=== PATIENT | female | born 1970 | race Caucasian/White ===

== ENCOUNTER 2023-12-03 14:00 | Emergency (ER) | payer OTHER, SELFPAY ==
[2023-12-03 14:08] VITALS: BP 112/75; PULSE 62; RESP 18; TEMP 36.7; O2SAT 96; BMI 22.1
--- NOTE | 2023-12-03 14:20 | ED.GENADUL1 ---
Documented by User: Hermelinda Herber 12/03/23 14:37 HPI - General Adult General Chief complaint: Headache Stated complaint: HEAD PAIN Time Seen by Provider: 12/03/23 14:08 Source: patient Mode of arrival: walk-in Limitations: no limitations History of Present Illness HPI narrative: 53 year old Female presents with a 2-day history of right-sided head pain. patient denies worse headache of her life, sudden onset or thunderclap sensation. She described as a sharp pain to the right side of her head That waxes and wanes for the past two days. She has had an upper respiratory infection as well.patient's vital signs are stable, she's currently afebrile, nontoxic appearing.patient denies history of migraine headaches. Patient has no pain to palpation at this time. Related Data Home Medications Medication Instructions Recorded Confirmed aripiprazole 5 mg tablet 5 mg PO DAILY 12/03/23 12/03/23 bupropion HCl 150 mg 24 hr tablet, 150 mg PO QAM 12/03/23 12/03/23 extended release bupropion HCl 300 mg 24 hr tablet, 300 mg PO DAILY 12/03/23 12/03/23 extended release venlafaxine 150 mg 150 mg PO DAILY 12/03/23 12/03/23 capsule,extended release 24 hr Allergies Allergy/AdvReac Type Severity Reaction Status Date / Time No Known Drug Allergies Allergy Verified 12/03/23 14:14 Review of Systems ROS Narrative Systems are negative except as noted/marked.All systems reviewed and otherwise negative PFSH PFSH Social History Smoking status: Current every day smoker Exam Narrative Exam Narrative: Nurses note and vital signs reviewed and patient is not hypoxic. General: The patient appears well and in no apparent distress. Patient is resting comfortably on cart. Skin: Warm, dry, no pallor noted. There is no rash noted. Head: Normocephalic, atraumatic Eye: Normal conjunctiva, no drainage, EOMI. PERRL Ears, Nose, Mouth, and Throat: oral mucosa is moist. Nares patent. Mouth without vesicles. Ear canals patent. Tm's without Erythema Cardiovascular: Regular Rate and Rhythm Respiratory: Patient is in no distress, no accessory muscle use, lungs are clear to auscultation, no wheezing, rales or rhonchi Musculoskeletal: The patient has no evidence of calf tenderness, no pitting edema, symmetrical pulses noted bilaterally Neurological: A&O x4, normal speech Psychiatric: Cooperative Constitutional Vital Signs, click to edit/add: Last Vital Signs Temp 98.0 F 12/03/23 14:08 Pulse 62 12/03/23 14:08 Resp 18 12/03/23 14:08 BP 112/75 12/03/23 14:08 Pulse Ox 96 12/03/23 14:08 O2 Del Method Room Air 12/03/23 14:08 Course Vital Signs Vital signs: Vital Signs Temperature 98.0 F 12/03/23 14:08 Pulse Rate 62 12/03/23 14:08 Respiratory Rate 18 12/03/23 14:08 Blood Pressure 112/75 12/03/23 14:08 Pulse Oximetry 96 12/03/23 14:08 Oxygen Delivery Method Room Air 12/03/23 14:08 Temperature 98.0 F 12/03/23 14:08 Pulse Rate 62 12/03/23 14:08 Respiratory Rate 18 12/03/23 14:08 Blood Pressure 112/75 12/03/23 14:08 Pulse Oximetry 96 12/03/23 14:08 Oxygen Delivery Method Room Air 12/03/23 14:08 Medical Decision Making MDM Narrative Medical decision making narrative: Healthy 53-year-old female presents with chief complaint of right-sided head pain. She states she's had a headache for the past two days that comes and goes wax and wanes. Vital signs are stable. She denies worse headache of her life sudden onset or thunderclap sensation. Patient states that last weekend she developed upper respiratory infection with cough congestion. She still has some congestion today. She denies the need or want for a Covid or flu swab. Patient's treated here for her Headache with Toradol, Zofran and Decadron. Patient discharged home and follow-up with her primary care physician. Patient has no focal neurological deficits. Differential Diagnosis Differential Diagnosis: headache, sinusitis, migraine Medical Records Medical records reviewed: Yes I reviewed the patient's medical records Discharge Plan Discharge Chief Complaint: Headache Clinical Impression: Headache Patient Disposition: Home, Self-Care Time of Disposition Decision: 14:34 Condition: Good Mode of Transportation: Private Vehicle Prescriptions / Home Meds: No Action venlafaxine 150 mg capsule,extended release 24hr 150 mg PO DAILY bupropion HCl 300 mg tablet extended release 24 hr 300 mg PO DAILY aripiprazole 5 mg tablet 5 mg PO DAILY bupropion HCl 150 mg tablet extended release 24 hr 150 mg PO QAM Instructions: General Headache (ED) Stand Alone Forms: Portal Instructions Referrals: Physician,Non-Staff, [Primary Care Provider] - 1 week Discharge Date/Time: 12/03/23 14:47 Documented by User: Seth Peace MD 12/03/23 18:40 HPI - General Adult General Chief complaint: Headache Stated complaint: HEAD PAIN Time Seen by Provider: 12/03/23 14:08 Related Data Home Medications Medication Instructions Recorded Confirmed aripiprazole 5 mg tablet 5 mg PO DAILY 12/03/23 12/03/23 bupropion HCl 150 mg 24 hr tablet, 150 mg PO QAM 12/03/23 12/03/23 extended release bupropion HCl 300 mg 24 hr tablet, 300 mg PO DAILY 12/03/23 12/03/23 extended release venlafaxine 150 mg 150 mg PO DAILY 12/03/23 12/03/23 capsule,extended release 24 hr Allergies Allergy/AdvReac Type Severity Reaction Status Date / Time No Known Drug Allergies Allergy Verified 12/03/23 14:14 PFSH PFS Social History Smoking status: Current every day smoker Exam Constitutional Vital Signs, click to edit/add: Last Vital Signs Temp 98.0 F 12/03/23 14:08 Pulse 62 12/03/23 14:08 Resp 18 12/03/23 14:08 BP 112/75 12/03/23 14:08 Pulse Ox 96 12/03/23 14:08 O2 Del Method Room Air 12/03/23 14:08 Course Vital Signs Vital signs: Vital Signs Temperature 98.0 F 12/03/23 14:08 Pulse Rate 62 12/03/23 14:08 Respiratory Rate 18 12/03/23 14:08 Blood Pressure 112/75 12/03/23 14:08 Pulse Oximetry 96 12/03/23 14:08 Oxygen Delivery Method Room Air 12/03/23 14:08 Temperature 98.0 F 12/03/23 14:08 Pulse Rate 62 12/03/23 14:08 Respiratory Rate 18 12/03/23 14:08 Blood Pressure 112/75 12/03/23 14:08 Pulse Oximetry 96 12/03/23 14:08 Oxygen Delivery Method Room Air 12/03/23 14:08 Medical Decision Making MDM Narrative Medical decision making narrative: Healthy 53-year-old female presents with chief complaint of right-sided head pain. She states she's had a headache for the past two days that comes and goes wax and wanes. Vital signs are stable. She denies worse headache of her life sudden onset or thunderclap sensation. Patient states that last weekend she developed upper respiratory infection with cough congestion. She still has some congestion today. She denies the need or want for a Covid or flu swab. Patient's treated here for her Headache with Toradol, Zofran and Decadron. Patient discharged home and follow-up with her primary care physician. Patient has no focal neurological deficits. I, Dr Peace, have reviewed the above progress note and course of action in the ER; agree with the above. I have gone over history and physical, and discussed disposition and treatment plan with the patient. Discharge Plan Discharge Chief Complaint: Headache Clinical Impression: Headache Patient Disposition: Home, Self-Care Time of Disposition Decision: 14:34 Condition: Good Mode of Transportation: Private Vehicle Prescriptions / Home Meds: No Action venlafaxine 150 mg capsule,extended release 24hr 150 mg PO DAILY bupropion HCl 300 mg tablet extended release 24 hr 300 mg PO DAILY aripiprazole 5 mg tablet 5 mg PO DAILY bupropion HCl 150 mg tablet extended release 24 hr 150 mg PO QAM Instructions: General Headache (ED) Stand Alone Forms: Portal Instructions Referrals: Physician,Non-Staff, MD [Primary Care Provider] - 1 week Discharge Date/Time: 12/03/23 14:47
[2023-12-03] MEDS: KETOROLAC TROMETHAMINE 60 MG/2 ML VIAL IM (14:25)
[2023-12-03] MEDS: ONDANSETRON 4 MG RAPDIS TABLET SL (14:25)
[2023-12-03] MEDS: DEXAMETHASONE SOD PHOS 10 MG/ML VIAL PO (14:25)
== END 2023-12-03 14:47 | disposition home or self-care (01) ==
PROVIDERS: Emergency Provider Emergency Medicine
DX: R51.9 Headache, unspecified (principal); Z79.899 Other long term (current) drug therapy; F17.210 Nicotine dependence, cigarettes, uncomplicated
CPT/HCPCS: 96372; 99284; J1100; J1885; Q0162

== ENCOUNTER 2024-01-04 16:40 | Inpatient (IN) | payer SELFPAY ==
[2024-01-04 16:45] VITALS: BP 113/80; PULSE 94; RESP 18; TEMP 36.6; O2SAT 99; BMI 22.0
--- NOTE | 2024-01-04 17:14 | US_ITS ---
The [address] [address] Patient Name: GEMA MORA MRN: [id number] date: 1970 Sex: F Assigned Patient Location: ER Current Patient Location: ER Accession/Order Number: [id number] Exam Date: 01/04/2024 17:20 Report Date: 01/04/2024 18:22 At the request of: FER MAJANO Procedure: US right upper quadrant EXAM: US right upper quadrant EXAM DATE: 01/04/2024 3:20 PM MST COMPARISON: CT urogram 06/28/2023. INDICATION: abdominal pain TECHNIQUE: Limited ultrasound of the right upper quadrant of abdomen was performed. Images were reviewed on a separate workstation. FINDINGS: Hepatic parenchyma is relatively isoechoic to adjacent renal cortex (normal). No focal intraparenchymal abnormality detected. Gallbladder is normally distended. No intraluminal echogenic abnormality seen. No gallbladder wall thickening or pericholecystic fluid noted. Gallbladder wall measures 1.5 mm. Sonographic Medley's sign is absent. No intrahepatic or extrahepatic biliary ductal dilatation noted. CBD measures 2.1 mm. Portal vein is patent with hepatopetal flow. Pancreas is partially obscured by bowel gas. Visualized pancreatic parenchyma is homogeneous. Right kidney measures 11.7 x 5.5 x 6.5 cm. Moderate hydronephrosis and proximal right hydroureter. The mid/distal ureter is obscured by bowel gas. Debris is noted in an inferior dilated renal calyx (for example, image [id number]). No free fluid noted in the right upper abdomen. US/US right upper quadrant IMPRESSION: 1. Moderate right hydroureteronephrosis. An obstructive etiology is not identified on this limited exam. Recommend further evaluation with CT to evaluate for an an obstructive etiology. 2. Debris within a dilated right inferior pole renal calyx raises suspicion for possible superimposed infection. 3. No gallstones or bile duct dilation. Sonographic Medley's sign is absent. 4. Subvisualized pancreas. Electronically authenticated by: RIMA BURKS Date: 01/04/2024 18:22
--- NOTE | 2024-01-04 17:15 | ED.ABDPAIN1 ---
HPI - Abdominal Pain General Chief Complaint: Abdominal Pain Stated Complaint: Abdominal Pain Time Seen by Provider: 01/04/24 17:07 Source: patient Mode of arrival: walk-in Limitations: no limitations History of Present Illness HPI narrative: Patient is a 53-year-old female who presents to the emergency department for 5-day history of pain in the right upper quadrant. She denies any back or flank pain. She has had a previous endometrial ablation but denies any other abdominal surgeries. She has had no fevers, chills, cough, congestion. She states she had COVID 1 month ago, no issues since. She is not concerned for . She has had nausea and she had 1 episode of vomiting 5 days ago but has had no persistent vomiting and has not had any episodes of diarrhea. She states her urine was dark today but she has not had any dysuria or urinary frequency. Related Data Home Medications Medication Instructions Recorded Confirmed aripiprazole 5 mg tablet 5 mg PO DAILY 12/03/23 12/03/23 bupropion HCl 150 mg 24 hr tablet, 150 mg PO QAM 12/03/23 12/03/23 extended release bupropion HCl 300 mg 24 hr tablet, 300 mg PO DAILY 12/03/23 12/03/23 extended release venlafaxine 150 mg 150 mg PO DAILY 12/03/23 12/03/23 capsule,extended release 24 hr Allergies Allergy/AdvReac Type Severity Reaction Status Date / Time No Known Drug Allergies Allergy Verified 12/03/23 14:14 Review of Systems ROS Constitutional Denies: fever or chills Ears, nose, mouth, and throat Denies: throat pain or nasal congestion Cardiovascular Denies: chest pain Respiratory Denies: shortness of breath Gastrointestinal Reports: abdominal pain and nausea; Denies: diarrhea Genitourinary Denies: painful urination Musculoskeletal Denies: back pain or neck pain Integumentary/Breast Denies: rash Neurological Denies: headache PFSH PFSH Social History Smoking status: Current every day smoker Exam Narrative Exam Narrative: Gen.: Awake, alert, in no distress Head: Normocephalic, atraumatic ENT: Moist mucous membranes Respiratory: No respiratory distress, lungs clear bilaterally Cardio: Regular rate and rhythm Gastrointestinal: Abdomen is soft, nondistended and Tender to palpation in the right upper quadrant with no guarding or rebound. Minimal tenderness in the right lower quadrant, no McBurney's point tenderness. No flank tenderness Extremities: Moves extremities equally Psych: Normal mood and affect Neuro: No focal neuro deficit Skin: Warm, dry, intact Constitutional Vital Signs, click to edit/add: Last Vital Signs Temp 97.9 F 01/04/24 16:45 Pulse 94 H 01/04/24 16:45 Resp 18 01/04/24 16:45 BP 113/80 01/04/24 16:45 Pulse Ox 99 01/04/24 16:45 O2 Del Method Room Air 01/04/24 16:45 Course Vital Signs Vital signs: Vital Signs Temperature 97.9 F 01/04/24 16:45 Pulse Rate 94 H 01/04/24 16:45 Respiratory Rate 18 01/04/24 16:45 Blood Pressure 113/80 01/04/24 16:45 Pulse Oximetry 99 01/04/24 16:45 Oxygen Delivery Method Room Air 01/04/24 16:45 Temperature 97.9 F 01/04/24 16:45 Pulse Rate 94 H 01/04/24 16:45 Respiratory Rate 18 01/04/24 16:45 Blood Pressure 113/80 01/04/24 16:45 Pulse Oximetry 99 01/04/24 16:45 Oxygen Delivery Method Room Air 01/04/24 16:45 MDM - Abdominal Pain MDM Narrative Medical decision making narrative: Initially I treated the patient with IV fluids, Toradol, Levsin, Protonix, Zofran. She is resting comfortably on reevaluation with these medications. Lab studies show white count 11.2, creatinine 1.07, lactic acid is normal. Patient noted to have a UTI. She was given IV Rocephin for this. Right upper quadrant ultrasound shows no evidence of gallbladder abnormality but the patient does have hydronephrosis noted on the ultrasound, it was recommended that she be sent for CT. CT shows stranding of the right kidney associated with an 8 x 6 x 8 mm stone in the right mid ureter. There is severe obstructive uropathy associated. I discussed the case with Dr. Rey for urology who recommended the patient be admitted, n.p.o. after midnight, he will see her tomorrow for stent. Patient is agreeable to this and very grateful for care as she does not have a local urologist, she does not have insurance. She verbalized understanding of n.p.o. after midnight and she was also instructed to strain her urine every time she goes to the bathroom. Medical Records Attestation: I reviewed the patient's medical records. Lab Data Attestation: I reviewed the patient's lab results. Labs: Lab Results 01/04/24 01/04/24 Range/Units 17:00 17:24 WBC 11.2 H (4.0-11.0) 10^3/uL RBC 3.91 L (4.20-5.40) 10^6/uL Hgb 11.8 L (12.0-16.0) g/dL Hct 35.8 L (36.0-48.0) % MCV 91.6 (81.0-99.0) fL MCH 30.2 (26.7-34.0) pg MCHC 33.0 (29.9-35.2) g/dL RDW 12.1 (11.0-15.0) % Plt Count 343 (150-450) 10^3/uL MPV 9.5 (9.5-13.5) fL Neut % (Auto) 78.2 H (43.0-75.0) % Lymph % (Auto) 11.5 L (20.5-60.0) % Pitkin % (Auto) 7.9 (1.7-12.0) % Eos % (Auto) 1.2 (0.9-7.0) % Baso % (Auto) 0.6 (0.2-2.0) % Neut # (Auto) 8.8 H (1.4-6.5) 10^3/uL Lymph # (Auto) 1.3 (1.2-3.8) 10^3/uL Pitkin # (Auto) 0.9 H (0.3-0.8) 10^3/uL Eos # (Auto) 0.1 (0.0-0.7) 10^3/uL Baso # (Auto) 0.1 (0.0-0.1) 10^3/uL Abs Immat Gran (auto) 0.07 H (0.00-0.03) 10^3/uL Imm/Tot Granulo (auto) 0.6 H (0.0-0.5) % Sodium 140 (136-145) mmol/L Potassium 3.3 L (3.5-5.1) mmol/L Chloride 101 (98-107) mmol/L Carbon Dioxide 27.3 (21.0-32.0) mmol/L Anion Gap 15.0 BUN 17.0 (7.0-18.0) mg/dL Creatinine 1.02 (0.55-1.02) mg/dL Est GFR ( Amer) >60 (>=60) Est GFR (Non-Af Amer) 57 L (>=60) BUN/Creatinine Ratio 16.7 Glucose 129 H (74-106) mg/dL Lactate 1.1 (0.4-2.0) mmol/L Calcium 10.3 H (8.5-10.1) mg/dL Total Bilirubin 0.5 (0.2-1.0) mg/dL AST 12 L (15-37) U/L ALT 15 (14-59) U/L Alkaline Phosphatase 123 H (46-116) U/L Total Protein 8.1 (6.4-8.2) g/dL Albumin 2.8 L (3.4-5.0) g/dL Globulin 5.3 g/dL Albumin/Globulin Ratio 0.5 Lipase 24.0 (16.0-77.0) U/L Urine Color Brown A (YELLOW) Urine Clarity Sl cloudy (CLEAR) Urine pH 6.0 (5.0-9.0) Ur Specific [place] 1.025 (1.005-1.025) Urine Protein 30 A (NEG/TRACE) mg/dL Urine Glucose (UA) Negative (NEGATIVE) mg/dL Urine Ketones Trace A (NEGATIVE) mg/dL Urine Occult Blood Large A (NEGATIVE) Urine Nitrite Positive A (NEGATIVE) Urine Bilirubin Negative (NEGATIVE) Urine Urobilinogen 1.0 (0.2-1.0) EU/dL Ur Leukocyte Esterase Large A (NEGATIVE) Urine RBC 20-50 A (0-2) #/HPF Urine WBC >100 A (NONE SEEN) #/HPF Ur Squamous Epith Cells None seen (NONE/RARE) #/LPF Urine Crystals None seen (None Seen) #/HPF Urine Bacteria Large A (NONE SEEN) #/HPF Urine Casts None seen (NONE SEEN) #/LPF Urine Mucus None seen (NONE SEEN) Ur Culture Indicated? Yes Urine HCG, Qual Negative (NEGATIVE) Imaging Data CT scan - abdomen: Attestation: I have reviewed the pertinent imaging results. Radiologist's impression: ITS Impressions Upper Quadrant Ultrasound 01/04/24 17:14 IMPRESSION: 1. Moderate right hydroureteronephrosis. An obstructive etiology is not identified on this limited exam. Recommend further evaluation with CT to evaluate for an an obstructive etiology. 2. Debris within a dilated right inferior pole renal calyx raises suspicion for possible superimposed infection. 3. No gallstones or bile duct dilation. Sonographic Medley's sign is absent. 4. Subvisualized pancreas. Electronically authenticated by: RIMA BURKS Date: 01/04/2024 18:22 US - abdomen: Radiologist's impression: ITS Impressions Upper Quadrant Ultrasound 01/04/24 17:14 IMPRESSION: 1. Moderate right hydroureteronephrosis. An obstructive etiology is not identified on this limited exam. Recommend further evaluation with CT to evaluate for an an obstructive etiology. 2. Debris within a dilated right inferior pole renal calyx raises suspicion for possible superimposed infection. 3. No gallstones or bile duct dilation. Sonographic Medley's sign is absent. 4. Subvisualized pancreas. Electronically authenticated by: RIMA BURKS Date: 01/04/2024 18:22 Abdomen/Pelvis CT 01/04/24 18:38 IMPRESSION: 1. Obstructing 8 x 6 x 8 mm stone in the mid right ureter resulting in severe right-sided hydronephrosis and hydroureter. 2. There are 4 additional nonobstructing stones in the right kidney and at least 6 nonobstructing stones in the left kidney with the stones measuring up to 6 mm in size. 3. New mild upper abdominal retroperitoneal adenopathy. Differential includes infectious/inflammatory process versus neoplasm. Recommend correlation with patient history to determine need for further imaging. Electronically authenticated by: MIGUEL MARIA Date: 01/04/2024 19:16 Discharge Plan Discharge Chief Complaint: Abdominal Pain Patient Disposition: Admitted as Observation Time of Disposition Decision: 19:37 Prescriptions / Home Meds: No Action venlafaxine 150 mg capsule,extended release 24hr 150 mg PO DAILY bupropion HCl 300 mg tablet extended release 24 hr 300 mg PO DAILY aripiprazole 5 mg tablet 5 mg PO DAILY bupropion HCl 150 mg tablet extended release 24 hr 150 mg PO QAM Stand Alone Forms: Portal Instructions Referrals: Physician,Non-Staff, MD [Primary Care Provider] - 1 week
[2024-01-04 17:41] LABS: Basophils Absolute Auto 0.1 10^3/uL (0.0-0.1); Basophils Percent Auto 0.6 % (0.2-2.0); Eosinophils Absolute Auto 0.1 10^3/uL (0.0-0.7); Eosinophils Percent Auto 1.2 % (0.9-7.0); Hematocrit 35.8 % (36.0-48.0); Hemoglobin 11.8 g/dL (12.0-16.0); Immature Granulocytes Abs Auto 0.07 10^3/uL (0.00-0.03); Immature Granulocytes Pct Auto 0.6 % (0.0-0.5); Lymphocytes Absolute Auto 1.3 10^3/uL (1.2-3.8); Lymphocytes Percent Auto 11.5 % (20.5-60.0); Mean Corpuscular Hemoglobin 30.2 pg (26.7-34.0); Mean Corpuscular Volume 91.6 fL (81.0-99.0); Mean Platelet Volume 9.5 fL (9.5-13.5); Monocytes Absolute Auto 0.9 10^3/uL (0.3-0.8); Monocytes Percent Auto 7.9 % (1.7-12.0); Neutrophils Absolute Auto 8.8 10^3/uL (1.4-6.5); Neutrophils Percent Auto 78.2 % (43.0-75.0); Platelet Count 343 10^3/uL (150-450); Red Blood Count 3.91 10^6/uL (4.20-5.40); Red Cell Distribution Width 12.1 % (11.0-15.0); White Blood Count 11.2 10^3/uL (4.0-11.0)
[2024-01-04 17:42] LABS: Bilirubin Urine NEGATIVE (NEGATIVE); Blood Urine LARGE (NEGATIVE); Clarity Urine SL CLOUDY (CLEAR); Color Urine BROWN (YELLOW); Glucose Urine UA NEGATIVE (NEGATIVE); Ketones Urine TRACE mg/dL (NEGATIVE); Leukocyte Esterase Urine LARGE (NEGATIVE); Nitrite Urine POSITIVE (NEGATIVE); Protein Urine 30 mg/dL (NEG/TRACE); Specific Gravity Urine 1.025 (1.005-1.025)
[2024-01-04 17:44] LABS: HCG Qualitative Urine* NEGATIVE (NEGATIVE); Urine Microscopic Indicated YES
[2024-01-04 17:49] LABS: Bacteria Urine LARGE #/HPF (NONE SEEN); Cast Seen? NONE SEEN #/LPF (NONE SEEN); Crystals Seen? None Seen #/HPF (None Seen); Mucus Urine NONE SEEN (NONE SEEN); RBC Urine 20-50 #/HPF (0-2); Squamous Epithelial Cell Urine NONE SEEN #/LPF (NONE/RARE); WBC Urine >100 #/HPF (NONE SEEN)
[2024-01-04 17:50] LABS: Urine Culture Indicated YES
[2024-01-04 17:57] LABS: Alanine Aminotransferase 15 U/L (14-59); Albumin Globulin Ratio 0.5; Albumin Level 2.8 g/dL (3.4-5.0); Alkaline Phosphatase 123 U/L (46-116); Aspartate Amino Transferase 12 U/L (15-37); BUN Creatinine Ratio 16.7; Bilirubin Total 0.5 mg/dL (0.2-1.0); Calcium 10.3 mg/dL (8.5-10.1); Carbon Dioxide 27.3 mmol/L (21.0-32.0); Chloride 101 mmol/L (98-107); Estimated GFR (African America >60 (>=60); Estimated GFR (Non-African Ame 57 (>=60); Globulin 5.3 g/dL; Glucose 129 mg/dL (74-106); Potassium 3.3 mmol/L (3.5-5.1); Sodium 140 mmol/L (136-145); Total Protein 8.1 g/dL (6.4-8.2)
[2024-01-04 18:00] LABS: Lactate/Lactic Acid 1.1 mmol/L (0.4-2.0)
[2024-01-04] MEDS: 0.9 % SODIUM CHLORIDE 1,000 ML 1000 ML IV (18:07)
[2024-01-04] MEDS: HYOSCYAMINE SULFATE 0.125 MG TAB.SUBL SL (18:08)
[2024-01-04] MEDS: PANTOPRAZOLE SODIUM 40 MG VIAL IV (18:08)
[2024-01-04] MEDS: ONDANSETRON PF 4 MG/2 ML VIAL IV (18:08)
[2024-01-04] MEDS: KETOROLAC TROMETHAMINE 30 MG/ML VIAL 15 MG IVP (18:08)
[2024-01-04] MEDS: CEFTRIAXONE 1,000 MG in 0.9 % SODIUM CHLORIDE 50 ML 100 MG IV (18:18)
--- NOTE | 2024-01-04 18:38 | CT_ITS ---
[address] [address] Patient Name: GEMA MORA MRN: [id number] date: 1970 Sex: F Assigned Patient Location: ER Current Patient Location: .[facility] Accession/Order Number: [id number] Exam Date: 01/04/2024 18:33 Report Date: 01/04/2024 19:16 At the request of: FER MAJANO Procedure: CT abdomen pelvis wo con EXAM: CT abdomen pelvis wo con; [id number] REASON FOR EXAM: Right sided abd pain TECHNIQUE: Helical CT images of the abdomen and pelvis were obtained without IV contrast. Multiplanar reformats were generated at the scanner. Dose reduction technique used: Automated exposure control and/or adjustment of the mA and/or kV according to patient size and/or use of iterative reconstruction technique. COMPARISON: CT urogram 06/28/2023. FINDINGS: Note: Compared with a contrast-enhanced CT exam, noncontrast images are relatively insensitive for detection of solid organ and vascular abnormalities. Visualized Chest: No pleural effusion or any significant pulmonary findings. Abdomen: Liver: Within normal limits. Gallbladder: No calcified gallstones. No acute inflammatory changes. Bile Ducts: No significant biliary ductal dilatation. Pancreas: No ductal dilatation or inflammatory changes. Spleen: No splenomegaly. Adrenals: No nodules. Kidneys: -Obstructing stone in the right mid ureter measuring 8 x 6 x 8 mm resulting in severe right-sided hydronephrosis and hydroureter. There is obstructive right perinephric fat stranding. -There are 4 additional nonobstructing stones in the right kidney with the largest measuring up to 6 mm. -There are at least 6 nonobstructing stones in the left kidney with the largest measuring up to 6 mm. Vascular: No aortic aneurysm. Lymph Nodes: -Mild upper abdominal retroperitoneal adenopathy which is mildly worse compared with 06/28/2023. For example lymph node near the right renal hilum measuring 13 x 11 mm (series 3 image 32), previously 6 x 6 mm. Abdominal Wall: Trace fat-containing umbilical hernia. Pelvis: No mass or adenopathy. Bowel/Peritoneal Cavity/Mesentery: -No bowel obstruction or significant ileus. -No acute inflammatory changes. -No free air or free fluid. Musculoskeletal: No acute fracture or suspicious osseous lesion. CT/CT abdomen pelvis wo con IMPRESSION: 1. Obstructing 8 x 6 x 8 mm stone in the mid right ureter resulting in severe right-sided hydronephrosis and hydroureter. 2. There are 4 additional nonobstructing stones in the right kidney and at least 6 nonobstructing stones in the left kidney with the stones measuring up to 6 mm in size. 3. New mild upper abdominal retroperitoneal adenopathy. Differential includes infectious/inflammatory process versus neoplasm. Recommend correlation with patient history to determine need for further imaging. Electronically authenticated by: MIGUEL MARIA Date: 01/04/2024 19:16
[2024-01-04 19:59] VITALS: BP 101/67; PULSE 61; RESP 18; TEMP 36.4; O2SAT 96
--- OUTSIDE RECORDS SUMMARY | 2024-01-04 20:41 | XMS_ITS | CCD ---
Author Name Unknown Address [id number] [place] [address] Organization [facility] Care Team Providers Care Environmental Science Professor Name Role Phone BRANDEN TREVINO Unavailable Unavailable BRANDEN TREVINO Unavailable Unavailable DANA ISBELL Unavailable Unavailable Regan Mendez Primary Care Provider [phone] MightRegan Primary Care Provider [phone] MightRegan Primary Care Provider [phone] Might SONAR SUBSYSTEM EQUIPMENT OPERATOR - JOB PRESS FEEDERRegan Primary Care Provider Might SONAR SUBSYSTEM EQUIPMENT OPERATOR - JOB PRESS FEEDERRegan Primary Care Provider Might SONAR SUBSYSTEM EQUIPMENT OPERATOR - JOB PRESS FEEDER, Regan Johnson Primary Care Provider Might SONAR SUBSYSTEM EQUIPMENT OPERATOR - JOB PRESS FEEDERRegan Primary Care Provider Might SONAR SUBSYSTEM EQUIPMENT OPERATOR - JOB PRESS FEEDERRegan Primary Care Provider MIGHT, REGAN Johnson Primary Care Unavailable BRITTNY ENRIQUEZ Referring Unavailable MIGHT, REGAN Johnson Primary Care Unavailable BRITTNY ENRIQUEZ Referring Unavailable ALECIA MORALES Attending Unavailable MIGHT, REGAN Johnson Primary Care Unavailable MICAH NARAYANAN Referring Unavailable MIGHT, REGAN Johnson Primary Care Unavailable Might SONAR SUBSYSTEM EQUIPMENT OPERATOR - JOB PRESS FEEDERRegan Primary Care Provider ZHAO GARCIA Referring Unavailable MIGHT, REGAN Johnson Primary Care Unavailable Ray Carlos Attending Unavailab Ray [place] Admitting Unavailab le NON STAFF Primary Care Unavailable Medications Current Medications Medication Drug Class(es) Dates Sig (Normalized) Sig (Original) 24 hr buPROPion hydrochloride 300 mg extended release oral tablet (20 sources) Aminoketone Start: 07-28-2022 take 1 tablet by mouth once daily in the morning buPROPion (WELLBUTRIN XL) 300 MG extended release tablet Indications: Dysthymia TAKE 1 TABLET BY MOUTH ONCE DAILY IN THE MORNING 90 tablet 3 07/28/2022 Active Start: 07-31-2021 take 1 tablet by clau th once daily in the morning buPROPion (WELLBUTRIN XL) 150 MG extended release tablet Indications: Dysthymia TAKE 1 TABLET BY MOUTH ONCE DAILY IN THE MORNING 90 tablet 3 07/31/2021 Active Start: 07-30-2020 take 1 tablet by clau th once daily in the morning buPROPion (WELLBUTRIN XL) 150 MG extended release tablet Indications: Dysthymia Take 1 tablet by mouth every morning 90 tablet 3 07/30/2020 Active Start: 01-22-2020 take 1 tablet by clau th once daily in the morning buPROPion (WELLBUTRIN XL) 150 MG extended release tablet Indications: Dysthymia Take 1 tablet by mouth every morning 90 tablet 3 01/22/2020 Active Start: 10-16-2019 take 1 tablet by clau th once daily in the morning buPROPion (WELLBUTRIN XL) 150 MG extended release tablet Indications: Dysthymia Take 1 tablet by mouth every morning 90 tablet 0 10/16/2019 Active Start: 07-11-2019 take 1 tablet by clau th once daily in the morning buPROPion (WELLBUTRIN XL) 150 MG extended release tablet Indications: Dysthymia Take 1 tablet by mouth every morning 90 tablet 0 07/11/2019 Suspended calcium chloride 0.0014 meq/ ml / potassium chloride 0.004 meq/ml / sodium chloride 0.103 meq/ml / sodium lactate 0.028 meq/ml injectable solution (7 sources) Start: 04-27-2022 lactated ringe rs infusion Start: 04-14-2022 lactated ringe rs infusion Start: 03-20-2021 lactated ringe rs infusion Start: 01-01-2021 lactated ringe rs infusion Start: 07-25-2019 lactated ringe rs infusion cetirizine hydrochloride 10 mg oral tablet (3 sources) Histamine-1 Receptor Antagonist Start: 02-28-2021 End: 03-30-2021 take 1 tablet by mouth once daily cetirizine (ZYRTEC) 10 MG tablet Take 1 tablet by mouth daily 30 tablet 0 02/28/2021 03/30/2021 Active dicyclomine hydrochloride 10 mg oral capsule (5 sources) Anticholinergic Start: 03-18-2021 take 1 capsule by mouth three times daily as needed for pain dicyclomine (BENTYL) 10 MG capsule Take 1 capsule by mouth 3 times daily as needed (abd pain - pelvic pain) 120 capsule 3 03/18/2021 Active 2 ml fentaNYL 0.05 mg/ml injection (4 sources) Opioid Agonist Start: 04-14-2022 fentaNYL (SUBLIMAZE) injection 50 mcg Start: 04-14-2022 fentaNYL (SUBL IMAZE) injection 25 mcg Start: 03-20-2021 fentaNYL (SUBL IMAZE) injection 50 mcg Start: 01-01-2021 fentaNYL (SUBL IMAZE) injection 50 mcg 24 hr fexofenadine hydrochloride 180 mg / pseudoephedrine hydrochloride 240 mg extended release oral tablet (1 source) alpha-Adrenergic Agonist, Histamine-1 Receptor Antagonist Start: 06-24-2020 take 180-240 mg by mouth once fexofenadine-pseudoephedrine (NENA-D 24HR) 180-240 MG per extended release tablet Take 1 tablet by mouth daily 14 tablet 0 06/24/2020 Active ibuprofen 600 mg oral tablet (20 sources) Nonsteroidal Anti-inflammatory Drug Start: 08-07-2020 take 1 tablet by mouth four times daily as needed for pain ibuprofen (ADVIL;MOTRIN) 600 MG tablet Take 1 tablet by mouth 4 times daily as needed for Pain 40 tablet 0 08/07/2020 Active take 2 tablets by mo ut every six hours ibuprofen (ADVIL;MOTRIN) 200 MG tablet T [place] 200 mg by mouth every 6 hours as needed for Pain Takes 6 in the morning. Mid morning takes 2. Lunch takes 2. And occ takes 2 before bed. 0 Active 24 hr loratadine 10 mg / pseudoephedrine sulfate 240 mg extended release oral tablet (1 source) alpha-Adrenergic Agonist Start: 08-30-2020 take 10-240 mg by mouth once loratadine-pseudoephedrine (CLARITIN-D 24 HOUR) 10-240 MG per extended release tablet Indications: Acute rhinitis Take 1 tablet by mouth daily 14 tablet 0 08/30/2020 Active meloxicam 15 mg oral tablet (11 sources) Nonsteroidal Anti-inflammatory Drug Start: 01-14-2022 take 1 tablet by mouth once daily as needed for pain meloxicam (MOBIC) 15 MG tablet Indications: Chronic midline low back pain without sciatica Take 1 tablet by mouth daily as needed for Pain 90 tablet 1 01/14/2022 Active Start: 10-31-2020 take 1 tablet by clau th once daily meloxicam (MOBIC) 15 MG tablet Take 1 tablet by mouth daily 90 tablet 0 10/31/2020 Active 2 ml metoclopramide 5 mg/ml prefilled syringe (3 sources) Dopamine-2 Receptor Antagonist Start: 04-27-2022 End: 04-27-2022 10 mg, IntraVENous, ONCE PRN, 1 dose, Starting on Wed04/27/22 at 0906, Until Wed04/27/22 at 2359, Nausea Secondary antiemetic therapy. PACU only Start: 04-14-2022 End: 04-14-2022 metoclopramide (REGLAN) inje ction 10 mg Start: 01-01-2021 End: 01-01-2021 metoclopramide (REGLAN) inje ction 10 mg montelukast 10 mg oral tablet (10 sources) Leukotriene Receptor Antagonist Start: 07-28-2022 take 1 tablet by mouth once daily montelukast (SINGULAIR) 10 MG tablet Indications: Seasonal allergies Take 1 tablet by mouth daily 90 tablet 3 07/28/2022 Active Start: 05-01-2021 take 1 tablet by clau th once daily montelukast (SINGULAIR) 10 MG tablet Indications: Seasonal allergies Take 1 tablet by mouth daily 90 tablet 1 05/01/2021 Active nitrofurantoin, macrocrystals 25 mg / nitrofurantoin, monohydrate 75 mg oral capsule (3 sources) Nitrofuran Antibacterial Start: 03-17-2021 End: 03-27-2021 take 1 capsule by mouth twice daily nitrofurantoin, macrocrystal-monohydrate, (MACROBID) 100 MG capsule Indications: Acute pyelonephritis Take 1 capsule by mouth 2 times daily for 10 days 20 capsule 0 03/17/2021 03/27/2021 Active ondansetron 4 mg disintegrating oral tablet (15 sources) Serotonin-3 Receptor Antagonist Start: 01-25-2023 take 1 tablet by mouth three times daily as needed for nausea ondansetron (ZOFRAN-ODT) 4 MG disintegrating tablet Indications: AGE (acute gastroenteritis) Take 1 tablet by mouth 3 times daily as needed for Nausea or Vomiting 21 tablet 0 01/25/2023 Active Start: 04-27-2022 End: 04-27-2022 4 mg, IntraVENous, ONCE PRN, 1 dose, Starting on Wed04/27/22 at 0906, Until Wed04/27/22 at 2359, Nausea Initial antiemetic therapy. PACU only Start: 04-14-2022 End: 04-14-2022 ondansetron (ZOFRAN) injecti on 4 mg Start: 04-06-2022 take 1 tablet by clau th every eight hours as needed for nausea ondansetron (ZOFRAN ODT) 4 MG disintegrating tablet Take 1 tablet by mouth every 8 hours as needed for Nausea or Vomiting 15 tablet 0 04/06/2022 Active Start: 03-22-2021 take 1 tablet by clau th every eight hours as needed for nausea ondansetron (ZOFRAN ODT) 4 MG disintegrating tablet Take 1 tablet by mouth every 8 hours as needed for Nausea or Vomiting 20 tablet 0 03/22/2021 Active Start: 03-22-2021 End: 03-22-2021 ondansetron (ZOFRAN) injecti on 4 mg Start: 03-20-2021 End: 03-20-2021 ondansetron (ZOFRAN) injecti on 4 mg Start: 03-19-2021 take 1 tablet by clau th every eight hours as needed for nausea ondansetron (ZOFRAN ODT) 4 MG disintegrating tablet Take 1 tablet by mouth every 8 hours as needed for Nausea or Vomiting 15 tablet 0 03/19/2021 Active oxybutynin chloride 5 mg oral tablet (3 sources) Cholinergic Muscarinic Antagonist Start: 03-21-2021 take 1 tablet by mouth three times daily as needed for muscle spasms oxybutynin (DITROPAN) 5 MG tablet Take 1 tablet by mouth 3 times daily PRN for bladder spasms 30 tablet 0 03/21/2021 Active oxyCODONE hydrochloride 5 mg oral tablet (1 source) Opioid Agonist Start: 04-27-2022 End: 04-27-2022 take 1 dose by mouth once 5 mg, Oral, ONCE PRN, 1 dose, Starting on Wed04/27/22 at 0906, Until Wed04/27/22 at 2359, Pain Moderate (4-6) PHASE II PACU only phenazopyridine hydrochloride 200 mg delayed release oral tablet (3 sources) Start: 04-21-2022 take 1 tablet by mouth three times daily as needed for pain phenazopyridine (PYRIDIUM) 200 MG tablet Take 1 tablet by mouth 3 times daily as needed for Pain 30 tablet 0 04/21/2022 Active 1 ml promethazine hydrochloride 25 mg/ml injection (2 sources) Phenothiazine Start: 01-01-2021 End: 01-01-2021 promethazine (PHENERGAN) injection 6.25 mg Start: 09-11-2020 End: 09-18-2020 take 1 tablet by mouth three times daily as needed for nausea promethazine (PHENERGAN) 25 MG tablet Take 1 tablet by mouth 3 times daily as needed for Nausea 12 tablet 0 09/11/2020 09/18/2020 Active 1000 ml sodium chloride 9 mg/ml injection (13 sources) Start: 04-27-2022 IntraVENous, a t 5-250 mL/hr, PRN, if patient receiving piggyback infusions and maintenance fluids are not ordered OR KVO fluids to protect IV site / prevent frequent line interruptions/ long duration, Starting on Wed04/27/22 at 0906 For piggyback infusion, administer at same rate as piggyback for a total of 25 mL. Enter 25 mL into dose field and piggyback rate into rate field of order. If piggyback is infusing at a rate less than 100 mL/hr, enter 25 mL into dose field and 100 mL/hr into rate field of order. For KVO fluids, enter rate of 20 mL/hr or less into rate field of order. PACU only Start: 04-27-2022 take 1 dose intraven ously twice daily 5-40 mL, IntraVENous, EVERY 12 HOURS SCHEDULED (2 times per day), First dose on Wed04/27/22 at 0930, Until Discontinued For Line Patency: Peripheral IV = 5 mL; Midline or Central Line = 10 mL/lumen. If following IV push medication, administer flush at same rate as the IV push. Flush volume is determined by type of infusion therapy being given. For non-viscous solutions use: Peripheral IV = 5 mL Midline or Central Line = 10 mL/lumen For viscous solutions (i.e. blood components, parenteral nutrition, contrast media, or after obtaining blood sample) use: Peripheral IV = 10 mL Midline or Central Line = 20 mL/lumen PACU only Start: 04-27-2022 take 5-40 mL intrave nously once as needed 5-40 mL, IntraVENous, PRN, Starting on Wed04/27/22 at 0906, Until Discontinued, Line Care, After every IV line use For Line Patency: Peripheral IV = 5 mL; Midline or Central Line = 10 mL/lumen. If following IV push medication, administer flush at same rate as the IV push. Flush volume is determined by type of infusion therapy being given. For non-viscous solutions use: Peripheral IV = 5 mL Midline or Central Line = 10 mL/lumen For viscous solutions (i.e. blood components, parenteral nutrition, contrast media, or after obtaining blood sample) use: Peripheral IV = 10 mL Midline or Central Line = 20 mL/lumen PACU only Start: 04-14-2022 sodium chlorid e flush 0.9 % injection 5-40 mL Start: 04-14-2022 0.9 % sodium c hloride infusion Start: 04-14-2022 sodium chlorid e flush 0.9 % injection 5-40 mL Start: 04-06-2022 0.9 % sodium c hloride infusion Start: 03-22-2021 End: 03-22-2021 0.9 % sodium chloride bolus Start: 03-20-2021 0.9 % sodium c hloride infusion Start: 03-20-2021 sodium chlorid e flush 0.9 % injection 5-40 mL Start: 07-25-2019 sodium chlorid e flush 0.9 % injection 10 mL tamsulosin hydrochloride 0.4 mg oral capsule (18 sources) alpha-Adrenergic Hugo Start: 04-21-2022 take 1 capsule by mouth once daily tamsulosin (FLOMAX) 0.4 mg capsule Take 1 capsule by mouth daily 30 capsule 0 04/21/2022 Active Start: 04-06-2022 take 1 capsule by mo uth once daily tamsulosin (FLOMAX) 0.4 MG capsule Take 1 capsule by mouth daily 15 capsule 0 04/06/2022 Suspended Start: 10-04-2020 take 1 capsule by mo uth once daily tamsulosin (FLOMAX) 0.4 MG capsule Take 1 capsule by mouth daily Take to facilitate stone passage 30 capsule 0 03/19/2021 Active Start: 08-07-2020 take 1 capsule by mo uth once daily in the evening tamsulosin (FLOMAX) 0.4 MG capsule Take 1 capsule by mouth every evening 30 capsule 11 08/07/2020 Active 24 hr venlafaxine 150 mg extended release oral capsule (20 sources) Serotonin and Norepinephrine Reuptake Inhibitor Start: 01-25-2023 take 1 capsule by mouth once daily venlafaxine (EFFEXOR XR) 150 MG extended release capsule Indications: Dysthymia Take 1 capsule by mouth daily 90 capsule 3 01/25/2023 Active Start: 07-22-2022 take 1 capsule by mo uth once daily venlafaxine (EFFEXOR XR) 75 MG extended release capsule Indications: Dysthymia Take 1 capsule by mouth daily 90 capsule 3 07/22/2022 Active Start: 07-15-2021 take 1 capsule by mo uth once daily venlafaxine (EFFEXOR XR) 75 MG extended release capsule Indications: Dysthymia Take 1 capsule by mouth daily 90 capsule 3 07/15/2021 Active Start: 04-30-2020 take 1 capsule by mo uth once daily venlafaxine (EFFEXOR XR) 37.5 MG extended release capsule Indications: Dysthymia Take 1 capsule by mouth daily 90 capsule 3 04/30/2020 Active Start: 07-05-2019 take 1 capsule by mo uth once daily venlafaxine (EFFEXOR XR) 37.5 MG extended release capsule Indications: Dysthymia Take 1 capsule by mouth daily 90 capsule 1 07/05/2019 Active Start: 06-05-2019 take 1 capsule by mo uth once daily venlafaxine (EFFEXOR XR) 37.5 MG extended release capsule Indications: Dysthymia Take 1 capsule by mouth daily 30 capsule 0 06/05/2019 Active Completed/Discontinued Medications Medication Drug Class(es) Dates Sig (Normalized) Sig (Original) acetaminophen 325 mg oral tablet (5 sources) Start: 05-05-2023 End: 05-05-2023 acetaminophen (TYLENOL) tablet 650 mg Start: 04-27-2022 End: 04-27-2022 acetaminophen (TYLENOL) tabl et 650 mg Start: 04-14-2022 End: 04-14-2022 acetaminophen (TYLENOL) tabl et 650 mg Start: 01-01-2021 End: 01-01-2021 acetaminophen (TYLENOL) tabl et 650 mg Start: 07-25-2019 End: 07-25-2019 acetaminophen (TYLENOL) tabl et 650 mg acetaminophen 325 mg / HYDROcodone bitartrate 5 mg oral tablet (5 sources) Opioid Agonist Start: 03-22-2021 End: 03-22-2021 HYDROcodone-acetaminophen (NORCO) 5-325 MG per tablet 1 tablet Start: 03-19-2021 End: 03-22-2021 HYDROcodone-acetaminophen (N ORCO) 5-325 MG per tablet Indications: Ureteral stone Take 1 tablet by mouth every 6 hours as needed for Pain for up to 3 days. Intended supply: 3 days. Take lowest dose possible to manage pain 10 tablet 0 03/19/2021 03/22/2021 Active Start: 01-01-2021 End: 01-04-2021 take 1 tablet by mouth every six hours as needed for pain, then take 1 tablet by mouth as needed for pain HYDROcodone-acetaminophen (NORCO) 5-325 MG per tablet Indications: DUB (dysfunctional uterine bleeding) Take 1 tablet by mouth every 6 hours as needed for Pain for up to 3 days. Intended supply: 3 days. Take lowest dose possible to manage pain 10 tablet 0 01/01/2021 01/04/2021 Active Start: 01-01-2021 End: 01-01-2021 HYDROcodone-acetaminophen (N ORCO) 5-325 MG per tablet 1 tablet acetaminophen 325 mg / oxyCODONE hydrochloride 5 mg oral tablet (3 sources) Opioid Agonist Start: 04-14-2022 End: 04-14-2022 oxyCODONE-acetaminophen (PERCOCET) 5-325 MG per tablet 1 tablet Start: 04-06-2022 End: 04-09-2022 oxyCODONE-acetaminophen (PER COCET) 5-325 MG per tablet Indications: Kidney stone Take 1 tablet by mouth every 6 hours as needed for Pain for up to 3 days. Intended supply: 3 days. Take lowest dose possible to manage pain 15 tablet 0 04/06/2022 04/09/2022 ceFAZolin 2000 mg injection (1 source) Cephalosporin Antibacterial Start: 01-01-2021 End: 01-01-2021 ceFAZolin (ANCEF) 2000 mg in dextrose 3 % 50 mL IVPB (duplex) 200 ml ciprofloxacin 2 mg/ml injection (9 sources) Quinolone Antimicrobial Start: 04-27-2022 End: 04-27-2022 ciprofloxacin (CIPRO) IVPB 400 mg Start: 04-21-2022 End: 05-01-2022 take 1 tablet by mouth twice daily ciprofloxacin (CIPRO) 500 mg tablet Take 1 tablet by mouth 2 times daily for 10 days 20 tablet 0 04/21/2022 05/01/2022 Active Start: 04-14-2022 End: 04-14-2022 ciprofloxacin (CIPRO) IVPB 4 00 mg Start: 03-20-2021 End: 03-20-2021 ciprofloxacin (CIPRO) IVPB 4 00 mg Start: 08-07-2020 End: 08-14-2020 take 1 tablet by mouth twice daily ciprofloxacin (CIPRO) 500 MG tablet Take 1 tablet by mouth 2 times daily for 7 days 14 tablet 0 08/07/2020 08/14/2020 Active Start: 07-25-2019 End: 07-25-2019 ciprofloxacin (CIPRO) IVPB 4 00 mg dimenhyDRINATE 50 mg oral ta blet (4 sources) Start: 04-27-2022 End: 04-27-2022 dimenhyDRINATE (DRAMAMINE) tablet 50 mg Start: 04-14-2022 End: 04-14-2022 dimenhyDRINATE (DRAMAMINE) t ablet 50 mg Start: 01-01-2021 End: 01-01-2021 dimenhyDRINATE (DRAMAMINE) t ablet 50 mg Start: 07-25-2019 End: 07-25-2019 dimenhyDRINATE (DRAMAMINE) t ablet 50 mg Iohexol (1 source) Radiographic Contrast Agent Start: 06-28-2023 End: 06-28-2023 iohexol (OMNIPAQUE 350) solution 120 mL iopamidol (ISOVUE-370) 76 % injection 75 mL (2 sources) Start: 05-05-2023 End: 05-05-2023 iopamidol (ISOVUE-370) 76 % injection 75 mL Start: 03-18-2021 End: 03-18-2021 iopamidol (ISOVUE-370) 76 % injection 75 mL 1 ml ketorolac tromethamine 30 mg/ml cartridge (8 sources) Nonsteroidal Anti-inflammatory Drug, Cyclooxygenase Inhibitor Start: 05-05-2023 End: 05-05-2023 ketorolac (TORADOL) injection 30 mg Start: 04-06-2022 End: 04-27-2023 take 1 tablet by mouth every six hours as needed for pain ketorolac (TORADOL) 10 MG tablet Take 1 tablet by mouth every 6 hours as needed for Pain 20 tablet 0 04/27/2022 04/27/2023 Active Start: 03-22-2021 End: 03-22-2021 ketorolac (TORADOL) injectio n 30 mg Start: 03-18-2021 End: 03-18-2021 ketorolac (TORADOL) injectio n 30 mg metroNIDAZOLE 500 mg oral tablet (1 source) Nitroimidazole Antimicrobial Start: 06-22-2023 End: 06-29-2023 take 1 tablet by mouth twice daily metroNIDAZOLE (FLAGYL) 500 MG tablet Take 1 tablet by mouth 2 times daily for 7 days 14 tablet 0 06/22/2023 06/29/2023 sulfamethoxazole 800 mg / trimethoprim 160 mg oral tablet (2 sources) Dihydrofolate Reductase Inhibitor Antibacterial, Sulfonamide Antimicrobial Start: 06-21-2023 End: 06-28-2023 take 1 tablet by mouth twice daily sulfamethoxazole-t rimethoprim (BACTRIM DS;SEPTRA DS) 800-160 MG per tablet Indications: Urethral cyst Take 1 tablet by mouth 2 times daily for 7 days 14 tablet 0 06/21/2023 06/28/2023 Problems Active Problems Problem Classification Problem Date Documented Da te Episodic/Chronic Abdominal pain (2 sources) Pain in pelvis; Translations: [Pelvic and perineal pain] Episodic Genitourinary symptoms and ill-defined conditions (6 sources) Dysuria; Translations: [Dysuria] Onset: 02-28-2023 Episodic Headache; including migraine (2 sources) Episodic cluster headache; Translations: [Episodic cluster headache, not intractable] Onset: 05-05-2023 Chronic Intestinal infection (1 source) Viral gastroenteritis; Translations: [Viral gastroenteritis] Episodic Mood disorders (20 sources) Recurrent major depressive episodes; Translations: [Major depressive disorder, recurrent, unspecified] Onset: 12-06-2017 Resolved: 04-30-2020 12-06-2017 Chronic Other connective tissue disease (2 sources) Pain of left calf; Translations: [Pain of left calf] Other diseases of bladder and urethra (1 source) Urethral cyst; Translations: [Other specified disorders of urethra] Episodic Other diseases of bladder and urethra (1 source) Other specified disorders of urethra; Translations: [Other specified disorders of urethra] Onset: 06-21-2023 Episodic Other female genital disorders (17 sources) Abnormal uterine bleeding; Translations: [Other specified abnormal uterine and vaginal bleeding] 01-01-2021 Chronic Other gastrointestinal disorders (1 source) Constipation; Translations: [Constipation, unspecified constipation type] Episodic Other injuries and conditions due to external causes (1 source) Repetitive strain injury; Translations: [Repetitive stress injury] Episodic Other upper respiratory disease (4 sources) Seasonal allergy; Translations: [Other seasonal allergic rhinitis] Onset: 07-28-2022 07-28-2022 Chronic Other upper respiratory infections (1 source) Acute upper respiratory infection; Translations: [Acute URI] Episodic Residual codes; unclassified (17 sources) Tobacco user; Translations: [Tobacco abuse] Onset: 06-30-2017 06-30-2017 Chronic Unclassified (1 source) Right Ureteral Calculus / Right Ureteral Calculus() Onset: 02-03-2018 Unclassified (4 sources) Patient encounter status; Translations: [Preop testing] Past or Other Problems Problem Classification Problem Date Documented Date Episodic/Chronic Calculus of urinary tract (20 sources) Ureteric stone; Translations: [Kidney stone] Onset: 02-02-2018 02-02-2018 Episodic Other female genital disorders (1 source) Other specified noninflammatory disorders of vagina; Translations: [Other specified noninflammatory disorders of vagina] Onset: 02-23-2023 Episodic Residual codes; unclassified (16 sources) Tobacco user; Translations: [Tobacco use] Onset: 06-30-2017 06-30-2017 Episodic Spondylosis; intervertebral disc disorders; other back problems (20 sources) Chronic low back pain; Translations: [Acute low back pain] Onset: 06-30-2017 06-30-2017 Episodic Unclassified (1 source) Right Ureteral Calculus; Translations: [Right Ureteral Calculus] Onset: 02-03-2018 Urinary tract infections (20 sources) Recurrent urinary tract infection; Translations: [Urinary tract infection, site not specified] Onset: 10-04-2014 10-04-2014 Episodic Results Test Name Value Interpretation Reference Range Facility CT UROGRAMon 06-29-2023 1. There are multiple small bilateral nonobstructing intrarenal calculi. 2. There is a 3 mm calcification anterior to the left psoas muscle at the level of the superior endplate of L4 which either represents a nonobstructing midureteral calculus or a phlebolith immediately adjacent to the ureter and difficult to separate from the ureter on imaging. Correlate for left flank pain. There is slightly prominent caliber of both intrarenal collecting systems but without obvious hydronephrosis. 3. There is no urothelial lesion or solid renal mass lesion. [facility] RIS CONSOLIDATED EXAM: CT UROGRAM TECHNIQUE: Axial CT images were obtained of the abdomen and pelvis with and without intravenous contrast. Sagittal and coronal reformatted images were also obtained. Dose reduction techniques were achieved by using automated exposure control and/or adjustment of mA and/or kV according to patient size and/or use of iterative reconstruction technique. HISTORY: TECH NOTES: Significant microscopic hematuria, recently had bump near urethra that spontaneously drained. Prior tubal ligation, multiple ureteral stents [id number] 120mL (75mL + 45mL) injected into 20g IV in RAC Microscopic hematuria COMPARISON: None. __ FINDINGS: Lower chest: There is minor dependent atelectasis. The lung bases otherwise are clear. Liver: The liver is homogeneous with normal contours and normal size. There is mild fatty infiltration. Gallbladder: The gallbladder is unremarkable. There is no intra or extrahepatic biliary dilatation. Pancreas: The pancreas is homogeneous without evidence for mass lesion or inflammation. Spleen: The spleen is unremarkable without evidence for mass lesion. Adrenal glands: The adrenal glands are unremarkable Kidneys and bladder: There are multiple calcifications in the mid and upper pole collecting system of the right kidney measuring between 2 and 6 mm. There are a few mid and lower pole left intrarenal calculi measuring between 1 and 5 mm. There is a 3 mm calcification anterior to the left psoas muscle at the level of the superior endplate of L4 located along the course of the left ureter. On delayed excretory phase images this calcification cannot be definitely from the ureter and a ureteral calculus is questioned. There is an 11 mm cyst in the posterior cortex of the midpole of the right kidney. There is focal cortical scarring of the upper pole of the right kidney. There is no solid renal mass bilaterally. There is a 13 mm cortical cyst in the upper pole of the left kidney anteriorly. There is slight prominence of caliber of both intrarenal collecting systems. The ureters demonstrate normal caliber. The urinary bladder is unremarkable. GI Tract: Stomach is unremarkable. Visualized small bowel is unremarkable without evidence for obstruction or active inflammation. The appendix is unremarkable.There is a moderate to large amount stool seen throughout the colon. There is no evidence for colitis or diverticulitis. Reproductive: Unremarkable Lymph nodes: No retroperitoneal or abdominal lymphadenopathy. Vascular: The aorta is not dilated. The mesenteric vasculature is widely patent. Peritoneum: No free intraperitoneal air or fluid. No acute inflammation. Abdominal wall: Unremarkable without acute abnormality. Musculoskeletal: There is no focal bony lesion or other acute osseous abnormality. Report electronically signed by: Dr. Naveen Hanley [facility] Naveen Hanley MD - 06/29/2023 EXAM: CT UROGRAM TECHNIQUE: Axial CT images were obtained of the abdomen and pelvis with and without intravenous contrast. Sagittal and coronal reformatted images were also obtained. Dose reduction techniques were achieved by using automated exposure control and/or adjustment of mA and/or kV according to patient size and/or use of iterative reconstruction technique. HISTORY: TECH NOTES: Significant microscopic hematuria, recently had bump near urethra that spontaneously drained. Prior tubal ligation, multiple ureteral stents [id number] 120mL (75mL + 45mL) injected into 20g IV in RAC Microscopic hematuria COMPARISON: None. __ FINDINGS: Lower chest: There is minor dependent atelectasis. The lung bases otherwise are clear. Liver: The liver is homogeneous with normal contours and normal size. There is mild fatty infiltration. Gallbladder: The gallbladder is unremarkable. There is no intra or extrahepatic biliary dilatation. Pancreas: The pancreas is homogeneous without evidence for mass lesion or inflammation. Spleen: The spleen is unremarkable without evidence for mass lesion. Adrenal glands: The adrenal glands are unremarkable Kidneys and bladder: There are multiple calcifications in the mid and upper pole collecting system of the right kidney measuring between 2 and 6 mm. There are a few mid and lower pole left intrarenal calculi measuring between 1 and 5 mm. There is a 3 mm calcification anterior to the left psoas muscle at the level of the superior endplate of L4 located along the course of the left ureter. On delayed excretory phase images this calcification cannot be definitely from the ureter and a ureteral calculus is questioned. There is an 11 mm cyst in the posterior cortex of the midpole of the right kidney. There is focal cortical scarring of the upper pole of the right kidney. There is no solid renal mass bilaterally. There is a 13 mm cortical cyst in the upper pole of the left kidney anteriorly. There is slight prominence of caliber of both intrarenal collecting systems. The ureters demonstrate normal caliber. The urinary bladder is unremarkable. GI Tract: Stomach is unremarkable. Visualized small bowel is unremarkable without evidence for obstruction or active inflammation. The appendix is unremarkable.There is a moderate to large amount stool seen throughout the colon. There is no evidence for colitis or diverticulitis. Reproductive: Unremarkable Lymph nodes: No retroperitoneal or abdominal lymphadenopathy. Vascular: The aorta is not dilated. The mesenteric vasculature is widely patent. Peritoneum: No free intraperitoneal air or fluid. No acute inflammation. Abdominal wall: Unremarkable without acute abnormality. Musculoskeletal: There is no focal bony lesion or other acute osseous abnormality. Report electronically signed by: Dr. Naveen Hanley IMPRESSION: 1. There are multiple small bilateral nonobstructing intrarenal calculi. 2. There is a 3 mm calcification anterior to the left psoas muscle at the level of the superior endplate of L4 which either represents a nonobstructing midureteral calculus or a phlebolith immediately adjacent to the ureter and difficult to separate from the ureter on imaging. Correlate for left flank pain. There is slightly prominent caliber of both intrarenal collecting systems but without obvious hydronephrosis. 3. There is no urothelial lesion or solid renal mass lesion. [employer] Work Phone: CT UROGRAMOrdered By: Naveen Hanley on 06-29-2023 [employer] Work Phone: CT UROGRAMon 06-28-2023 CT UROGRAM RADRPT Begin Addendum #1 Clinical content is unchanged. 3-D images were rendered on a separate workstation. Report electronically signed by: Dr. Naveen Hanley EXAM: CT UROGRAM TECHNIQUE: Axial CT images were obtained of the abdomen and pelvis with and without intravenous contrast. Sagittal and coronal reformatted images were also obtained. Dose reduction techniques were achieved by using automated exposure control and/or adjustment of mA and/or kV according to patient size and/or use of iterative reconstruction technique. HISTORY: TECH NOTES: Significant microscopic hematuria, recently had bump near urethra that spontaneously drained. Prior tubal ligation, multiple ureteral stents [id number] 120mL (75mL + 45mL) injected into 20g IV in RAC Microscopic hematuria COMPARISON: None. __ FINDINGS: Lower chest: There is minor dependent atelectasis. The lung bases otherwise are clear. Liver: The liver is homogeneous with normal contours and normal size. There is mild fatty infiltration. Gallbladder: The gallbladder is unremarkable. There is no intra or extrahepatic biliary dilatation. Pancreas: The pancreas is homogeneous without evidence for mass lesion or inflammation. Spleen: The spleen is unremarkable without evidence for mass lesion. Adrenal glands: The adrenal glands are unremarkable Kidneys and bladder: There are multiple calcifications in the mid and upper pole collecting system of the right kidney measuring between 2 and 6 mm. There are a few mid and lower pole left intrarenal calculi measuring between 1 and 5 mm. There is a 3 mm calcification anterior to the left psoas muscle at the level of the superior endplate of L4 located along the course of the left ureter. On delayed excretory phase images this calcification cannot be definitely from the ureter and a ureteral calculus is questioned. There is an 11 mm cyst in the posterior cortex of the midpole of the right kidney. There is focal cortical scarring of the upper pole of the right kidney. There is no solid renal mass bilaterally. There is a 13 mm cortical cyst in the upper pole of the left kidney anteriorly. There is slight prominence of caliber of both intrarenal collecting systems. The ureters demonstrate normal caliber. The urinary bladder is unremarkable. GI Tract: Stomach is unremarkable. Visualized small bowel is unremarkable without evidence for obstruction or active inflammation. The appendix is unremarkable.There is a moderate to large amount stool seen throughout the colon. There is no evidence for colitis or diverticulitis. Reproductive: Unremarkable Lymph nodes: No retroperitoneal or abdominal lymphadenopathy. Vascular: The aorta is not dilated. The mesenteric vasculature is widely patent. Peritoneum: No free intraperitoneal air or fluid. No acute inflammation. Abdominal wall: Unremarkable without acute abnormality. Musculoskeletal: There is no focal bony lesion or other acute osseous abnormality. Report electronically signed by: Dr. Naveen Hanley IMPRESSION: 1. There are multiple small bilateral nonobstructing intrarenal calculi. 2. There is a 3 mm calcification anterior to the left psoas muscle at the level of the superior endplate of L4 which either represents a nonobstructing midureteral calculus or a phlebolith immediately adjacent to the ureter and difficult to separate from the ureter on imaging. Correlate for left flank pain. There is slightly prominent caliber of both intrarenal collecting systems but without obvious hydronephrosis. 3. There is no urothelial lesion or solid renal mass lesion. Significant microscopic hematuria, recently had bump near urethra that spontaneously drained. Prior tubal ligation, multiple ureteral stents [id number] 120mL (75mL + 45mL) injected into 20g IV in RAC Interpreted by: Naveen Hanley MD Signed by: Naveen Hanley MD 08/05/23 Edited Normal [facility] Radiology Study observation (narrative) [facility] Work Phone: Chlamydia/GC,DNA Ampon 06-22 Chlamydia Probe Negative Normal NEG [facility] Comment on above: Result Comment: CHLA MYDIA TRACHOMATIS DNA not detected by nucleic acid amplification. This test is intended for medical purposes only and is not valid for the evaluation of suspected sexual abuse or for other forensic purposes. In certain contexts, culture may be required to meet applicable laws and regulations for diagnosis of C. trachomatis and N. gonorrhoeae infections. Per 2014 CDC recommendations, this test does not include confirmation of positive results by an alternative nucleic acid target. Performed By: #### S WCGP #### [address] [place] [address] Overlay Plastician: Maximilian Montano MD Gonorrhea Probe Negative Normal [facility] Comment on above: Result Comment: NEIS SERIA GONORRHOEAE DNA not detected by nucleic acid amplification. This test is intended for medical purposes only and is not valid for the evaluation of suspected sexual abuse or for other forensic purposes. In certain contexts, culture may be required to meet applicable laws and regulations for diagnosis of C. trachomatis and N. gonorrhoeae infections. Per 2014 CDC recommendations, this test does not include confirmation of positive results by an alternative nucleic acid target. Performed By: #### S WCGP #### [address] [address] Overlay Plastician: Maximilian Montano MD Vaginitis DNA Probeon 2022 Baron Negative [facility] Comment on above: Result Comment: for Baron sp. Method of testing is a DNA probe intended for detection and identification of Baron species, Gardnerella vaginalis, and Trichomonas vaginalis nucleic acid in vaginal fluid specimens from patients with symptoms of vaginitis/vaginosis. Performed By: #### V AGP #### [address] [address] Overlay Plastician: Maximilian Montano MD [facility] [address] [place] [address] Overlay Plastician: Jarvis Angel MD Gardnerella Positive Abnormal [facility] Comment on above: Result Comment: for Gardnerella vaginalis Performed By: #### V AGP #### [address] [address] Overlay Plastician: Maximilian Montano MD [facility] [address] [place] [address] [place] [address] Overlay Plastician: Jarvis Angel MD Trichomonas Negative Normal NEG [facility] Comment on above: Result Comment: for Trichomonas Vaginalis Performed By: #### V AGP #### [address] [place] [address] Overlay Plastician: Maximilian Montano MD [address] [place], [place] [id number] Overlay Plastician: Jarvis Angel MD Baron species Negative NEGATIVE [facility] Comment on above: for Baron sp. Method of testing is a DNA probe intended for detection and identification of Baron species, Gardnerella vaginalis, and Trichomonas vaginalis nucleic acid in vaginal fluid specimens from patients with symptoms of vaginitis/vaginosis. GARDNERELLA VAGINALIS Positive Abnormal NEGATIVE [facility] Comment on above: for Gardnerella vagi nalis Interpretation and review of laboratory results Abnormal [facility] Source .VAGINAL SWAB [facility] Trichomonas Negative NEGATIVE [facility] Comment on above: for Trichomonas Vagi nalis [facility] Vaginitis DNA Probeon 2022 Source .VAGINAL SWAB Normal [facility] Comment on above: Performed By: #### V AGP #### [address] [id number] Overlay Plastician: Maximilian Montano MD [facility] [address] [place] [address] [place] [address] Overlay Plastician: Jarvis Angel MD C-Reactive Proteinon 023 CRP [Mass/Vol] mg/L Normal 0.0-5.0 [facility] Comment on above: Performed By: #### C RP, SED #### [address] [place] [address] Overlay Plastician: Jarvis Angel MD CRP High sensitivity method [Mass/Vol] mg/L 0.0 - 5.0 mg/L [facility] CBC with Auto Differentialon 05-05-2023 Basophils (Bld) [#/Vol] 0.04 10*3/uL [facility] Basophils/100 WBC (Bld) 1 % 0 - 2 % B ON [facility] Eosinophils (Bld) [#/Vol] 0.18 10*3/uL [facility] Eosinophils/100 WBC (Bld) 2 % 1 - 4 % [facility] Erythrocyte distribution width (RBC) [Ratio] 12.8 % 11.8 - 14.4 % [facility] Hematocrit (Bld) [Volume fraction] 40.6 % 36.3 - 47.1 % [facility] Hemoglobin (Bld) [Mass/Vol] 13.7 g/dL 11.9 - 15.1 g/dL [facility] Immature granulocytes (Bld) [#/Vol] 0.03 10*3/uL [facility] Immature granulocytes/100 WBC (Bld) 0 % 0 [facility] Interpretation and review of laboratory results Abnormal [facility] Lymphocytes/100 WBC (Bld) 13 % Low 24 - 43 % [facility] Lymphocytes/100 WBC (Bld) 1.10 % [facility] MCH (RBC) [Entitic mass] 32.2 pg 25.2 - 33.5 pg [facility] MCHC (RBC) [Mass/Vol] 33.7 g/dL 28.4 - 34.8 g/dL [facility] MCV (RBC) [Entitic vol] 95.5 fL 82.6 - 102.9 fL [facility] Monocytes/100 WBC (Bld) 9 % 3 - 12 % B ON [facility] Monocytes/100 WBC (Bld) 0.73 % B ON [facility] Neutrophils/100 WBC (Bld) 75 % High 36 - 65 % [facility] NRBC Automated 0.0 0.0 per 100 WBC [facility] Platelet mean volume (Bld) [Entitic vol] 9.7 fL 8.1 - 13.5 fL [facility] Platelets (Bld) [#/Vol] 321 10*3/uL [facility] RBC (Bld) [#/Vol] 4.25 10*6/uL 3.95 - 5.1 1 m/uL [facility] Segmented neutrophils/100 WBC (Bld) 6.32 % [facility] WBC other (Bld) [#/Vol] 8.4 B ON [facility] CBC with Diffon 05-05-2023 Abs. Basophil 0.04 k/uL Normal 0.00-0.20 [facility] Comment on above: Performed By: #### C P, PT, CDP #### [facility] [address] [place], [place] [id number] Overlay Plastician: Jarvis Angel MD Abs.Imm.Granulocyte 0.03 k/uL Normal 0.00-0.30 [facility] Comment on above: Performed By: #### C P, PT, CDP #### [address] [place], [facility] Overlay Plastician: Jarvis Angel MD Abs.Neutrophil (Seg) 6.32 k/uL Normal 1.50-8.10 [facility] Comment on above: Performed By: #### C P, PT, CDP #### [address] [place], [place] [id number] Overlay Plastician: Jarvis Angel MD Basophils/100 WBC (Bld) 1 % Normal 0-2 [facility] Comment on above: Performed By: #### C P, PT, CDP #### [facility] [address] [place], [place] [id number] Overlay Plastician: Jarvis Angel MD Eosinophils (Bld) [#/Vol] 0.18 10*3/uL Normal 0.00-0.44 [facility] Comment on above: Performed By: #### C P, PT, CDP #### [facility] [address] [place] [address] Overlay Plastician: Jarvis Angel MD Eosinophils/100 WBC (Bld) 2 % Normal 1-4 [facility] Comment on above: Performed By: #### C P, PT, CDP #### [address] [place], [place] [id number] Overlay Plastician: Jarvis Angel MD Erythrocyte distribution width (RBC) [Ratio] 12.8 % Normal 11.8-14.4 [facility] Comment on above: Performed By: #### C P, PT, CDP #### [address] [place], [place] [id number] Overlay Plastician: Jarvis Angel MD Hematocrit (Bld) [Volume fraction] 40.6 % Normal 36.3-47.1 [facility] Comment on above: Performed By: #### C P, PT, CDP #### [address] [place], [facility] Overlay Plastician: Jarvis Angel MD Hemoglobin (Bld) [Mass/Vol] 13.7 g/dL Normal 11.9-15.1 [facility] Comment on above: Performed By: #### C P, PT, CDP #### [address] [place], [facility] Overlay Plastician: Jarvis Angel MD Immature granulocytes/100 WBC (Bld) 0 % Normal 0 [facility] Comment on above: Performed By: #### C P, PT, CDP #### [address] [place], [facility] Overlay Plastician: Jarvis Angel MD Lymphocytes (Bld) [#/Vol] 1.10 10*3/uL Normal 1.10-3.70 [facility] Comment on above: Performed By: #### C P, PT, CDP #### [address] [place], [place] [id number] Overlay Plastician: Jarvis Angel MD Lymphocytes/100 WBC (Bld) 13 % Low 24-43 [facility] Comment on above: Performed By: #### C P, PT, CDP #### [facility] [address] [place], [place] [address] Overlay Plastician: Jarvis Angel MD MCH (RBC) [Entitic mass] 32.2 pg Normal 25.2-33.5 [facility] Comment on above: Performed By: #### C P, PT, CDP #### [address] [place], [place] [address] Overlay Plastician: Jarvis Angel MD MCHC (RBC) [Mass/Vol] 33.7 g/dL Normal 28.4-34.8 [facility] Comment on above: Performed By: #### C P, PT, CDP #### [address] [place] [address] Overlay Plastician: Jarvis Angel MD MCV (RBC) [Entitic vol] 95.5 fL Normal 82.6-102.9 [facility] Comment on above: Performed By: #### C P, PT, CDP #### [address] [place], [place] [address] Overlay Plastician: Jarvis Angel MD Monocytes (Bld) [#/Vol] 0.73 10*3/uL Normal 0.10-1.20 [facility] Comment on above: Performed By: #### C P, PT, CDP #### [address] [place], [place] [address] Overlay Plastician: Jarvis Angel MD Monocytes/100 WBC (Bld) 9 % Normal 3-12 [facility] Comment on above: Performed By: #### C P, PT, CDP #### [address] [place], [facility] Overlay Plastician: Jarvis Angel MD Neutrophil (Seg) 75 % High 36-65 [facility] Comment on above: Performed By: #### C P, PT, CDP #### [facility] [address] [place] [address] Overlay Plastician: Jarvis Angel MD NRBC Automated 0.0 per 100 WBC Normal 0.0 [facility] Comment on above: Performed By: #### C P, PT, CDP #### [facility] [address] [place], [facility] Overlay Plastician: Jarvis Angel MD Platelet mean volume (Bld) [Entitic vol] 9.7 fL Normal 8.1-13.5 [facility] Comment on above: Performed By: #### C P, PT, CDP #### [address] [place], [facility] Overlay Plastician: Jarvis Angel MD Platelets (Bld) [#/Vol] 321 10*3/uL Normal 138-453 [facility] Comment on above: Performed By: #### C P, PT, CDP #### [address] [place], [facility] Overlay Plastician: Jarvis Angel MD RBC (Bld) [#/Vol] 4.25 10*6/uL Normal 3.95-5.11 [facility] Comment on above: Performed By: #### C P, PT, CDP #### [address] [place], [place] [address] Overlay Plastician: Jarvis Angel MD WBC (Bld) [#/Vol] 8.4 10*3/uL Normal 3.5-11.3 [facility] Comment on above: Performed By: #### C P, PT, CDP #### [address] [place] [address] Overlay Plastician: Jarvis Angel MD [facility] Albumin [Mass/Vol] 4.3 g/dL 3.5 - 5.2 g/dL [facility] Albumin/Globulin [Mass ratio] 1.6 {ratio} 1.0 - 2.5 [facility] ALP [Catalytic activity/Vol] 96 U/L 35 - 104 U/L [facility] ALT [Catalytic activity/Vol] 17 U/L 5 - 33 U/L [facility] Anion gap [Moles/Vol] 7 mmol/L Low 9 - 17 mmol/L [facility] AST [Catalytic activity/Vol] 23 U/L NINF - 32 U/L [facility] Bilirubin [Mass/Vol] 0.2 mg/dL Low 0.3 - 1 .2 mg/dL [facility] Calcium [Mass/Vol] 9.5 mg/dL 8.6 - 10. 4 mg/dL [facility] Chloride [Moles/Vol] 104 mmol/L 98 - 10 7 mmol/L [facility] CO2 [Moles/Vol] 27 mmol/L 20 - 31 mmol/L [facility] Creatinine [Mass/Vol] 0.44 mg/dL Low 0.50 - 0.90 mg/dL [facility] GFR/1.73 sq M.predicted MDRD (S/P/Bld) [Vol rate/Area] - PINF [facility] Comment on above: These results are not intended for use in patients <18 years of age. eGFR results are calculated without a race factor using the 2020 CKD-EPI equation. Careful clinical correlation is recommended, particularly when comparing to results calculated using previous equations. The CKD-EPI equation is less accurate in patients with extremes of muscle mass, extra-renal metabolism of creatine, excessive creatine ingestion, or following therapy that affects renal tubular secretion. Glucose [Mass/Vol] 86 mg/dL 70 - 99 mg/dL [facility] Interpretation and review of laboratory results Abnormal [facility] Potassium [Moles/Vol] 4.0 mmol/L 3.7 - 5.3 mmol/L [facility] Protein [Mass/Vol] 7.0 g/dL 6.4 - 8.3 g/dL [facility] Sodium [Moles/Vol] 138 mmol/L 135 - 144 mmol/L [facility] Urea nitrogen [Mass/Vol] 16 mg/dL 6 - 20 mg/dL [facility] Urea nitrogen/Creatinine [Mass ratio] 36 mg/mg High 9 - 20 [facility] CTA HEAD NECK W CONTRASTon 0 05-05-2023 CTA HEAD NECK W CONTRAST EXAMINATION: CTA OF THE HEAD AND NECK WITH CONTRAST, 05/05/2023 7:30 am TECHNIQUE: CTA of the head and neck was performed with the administration of intravenous contrast. Multiplanar reformatted images are provided for review. MIP images are provided for review. Stenosis of the internal carotid arteries measured using NASCET criteria. Automated exposure control, iterative reconstruction, and/or weight based adjustment of the mA/kV was utilized to reduce the radiation dose to as low as reasonably achievable. Noncontrast CT of the head with reconstructed 2-D images are also provided for review. COMPARISON: None HISTORY: ORDERING SYSTEM PROVIDED HISTORY: Sudden onset right-sided headache around 5:30 PM yesterday. TECHNOLOGIST PROVIDED HISTORY: Sudden onset right-sided headache around 5:30 PM yesterday. Decision Support Exception - unselect if not a suspected or confirmed emergency medical condition->Emergency Medical Condition (MA) FINDINGS: CT HEAD: BRAIN/VENTRICLES: There is no acute infarct or acute intracranial hemorrhage present. There is no mass effect or midline shift present. There is no ventriculomegaly or abnormal extra-axial fluid collection present. ORBITS: Limited evaluation of the orbits is unremarkable. SINUSES: The paranasal sinuses and mastoid air cells are clear. SOFT TISSUES/SKULL: No lytic or blastic osseous lesions are identified. CTA NECK: AORTIC ARCH/ARCH VESSELS: No dissection or arterial injury. No significant stenosis of the brachiocephalic or subclavian arteries. CAROTID ARTERIES: No dissection, arterial injury, or hemodynamically significant stenosis by NASCET criteria. VERTEBRAL ARTERIES: No dissection, arterial injury, or significant stenosis. SOFT TISSUES: The lung apices are clear. There is no pathologically enlarged lymphadenopathy or soft tissue mass identified within the neck. BONES: No lytic or blastic osseous lesions are identified. 3D surface reformations were performed and concur with the above findings. CTA HEAD: ANTERIOR CIRCULATION: The intracranial segments of the internal carotid arteries are normal. There is no significant stenosis or aneurysm identified. The anterior and middle cerebral arteries are normal in appearance. No significant stenosis or aneurysm is identified. POSTERIOR CIRCULATION: The distal vertebral arteries are normal in appearance. The basilar artery is normal. No significant stenosis or aneurysm is identified. The posterior cerebral arteries are normal in appearance. OTHER: No dural venous sinus thrombosis on this non-dedicated study. 3D surface reformations were performed and concur with the above findings. IMPRESSION: 1. No acute intracranial abnormality. 2. Unremarkable CTA of the head and neck. Interpreted by: Amol Patel MD Signed by: Amol Patel MD 05/05/23 Final result Normal [facility] 1. No acute intracranial abnormality. 2. Unremarkable CTA of the head and neck. [facility] RIS CONSOLIDATED EXAMINATION: CTA OF THE HEAD AND NECK WITH CONTRAST, 05/05/2023 7:30 am TECHNIQUE: CTA of the head and neck was performed with the administration of intravenous contrast. Multiplanar reformatted images are provided for review. MIP images are provided for review. Stenosis of the internal carotid arteries measured using NASCET criteria. Automated exposure control, iterative reconstruction, and/or weight based adjustment of the mA/kV was utilized to reduce the radiation dose to as low as reasonably achievable. Noncontrast CT of the head with reconstructed 2-D images are also provided for review. COMPARISON: None HISTORY: ORDERING SYSTEM PROVIDED HISTORY: Sudden onset right-sided headache around 5:30 PM yesterday. TECHNOLOGIST PROVIDED HISTORY: Sudden onset right-sided headache around 5:30 PM yesterday. Decision Support Exception - unselect if not a suspected or confirmed emergency medical condition->Emergency Medical Condition (MA) FINDINGS: CT HEAD: BRAIN/VENTRICLES: There is no acute infarct or acute intracranial hemorrhage present. There is no mass effect or midline shift present. There is no ventriculomegaly or abnormal extra-axial fluid collection present. ORBITS: Limited evaluation of the orbits is unremarkable. SINUSES: The paranasal sinuses and mastoid air cells are clear. SOFT TISSUES/SKULL: No lytic or blastic osseous lesions are identified. CTA NECK: AORTIC ARCH/ARCH VESSELS: No dissection or arterial injury. No significant stenosis of the brachiocephalic or subclavian arteries. CAROTID ARTERIES: No dissection, arterial injury, or hemodynamically significant stenosis by NASCET criteria. VERTEBRAL ARTERIES: No dissection, arterial injury, or significant stenosis. SOFT TISSUES: The lung apices are clear. There is no pathologically enlarged lymphadenopathy or soft tissue mass identified within the neck. BONES: No lytic or blastic osseous lesions are identified. 3D surface reformations were performed and concur with the above findings. CTA HEAD: ANTERIOR CIRCULATION: The intracranial segments of the internal carotid arteries are normal. There is no significant stenosis or aneurysm identified. The anterior and middle cerebral arteries are normal in appearance. No significant stenosis or aneurysm is identified. POSTERIOR CIRCULATION: The distal vertebral arteries are normal in appearance. The basilar artery is normal. No significant stenosis or aneurysm is identified. The posterior cerebral arteries are normal in appearance. OTHER: No dural venous sinus thrombosis on this non-dedicated study. 3D surface reformations were performed and concur with the above findings. [facility] Amol Cho MD - 05/05/2023 EXAMINATION: CTA OF THE HEAD AND NECK WITH CONTRAST, 05/05/2023 7:30 am TECHNIQUE: CTA of the head and neck was performed with the administration of intravenous contrast. Multiplanar reformatted images are provided for review. MIP images are provided for review. Stenosis of the internal carotid arteries measured using NASCET criteria. Automated exposure control, iterative reconstruction, and/or weight based adjustment of the mA/kV was utilized to reduce the radiation dose to as low as reasonably achievable. Noncontrast CT of the head with reconstructed 2-D images are also provided for review. COMPARISON: None HISTORY: ORDERING SYSTEM PROVIDED HISTORY: Sudden onset right-sided headache around 5:30 PM yesterday. TECHNOLOGIST PROVIDED HISTORY: Sudden onset right-sided headache around 5:30 PM yesterday. Decision Support Exception - unselect if not a suspected or confirmed emergency medical condition->Emergency Medical Condition (MA) FINDINGS: CT HEAD: BRAIN/VENTRICLES: There is no acute infarct or acute intracranial hemorrhage present. There is no mass effect or midline shift present. There is no ventriculomegaly or abnormal extra-axial fluid collection present. ORBITS: Limited evaluation of the orbits is unremarkable. SINUSES: The paranasal sinuses and mastoid air cells are clear. SOFT TISSUES/SKULL: No lytic or blastic osseous lesions are identified. CTA NECK: AORTIC ARCH/ARCH VESSELS: No dissection or arterial injury. No significant stenosis of the brachiocephalic or subclavian arteries. CAROTID ARTERIES: No dissection, arterial injury, or hemodynamically significant stenosis by NASCET criteria. VERTEBRAL ARTERIES: No dissection, arterial injury, or significant stenosis. SOFT TISSUES: The lung apices are clear. There is no pathologically enlarged lymphadenopathy or soft tissue mass identified within the neck. BONES: No lytic or blastic osseous lesions are identified. 3D surface reformations were performed and concur with the above findings. CTA HEAD: ANTERIOR CIRCULATION: The intracranial segments of the internal carotid arteries are normal. There is no significant stenosis or aneurysm identified. The anterior and middle cerebral arteries are normal in appearance. No significant stenosis or aneurysm is identified. POSTERIOR CIRCULATION: The distal vertebral arteries are normal in appearance. The basilar artery is normal. No significant stenosis or aneurysm is identified. The posterior cerebral arteries are normal in appearance. OTHER: No dural venous sinus thrombosis on this non-dedicated study. 3D surface reformations were performed and concur with the above findings. IMPRESSION: 1. No acute intracranial abnormality. 2. Unremarkable CTA of the head and neck. [facility] Radiology Study observation (narrative) [facility] CTA HEAD NECK W CONTRASTOrde red By: Amol Patel on 05-05-2023 [facility] Work Phone: Comp Metabolic Profon 2022 Albumin [Mass/Vol] 4.3 g/dL Normal 3.5-5.2 [facility] Comment on above: Performed By: #### C P, PT, CDP #### [facility] [address] [place] [address] [place] [address] Overlay Plastician: Jarvis Angel MD Albumin/Glob Ratio 1.6 Normal 1.0-2.5 [facility] Comment on above: Performed By: #### C P, PT, CDP #### [facility] [address] [place] [address] Overlay Plastician: Jarvis Angel MD Alkaline Phos 96 U/L Normal 35-104 [facility] Comment on above: Performed By: #### C P, PT, CDP #### [facility] [address] [place] [address] Overlay Plastician: Jarvis Angel MD ALT [Catalytic activity/Vol] 17 U/L Normal 5-33 [facility] Comment on above: Performed By: #### C P, PT, CDP #### [facility] [address] [place], [place] [id number] Overlay Plastician: Jarvis Angel MD Anion gap [Moles/Vol] 7 mmol/L Low 9-17 [facility] Comment on above: Performed By: #### C P, PT, CDP #### [facility] [address] [place], [place] [id number] Overlay Plastician: Jarvis Angel MD AST [Catalytic activity/Vol] 23 U/L Normal <32 [facility] Comment on above: Performed By: #### C P, PT, CDP #### [facility] [address] [place], [place] [id number] Overlay Plastician: Jarvis Angel MD Bilirubin [Mass/Vol] 0.2 mg/dL Low 0.3-1.2 [facility] Comment on above: Performed By: #### C P, PT, CDP #### [facility] [address] [place], [place] [id number] Overlay Plastician: Jarvis Angel MD BUN/CRE Ratio 36 High 9-20 [facility] Comment on above: Performed By: #### C P, PT, CDP #### [facility] [address] [place], [place] [id number] Overlay Plastician: Jarvis Angel MD Calcium [Mass/Vol] 9.5 mg/dL Normal 8.6-10.4 [facility] Comment on above: Performed By: #### C P, PT, CDP #### [facility] [address] [place], [place] [id number] Overlay Plastician: Jarvis Angel MD Chloride [Moles/Vol] 104 mmol/L Normal 98-107 [facility] Comment on above: Performed By: #### C P, PT, CDP #### [facility] [address] [place], [place] [id number] Overlay Plastician: Jarvis Angel MD CO2 [Moles/Vol] 27 mmol/L Normal 20-31 [facility] Comment on above: Performed By: #### C P, PT, CDP #### [facility] [address] [place] [address] Overlay Plastician: Jarvis Angel MD Creatinine [Mass/Vol] 0.44 mg/dL Low 0.50-0.90 [facility] Comment on above: Performed By: #### C P, PT, CDP #### [facility] [address] [place] [address] Overlay Plastician: Jarvis Angel MD GFR/1.73 sq M.predicted among non-blacks MDRD (S/P/Bld) [Vol rate/Area] mL/min/{1.73_m2} Normal >60 [facility] Comment on above: Result Comment: These results are not intended for use in patients <18 years of age. eGFR results are calculated without a race factor using the 2020 CKD-EPI equation. Careful clinical correlation is recommended, particularly when comparing to results calculated using previous equations. The CKD-EPI equation is less accurate in patients with extremes of muscle mass, extra-renal metabolism of creatine, excessive creatine ingestion, or following therapy that affects renal tubular secretion. Performed By: #### C P, PT, CDP #### [address] [place] [address] Overlay Plastician: Jarvis Angel MD Glucose [Mass/Vol] 86 mg/dL Normal 70-99 [facility] Comment on above: Performed By: #### C P, PT, CDP #### [facility] [address] [place] [address] Overlay Plastician: Jarvis Angel MD Potassium [Moles/Vol] 4.0 mmol/L Normal 3.7-5.3 [facility] Comment on above: Performed By: #### C P, PT, CDP #### [facility] [address] [place] [address] Overlay Plastician: Jarvis Angel MD Protein [Mass/Vol] 7.0 g/dL Normal 6.4-8.3 [facility] Comment on above: Performed By: #### C P, PT, CDP #### [facility] [address] [place] [address] Overlay Plastician: Jarvis Angel MD Sodium [Moles/Vol] 138 mmol/L Normal 135-144 [facility] Comment on above: Performed By: #### C P, PT, CDP #### [facility] [address] [place] [address] Overlay Plastician: Jarvis Angel MD Urea nitrogen [Mass/Vol] 16 mg/dL Normal 6-20 [facility] Comment on above: Performed By: #### C P, PT, CDP #### [facility] [address] [place] [address] Overlay Plastician: Jarvis Angel MD EKG 12 LeadOrdered By: Bee reeves on 05-05-2023 Atrial Rate 77 BPM [employer] Phone: P Blairs 72 degrees [employer] Phone: P-R Interval 144 ms [employer] Phone: Q-T Interval 360 ms [facility] [employer] Phone: QRS Duration 78 ms [employer] Phone: QTc Calculation (Bazett) 407 ms [employer] Phone: R Blairs 88 degrees [employer] Phone: T Blairs 74 degrees [employer] Phone: Ventricular Rate 77 BPM [facility] [employer] Phone: [employer] Phone: EKG 12 Leadon 05-05-2023 Poor data quality, interpretation may be adversely affected Normal sinus rhythm Septal infarct , age undetermined Abnormal ECG No previous ECGs available Confirmed by Bee Olivera MD ([id number]) on 05/05/2023 9:25:25 AM [facility] RADI[facility] Bee Olivera MD - 05/05/2023 Poor data quality, interpretation may be adversely affected Normal sinus rhythm Septal infarct , age undetermined Abnormal ECG No previous ECGs available Confirmed by Bee Olivera MD ([id number]) on 05/05/2023 9:25:25 AM [facility] PTon 05-05-2023 INR Coag (PPP) [Relative time] 0.9 {INR} Normal [facility] Comment on above: Result Comment: Therapeutic Range: Moderate Anticoagulant Intensity: INR = 2.0-3.0 High Anticoagulant Intensity: INR = 2.5-3.5 Performed By: #### C P, PT, CDP #### [facility] [address] [place] [id number] Overlay Plastician: Jarvis Angel MD PT Coag (PPP) [Time] 12.0 s Normal 11.9-14.8 [facility] Comment on above: Performed By: #### C P, PT, CDP #### [facility] [address] [place] [address] [place] [phone] Overlay Plastician: Jarvis Angel MD Protime-INRon 05-05-2023 INR Coag (PPP) [Relative time] 0.9 {INR} [facility] Comment on above: Therapeutic Range: Moderate Anticoagulant Intensity: INR = 2.0-3.0 High Anticoagulant Intensity: INR = 2.5-3.5 PT Coag (PPP) [Time] 12.0 s [facility] Sedimentation Rateon 023 Sedimentation Rate 11 mm/Hr Normal 0-30 [facility] Comment on above: Performed By: #### C RP, SED #### [facility] [address] [place] [address] Overlay Plastician: Jarvis Angel MD ESR (Bld) [Velocity] 11 mm/h [facility] Vaginitis DNA Probeon 2022 Baron Negative Normal [facility] Comment on above: Result Comment: for Baron sp. Method of testing is a DNA probe intended for detection and identification of Baron species, Gardnerella vaginalis, and Trichomonas vaginalis nucleic acid in vaginal fluid specimens from patients with symptoms of vaginitis/vaginosis. Performed By: #### V AGP #### [place] [address] [place] [address] Overlay Plastician: Maximilian Montano MD [facility] [address] [place] [address] [place] [address] Overlay Plastician: Jarvis Angel MD Gardnerella Positive Abnormal [facility] Comment on above: Result Comment: for Gardnerella vaginalis Performed By: #### V AGP #### [address] [address] Overlay Plastician: Maximilian Montano MD [facility] [address] [place] [address] [place] [address] Overlay Plastician: Jarvis Angel MD Trichomonas Negative Normal [facility] Comment on above: Result Comment: for Trichomonas Vaginalis Performed By: #### V AGP #### [address] [address] Overlay Plastician: Maximilian Montano MD [facility] [address] [place] [address] [place] [address] Overlay Plastician: Jarvis Angel MD Vaginitis DNA Probeon 2022 Source .VAGINAL SWAB Normal [facility] Comment on above: Performed By: #### V AGP #### [address] [address] Overlay Plastician: Maximilian Montano MD [facility] [address] [place] [address] [place] [place], [place] [phone] Overlay Plastician: Jarvis Angel MD Cult,Urineon 01-14-2023 Cult,Urine Specimen Description .CLEAN CATCH URINE Culture NO SIGNIFICANT GROWTH Report Status FINAL 01/14/2023 Normal [facility] Comment on above: Performed By: #### U #### [facility] [employer] [address] [place], [place] [id number] Overlay Plastician: Maximilian Montano MD [facility] [address] [place] [address] Overlay Plastician: Jarvis Angel MD Microscopic Urinalysison Bacteria, UA 1+ Abnormal None [facility] Crystals, UA CALCIUM OXALATE Abnormal None /HPF [facility] Crystals, UA 10 TO 20 Abnormal None /HPF [facility] Epithelial Cells UA 5 TO 10 [facility] Interpretation and review of laboratory results Abnormal [facility] Mucus, UA 2+ Abnormal None [facility] RBC clumps Auto (Urine sed) [#/Area] 2 TO 5 [facility] WBC, UA 2 TO 5 [facility] Urinalysison 01-12-2023 Bilirubin Urine SMALL Abnormal NEGATIVE [facility] Color, UA Yellow Yellow [facility] Glucose Auto test strip (U) [Mass/Vol] Negative NEGATIVE [facility] Interpretation and review of laboratory results Abnormal [facility] Ketones (U) [Mass/Vol] TRACE Abnormal NEGATIVE [facility] Leukocyte esterase Auto test strip Ql (U) TRACE Abnormal NEGATIVE [facility] Nitrite Auto test strip Ql (U) Negative NEGATIVE [facility] Protein (U) [Mass/Vol] 6.0 mg/dL 5.0 - 9.0 [facility] Protein (U) [Mass/Vol] Negative NEGATIVE [facility] Specific [place], UA 1.025 High 1.010 - 1.020 [facility] Turbidity UA Clear Clear [facility] Urine Hgb TRACE Abnormal NEGATIVE [facility] Urobilinogen, Urine Normal Normal [facility] Urinalysis, Routineon 2022 Bilirubin, SemiQt,Ur SMALL Abnormal NEG [facility] Comment on above: Performed By: #### S WCGP #### [address] [address] Overlay Plastician: Maximilian Montano MD Blood, Urine TRACE Abnormal NEG [facility] Comment on above: Performed By: #### S WCGP #### [address] [address] Overlay Plastician: Maximilian Montano MD Clarity (U) Clear Normal CLEAR [facility] Comment on above: Performed By: #### S WCGP #### [address] [address] Overlay Plastician: Maximilian Montano MD Color (U) Yellow Normal YEL [facility] Comment on above: Performed By: #### S WCGP #### [address] [address] Overlay Plastician: Maximilian Montano MD Glucose Ql (U) Negative Normal NEG [facility] Comment on above: Performed By: #### S WCGP #### [address] [address] Overlay Plastician: Maximilian Montano MD Ketones Ql (U) TRACE Abnormal NEG [facility] Comment on above: Performed By: #### S WCGP #### [address] [address] Overlay Plastician: Maximilian Montano MD Leukocyte esterase Test strip Ql (U) TRACE Abnormal NEG [facility] Comment on above: Performed By: #### S WCGP #### [address] [address] Overlay Plastician: Maximilian Montano MD Nitrite,Ur Negative Normal NEG [facility] Comment on above: Performed By: #### S WCGP #### [address] [address] Overlay Plastician: Maximilian Montano MD PH,Ur 6.0 Normal 5.0-9.0 [facility] Comment on above: Performed By: #### S WCGP #### [address] [address] Overlay Plastician: Maximilian Montano MD Protein Ql (U) Negative Normal NEG [facility] Comment on above: Performed By: #### S WCGP #### [address] [address] Overlay Plastician: Maximilian Montano MD Spec. [place],Ur 1.025 High 1.010-1.020 [facility] Comment on above: Performed By: #### S WCGP #### [address] [address] Overlay Plastician: Maximilian Montano MD Urobilinogen,Ur Normal Normal NORM [facility] Comment on above: Performed By: #### S WCGP #### [address] [address] Overlay Plastician: Maximilian Montano MD Urinalysis,Microon 3 Bacteria 1+ Abnormal [facility] Comment on above: Performed By: #### S WCGP #### [address] [address] Overlay Plastician: Maximilian Montano MD Crystals LM Nom (Urine sed) CALCIUM OXALATE Abnormal [facility] Comment on above: Result Comment: 10 T O 20 Performed By: #### S WCGP #### [address] [address] Overlay Plastician: Maximilian oMntano MD Epithelial cells LM Ql (Urine sed) 5 TO 10 Normal 0-25 [facility] Comment on above: Performed By: #### S WCGP #### [address] [address] Overlay Plastician: Maximilian Motnano MD Mucus Strands 2+ Abnormal [facility] Comment on above: Performed By: #### S WCGP #### [facility] [address] [place] [address] Overlay Plastician: Maximilian Montano MD Urine RBC's 2 TO 5 Normal 0-2 [facility] Comment on above: Performed By: #### S WCGP #### [facility] [address] [place] [address] Overlay Plastician: Maximilian Montano MD Urine WBC's 2 TO 5 Normal 0-5 [facility] Comment on above: Performed By: #### S WCGP #### [facility] [address] [place], [place] [phone] Overlay Plastician: Maximilian Montano MD [facility] ESon 04-27-2022 Radiology exam is complete. No Radiologist dictation. Please follow up with ordering provider. [facility] CT ABDOMEN PELVIS WO CONTRAS T Additional Contrast? Noneon 04-23-2022 1. Moderate right-sided hydronephrosis which has improved slightly since the comparison exam. The previously seen large collection of stones at the right ureteropelvic junction have now passed into the distal right ureter near the ureteral/vesicular junction. 2. Multiple small nonobstructing left renal stones. [facility] EXAMINATION: CT OF THE ABDOMEN AND PELVIS WITHOUT CONTRAST 04/23/2022 1:10 pm TECHNIQUE: CT of the abdomen and pelvis was performed without the administration of intravenous contrast. Multiplanar reformatted images are provided for review. Automated exposure control, iterative reconstruction, and/or weight based adjustment of the mA/kV was utilized to reduce the radiation dose to as low as reasonably achievable. COMPARISON: CT abdomen/pelvis dated 06 Apr 2022 HISTORY: ORDERING SYSTEM PROVIDED HISTORY: Urethritis TECHNOLOGIST PROVIDED HISTORY: Is the patient ?->No FINDINGS: Lower Chest: Mild bibasilar atelectasis. Trace pericardial effusion. Organs: The liver, gallbladder, spleen, pancreas, adrenal glands are normal. Multiple stones are seen within the right renal collecting system with the largest in the lower pole measuring 6 mm. There is moderate hydronephrosis. There is a 6 mm stone in the distal right ureter at ureterovesicular junction. There are a few smaller stones within the distal right ureter more proximally. There is moderate upstream hydroureter. There are multiple small stones within the left renal collecting system with the largest measuring 4 mm. The left kidney shows no hydronephrosis. No stones are seen within the left ureter. GI/Bowel: The colon appears normal. A normal air-filled appendix is seen. Stomach appears normal. Small bowel loops appear normal without evidence of obstruction. Pelvis: The urinary bladder is normal. The uterus and adnexa appear normal. No free fluid. Peritoneum/Retroperi toneum: The aorta is normal caliber. No lymphadenopathy. Bones/Soft Tissues: No suspicious osseous lesions. PN RIS CONSOLIDATED To Man P - 04/23/2022 EXAMINATION: CT OF THE ABDOMEN AND PELVIS WITHOUT CONTRAST 04/23/2022 1:10 pm TECHNIQUE: CT of the abdomen and pelvis was performed without the administration of intravenous contrast. Multiplanar reformatted images are provided for review. Automated exposure control, iterative reconstruction, and/or weight based adjustment of the mA/kV was utilized to reduce the radiation dose to as low as reasonably achievable. COMPARISON: CT abdomen/pelvis dated 06 Apr 2022 HISTORY: ORDERING SYSTEM PROVIDED HISTORY: Urethritis TECHNOLOGIST PROVIDED HISTORY: Is the patient ?->No FINDINGS: Lower Chest: Mild bibasilar atelectasis. Trace pericardial effusion. Organs: The liver, gallbladder, spleen, pancreas, adrenal glands are normal. Multiple stones are seen within the right renal collecting system with the largest in the lower pole measuring 6 mm. There is moderate hydronephrosis. There is a 6 mm stone in the distal right ureter at ureterovesicular junction. There are a few smaller stones within the distal right ureter more proximally. There is moderate upstream hydroureter. There are multiple small stones within the left renal collecting system with the largest measuring 4 mm. The left kidney shows no hydronephrosis. No stones are seen within the left ureter. GI/Bowel: The colon appears normal. A normal air-filled appendix is seen. Stomach appears normal. Small bowel loops appear normal without evidence of obstruction. Pelvis: The urinary bladder is normal. The uterus and adnexa appear normal. No free fluid. Peritoneum/Retroperi toneum: The aorta is normal caliber. No lymphadenopathy. Bones/Soft Tissues: No suspicious osseous lesions. IMPRESSION: 1. Moderate right-sided hydronephrosis which has improved slightly since the comparison exam. The previously seen large collection of stones at the right ureteropelvic junction have now passed into the distal right ureter near the ureteral/vesicular junction. 2. Multiple small nonobstructing left renal stones. [employer] Work Phone: Radiology Study observation (narrative) MARIA SECO [facility] [employer] Work Phone: CT ABDOMEN PELVIS WO CONTRAS T Additional Contrast? NoneOrdered By: To Man on 04-23-2022 [employer] Work Phone: FLUORO FOR SURGICAL PROCEDUR ESon 04-14-2022 Radiology exam is complete. No Radiologist dictation. Please follow up with ordering provider. [facility] CONSOLIDATED CBC with Auto Differentialon 04-06-2022 Absolute Eos # 0.19 [facility] th Absolute Immature Granulocyte <0.03 [employer] Absolute Lymph # 1.09 Low [facility] alth Absolute Grimes # 0.52 [facility] lth Basophils (Bld) [#/Vol] 0.06 10*3/uL [employer] Basophils/100 WBC (Bld) 1 % 0 - 2 % 3LM Eosinophils/100 WBC (Bld) 3 % 1 - 4 % [employer] Hematocrit (Bld) [Volume fraction] 40.3 % 36.3 - 47.1 % [employer] Hemoglobin.gastrointest inal spec 1 Ql (Stl) 13.1 g/dL 11.9 - 15.1 g/dL [employer] Immature granulocytes/100 WBC (Bld) 0 % 0 [facility] Interpretation and review of laboratory results Abnormal [employer] Lymphocytes/100 WBC (Bld) 15 % Low 24 - 43 % [employer] MCH (RBC) [Entitic mass] 31.2 pg 25.2 - 33.5 pg [employer] MCHC (RBC) [Mass/Vol] 32.5 g/dL 28.4 - 34.8 g/dL [employer] MCV (RBC) [Entitic vol] 96.0 fL 82.6 - 102.9 fL [employer] Monocytes/100 WBC (Bld) 7 % 3 - 12 % 3LM NRBC Automated 0.0 0.0 per 100 WBC [facility] Platelet distribution width (Bld) [Ratio] 12.5 % 11.8 - 14.4 % [facility] Platelet mean volume (Bld) [Entitic vol] 9.5 fL 8.1 - 13.5 fL [facility] Platelets (Bld) [#/Vol] 272 10*3/uL [facility] RBC (Bld) [#/Vol] 4.20 10*6/uL 3.95 - 5.1 1 m/uL [facility] Segmented neutrophils/100 WBC (Bld) 74 % High 36 - 65 % [facility] Segs Absolute 5.37 [facility] WBC (Bld) [#/Vol] 7.3 10*3/uL [facility] CT ABDOMEN PELVIS WO CONTRAS T Additional Contrast? Noneon 04-06-2022 1. Severe right-sided hydronephrosis secondary to multiple proximal obstructing renal calculi measuring up to 9 mm. Multiple bilateral nonobstructing renal calculi. Obstructing left renal calculus conglomerate measuring up to 1.1 cm in the proximal left ureter with periureteral stranding but no significant left-sided hydronephrosis. 2. Normal gas-filled appendix. 3. Small midline fat-containing periumbilical hernia. 4. Probable gallbladder sludge. Further evaluation with gallbladder ultrasound recommended. RECOMMENDATIONS: Unavailable [facility] RIS CONSOLIDATED EXAMINATION: CT OF THE ABDOMEN AND PELVIS WITHOUT CONTRAST 04/06/2022 9:44 am TECHNIQUE: CT of the abdomen and pelvis was performed without the administration of intravenous contrast. Multiplanar reformatted images are provided for review. Automated exposure control, iterative reconstruction, and/or weight based adjustment of the mA/kV was utilized to reduce the radiation dose to as low as reasonably achievable. COMPARISON: 03/18/2021 HISTORY: ORDERING SYSTEM PROVIDED HISTORY: Right flank pain suspect kidney stone TECHNOLOGIST PROVIDED HISTORY: Right flank pain suspect kidney stone Decision Support Exception - unselect if not a suspected or confirmed emergency medical condition->Emergency Medical Condition (MA) Is the patient ?->No 51-year-old female with right-sided flank pain and suspected kidney stones. FINDINGS: Lower Chest: Mild dependent atelectasis and respiratory motion. No free intra-abdominal air. Bilateral breast implants. Organs: Liver, adrenal glands, spleen, pancreas grossly unremarkable in appearance on noncontrast imaging. Probable sludge in the gallbladder on image 64, series 2. Severe right-sided hydronephrosis secondary to multiple right-sided proximal obstructing renal calculi measuring up to 9 mm on image 61, series 2 and 8 mm on image 70, series 2. Multiple smaller additional proximal right ureteral obstructing calculi as well as multiple renal calculi in the renal pelvis. Multiple nonobstructing bilateral renal calculi. No significant left-sided hydronephrosis. Obstructing renal calculus conglomerate measuring up to 1.1 cm at the proximal left ureter on image 54, series 2, with periureteral stranding. Moderate to severe proximal right-sided periureteral stranding. GI/Bowel: Normal gas-filled appendix. Mild stool burden. No significant dilation of small bowel loops to suggest small bowel obstruction. Pelvis: Uterus and adnexa grossly unremarkable for the patient's age. Urinary bladder is collapsed. No free fluid in the pelvis. No inguinal or pelvic sidewall lymphadenopathy. Peritoneum/Retroperi toneum: Abdominal aorta normal in appearance and caliber. No retroperitoneal lymphadenopathy. Psoas muscles normal in size and symmetric in appearance. Bones/Soft Tissues: Small midline fat-containing periumbilical hernia. No acute osseous abnormality. PN RIS CONSOLIDATED Humphrey Melvin MD - 04/06/2022 EXAMINATION: CT OF THE ABDOMEN AND PELVIS WITHOUT CONTRAST 04/06/2022 9:44 am TECHNIQUE: CT of the abdomen and pelvis was performed without the administration of intravenous contrast. Multiplanar reformatted images are provided for review. Automated exposure control, iterative reconstruction, and/or weight based adjustment of the mA/kV was utilized to reduce the radiation dose to as low as reasonably achievable. COMPARISON: 03/18/2021 HISTORY: ORDERING SYSTEM PROVIDED HISTORY: Right flank pain suspect kidney stone TECHNOLOGIST PROVIDED HISTORY: Right flank pain suspect kidney stone Decision Support Exception - unselect if not a suspected or confirmed emergency medical condition->Emergency Medical Condition (MA) Is the patient ?->No 51-year-old female with right-sided flank pain and suspected kidney stones. FINDINGS: Lower Chest: Mild dependent atelectasis and respiratory motion. No free intra-abdominal air. Bilateral breast implants. Organs: Liver, adrenal glands, spleen, pancreas grossly unremarkable in appearance on noncontrast imaging. Probable sludge in the gallbladder on image 64, series 2. Severe right-sided hydronephrosis secondary to multiple right-sided proximal obstructing renal calculi measuring up to 9 mm on image 61, series 2 and 8 mm on image 70, series 2. Multiple smaller additional proximal right ureteral obstructing calculi as well as multiple renal calculi in the renal pelvis. Multiple nonobstructing bilateral renal calculi. No significant left-sided hydronephrosis. Obstructing renal calculus conglomerate measuring up to 1.1 cm at the proximal left ureter on image 54, series 2, with periureteral stranding. Moderate to severe proximal right-sided periureteral stranding. GI/Bowel: Normal gas-filled appendix. Mild stool burden. No significant dilation of small bowel loops to suggest small bowel obstruction. Pelvis: Uterus and adnexa grossly unremarkable for the patient's age. Urinary bladder is collapsed. No free fluid in the pelvis. No inguinal or pelvic sidewall lymphadenopathy. Peritoneum/Retroperi toneum: Abdominal aorta normal in appearance and caliber. No retroperitoneal lymphadenopathy. Psoas muscles normal in size and symmetric in appearance. Bones/Soft Tissues: Small midline fat-containing periumbilical hernia. No acute osseous abnormality. IMPRESSION: 1. Severe right-sided hydronephrosis secondary to multiple proximal obstructing renal calculi measuring up to 9 mm. Multiple bilateral nonobstructing renal calculi. Obstructing left renal calculus conglomerate measuring up to 1.1 cm in the proximal left ureter with periureteral stranding but no significant left-sided hydronephrosis. 2. Normal gas-filled appendix. 3. Small midline fat-containing periumbilical hernia. 4. Probable gallbladder sludge. Further evaluation with gallbladder ultrasound recommended. RECOMMENDATIONS: Unavailable [employer] Phone: Radiology Study observation (narrative) [employer] Phone: CT ABDOMEN PELVIS WO CONTRAS T Additional Contrast? NoneOrdered By: Humphrey Melvin on 04-06-2022 [employer] Phone: Comprehensive Metabolic Pane yolanda 04-06-2022 Albumin [Mass/Vol] 4.6 g/dL 3.5 - 5.2 g/dL [employer] Albumin/Globulin [Mass ratio] 1.8 {ratio} [employer] ALP (Bld) [Catalytic activity/Vol] 94 U/L 35 - 104 U/L [facility] ALT [Catalytic activity/Vol] 19 U/L 5 - 33 U/L [facility] Anion gap [Moles/Vol] 10 mmol/L 9 - 17 mmol/L [facility] AST [Catalytic activity/Vol] 23 U/L <32 [facility] Bilirubin [Mass/Vol] 0.22 mg/dL Low 0.3 - 1 .2 mg/dL [facility] Calcium [Mass/Vol] 9.8 mg/dL 8.6 - 10. 4 mg/dL [facility] Chloride [Moles/Vol] 101 mmol/L 98 - 10 7 mmol/L [facility] CO2 [Moles/Vol] 24 mmol/L 20 - 31 mmol/L [facility] Creatinine [Mass/Vol] 0.55 mg/dL 0.50 - 0.90 mg/dL [facility] Free PSA/Total PSA [Mass fraction] 7.2 g/dL 6.4 - 8.3 g/dL [facility] GFR >60 >60 mL/min [facility] GFR Non- >60 >60 mL/min [facility] Glucose [Mass/Vol] 99 mg/dL 70 - 99 mg/dL [facility] Interpretation and review of laboratory results Abnormal [facility] Potassium [Moles/Vol] 4.2 mmol/L 3.7 - 5.3 mmol/L [facility] Sodium [Moles/Vol] 135 mmol/L 135 - 144 mmol/L [facility] Urea nitrogen (BldV) [Mass/Vol] 20 mg/dL 6 - 20 mg/dL [facility] Urea nitrogen/Creatinine (Bld) [Mass ratio] 36 High [facility] HCG Qualitative, Serumon hCG Qual Negative NEGATIVE [facility] Comment on above: Specimens with hCG l evels near the threshold of the test (25 mIU/mL) may give a negative or indeterminate result. In such cases, another test should be performed with a new specimen in 48-72 hours. If early is suspected clinically in this setting, correlation with quantitative serum b-hCG level is suggested. [employer] has confirmed the use of plasma for this test. This has not been cleared or approved by the U.S. Food and Drug Administration. The FDA has determined that such clearance is not necessary. [facility] Laboratory - Chemistry and C hemistry - challengeon 04-06-2022 GFR/1.73 sq M.predicted MDRD (S/P/Bld) [Vol rate/Area] [facility] Comment on above: Average GFR for 40-4 9 years old: 99 mL/min/1.73sq m Chronic Kidney Disease: <60 mL/min/1.73sq m Kidney failure: <15 mL/min/1.73sq m eGFR calculated using average adult body mass. Additional eGFR calculator available at: http://www.[employer]/multiple_crcl_2012.htm Stage 1: Some kidney damage normal GFR Stage 2: Mild kidney damage GFR 60-89 Stage 3: Moderate kidney damage GFR 30-59 Stage 4: Severe kidney damage GFR 15-29 Stage 5: Severe kidney damage GFR <15 ESRD - chronic treatment by dialysis or transplant Lipaseon 04-06-2022 Lipase [Catalytic activity/Vol] 42 U/L 13 - 60 U/L [facility] Microscopic Urinalysison - [employer] Bacteria, UA 2+ Abnormal None [facility] Epithelial Cells UA 2 TO 5 [facility] Interpretation and review of laboratory results Abnormal [facility] RBC (U) [#/Vol] 100 /uL [facility] WBC, UA 5 TO 10 [facility] No Panel Informationon 04-06 [facility] , Urineon Beta HCG ( test) Ql (U) Negative NEGATIVE [facility] Comment on above: Specimens with hCG l evels near the threshold of the test (25 mIU/mL) may give a negative or indeterminate result. In such cases, another test should be performed with a new specimen in 48-72 hours. If early is suspected clinically in this setting, correlation with quantitative serum b-hCG level is suggested. [employer] has confirmed the use of plasma for this test. This has not been cleared or approved by the U.S. Food and Drug Administration. The FDA has determined that such clearance is not necessary. [employer] Urinalysis with Reflex to Cu ltureon 04-06-2022 Bilirubin Urine Negative NEGATIVE [address] [facility] Color, UA Red Abnormal Yellow [employer] Glucose, Ur Negative NEGATIVE [employer] Interpretation and review of laboratory results Abnormal [facility] Ketones Ql (U) Negative NEGATIVE [facility] Leukocyte esterase Test strip Ql (U) Negative NEGATIVE [facility] Nitrite, Urine Negative NEGATIVE [facility] pH, UA 6.0 [facility] Protein, UA 2+ Abnormal NEGATIVE [facility] Specific [place], UA >1.030 [facility] Turbidity UA Cloudy Abnormal Clear [facility] Urine Hgb 2+ Abnormal NEGATIVE [facility] Urobilinogen, Urine Normal Normal [facility] XR ABDOMEN (KUB) (SINGLE AP VIEW)Ordered By: Nikolas Horner on 04-30-2021 Known small kidney stones by CT not well demonstrated radiographically. [employer] Phone: EXAMINATION: ONE SUPINE XRAY VIEW(S) OF THE ABDOMEN 04/30/2021 3:47 pm COMPARISON: KUB from 03/22/2021; CT scan of the abdomen and pelvis from 03/18/2021 HISTORY: ORDERING SYSTEM PROVIDED HISTORY: Kidney stone TECHNOLOGIST PROVIDED HISTORY: stone follow up FINDINGS: Previous right-sided ureteral stent no longer seen. Moderate retained stool, mostly transverse colon. Known small nonobstructing kidney stones not well seen radiographically. Nonobstructive bowel gas pattern. No mass or organomegaly. Bones intact. [employer] Phone: Juan Miguel, [facility] Incoming Radiant Results From CDP - 04/30/2021 3:54 PM EDT EXAMINATION: ONE SUPINE XRAY VIEW(S) OF THE ABDOMEN 04/30/2021 3:47 pm COMPARISON: KUB from 03/22/2021; CT scan of the abdomen and pelvis from 03/18/2021 HISTORY: ORDERING SYSTEM PROVIDED HISTORY: Kidney stone TECHNOLOGIST PROVIDED HISTORY: stone follow up FINDINGS: Previous right-sided ureteral stent no longer seen. Moderate retained stool, mostly transverse colon. Known small nonobstructing kidney stones not well seen radiographically. Nonobstructive bowel gas pattern. No mass or organomegaly. Bones intact. IMPRESSION: Known small kidney stones by CT not well demonstrated radiographically. [employer] Phone: [employer] Phone: CBC Auto DifferentialOrdered By: Rhea Dillard on 03-22-2021 Absolute Eos # 0.[address] [facility] Work Phone: Absolute Immature Granulocyte 0.06 [employer] Work Phone: Absolute Lymph # 1.[address] [facility] Work Phone: Absolute Grimes # [address] [facility] Work Phone: Basophils (Bld) [#/Vol] 0.06 10*3/uL [employer] Work Phone: Basophils/100 WBC (Bld) 1 % 0 - 2 % [facility] Work Phone: Differential Type NOT REPORTED [employer] Phone: Eosinophils/100 WBC (Bld) 2 % 1 - 4 % [employer] Phone: Hematocrit (Bld) [Volume fraction] 38.2 % 36.3 - 47.1 % [employer] Phone: Hemoglobin.gastrointest inal spec 1 Ql (Stl) 12.3 g/dL 11.9 - 15.1 g/dL [employer] Phone: Immature granulocytes/100 WBC (Bld) 1 % High 0 [employer] Phone: Interpretation and review of laboratory results Abnormal [employer] Phone: Lymphocytes/100 WBC (Bld) 11 % Low 24 - 43 % [employer] Phone: MCH (RBC) [Entitic mass] 31.5 pg 25.2 - 33.5 pg [employer] Phone: MCHC (RBC) [Mass/Vol] 32.2 g/dL 28.4 - 34.8 g/dL [employer] Phone: MCV (RBC) [Entitic vol] 97.7 fL 82.6 - 102.9 fL [employer] Phone: Monocytes/100 WBC (Bld) 9 % 3 - 12 % M [facility]LM Work Phone: NRBC Automated 0.0 0.0 per 100 WBC [employer] Phone: Platelet distribution width (Bld) [Ratio] 13.3 % 11.8 - 14.4 % [employer] Phone: Platelet Estimate NOT REPORTED [employer] Phone: Platelet mean volume (Bld) [Entitic vol] 10.0 fL 8.1 - 13.5 fL [employer] Phone: Platelets (Bld) [#/Vol] 227 10*3/uL [employer] Phone: RBC (Bld) [#/Vol] 3.91 10*6/uL Low 3.95 - 5.1 1 m/uL [employer] Phone: RBC (Bld) [#/Vol] NOT REPORTED [employer] Phone: Segmented neutrophils/100 WBC (Bld) 76 % High 36 - 65 % [employer] Phone: Segs Absolute 8.11 [employer] Work Phone: WBC (Bld) [#/Vol] 10.5 10*3/uL [employer] Phone: WBC (Bld) [#/Vol] NOT REPORTED [employer] Phone: Comprehensive Metabolic Pane l w/ Reflex to MGOrdered By: Rhea Dillard on 03-22-2021 Albumin [Mass/Vol] 3.7 g/dL 3.5 - 5.2 g/dL [employer] Phone: Albumin/Globulin [Mass ratio] 1.5 {ratio} [employer] Phone: ALP (Bld) [Catalytic activity/Vol] 83 U/L 35 - 104 U/L [employer] Phone: ALT [Catalytic activity/Vol] 22 U/L 5 - 33 U/L [employer] Phone: Anion gap [Moles/Vol] 4 mmol/L Low 9 - 17 mmol/L [employer] Phone: AST [Catalytic activity/Vol] 30 U/L <32 [employer] Phone: Bilirubin [Mass/Vol] mg/dL Low 0.3 - 1 .2 mg/dL [employer] Phone: Calcium [Mass/Vol] 9.5 mg/dL 8.6 - 10. 4 mg/dL [employer] Phone: Chloride [Moles/Vol] 108 mmol/L High 98 - 10 7 mmol/L [employer] Phone: CO2 [Moles/Vol] 28 mmol/L 20 - 31 mmol/L [employer] Phone: Creatinine [Mass/Vol] 0.56 mg/dL 0.50 - 0.90 mg/dL [employer] Phone: Free PSA/Total PSA [Mass fraction] 6.1 g/dL Low 6.4 - 8.3 g/dL [employer] Phone: GFR >60 >60 mL/min [employer] Phone: GFR Non- >60 >60 mL/min [employer] Phone: Glucose [Mass/Vol] 105 mg/dL High 70 - 99 mg/dL [employer] Phone: Interpretation and review of laboratory results Abnormal [employer] Phone: Potassium [Moles/Vol] 3.9 mmol/L 3.7 - 5.3 mmol/L [employer] Phone: Sodium [Moles/Vol] 140 mmol/L 135 - 144 mmol/L [employer] Phone: Urea nitrogen (BldV) [Mass/Vol] 18 mg/dL 6 - 20 mg/dL [employer] Phone: Urea nitrogen/Creatinine (Bld) [Mass ratio] 32 High [employer] Phone: Laboratory - Chemistry and C hemistry - challengeOrdered By: Rhea Dillard on 03-22-2021 GFR/1.73 sq M.predicted MDRD (S/P/Bld) [Vol rate/Area] [employer] Phone: Comment on above: Average GFR for 40-4 9 years old: 99 mL/min/1.73sq m Chronic Kidney Disease: <60 mL/min/1.73sq m Kidney failure: <15 mL/min/1.73sq m eGFR calculated using average adult body mass. Additional eGFR calculator available at: http://www.[employer]/multiple_crcl_2012.htm Stage 1: Some kidney damage normal GFR Stage 2: Mild kidney damage GFR 60-89 Stage 3: Moderate kidney damage GFR 30-59 Stage 4: Severe kidney damage GFR 15-29 Stage 5: Severe kidney damage GFR <15 ESRD - chronic treatment by dialysis or transplant Urinalysis with microscopicO rdered By: Rhea Dillard on 03-22-2021 - [employer] Phone: Amorphous, UA NOT REPORTED None [employer] Work Phone: Bacteria, UA 1+ Abnormal None [employer] Phone: Bilirubin Urine SMALL Abnormal NEGATIVE [employer] Work Phone: Casts UA NOT REPORTED /LPF [employer] Phone: Color, UA DARK YELLOW Abnormal YELLOW [employer] Phone: Crystals, UA 10 TO 20 CALCIUM OXALATE Abnormal None /HPF [employer] Phone: Epithelial Cells UA 10 TO 20 [employer] Phone: Glucose, Ur Negative NEGATIVE [facility] Work Phone: Interpretation and review of laboratory results Abnormal [facility] Work Phone: Ketones Ql (U) TRACE Abnormal NEGATIVE [facility] Work Phone: Leukocyte esterase Test strip Ql (U) MODERATE Abnormal NEGATIVE [facility] Work Phone: Mucus, UA NOT REPORTED None [facility] Work Phone: Nitrite, Urine Negative NEGATIVE [facility] Work Phone: Other Observations UA NOT REPORTED NOT REQ. M [facility] Work Phone: pH, UA 6.5 [facility] Work Phone: Protein, UA 4+ Abnormal NEGATIVE [facility] Work Phone: RBC (U) [#/Vol] 100 /uL [facility] Work Phone: Renal Epithelial, UA NOT REPORTED 0 /HPF [facility] Work Phone: Specific [place], UA 1.025 [facility] Work Phone: Trichomonas, UA NOT REPORTED None [facility] Work Phone: Turbidity UA CLOUDY Abnormal CLEAR [facility] Work Phone: Urinalysis Comments NOT REPORTED [facility] Work Phone: Urine Hgb 3+ Abnormal NEGATIVE [facility] Work Phone: Urobilinogen, Urine Normal Normal [facility] Work Phone: WBC, UA 10 TO 20 [facility] Work Phone: Yeast, UA NOT REPORTED None [facility] Work Phone: XR ABDOMEN (KUB) (SINGLE AP VIEW)Ordered By: Rhea Dillard on 03-22-2021 1. Probable punctate right-sided nephrolithiasis. Left-sided nephrolithiasis is also suspected. 2. Right-sided double pigtail ureteral stent. 3. Moderate stool burden. [employer] Phone: EXAMINATION: ONE SUPINE XRAY VIEW(S) OF THE ABDOMEN 03/22/2021 8:40 am COMPARISON: 12/09/2020, 1536 hours HISTORY: ORDERING SYSTEM PROVIDED HISTORY: Right groin pain status post ureteral stent TECHNOLOGIST PROVIDED HISTORY: Right groin pain status post ureteral stent 50-year-old female with right groin pain after a ureteral stent placement FINDINGS: Right-sided double pigtail ureteral stent is present. Moderate stool burden. No acute osseous abnormality. Psoas shadows symmetric in appearance. No abnormally dilated small bowel loops. Tiny punctate calcifications project over the right kidney likely nephrolithiasis, similar to the prior study. Left-sided nephrolithiasis is also suspected. [employer] Phone: Juan Miguel, pn Incoming Radiant Results From CDP - 03/22/2021 9:03 AM EDT EXAMINATION: ONE SUPINE XRAY VIEW(S) OF THE ABDOMEN 03/22/2021 8:40 am COMPARISON: 12/09/2020, 1536 hours HISTORY: ORDERING SYSTEM PROVIDED HISTORY: Right groin pain status post ureteral stent TECHNOLOGIST PROVIDED HISTORY: Right groin pain status post ureteral stent 50-year-old female with right groin pain after a ureteral stent placement FINDINGS: Right-sided double pigtail ureteral stent is present. Moderate stool burden. No acute osseous abnormality. Psoas shadows symmetric in appearance. No abnormally dilated small bowel loops. Tiny punctate calcifications project over the right kidney likely nephrolithiasis, similar to the prior study. Left-sided nephrolithiasis is also suspected. IMPRESSION: 1. Probable punctate right-sided nephrolithiasis. Left-sided nephrolithiasis is also suspected. 2. Right-sided double pigtail ureteral stent. 3. Moderate stool burden. [employer] Phone: FLUORO FOR SURGICAL PROCEDUR ESOrdered By: Branden Trevino on 03-20-2021 Radiology exam is complete. No Radiologist dictation. Please follow up with ordering provider. [employer] Phone: CBC Auto DifferentialOrdered By: Aaron Parker on 03-18-2021 Absolute Eos # [address] [facility] Work Phone: Absolute Immature Granulocyte <0.03 [employer] Work Phone: Absolute Lymph # 1.05 Low [facility] Work Phone: Absolute Grimes # [address] [facility] Work Phone: Basophils (Bld) [#/Vol] 0.05 10*3/uL [employer] Work Phone: Basophils/100 WBC (Bld) 1 % 0 - 2 % [facility] Work Phone: Differential Type NOT REPORTED [employer] Phone: Eosinophils/100 WBC (Bld) 2 % 1 - 4 % [employer] Phone: Hematocrit (Bld) [Volume fraction] 36.1 % Low 36.3 - 47.1 % [employer] Phone: Hemoglobin.gastrointest inal spec 1 Ql (Stl) 11.9 g/dL 11.9 - 15.1 g/dL [employer] Phone: Immature granulocytes/100 WBC (Bld) 0 % 0 [employer] Phone: Interpretation and review of laboratory results Abnormal [employer] Phone: Lymphocytes/100 WBC (Bld) 15 % Low 24 - 43 % [employer] Phone: MCH (RBC) [Entitic mass] 30.7 pg 25.2 - 33.5 pg [employer] Phone: MCHC (RBC) [Mass/Vol] 33.0 g/dL 28.4 - 34.8 g/dL [employer] Phone: MCV (RBC) [Entitic vol] 93.3 fL 82.6 - 102.9 fL [employer] Phone: Monocytes/100 WBC (Bld) 8 % 3 - 12 % M [employer] Phone: NRBC Automated 0.0 0.0 per 100 WBC [employer] Phone: Platelet distribution width (Bld) [Ratio] 13.2 % 11.8 - 14.4 % [employer] Phone: Platelet Estimate NOT REPORTED [employer] Phone: Platelet mean volume (Bld) [Entitic vol] 10.0 fL 8.1 - 13.5 fL [employer] Phone: Platelets (Bld) [#/Vol] 259 10*3/uL [employer] Phone: RBC (Bld) [#/Vol] 3.87 10*6/uL Low 3.95 - 5.1 1 m/uL [employer] Phone: RBC (Bld) [#/Vol] NOT REPORTED [employer] Phone: Segmented neutrophils/100 WBC (Bld) 74 % High 36 - 65 % [employer] Phone: Segs Absolute 5.18 [employer] Work Phone: WBC (Bld) [#/Vol] 7.0 10*3/uL [employer] Phone: WBC (Bld) [#/Vol] NOT REPORTED [facility] Phone: CT ABDOMEN PELVIS W IV CONTR AST Additional Contrast? NoneOrdered By: Aaron Parker on 03-18-2021 1. Unchanged appearance of bilateral punctate nephrolithiasis. Two new calcifications in the right pelvis measuring up to 0.6 cm are noted, for which the possibility of nonobstructing stones cannot be excluded. 2. Previously seen left ovarian hemorrhagic cyst has resolved. [employer] Phone: EXAMINATION: CT OF THE ABDOMEN AND PELVIS WITH CONTRAST 03/18/2021 12:30 pm TECHNIQUE: CT of the abdomen and pelvis was performed with the administration of intravenous contrast. Multiplanar reformatted images are provided for review. Dose modulation, iterative reconstruction, and/or weight based adjustment of the mA/kV was utilized to reduce the radiation dose to as low as reasonably achievable. COMPARISON: 08/07/2020 HISTORY: ORDERING SYSTEM PROVIDED HISTORY: pelvic pain along with pain to the CVAs bilat TECHNOLOGIST PROVIDED HISTORY: pelvic pain along with pain to the CVAs bilat Decision Support Exception - unselect if not a suspected or confirmed emergency medical condition->Emergency Medical Condition (MA) FINDINGS: Lower Chest: No acute findings. Organs: 2 calcifications in the right pelvis are new measuring 0.3 and 0.6 cm without hydroureter or hydronephrosis. These cannot be clearly demonstrated within the ureter versus adjacent pelvic vein. Previously demonstrated punctate right renal calculi appears unchanged. Punctate left renal calculi again demonstrated without significant change. Bilateral renal cysts. GI/Bowel: No bowel dilatation or wall thickening identified. Normal appendix. Pelvis: Previously seen left ovarian hemorrhagic cyst is no longer present. Mild prominence of the uterine cavity is within normal limits for age. Trace pelvic free fluid. Peritoneum/Retroperi toneum: No free air or free fluid. The aorta is normal in caliber. The visceral branches are patent. No lymphadenopathy. Bones/Soft Tissues: No acute findings. [employer] Work Phone: Juan Miguel, [facility] Incoming Radiant Results From [employer] - 03/18/2021 1:03 PM EDT EXAMINATION: CT OF THE ABDOMEN AND PELVIS WITH CONTRAST 03/18/2021 12:30 pm TECHNIQUE: CT of the abdomen and pelvis was performed with the administration of intravenous contrast. Multiplanar reformatted images are provided for review. Dose modulation, iterative reconstruction, and/or weight based adjustment of the mA/kV was utilized to reduce the radiation dose to as low as reasonably achievable. COMPARISON: 08/07/2020 HISTORY: ORDERING SYSTEM PROVIDED HISTORY: pelvic pain along with pain to the CVAs bilat TECHNOLOGIST PROVIDED HISTORY: pelvic pain along with pain to the CVAs bilat Decision Support Exception - unselect if not a suspected or confirmed emergency medical condition->Emergency Medical Condition (MA) FINDINGS: Lower Chest: No acute findings. Organs: 2 calcifications in the right pelvis are new measuring 0.3 and 0.6 cm without hydroureter or hydronephrosis. These cannot be clearly demonstrated within the ureter versus adjacent pelvic vein. Previously demonstrated punctate right renal calculi appears unchanged. Punctate left renal calculi again demonstrated without significant change. Bilateral renal cysts. GI/Bowel: No bowel dilatation or wall thickening identified. Normal appendix. Pelvis: Previously seen left ovarian hemorrhagic cyst is no longer present. Mild prominence of the uterine cavity is within normal limits for age. Trace pelvic free fluid. Peritoneum/Retroperi toneum: No free air or free fluid. The aorta is normal in caliber. The visceral branches are patent. No lymphadenopathy. Bones/Soft Tissues: No acute findings. IMPRESSION: 1. Unchanged appearance of bilateral punctate nephrolithiasis. Two new calcifications in the right pelvis measuring up to 0.6 cm are noted, for which the possibility of nonobstructing stones cannot be excluded. 2. Previously seen left ovarian hemorrhagic cyst has resolved. [employer] Phone: Comprehensive Metabolic Pane lOrdered By: Aaron Parker on 03-18-2021 Albumin [Mass/Vol] 4.1 g/dL 3.5 - 5.2 g/dL [employer] Phone: Albumin/Globulin [Mass ratio] 1.6 {ratio} [employer] Phone: ALP (Bld) [Catalytic activity/Vol] 78 U/L 35 - 104 U/L [employer] Phone: ALT [Catalytic activity/Vol] 11 U/L 5 - 33 U/L [employer] Phone: Anion gap [Moles/Vol] 11 mmol/L 9 - 17 mmol/L [employer] Phone: AST [Catalytic activity/Vol] 16 U/L <32 [employer] Phone: Bilirubin [Mass/Vol] 0.16 mg/dL Low 0.3 - 1 .2 mg/dL [employer] Phone: Calcium [Mass/Vol] 9.7 mg/dL 8.6 - 10. 4 mg/dL [employer] Phone: Chloride [Moles/Vol] 106 mmol/L 98 - 10 7 mmol/L [employer] Phone: CO2 [Moles/Vol] 23 mmol/L 20 - 31 mmol/L [employer] Phone: Creatinine [Mass/Vol] 0.48 mg/dL Low 0.50 - 0.90 mg/dL [employer] Phone: Free PSA/Total PSA [Mass fraction] 6.6 g/dL 6.4 - 8.3 g/dL [employer] Phone: GFR >60 >60 mL/min [employer] Phone: GFR Non- >60 >60 mL/min [employer] Phone: Glucose [Mass/Vol] 98 mg/dL 70 - 99 mg/dL [employer] Phone: Interpretation and review of laboratory results Abnormal [employer] Phone: Potassium [Moles/Vol] 4.1 mmol/L 3.7 - 5.3 mmol/L [employer] Phone: Sodium [Moles/Vol] 140 mmol/L 135 - 144 mmol/L [employer] Phone: Urea nitrogen (BldV) [Mass/Vol] 17 mg/dL 6 - 20 mg/dL [employer] Phone: Urea nitrogen/Creatinine (Bld) [Mass ratio] 35 High [employer] Phone: Laboratory - Chemistry and C hemistry - challengeOrdered By: Aaron Parker on 03-18-2021 GFR/1.73 sq M.predicted MDRD (S/P/Bld) [Vol rate/Area] [employer] Phone: Comment on above: Average GFR for 40-4 9 years old: 99 mL/min/1.73sq m Chronic Kidney Disease: <60 mL/min/1.73sq m Kidney failure: <15 mL/min/1.73sq m eGFR calculated using average adult body mass. Additional eGFR calculator available at: http://www.[employer]/multiple_crcl_2012.htm Stage 1: Some kidney damage normal GFR Stage 2: Mild kidney damage GFR 60-89 Stage 3: Moderate kidney damage GFR 30-59 Stage 4: Severe kidney damage GFR 15-29 Stage 5: Severe kidney damage GFR <15 ESRD - chronic treatment by dialysis or transplant LipaseOrdered By: Aaron renner on 03-18-2021 Lipase [Catalytic activity/Vol] 49 U/L 13 - 60 U/L [employer] Phone: , UrineOrdered By: Aaron Parker on 03-18-2021 Beta HCG ( test) Ql (U) Negative NEGATIVE [employer] Phone: Comment on above: Specimens with hCG l evels near the threshold of the test (25 mIU/mL) may give a negative or indeterminate result. In such cases, another test should be performed with a new specimen in 48-72 hours. If early is suspected clinically in this setting, correlation with quantitative serum b-hCG level is suggested. [employer] has confirmed the use of plasma for this test. This has not been cleared or approved by the U.S. Food and Drug Administration. The FDA has determined that such clearance is not necessary. Urinalysis with MicroscopicO rdered By: Aaron Parker on 03-18-2021 - [employer] Phone: Amorphous, UA NOT REPORTED None [employer] Work Phone: Bacteria, UA 1+ Abnormal None [employer] Phone: Bilirubin Urine Negative NEGATIVE [employer] Work Phone: Casts UA NOT REPORTED /LPF [employer] Phone: Color, UA YELLOW YELLOW [employer] Phone: Crystals, UA NOT REPORTED None /HPF [facility] [employer] Work Phone: Epithelial Cells UA 5 TO 10 [facility] [employer] Work Phone: Glucose, Ur Negative NEGATIVE [facility] [employer] Work Phone: Interpretation and review of laboratory results Abnormal [facility] [employer] Work Phone: Ketones Ql (U) Negative NEGATIVE [facility] [employer] Work Phone: Leukocyte esterase Test strip Ql (U) TRACE Abnormal NEGATIVE [facility] [employer] Work Phone: Mucus, UA NOT REPORTED None [facility] [employer] Work Phone: Nitrite, Urine Negative NEGATIVE [facility] Work Phone: Other Observations UA NOT REPORTED NOT REQ. M [facility] [employer] Work Phone: pH, UA 6.5 [facility] [employer] Work Phone: Protein, UA Negative NEGATIVE [facility] [employer] Work Phone: RBC, UA 5 TO 10 [facility] [employer] Work Phone: Renal Epithelial, UA NOT REPORTED 0 /HPF [facility] Work Phone: Specific [place], UA 1.020 [facility] [employer] Work Phone: Trichomonas, UA NOT REPORTED None [facility] Work Phone: Turbidity UA CLEAR CLEAR [facility] [employer] Work Phone: Urinalysis Comments NOT REPORTED [facility] [employer] Work Phone: Urine Hgb 1+ Abnormal NEGATIVE [facility] [employer] Work Phone: Urobilinogen, Urine Normal Normal [facility] [employer] Work Phone: WBC, UA 2 TO 5 [facility] [employer] Work Phone: Yeast, UA NOT REPORTED None [facility] [employer] Work Phone: COVID-19on 02-14-2021 SARS-CoV-2 [employer] Phone: SARS-CoV-2 Not Detected Not Detected [address] [facility] Work Phone: Comment on above: The specimen is NEGATIVE for SARS-CoV-2, the novel coronavirus associated with COVID-19. A negative result does not rule out COVID-19. [employer]ia SARS-CoV-2 for use on the [employer] is a real-time RT-PCR test intended for the qualitative detection of nucleic acids from SARS-CoV-2 in clinician-collected nasal, nasopharyngeal, and oropharyngeal swab specimens from individuals who meet COVID-19 clinical and/or epidemiological criteria. [employer]ia SARS-CoV-2 is for use only under Emergency Use Authorization (EUA) in laboratories certified under Clinical Laboratory Improvement Amendments of 1988 (CLIA), 42 U.S.C. 263a, that meet requirements to perform high or moderate complexity tests. An individual without symptoms of COVID-19 and who is not shedding SARS-CoV-2 virus would expect to have a negative (not detected) result in this assay. Fact sheet for Healthcare Providers: https://www.fda.gov/media/137816/download Fact sheet for Patients: https://www.fda.gov/media/512710/download METHODOLOGY: RT-PCR SARS-CoV-2, Rapid [facility] Work Phone: Source .NASOPHARYNGEAL SWAB [employer] Phone: Culture, Urineon 12-29-2020 Culture NO SIGNIFICANT GROWTH [employer] Phone: Special Requests NOT REPORTED [facility] Phone: Specimen Description .CLEAN CATCH URINE [facility] Phone: CBC Auto Differentialon 12-16 Basophils (Bld) [#/Vol] 0.07 10*3/uL [facility] Phone: Basophils/100 WBC (Bld) 1 % 0 - 2 % [facility] Phone: Differential Type NOT REPORTED [employer] Phone: Eosinophils (Bld) [#/Vol] 0.15 10*3/uL [employer] Phone: Eosinophils/100 WBC (Bld) 2 % 1 - 4 % [employer] Phone: Erythrocyte distribution width (RBC) [Ratio] 13.1 % 11.8 - 14.4 % [employer] Phone: Hematocrit (Bld) [Volume fraction] 39.8 % 36.3 - 47.1 % [employer] Phone: Hemoglobin (Bld) [Mass/Vol] 12.6 g/dL 11.9 - 15.1 g/dL [employer] Phone: Immature granulocytes (Bld) [#/Vol] 0 % 0 [employer] Phone: Immature granulocytes (Bld) [#/Vol] 10*3/uL [employer] Phone: Lymphocytes (Bld) [#/Vol] 1.87 10*3/uL [employer] Phone: Lymphocytes/100 WBC (Bld) 28 % 24 - 43 % [employer] Phone: MCH (RBC) [Entitic mass] 30.2 pg 25.2 - 33.5 pg [employer] Phone: MCHC (RBC) [Mass/Vol] 31.7 g/dL 28.4 - 34.8 g/dL [employer] Phone: MCV (RBC) [Entitic vol] 95.4 fL 82.6 - 102.9 fL [employer] Phone: Monocytes (Bld) [#/Vol] 0.62 10*3/uL [employer] Phone: Monocytes/100 WBC (Bld) 9 % 3 - 12 % [facility] [employer] Phone: Platelet mean volume (Bld) [Entitic vol] 10.5 fL 8.1 - 13.5 fL [employer] Phone: Platelets (Bld) [#/Vol] NOT REPORTED [employer] Work Phone: Platelets (Bld) [#/Vol] 260 10*3/uL [employer] Work Phone: RBC (Bld) [#/Vol] 4.17 10*6/uL 3.95 - 5.1 1 m/uL [employer] Work Phone: RBC morphology finding Nom (Bld) NOT REPORTED [employer] Work Phone: Segmented neutrophils/100 WBC (Bld) 60 % 36 - 65 % [employer] Work Phone: Segs Absolute [address] [facility] Work Phone: WBC (Bld) [#/Vol] 0.0 10*3/uL 0.0 per 10 0 WBC [employer] Phone: WBC (Bld) [#/Vol] 6.6 10*3/uL [employer] Work Phone: WBC Morphology NOT REPORTED [employer] [facility] Work Phone: HCG Qualitative, Serumon hCG Qual Negative NEGATIVE [employer] Phone: Comment on above: Specimens with hCG l evels near the threshold of the test (25 mIU/mL) may give a negative or indeterminate result. In such cases, another test should be performed with a new specimen in 48-72 hours. If early is suspected clinically in this setting, correlation with quantitative serum b-hCG level is suggested. [employer] has confirmed the use of plasma for this test. This has not been cleared or approved by the U.S. Food and Drug Administration. The FDA has determined that such clearance is not necessary. TYPE AND SCREENon 12-27-2020 ABO/Rh Positive [employer] Work Phone: Arm Band Number [id number] [facility] Work Phone: Expiration Date 01/03/2021,2359 [facility] Work Phone: XR ABDOMEN (KUB) (SINGLE AP VIEW)on 12-09-2020 Punctate right nephrolithiasis. [place] EXAMINATION: ONE SUPINE XRAY VIEW(S) OF THE ABDOMEN 12/09/2020 3:36 pm COMPARISON: 08/07/2020 HISTORY: ORDERING SYSTEM PROVIDED HISTORY: Renal calculus FINDINGS: The bowel gas pattern is nonobstructive. There is moderate stool within the colon. There is punctate right nephrolithiasis. No ureteral or vesicular stone identified. Left nephrolithiasis seen on prior CT is not visualized radiographically. [place], [place] Juan Miguel, [employer] Incoming Radiant Results From [employer] - 12/09/2020 3:49 PM EST EXAMINATION: ONE SUPINE XRAY VIEW(S) OF THE ABDOMEN 12/09/2020 3:36 pm COMPARISON: 08/07/2020 HISTORY: ORDERING SYSTEM PROVIDED HISTORY: Renal calculus FINDINGS: The bowel gas pattern is nonobstructive. There is moderate stool within the colon. There is punctate right nephrolithiasis. No ureteral or vesicular stone identified. Left nephrolithiasis seen on prior CT is not visualized radiographically. IMPRESSION: Punctate right nephrolithiasis. [place] Basic Metabolic Panelon - Anion gap [Moles/Vol] 8 mmol/L Low 9 - 17 mmol/L [place] Bun/Cre Ratio 19 [place], [place] Calcium [Mass/Vol] 9.5 mg/dL 8.6 - 10. 4 mg/dL [place] Chloride [Moles/Vol] 105 mmol/L 98 - 10 7 mmol/L [place] CO2 [Moles/Vol] 26 mmol/L 20 - 31 mmol/L [place] Creatinine [Mass/Vol] 0.57 mg/dL 0.5 - 0.9 mg/dL [place] GFR >60 >60 mL/min [place] GFR Non- >60 >60 mL/min [place] Glucose [Mass/Vol] 86 mg/dL 70 - 99 mg/dL [place] Interpretation and review of laboratory results Abnormal [place] Potassium [Moles/Vol] 4.3 mmol/L 3.7 - 5.3 mmol/L [place] Sodium [Moles/Vol] 139 mmol/L 135 - 144 mmol/L [place] Urea nitrogen [Mass/Vol] 11 mg/dL 6 - 20 mg/dL [place] CBC Auto Differentialon 07-17 Basophils (Bld) [#/Vol] 0.06 10*3/uL [place] Basophils/100 WBC (Bld) 1 % 0 - 2 % M [place] Differential Type NOT REPORTED [place] Eosinophils (Bld) [#/Vol] 0.16 10*3/uL [place] Eosinophils/100 WBC (Bld) 3 % 1 - 4 % [place] Erythrocyte distribution width (RBC) [Ratio] 12.0 % 11.8 - 14.4 % [place] Hematocrit (Bld) [Volume fraction] 39.6 % 36.3 - 47.1 % [place] Hemoglobin (Bld) [Mass/Vol] 13.0 g/dL 11.9 - 15.1 g/dL [place] Immature granulocytes (Bld) [#/Vol] 0 % 0 [place] Immature granulocytes (Bld) [#/Vol] 10*3/uL [place] Lymphocytes (Bld) [#/Vol] 1.37 10*3/uL [place] Lymphocytes/100 WBC (Bld) 25 % 24 - 43 % [place] MCH (RBC) [Entitic mass] 31.0 pg 25.2 - 33.5 pg [place] MCHC (RBC) [Mass/Vol] 32.8 g/dL 28.4 - 34.8 g/dL [place] MCV (RBC) [Entitic vol] 94.3 fL 82.6 - 102.9 fL [place] Monocytes (Bld) [#/Vol] 0.55 10*3/uL [place] Monocytes/100 WBC (Bld) 10 % 3 - 12 % [place] Platelet mean volume (Bld) [Entitic vol] 9.8 fL 8.1 - 13.5 fL [place] Platelets (Bld) [#/Vol] 216 10*3/uL [place] Platelets (Bld) [#/Vol] NOT REPORTED [place] RBC (Bld) [#/Vol] 4.20 10*6/uL 3.95 - 5.1 1 m/uL [place] RBC morphology finding Nom (Bld) NOT REPORTED [place] Segmented neutrophils/100 WBC (Bld) 61 % 36 - 65 % [place] Segs Absolute 3.38 [place], [place] WBC (Bld) [#/Vol] 5.5 10*3/uL [place] WBC (Bld) [#/Vol] 0.0 10*3/uL 0.0 per 10 0 WBC [place] WBC Morphology NOT REPORTED [place], [place] Metabolic Panelon 08-07-2020 GFR/1.73 sq M predicted among non-blacks MDRD (S/P/Bld) [Vol rate/Area] [place], [place] Comment on above: Stage 1: Some kidney damage normal GFR Stage 2: Mild kidney damage GFR 60-89 Stage 3: Moderate kidney damage GFR 30-59 Stage 4: Severe kidney damage GFR 15-29 Stage 5: Severe kidney damage GFR <15 ESRD - chronic treatment by dialysis or transplant Average GFR for 40-4 9 years old: 99 mL/min/1.73sq m Chronic Kidney Disease: <60 mL/min/1.73sq m Kidney failure: <15 mL/min/1.73sq m eGFR calculated using average adult body mass. Additional eGFR calculator available at: http://www.[employer]/multiple_crcl_2012.htm Urinalysis with Microscopico n 08-07-2020 Amorphous, UA TRACE Abnormal None [place], [place] Bacteria, UA 1+ Abnormal None [place], [place] Bilirubin Urine Negative NEGATIVE [place], [place] Casts UA NOT REPORTED /LPF [place] Color, UA YELLOW YELLOW [place] Crystals, UA NOT REPORTED None /HPF [place] Epithelial Cells UA 2 TO 5 [place] Glucose, Ur Negative NEGATIVE [place] Interpretation and review of laboratory results Abnormal [place] Ketones Ql (U) Negative NEGATIVE [place] Leukocyte esterase Test strip Ql (U) Negative NEGATIVE [place] Mucus, UA NOT REPORTED None [place] Nitrite, Urine Negative NEGATIVE [place] Other Observations UA NOT REPORTED NOT REQ. M [place] pH, UA 7.5 [place], [place] Protein (U) [Mass/Vol] Negative NEGATIVE [place], [place] RBC (U) [#/Vol] 0 TO 2 [place] Renal Epithelial, UA NOT REPORTED 0 /HPF [place] Specific [place], UA 1.015 [place], [place] Trichomonas, UA NOT REPORTED None [facility] [place] Turbidity UA CLEAR CLEAR [place] Urinalysis Comments NOT REPORTED [place], [place] Urine Hgb Negative NEGATIVE [place] Urobilinogen, Urine Normal Normal [place] WBC, UA 0 TO 2 [place], [place] Yeast, UA NOT REPORTED None [place] - [place] XR FOOT RIGHT (MIN 3 VIEWS)o n 01-26-2020 1. No acute findings in the right foot. 2. New asymmetric cortical thickening in the distal right 2nd metatarsal could be related to prior trauma or stress injury. [place] EXAMINATION: THREE XRAY VIEWS OF THE RIGHT FOOT 01/26/2020 9:06 pm COMPARISON: Right foot radiograph 10/26/2016 HISTORY: ORDERING SYSTEM PROVIDED HISTORY: pain to dorsum of foot TECHNOLOGIST PROVIDED HISTORY: pain to dorsum of foot FINDINGS: No acute nor healing fracture. New asymmetric cortical thickening in the medial portion of the distal 2nd metatarsal shaft with no evident periosteal thickening. Joints maintain anatomic alignment. No significant degenerative changes. No obvious acute soft tissue abnormality. [facility] [place] Juan Miguel, [facility] Incoming Radiant Results From [employer] - 01/26/2020 9:20 PM EDT EXAMINATION: THREE XRAY VIEWS OF THE RIGHT FOOT 01/26/2020 9:06 pm COMPARISON: Right foot radiograph 10/26/2016 HISTORY: ORDERING SYSTEM PROVIDED HISTORY: pain to dorsum of foot TECHNOLOGIST PROVIDED HISTORY: pain to dorsum of foot FINDINGS: No acute nor healing fracture. New asymmetric cortical thickening in the medial portion of the distal 2nd metatarsal shaft with no evident periosteal thickening. Joints maintain anatomic alignment. No significant degenerative changes. No obvious acute soft tissue abnormality. IMPRESSION: 1. No acute findings in the right foot. 2. New asymmetric cortical thickening in the distal right 2nd metatarsal could be related to prior trauma or stress injury. [employer] [place] Glucose, FastingOrdered By: Regan on 11-06-2019 Glucose [Mass/Vol] 87 mg/dL 70 - 99 mg/dL [employer] Phone: Lipid PanelOrdered By: Regan on 11-06-2019 Cholesterol [Mass/Vol] 179 mg/dL <200 [employer] Phone: Comment on above: Cholesterol Guidelines: <200 Desirable 200-240 Borderline >240 Undesirable Cholesterol in HDL [Mass/Vol] 62 mg/dL >40 [employer] Phone: Comment on above: HDL Guidelines: <40 Undesirable 40-59 Borderline >59 Desirable Cholesterol in LDL [Mass/Vol] 99 mg/dL 0 - 130 mg/dL [employer] Phone: Comment on above: LDL Guidelines: <100 Desirable 100-129 Near to/above Desirable 130-159 Borderline >159 Undesirable Direct (measured) LDL and calculated LDL are not interchangeable tests. Cholesterol.total/Jaleesa sterol in HDL [Mass ratio] 2.9 {ratio} <5 [facility] Phone: Triglyceride [Mass/Vol] 89 mg/dL <150 [facility] Phone: Comment on above: Triglyceride Guidelines: <150 Desirable 150-199 Borderline 200-499 High >499 Very high Based on AHA Guidelines for fasting triglyceride, August 2012. VLDL NOT REPORTED 1 - 30 mg/dL Jul[facility] Work Phone: VL DUP LOWER EXTREMITY VENOU S LEFTon 07-18-2019 [facility] Vascular Lower Extremities DVT Study Procedure Patient Name ABBY Date of Study 07/17/2019 LALA Roberts Date of 1970 Gender Female Age 49 year(s) Race Room Number Corporate ID [id number] # Patient Acct [id number] # MR # [id number] Ob Gyn Physician Assistant VLAD [place] Interpreting Physician Bee Olivera Referring Referring Physician William Disla II, PA-C Nurse Practitioner Additional Comments Previous Venous US left lower extremity 08/01/2018. Procedure Type of Study: Veins: Lower Extremities DVT Study, Venous Scan Lower Left. Patient Status:Out Patient. Technical Quality:Good visualization. Comments:INDICATIONS : Left calf pain Conclusions Summary No evidence of superficial or deep venous thrombosis in the right lower extremity. Right popliteal cyst and another non-vascular cyst in the right mid calf noted. Consider CT of the right leg if clinically indicated. Signature ---- ---- ---- ---- Findings: Right Impression: Left Impression: The common femora vein was The common femoral, femoral, deep femoral, compressible and with normal popliteal, tibials, peroneal, and doppler responses. saphenous veins were evaluated. All veins were compressible with normal doppler responses. A complex echoic finding was visualized in the medial popliteal fossa which measured .86 x 2.42 X 2.52 cm. An anechoic finding was visualized in the medial mid calf which measured .62 x 1.06 x 3.58 cm. Velocities are measured in cm/s ; Diameters are measured in cm Right Lower Extremities DVT Study Measurements Right 2D Measurements + +-- --------+ ----+ + !Location !Visualized!Compress ibility!Thrombosis! + +-- --------+ ----+ + !Common Femoral !Yes !Yes !None ! + +-- --------+ ----+ + Right Doppler Measurements + ---------+------+--- ---+ + !Location !Signal!Reflux!Reflu x (msec) ! + ---------+------+--- ---+ + !Common Femoral !Phasic! ! ! + ---------+------+--- ---+ + Left Lower Extremities DVT Study Measurements Left 2D Measurements + +-- --------+ ----+ + !Location !Visualized!Compress ibility!Thrombosis! + +-- --------+ ----+ + !Common Femoral !Yes !Yes !None ! + +-- --------+ ----+ + !Prox Femoral !Yes !Yes !None ! + +-- --------+ ----+ + !Mid Femoral !Yes !Yes !None ! + +-- --------+ ----+ + !Dist Femoral !Yes !Yes !None ! + +-- --------+ ----+ + !Deep Femoral !Yes !Yes !None ! + +-- --------+ ----+ + !Popliteal !Yes !Yes !None ! + +-- --------+ ----+ + !Sapheno Femoral Junction !Yes !Yes !None ! + +-- --------+ ----+ + !PTV !Yes !Yes !None ! + +-- --------+ ----+ + !Peroneal !Yes !Yes !None ! + +-- --------+ ----+ + !Gastroc !Yes !Yes !None ! + +-- --------+ ----+ + !GSV Thigh !Yes !Yes !None ! + +-- --------+ ----+ + !GSV Knee !Yes !Yes !None ! + +-- --------+ ----+ + !GSV Ankle !Yes !Yes !None ! + +-- --------+ ----+ + !SSV !Yes !Yes !None ! + +-- --------+ ----+ + Left Doppler Measurements + --------+------+---- --+ + !Location !Signal!Reflux!Reflu x (msec) ! + --------+------+---- --+ + !Common Femoral !Phasic!No ! ! + --------+------+---- --+ + !Prox Femoral !Phasic!No ! ! + --------+------+---- --+ + !Popliteal !Phasic!No ! ! + --------+------+---- --+ + [facility]- [place], [place] Juan Miguel, pn Incoming Cardio Results From [employer] - 07/18/2019 4:43 PM EDT [facility] Vascular Lower Extremities DVT Study Procedure Patient Name ABBY Date of Study 07/17/2019 LALA Roberts Date of 1970 Gender Female Age 49 year(s) Race Room Number Corporate ID [id number] # Patient Acct [id number] # MR # [id number] Ob Gyn Physician Assistant VLAD [place] Interpreting Physician Bee Olivera Referring Referring Physician William Disla II, PA-C Nurse Practitioner Additional Comments Previous Venous US left lower extremity 08/01/2018. Procedure Type of Study: Veins: Lower Extremities DVT Study, Venous Scan Lower Left. Patient Status:Out Patient. Technical Quality:Good visualization. Comments:INDICATIONS : Left calf pain Conclusions Summary No evidence of superficial or deep venous thrombosis in the right lower extremity. Right popliteal cyst and another non-vascular cyst in the right mid calf noted. Consider CT of the right leg if clinically indicated. Signature ---- ---- ---- ---- Findings: Right Impression: Left Impression: The common femora vein was The common femoral, femoral, deep femoral, compressible and with normal popliteal, tibials, peroneal, and doppler responses. saphenous veins were evaluated. All veins were compressible with normal doppler responses. A complex echoic finding was visualized in the medial popliteal fossa which measured .86 x 2.42 X 2.52 cm. An anechoic finding was visualized in the medial mid calf which measured .62 x 1.06 x 3.58 cm. Velocities are measured in cm/s ; Diameters are measured in cm Right Lower Extremities DVT Study Measurements Right 2D Measurements + +-- --------+ ----+ + !Location !Visualized!Compress ibility!Thrombosis! + +-- --------+ ----+ + !Common Femoral !Yes !Yes !None ! + +-- --------+ ----+ + Right Doppler Measurements + ---------+------+--- ---+ + !Location !Signal!Reflux!Reflu x (msec) ! + ---------+------+--- ---+ + !Common Femoral !Phasic! ! ! + ---------+------+--- ---+ + Left Lower Extremities DVT Study Measurements Left 2D Measurements + +-- --------+ ----+ + !Location !Visualized!Compress ibility!Thrombosis! + +-- --------+ ----+ + !Common Femoral !Yes !Yes !None ! + +-- --------+ ----+ + !Prox Femoral !Yes !Yes !None ! + +-- --------+ ----+ + !Mid Femoral !Yes !Yes !None ! + +-- --------+ ----+ + !Dist Femoral !Yes !Yes !None ! + +-- --------+ ----+ + !Deep Femoral !Yes !Yes !None ! + +-- --------+ ----+ + !Popliteal !Yes !Yes !None ! + +-- --------+ ----+ + !Sapheno Femoral Junction !Yes !Yes !None ! + +-- --------+ ----+ + !PTV !Yes !Yes !None ! + +-- --------+ ----+ + !Peroneal !Yes !Yes !None ! + +-- --------+ ----+ + !Gastroc !Yes !Yes !None ! + +-- --------+ ----+ + !GSV Thigh !Yes !Yes !None ! + +-- --------+ ----+ + !GSV Knee !Yes !Yes !None ! + +-- --------+ ----+ + !GSV Ankle !Yes !Yes !None ! + +-- --------+ ----+ + !SSV !Yes !Yes !None ! + +-- --------+ ----+ + Left Doppler Measurements + --------+------+---- --+ + !Location !Signal!Reflux!Reflu x (msec) ! + --------+------+---- --+ + !Common Femoral !Phasic!No ! ! + --------+------+---- --+ + !Prox Femoral !Phasic!No ! ! + --------+------+---- --+ + !Popliteal !Phasic!No ! ! + --------+------+---- --+ + [employer]- [place], [place] D-dimer, quantitativeon 0 D-Dimer, Quant 0.37 [facility], [place] Comment on above: Elevated levels of D dimer can be seen in any state of coagulation activation including DVT, PE, arterial thrombosis, DIC, inflamatory disease, trauma, malignancy, sepsis, infection, hematoma, liver disease, post surgical state, , atherosclerosis, old age. When combined with a low clinical probability, a D dimer value of <0.50 mg/L is considered negative for DVT and PE (negative predictive value of 98%). CT ABDOMEN PELVIS WO CONTRAS Ton 07-05-2019 1. No acute process within the abdomen or pelvis. 2. Bilateral nonobstructing nephrolithiasis, without evidence of a ureteral calculus or hydronephrosis. [facility], [place] EXAMINATION: CT OF THE ABDOMEN AND PELVIS WITHOUT CONTRAST 07/04/2019 1:07 pm TECHNIQUE: CT of the abdomen and pelvis was performed without the administration of intravenous contrast. Multiplanar reformatted images are provided for review. Dose modulation, iterative reconstruction, and/or weight based adjustment of the mA/kV was utilized to reduce the radiation dose to as low as reasonably achievable. COMPARISON: 02/02/2018 HISTORY: ORDERING SYSTEM PROVIDED HISTORY: Renal calculus TECHNOLOGIST PROVIDED HISTORY: STONE PROTOCOL FINDINGS: Lower Chest: There is mild dependent atelectasis within the bilateral lower lobes. The lung bases are otherwise clear. Bilateral breast implants are partially visualized. Organs: Noncontrast images of the kidneys and ureters demonstrate bilateral nonobstructing renal calculi, with the largest measuring approximately 8 mm within the mid right kidney. However, there is no evidence of a ureteral calculus or hydronephrosis. The bilateral kidneys are otherwise unremarkable in noncontrast appearance. The liver, spleen, pancreas, gallbladder, and adrenal glands are normal. GI/Bowel: Evaluation of the hollow GI tract demonstrates no evidence of abnormal bowel wall thickening, dilatation, or obstruction. The appendix is normal. Pelvis: The urinary bladder is normal, without evidence of wall thickening or an intraluminal calculus or mass. The uterus and bilateral adnexa are unremarkable in noncontrast appearance. There is a mild amount of free pelvic fluid, likely physiologic. No pathologic pelvic lymphadenopathy is identified. Peritoneum/Retroperi toneum: No intraperitoneal free air or free fluid is identified. No pathologic lymphadenopathy is seen. The abdominal aorta is unremarkable in noncontrast appearance. No significant abdominal wall hernia is evident. Bones/Soft Tissues: No acute findings. [place], [place] Juan Miguel, Mhpn Incoming Radiant Results From [employer] - 07/05/2019 6:15 PM EDT EXAMINATION: CT OF THE ABDOMEN AND PELVIS WITHOUT CONTRAST 07/04/2019 1:07 pm TECHNIQUE: CT of the abdomen and pelvis was performed without the administration of intravenous contrast. Multiplanar reformatted images are provided for review. Dose modulation, iterative reconstruction, and/or weight based adjustment of the mA/kV was utilized to reduce the radiation dose to as low as reasonably achievable. COMPARISON: 02/02/2018 HISTORY: ORDERING SYSTEM PROVIDED HISTORY: Renal calculus TECHNOLOGIST PROVIDED HISTORY: STONE PROTOCOL FINDINGS: Lower Chest: There is mild dependent atelectasis within the bilateral lower lobes. The lung bases are otherwise clear. Bilateral breast implants are partially visualized. Organs: Noncontrast images of the kidneys and ureters demonstrate bilateral nonobstructing renal calculi, with the largest measuring approximately 8 mm within the mid right kidney. However, there is no evidence of a ureteral calculus or hydronephrosis. The bilateral kidneys are otherwise unremarkable in noncontrast appearance. The liver, spleen, pancreas, gallbladder, and adrenal glands are normal. GI/Bowel: Evaluation of the hollow GI tract demonstrates no evidence of abnormal bowel wall thickening, dilatation, or obstruction. The appendix is normal. Pelvis: The urinary bladder is normal, without evidence of wall thickening or an intraluminal calculus or mass. The uterus and bilateral adnexa are unremarkable in noncontrast appearance. There is a mild amount of free pelvic fluid, likely physiologic. No pathologic pelvic lymphadenopathy is identified. Peritoneum/Retroperi toneum: No intraperitoneal free air or free fluid is identified. No pathologic lymphadenopathy is seen. The abdominal aorta is unremarkable in noncontrast appearance. No significant abdominal wall hernia is evident. Bones/Soft Tissues: No acute findings. IMPRESSION: 1. No acute process within the abdomen or pelvis. 2. Bilateral nonobstructing nephrolithiasis, without evidence of a ureteral calculus or hydronephrosis. [place] Urinalysis With Microscopico n 06-26-2019 Amorphous, UA 2+ Abnormal None [facility] [place] Bacteria, UA NOT REPORTED None [facility]- [place], [place] Bilirubin Urine Negative NEGATIVE [place], [place] Casts UA NOT REPORTED /LPF [place], [place] Color, UA YELLOW YELLOW [place], [place] Crystals UA NOT REPORTED None /HPF [place], [place] Epithelial Cells UA 0 TO 2 [place] Glucose, Ur Negative NEGATIVE [place] Interpretation and review of laboratory results Abnormal [place] Ketones Ql (U) Negative NEGATIVE [place], [place] Leukocyte esterase Test strip Ql (U) Negative NEGATIVE [place] Mucus, UA NOT REPORTED None [place], [place] Nitrite, Urine Negative NEGATIVE [place], [place] Other Observations UA NOT REPORTED NOT REQ. M [place], [place] pH, UA 7.5 [place], [place] Protein (U) [Mass/Vol] Negative NEGATIVE [place], [place] RBC (U) [#/Vol] 0 TO 2 [place], [place] Renal Epithelial, Urine NOT REPORTED 0 /HPF [place] Specific [place], UA 1.015 [place], [place] Trichomonas, UA NOT REPORTED None [facility] [place], [place] Turbidity UA CLEAR CLEAR [place], [place] Urinalysis Comments NOT REPORTED [place], [place] Urine Hgb Negative NEGATIVE [place] Urobilinogen, Urine Normal Normal [place], [place] WBC, UA None [place] Yeast, UA NOT REPORTED None [place], [place] XR ABDOMEN (KUB) (SINGLE AP VIEW)on 06-22-2019 Question of rounded opacity in the right mid abdomen, similar in location to prior study, and may signify renal calculus. Stool throughout the colon. [place] EXAMINATION: ONE SUPINE XRAY VIEW(S) OF THE ABDOMEN 06/22/2019 4:04 pm COMPARISON: 06/24/2018 HISTORY: ORDERING SYSTEM PROVIDED HISTORY: Renal calculus FINDINGS: Apparent rounded opacity projects over the right hemiabdomen measuring 4.5 mm, similar in location to the previous exam. There is colonic stool and gas which projects over this region. Normal bowel gas pattern. Osseous structures are intact. [place], [place] Juan Miguel, Mhpn Incoming Radiant Results From [employer] [facility] - 06/22/2019 4:19 PM EDT EXAMINATION: ONE SUPINE XRAY VIEW(S) OF THE ABDOMEN 06/22/2019 4:04 pm COMPARISON: 06/24/2018 HISTORY: ORDERING SYSTEM PROVIDED HISTORY: Renal calculus FINDINGS: Apparent rounded opacity projects over the right hemiabdomen measuring 4.5 mm, similar in location to the previous exam. There is colonic stool and gas which projects over this region. Normal bowel gas pattern. Osseous structures are intact. IMPRESSION: Question of rounded opacity in the right mid abdomen, similar in location to prior study, and may signify renal calculus. Stool throughout the colon. [place], [place] LESS THAN 1 HOURon 2017 [place] LESS THAN 1 HOUR EXAMINATION: Fluoroscopic views during right ureteral stent placement.CLINICAL INFORMATION: Ureteral stent placement.COMPARISON : None.FINDINGS: Fluoroscopic time: 15.4 seconds. 4 images obtained.Images demonstrate catheterization of the right ureter with wire and catheter placement. The final image demonstrates the proximal portion of a right ureteral stent. See operative note for full detail.Interpreted by:MARION Nicholsigned by:Morris Arreola MD02/03/18inal result [facility] OPERATIVE REPORTon 8 OPERATIVE REPORT [facility] [address] [place] [address] OPERATIVE REPORTPATIENT NAME: LALA MORA : 1970MED REC NO: [id number] ROOM:ACCOUNT NO: [id number] ADMIT DATE: 02/03/2018PROVIDER: Branden TrevinoDATE OF PROCEDURE: 02/03/2018PREOPERATI VE DIAGNOSES:1. Right ureteral calculus.2. Right renal calculus.POSTOPERATI VE DIAGNOSES:1. Right ureteral calculus.2. Right renal calculus.OPERATIONS PERFORMED: Cystoscopy, right ureteroscopy, right holmium laserlithotripsy, right ureteral stent placement.SURGEON: Branden TrevinoASSISTANT: None.ANESTHESIA: General.COMPLICATION S: None.EBL: Minimal.SPECIMENS: None.PROSTHESIS: A 6-Barbadian 26 cm double J ureteral stent.DISPOSITION: Stable.FINDINGS: Small right ureteral stone, larger right renal stone.INDICATIONS: The patient is a 47-year-old female with CT proven rightureteral and right renal calculus here now for definitive therapy.OPERATIVE PROCEDURE: The patient was taken back to the operating room andafter informed consent including all risks, benefits, and alternatives wereobtained, the [facility] where she was induced under general anesthesia and given IV Cipro forpreoperative antibiotic prophylaxis. To begin the case, she was preppedand draped in normal sterile fashion. She was placed in dorsal lithotomy. A 22-Barbadian sheath with a 30-degree lens passed through the urethra intothe bladder. Once in the bladder, the right ureteral orifice wasidentified. A 0.035-inch wire was passed up the ureter. We did have somedifficulty getting by the stone. We were able to use an open-endedcatheter to get this up by the stone. Once this was done, we were able toplace the additional Glidewire up and placed flexible ureteroscope. We dididentify the stone. It did immediately moved into the kidney. Withirrigation, we then identified the larger stone. We were able to take a200 micron laser fiber and ablated both the stones into one to two mmparticles. Once this was done, we then did a formal pyeloscopy. Noadditional calculi were seen. We then removed the scope leaving theGlidewire in place. We placed the scope over the Glidewire and placed a6-Barbadian 26 cm double J ureteral stent over the Glidewire up into thekidney. Glidewire was removed. Proximal curl was confirmed byfluoroscopy. Distal curl was confirmed by visualization. Stent string wasattached to the patient's thigh with Steris and benzoin. She was thenawoken from general anesthesia, [facility], [facility] satisfactory condition by nursing and anesthesia teams.PLAN: The patient will be discharged home per PACU criteria and follow upwith me on Wednesday for stent removal via string.BRANDEN TREVINOD: 02/03/2018 12:58:07 SOWMYA/[email or web address]#: [id number] Doc#: [id number]: [facility] Op Noteon 02-03-2018 HIM IP Note OR Overhead Line Worker [facility] Progress Noteon 02-03-2018 HIM IP Note OR Overhead Line Worker [facility] HIM IP Note OR Overhead Line Worker [facility] History and Physicalon 02-02 HIM IP Note OR Overhead Line Worker [facility] Vital Signs Date Time Vital Sign Value Performing Clinician Farheen hong 05-05-2023 06:24-0400 Body temperature 97 [degF] Rhea Dillard MD Work Phone: [facility] 05-05-2023 06:24-0400 Diastolic blood pressure 92 mm[Hg] Rhea Dillard MD Work Phone: [facility] 05-05-2023 06:24-0400 Heart rate 85 /min Rhea Dillard MD Work Phone: [facility] 05-05-2023 06:24-0400 Respiratory rate 15 /min Rhea Dillard MD Work Phone: [facility] 05-05-2023 06:24-0400 SaO2% (BldA) [Mass fraction] 98 % Rhea Dillard MD Work Phone: [facility] 05-05-2023 06:24-0400 Systolic blood pressure 134 mm[Hg] Rhea Dillard MD Work Phone: [facility] 04-27-2022 09:15-0400 Diastolic blood pressure 72 mm[Hg] Bradnen Trevino MD Work Phone: [facility] 04-27-2022 09:15-0400 Heart rate 78 /min Branden Trevino MD Work Phone: [facility] 04-27-2022 09:15-0400 Respiratory rate 16 /min Branden Trevino MD Work Phone: [facility] 04-27-2022 09:15-0400 SaO2% (BldA) [Mass fraction] 97 % Branden Trevino MD Work Phone: [facility] [employer] 04-27-2022 09:15-0400 Systolic blood pressure 119 mm[Hg] Branden Trevino MD Work Phone: [facility] 04-27-2022 08:25-0400 Body temperature 97.3 [degF] Branden Trevino MD Work Phone: [facility] 04-27-2022 06:32-0400 Body height 165.1 cm Branden Trevino MD Work Phone: [facility] 04-27-2022 06:32-0400 Body mass index (BMI) [Ratio] 25.79 kg/m2 Branden Trevino MD Work Phone: [facility] 04-27-2022 06:32-0400 Body weight 70.31 kg Branden Trevino MD Work Phone: [facility] 04-14-2022 15:30-0400 Diastolic blood pressure 73 mm[Hg] Branden Trevino MD Work Phone: [facility] 04-14-2022 15:30-0400 Heart rate 70 /min Branden Trevino MD Work Phone: [facility] 04-14-2022 15:30-0400 Respiratory rate 16 /min Branden Trevino MD Work Phone: [facility] 04-14-2022 15:30-0400 SaO2% (BldA) [Mass fraction] 98 % Branden Trevino MD Work Phone: [facility] 04-14-2022 15:30-0400 Systolic blood pressure 108 mm[Hg] Branden Trevino MD Work Phone: [facility] 04-14-2022 14:45-0400 Body temperature 97 [degF] Branden Trevino MD Work Phone: [facility] 04-06-2022 11:08-0400 Diastolic blood pressure 65 mm[Hg] Jimi Ayoub MD Work Phone: [facility] 04-06-2022 11:08-0400 SaO2% (BldA) [Mass fraction] 99 % Jimi Ayoub MD Work Phone: [employer] 04-06-2022 11:08-0400 Systolic blood pressure 108 mm[Hg] Jimi Ayoub MD Work Phone: [employer] 04-06-2022 08:58-0400 Body temperature 97.81 [degF] Jimi Ayoub MD Work Phone: [employer] 04-06-2022 08:58-0400 Heart rate 52 /min Jimi Ayoub MD Work Phone: [employer] 04-06-2022 08:58-0400 Respiratory rate 16 /min Jimi Ayoub MD Work Phone: [employer] 03-22-2021 10:51-0400 Diastolic blood pressure 73 mm[Hg] Rhea Dillard MD Work Phone: [employer] Work Phone: 03-22-2021 10:51-0400 Heart rate 74 /min Rhea Dillard MD Work Phone: [employer] Work Phone: 03-22-2021 10:51-0400 Respiratory rate 18 /min Rhea Dillard MD Work Phone: [employer] Work Phone: 03-22-2021 10:51-0400 SaO2% (BldA) [Mass fraction] 98 % Rhea Dillard MD Work Phone: [employer] Work Phone: 03-22-2021 10:51-0400 Systolic blood pressure 105 mm[Hg] Rhea Dillard MD Work Phone: [employer] Work Phone: 03-22-2021 07:46-0400 Body height 170.2 cm Rhea Dillard MD Work Phone: [employer] Work Phone: 03-22-2021 07:46-0400 Body mass index (BMI) [Ratio] 20.52 kg/m2 Rhea Dillard MD Work Phone: [employer] Work Phone: 03-22-2021 07:46-0400 Body temperature 97.11 [degF] Rhea Dillard MD Work Phone: [employer] Work Phone: 03-22-2021 07:46-0400 Body weight 59.42 kg Rhea Dillard MD Work Phone: [employer] Work Phone: 03-20-2021 13:15-0400 Diastolic blood pressure 75 mm[Hg] Branden Trevino MD Work Phone: [employer] Work Phone: 03-20-2021 13:15-0400 Heart rate 71 /min Branden Trevino MD Work Phone: [employer] Work Phone: 03-20-2021 13:15-0400 Respiratory rate 18 /min Branden Trevino MD Work Phone: [employer] Work Phone: 03-20-2021 13:15-0400 SaO2% (BldA) [Mass fraction] 99 % Branden Trevino MD Work Phone: [employer] Work Phone: 03-20-2021 13:15-0400 Systolic blood pressure 114 mm[Hg] Branden Trevino MD Work Phone: [employer] Work Phone: 03-20-2021 12:30-0400 Body temperature 98.6 [degF] Branden Trevino MD Work Phone: [employer] Work Phone: 03-20-2021 10:01-0400 Body height 170.2 cm Branden Trevino MD Work Phone: [employer] Work Phone: 03-20-2021 10:01-0400 Body mass index (BMI) [Ratio] 21.55 kg/m2 Branden Trevino MD Work Phone: [employer] Work Phone: 03-20-2021 10:01-0400 Body weight 62.41 kg Branden Trevino MD Work Phone: [employer] Work Phone: 03-18-2021 14:11-0400 Diastolic blood pressure 81 mm[Hg] Aaron Parker MD Work Phone: [employer] Work Phone: 03-18-2021 14:11-0400 Heart rate 80 /min Aaron Parker MD Work Phone: [employer] Work Phone: 03-18-2021 14:11-0400 Respiratory rate 16 /min Aaron Parker MD Work Phone: [employer] Work Phone: 03-18-2021 14:11-0400 SaO2% (BldA) [Mass fraction] 98 % Aaron Parker MD Work Phone: [employer] Work Phone: 03-18-2021 14:11-0400 Systolic blood pressure 120 mm[Hg] Aaron Parker MD Work Phone: [employer] Work Phone: 03-18-2021 09:54-0400 Body mass index (BMI) [Ratio] 21.93 kg/m2 Aaron Parker MD Work Phone: [employer] Work Phone: 03-18-2021 09:54-0400 Body temperature 98.2 [degF] Aaron Parker MD Work Phone: [employer] Phone: 03-18-2021 09:54-0400 Body weight 63.5 kg Aaron Parker MD Work Phone: [employer] Phone: 01-01-2021 09:00-0500 BP Diastolic 70 mm[Hg] [employer] Work Phone: 01-01-2021 09:00-0500 BP Systolic 112 mm[Hg] [employer] Work Phone: 01-01-2021 09:00-0500 Pulse (Heart Rate) 67 /min [employer] Phone: 01-01-2021 09:00-0500 Pulse Oximetry 98 % [employer] Phone: 01-01-2021 09:00-0500 Respiratory Rate 16 /min [employer] Work Phone: 01-01-2021 08:37-0500 Body Temperature 97.2 [degF] [employer] Work Phone: 01-01-2021 07:23-0500 BMI (Body Mass Index) 21.93 kg/m2 [employer] Work Phone: 01-01-2021 07:23-0500 Body weight 63.5 kg [employer] Work Phone: 01-01-2021 07:23-0500 Height 170.2 cm [employer] Phone: 12-27-2020 16:01-0500 BMI (Body Mass Index) 22.04 kg/m2 [employer] Work Phone: 12-27-2020 16:01-0500 Body Temperature 96.91 [degF] [employer] Work Phone: 12-27-2020 16:01-0500 Body weight 63.82 kg [employer] Phone: 12-27-2020 16:01-0500 BP Diastolic 71 mm[Hg] [employer] Phone: 12-27-2020 16:01-0500 BP Systolic 111 mm[Hg] [employer] Phone: 12-27-2020 16:01-0500 Height 170.2 cm [employer] Phone: 12-27-2020 16:01-0500 Pulse (Heart Rate) 74 /min [employer] Phone: 12-27-2020 16:01-0500 Pulse Oximetry 98 % [employer] Phone: 12-27-2020 16:01-0500 Respiratory Rate 20 /min [employer] Phone: 01-26-2020 20:15-0400 BMI (Body Mass Index) 19.58 kg/m2 Regan Mangstor [facility], [place] 01-26-2020 20:15-0400 Body Temperature 97.81 [degF] [place]an [facility] [place] 01-26-2020 20:15-0400 Body weight 56.7 kg Regan [facility] [place] , [place] 01-26-2020 20:15-0400 BP Diastolic 67 mm[Hg] [place]an [facility] [place] 01-26-2020 20:15-0400 BP Systolic 115 mm[Hg] [place] [facility] [place] 01-26-2020 20:15-0400 Height 170.2 cm [place]an [facility] [place] 01-26-2020 20:15-0400 Pulse (Heart Rate) 78 /min Regan Mangstor [facility], [place] 01-26-2020 20:15-0400 Pulse Oximetry 99 % Regan [facility] [place] , [place] 01-26-2020 20:15-0400 Respiratory Rate 16 /min Regan Mendez [facility], [place] 07-25-2019 15:05-0400 BP Diastolic 71 mm[Hg] Branden Trevino [facility], [place] 07-25-2019 15:05-0400 BP Systolic 114 mm[Hg] Branden Trevino [facility], [place] 07-25-2019 15:05-0400 Pulse (Heart Rate) 75 /min Branden Trevino [facility], [place] 07-25-2019 15:05-0400 Pulse Oximetry 97 % Branden Trevino [facility], [place] 07-25-2019 15:05-0400 Respiratory Rate 16 /min Branden Trevino [facility], [place] 07-25-2019 14:38-0400 Body Temperature 98.1 [degF] [facility], [place] 07-25-2019 11:27-0400 BMI (Body Mass Index) 26.26 kg/m2 Branden [facility], [place] 07-25-2019 11:27-0400 Body weight 63.05 kg Branden Trevino [facility], [place] 07-25-2019 11:27-0400 Height 154.9 cm Branden Trevino [facility], [place] 07-16-2019 13:17-0400 BMI (Body Mass Index) 21.77 kg/m2 Regan Mendez [facility], [place] 07-16-2019 13:17-0400 Body Temperature 98.4 [degF] [facility] [place] 07-16-2019 13:17-0400 [facility] [place] 07-16-2019 13:17-0400 BP Diastolic 83 mm[Hg] [facility] , [place] 07-16-2019 13:17-0400 BP Systolic 113 mm[Hg] Regan [facility] , [place] 07-16-2019 13:17-0400 Pulse (Heart Rate) 88 /min Regan [facility], [place] 07-16-2019 13:17-0400 Pulse Oximetry 97 % Regan Mendez [facility] [place] , [place] 07-16-2019 13:-399 Respiratory Rate 16 /min Regan Mendez [facility] [place] Encounters Encounter Date Encounter Type Care Provider Facility Start: 08-30-2023 ambulatory Ray Montemayor acility:[facility] Start: 06-28-2023 ambulatory ZHAO Johnson [facility] Start: 06-28-2023 End: 06-30-2023 Subsequent hospital visit by physician [facility] Ct/Pet Room [facility] CT Scan Comment on above: Microscopic hematuri a Start: 06-21-2023 End: 06-22-2023 [facility] Start: 06-21-2023 End: 06-21-2023 Subsequent hospital visit by physician Regan Mendez APRN - JOB PRESS FEEDER Work Phone: 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 Laboratory Comment on above: UTI symptoms Start: 04-27-2022 End: 04-27-2022 Subsequent hospital visit by physician Branden Trevino MD Work Phone: [facility] OR Comment on above: Calculus of ureter Start: 04-23-2022 End: 2022 Subsequent hospital visit by physician [facility] Cat Scan Room [facility] CT Scan Comment on above: Urethritis; Bilateral ureteral calculi; Dysuria Start: 04-21-2022 End: 04-21-2022 Subsequent hospital visit by physician Regan Mendez SONAR SUBSYSTEM EQUIPMENT OPERATOR - JOB PRESS FEEDER Work Phone: [facility] Laboratory Comment on above: Urethritis; Dysuria Start: 04-14-2022 End: 04-14-2022 Subsequent hospital visit by physician Branden Trevino MD Work Phone: [facility] OR Start: 04-06-2022 End: 04-06-2022 Emergency department patient visit Jimi Ayoub MD Work Phone: [facility] ED Comment on above: Kidney stone (Primar y Dx) Start: 01-26-2022 End: 01-26-2022 Patient encounter procedure Regan Mendez SONAR SUBSYSTEM EQUIPMENT OPERATOR - JOB PRESS FEEDER Work Phone: [facility] Start: 01-26-2022 End: 01-26-2022 Subsequent hospital visit by physician Regan Mendez SONAR SUBSYSTEM EQUIPMENT OPERATOR - JOB PRESS FEEDER Work Phone: [facility] Laboratory Comment on above: Women's annual routi ne gynecological examination Start: 04-30-2021 End: 05-02-2021 Subsequent hospital visit by physician [facility]i[address] Room 4 [facility] Radiology Comment on above: Kidney stone Start: 03-22-2021 End: 03-22-2021 Emergency department patient visit Rhea Dillard MD Work Phone: [facility] ED Comment on above: Pelvic pain (Primary Dx) Start: 03-20-2021 End: 03-20-2021 Subsequent hospital visit by physician Branden Trevino MD Work Phone: [facility] Start: 03-18-2021 End: 03-18-2021 Emergency department patient visit Aaron Parker MD Work Phone: [facility] ED Comment on above: Pelvic pain (Primary Dx); Acute midline low back pain without sciatica Start: 01-01-2021 End: 01-01-2021 Subsequent hospital visit by physician Misha Hernandez Work Phone: [facility] OR Comment on above: DUB (dysfunctional u terine bleeding) (Primary Dx) Start: 12-27-2020 End: 12-31-2020 Subsequent hospital visit by physician Misha Hernandez Work Phone: [facility] PRE ADMIT Comment on above: Preop testing Preoperative testing Start: 12-09-2020 End: 12-11-2020 Subsequent hospital visit by physician Calixto Coello [address] Room 4 [facility] Radiology Comment on above: Renal calculus; Constipation, unspecified constipation type Start: 09-11-2020 End: 09-11-2020 Subsequent hospital visit by physician Prem Covid Screening Schedule [facility] Covid Screening Comment on above: Viral gastroenteriti s Start: 08-07-2020 End: 08-07-2020 Subsequent hospital visit by physician Regan HERNANDEZ Laboratory Comment on above: Renal colic Start: 06-25-2020 End: 06-25-2020 Subsequent hospital visit by physician Prem Covid Screening Schedule [facility] Covid Screening Comment on above: Acute URI Start: 01-26-2020 End: 01-26-2020 Emergency department patient visit [facility] ED Comment on above: Repetitive stress in jury (Primary Dx) Start: 11-06-2019 End: 11-06-2019 Subsequent hospital visit by physician Regan Mendez SONAR SUBSYSTEM EQUIPMENT OPERATOR - JOB PRESS FEEDER Work Phone: [facility] Laboratory Comment on above: Lipid screening; Diabetes mellitus screening Start: 07-25-2019 End: 07-25-2019 Subsequent hospital visit by physician Branden Trevino Work Phone: [facility] OR Start: 07-17-2019 End: 07-19-2019 Subsequent hospital visit by physician [facility] Vascular Lab Comment on above: Pain of left calf Start: 07-16-2019 End: 07-16-2019 Emergency department patient visit [facility] ED Comment on above: Pain of left calf (P rimary Dx) Start: 07-04-2019 End: 07-06-2019 Subsequent hospital visit by physician Calixto Cat Scan Room [facility] CT Scan Comment on above: Renal calculus Start: 06-26-2019 End: 06-26-2019 Subsequent hospital visit by physician Regan HERNANDEZ Laboratory Comment on above: Renal calculus Start: 06-22-2019 End: 06-24-2019 Subsequent hospital visit by physician Calixto Coello Dr Room 2 [facility] Radiology Comment on above: Renal calculus Start: 02-03-2018 End: 02-03-2018 Ambulatory [facility] Procedures Date Procedure Procedure Detail Performing Clinician Start: 06-28-2023 Ct abdomen & pelvis w/o contrst 1/> body re Zhao Elizabeth Teri SONAR SUBSYSTEM EQUIPMENT OPERATOR - JOB PRESS FEEDER Work Phone: Start: 06-21-2023 Iadna baron specie s direct probe tq Micah Narayanan SONAR SUBSYSTEM EQUIPMENT OPERATOR - CNM Work Phone: Start: 05-05-2023 Ct angiography neck w/contrast/noncontrast Rhea Dillard MD Work Phone: Start: 05-05-2023 C-reactive protein Jave champ J Morales DO Work Phone: Start: 05-05-2023 Comprehensive metabo lic panel Rhea Dillard MD Work Phone: Start: 05-05-2023 Ecg routine ecg w/le ast 12 lds w/i&r Rhea Dillard MD Work Phone: Start: 01-12-2023 Urinalysis microscopic only Brittny E Pool SONAR SUBSYSTEM EQUIPMENT OPERATOR - CNM Work Phone: Start: 01-12-2023 Urnls dip stick/tabl et rgnt auto w/o microscopy Brittny E Pool SONAR SUBSYSTEM EQUIPMENT OPERATOR - CNM Work Phone: Start: 04-27-2022 Fluoroscopy during operation Branden Trevino MD Work Phone: Start: 04-23-2022 Ct abdomen & pelvis w/o contrast material Zhao Garcia SONAR SUBSYSTEM EQUIPMENT OPERATOR - JOB PRESS FEEDER Work Phone: Start: 04-14-2022 Fluoroscopy during operation Branden Trevino MD Work Phone: Start: 04-06-2022 Ct abdomen & pelvis w/o contrast material Jimi Ayoub MD Work Phone: Start: 04-06-2022 Comprehensive metabo lic panel Jimi Ayoub MD Work Phone: Start: 04-06-2022 Urinalysis microscopic only Jimi Ayoub MD Work Phone: Start: 04-06-2022 End: 04-06-2022 Urine test visual color cmprsn meths Jimi Ayoub MD Work Phone: Start: 01-26-2022 Microscopic observat ion [Identifier] in Cervix by Cyto stain Jimi Ayoub MD Work Phone: Start: 04-30-2021 Radiologic exam abdo men 1 view Nikolas Horner PA-C Work Phone: Start: 03-22-2021 Blood count complete auto&auto difrntl wbc Rhea Dillard MD Work Phone: Start: 03-22-2021 Radiologic exam abdo men 1 view Rhea Dillard MD Work Phone: Start: 03-22-2021 Urnls dip stick/tabl et reagent auto microscopy Rhea Dillard MD Work Phone: Start: 03-20-2021 Fluoroscopy during operation Branden Trevino MD Work Phone: Start: 03-18-2021 Ct abdomen & pelvis w/contrast material Aaron Parker MD Work Phone: Start: 03-18-2021 Comprehensive metabo lic panel Aaron Parker MD Work Phone: Start: 03-18-2021 Urine test visual color cmprsn meths Aaron Parker MD Work Phone: Start: 03-18-2021 Urnls dip stick/tabl et reagent auto microscopy Aaron Parker MD Work Phone: Start: 12-27-2020 Antibody screen Misha Hernandez Start: 12-27-2020 Blood count complete auto&auto difrntl wbc Misha Hernandez Work Phone: Start: 12-27-2020 Blood typing serologic abo Misha Hernandez Work Phone: Start: 12-27-2020 Culture bacterial quanttative colony count urine Misha Hernandez Work Phone: Start: 12-27-2020 Gonadotropin chorion ic qualitative Misha Hernandez Work Phone: Start: 12-27-2020 COVID-19 Hang Zoila dumont Work Phone: Start: 12-09-2020 Radiologic exam abdo men 1 view Zhao Garcia Work Phone: Start: 08-07-2020 Basic metabolic pane l calcium total Zhao Garcia Work Phone: Start: 08-07-2020 Blood count complete auto&auto difrntl wbc Zhao Garcia Work Phone: Start: 08-07-2020 Urnls dip stick/tabl et reagent auto microscopy Zhao Garcia Work Phone: Start: 01-26-2020 Radex foot complete minimum 3 views Shakila Billingsley Work Phone: Start: 11-06-[address] gtt 3 specimens Regna W Might SONAR SUBSYSTEM EQUIPMENT OPERATOR - JOB PRESS FEEDER Work Phone: Start: 11-06-2019 Lipid panel Regan W Mi ght SONAR SUBSYSTEM EQUIPMENT OPERATOR - JOB PRESS FEEDER Work Phone: Start: 07-17-2019 Dup-scan xtr veins unilateral/limited study William Disla Work Phone: Start: 07-16-2019 Fibrin dgradj produc ts d-dimer quantitative William Disla Work Phone: Start: 07-04-2019 Ct abdomen & pelvis w/o contrast material Branden Trevino Work Phone: Start: 06-26-2019 Urnls dip stick/tabl et reagent auto microscopy Zhao Garcia Work Phone: Start: 06-22-2019 Radiologic exam abdo men 1 view Branden Trevino Work Phone: Start: 02-03-2018 Fluoroscopy up to 1 hour physician/qhp time BRANDEN TREVINO Start: 02-03-2018 DIET NPO, NOW BRANDEN GREENE Start: 02-03-2018 FULL CODE BRANDEN MILLS Start: 02-03-2018 INITIATE OXYGEN THER APY PROTOCOL BRANDEN THERON Start: 02-03-2018 NOTIFY PHYSICIAN (SPECIFY) BRANDEN TREVINO Start: 02-03-2018 NURSING COMMUNICATION Laquita JOHN THERON Start: 02-03-2018 PLACE INTERMITTENT PNEUMATIC COMPRESSION DEVICE BRANDEN TREVINO Start: 02-03-2018 VITAL SIGNS BRANDEN INGRAM IEWSKI Start: 02-03-2018 VERIFY INFORMED CONSENT BRANDEN TREVINO Start: 11-25-2017 Microscopic observat ion [Identifier] in Cervix by Cyto stain Regan Mendez SONAR SUBSYSTEM EQUIPMENT OPERATOR - JOB PRESS FEEDER Work Phone: Plan of Treatment Date Care Activity Detail Author Start: 2037 Pneumococcal 0-64 ye ars Vaccine (2 of 2 - PPSV23) Pneumococcal 0-64 years Vaccine (2 of 2 - PPSV23) [facility] Start: 2037 Pneumococcal 0-64 ye ars Vaccine (2 of 2) Pneumococcal 0-64 years Vaccine (2 of 2) [facility] Work Phone: Start: 01-12-2027 Lipid panel [facility] Start: 01-26-2025 Screening for malign ant neoplasm of cervix [facility] Start: 11-06-2024 Lipid panel Lipid screen [facility] [place], [place] Start: 11-06-2024 Lipid screen Lipid screen [facility] Start: 01-26-2024 Depression Monitoring Depression [facility] Start: 08-11-2023 End: 08-11-2023 Patient encounter procedure 08/11/2023 Procedure visit Urology Zhao Garcia SONAR SUBSYSTEM EQUIPMENT OPERATOR - JOB PRESS FEEDER [address] [place] [id number] [facility] [place] Start: 07-28-2023 End: 07-28-2023 Patient encounter procedure 07/28/2023 Office Visit Primary Care Regan Mendez SONAR SUBSYSTEM EQUIPMENT OPERATOR - JOB PRESS FEEDER [address] [place] [address] [facility] Start: 07-28-2023 COVID-19 Vaccine (#1) COVID-19 Vacci ne (#1) [facility] Comment on above: Postponed from 10/25 (Patient Refused) Start: 07-28-2023 Depression Monitoring Depression Mon itosanju [facility] Start: 07-28-2023 DTaP/Tdap/Td vaccine (2 - Td or Tdap) DTaP/Tdap/Td vaccine (2 - Td or Tdap) [facility] Comment on above: Postponed from 04/25 (Patient Refused) Start: 07-28-2023 Hepatitis C screening Hepatitis C sc reen [facility] Comment on above: Postponed from 04/25 (Patient Refused) Start: 07-28-2023 Influenza vaccination B ON [facility] Comment on above: Postponed from 06/15 (Patient Refused) Postponed from 06/15 (Patient Refused) Start: 07-28-2023 Shingles vaccine (1 of 2) Shingles vaccine (1 of 2) [facility] Comment on above: Postponed from 04/25 (Patient Refused) Start: 07-14-2023 End: 07-14-2023 Patient encounter procedure 07/14/2023 Office Visit Obstetrics and Gynecology Brittny Enriquez APRN - [place] [address] [place] [address] [facility] Start: 06-23-2023 End: 06-23-2023 Patient encounter procedure 06/23/2023 Office Visit [facility] Start: 06-15-2023 Influenza vaccination Flu vaccine (# 1) [facility] Start: 03-29-2023 End: 03-29-2023 Patient encounter procedure 03/29/2023 Office Visit Obstetrics and Gynecology Brittny Enriquez APRN - [place] [address] [place] [address] [facility] Start: 01-25-2023 End: 01-25-2023 Patient encounter procedure 01/25/2023 Office Visit Primary Care Regan Mendez, SONAR SUBSYSTEM EQUIPMENT OPERATOR - JOB PRESS FEEDER [address] [place] [address] [facility] Start: 01-14-2023 Depression Monitoring Depression Mon brett [facility] Start: 01-14-2023 HIV screening HIV screen [facility] Comment on above: Postponed from 04/25 (Patient Refused) Start: 01-14-2023 Influenza vaccination [facility] Comment on above: Postponed from 07/16 (Patient Refused) Postponed from 07/16 (Patient Refused) Start: 01-14-2023 Screening for malign ant neoplasm of cervix Cervical cancer screen [facility] Comment on above: Postponed from 11/25 (Not Indicated) Start: 11-25-2022 Cervical cancer screen Cervical canc er screen [facility] TIFFANIE Start: 11-25-2022 Screening for malign ant neoplasm of cervix Cervical cancer screen [place], [place] Start: 07-21-2022 End: 07-21-2022 Patient encounter procedure 07/21/2022 Office Visit Primary Care Regan Mendez, SONAR SUBSYSTEM EQUIPMENT OPERATOR - JOB PRESS FEEDER [address] [place] [address] [facility] Start: 07-01-2022 Lipid screen Lipid screen [facility] [place]ANIE Start: 05-28-2022 End: 05-28-2022 Patient encounter procedure 05/28/2022 Office Visit Urology Zhao Garcia, SONAR SUBSYSTEM EQUIPMENT OPERATOR - JOB PRESS FEEDER [address] [place] [address] [facility] Start: 05-04-2022 End: 05-04-2022 Patient encounter procedure 05/04/2022 Office Visit Urology Branden Trevino MD [address], [address] [place] [address] [facility] Start: 05-01-2022 DTaP/Tdap/Td vaccine (2 - Td or Tdap) DTaP/Tdap/Td vaccine (2 - Td or Tdap) [facility] Comment on above: Postponed from 04/25 (Patient Refused) Start: 04-29-2022 End: 04-29-2022 Patient encounter procedure 04/29/2022 Office Visit Urology Nikolas Horner PA-C [address] [place] [address] [address] [place] [address] [facility] Start: 04-27-2022 End: 04-27-2022 Patient encounter procedure 04/27/2022 Office Visit Urology Branden Trevino MD [address] [place] [address], [address] [place] [address] [facility] Start: 04-27-2022 End: 04-27-2022 Admission to same day surgery center 04/27/2022 Surgery IP Unit Branden Trevino MD [address] [place] [address], [address] [place] [address] CYSTOSCOPY URETEROSCOPY LASER-HLL, POSSIBLE STENT PLACEMENT [facility] Comment on above: CYSTOSCOPY URETEROSC OPY LASER-HLL, POSSIBLE STENT PLACEMENT Start: 04-27-2022 End: 04-27-2022 Anesthesia consultation 04/27/2022 Anesthesia Event IP Unit Rosemarie Greenberg, SONAR SUBSYSTEM EQUIPMENT OPERATOR - [employer] SALES MANAGER [address] [facility] [address] [place] [address] [facility] Start: 04-27-2022 End: 04-27-2022 Cysto/uretero w/lithotripsy &indwell stent insrt [facility] Start: 04-27-2022 Subsequent hospital visit by physician 04/27/2022 Hospital Encounter IP Unit Branden Trevino MD [address] [place] [address], [address] [place] [address] [facility] Start: 2022 Screening for malign ant neoplasm of breast Breast cancer screen [facility] Start: 2022 Shingles Vaccine (1 of 2) Shingles Vaccine (1 of 2) [facility] Start: 04-17-2022 End: 04-17-2022 Patient encounter procedure 04/17/2022 Office Visit Urology Zhao Garcia, SONAR SUBSYSTEM EQUIPMENT OPERATOR - JOB PRESS FEEDER [address] [facility] [address] [place] [address] [facility] Start: 04-14-2022 End: 04-14-2022 Cysto w/simple removal stone & stent CYSTOSCOPY STENT REMOVAL Ureteral stone 04/14/2022 1:13 PM EDT [facility] Start: 04-14-2022 End: 04-14-2022 Cysto/uretero w/lithotripsy &indwell stent insrt CYSTOSCOPY URETEROSCOPY LASER Ureteral stone 04/14/2022 1:13 PM EDT [facility] Start: 04-06-2022 End: 04-06-2022 Patient encounter procedure 04/06/2022 Office Visit Urology Branden Trevino MD [address] [facility], [address] [place], [place] [id number] [facility] Start: 02-26-2022 COVID-19 Vaccine (1) COVID-19 Vaccin e (1) [facility] Comment on above: Postponed from 04/25 (Patient Refused) Postponed from 04/25 (Patient Refused) Postponed from 04/25 (Patient Refused) Start: 02-26-2022 Hepatitis C screening Hepatitis C [facility] Comment on above: Postponed from 04/25 (Patient Refused) Start: 02-26-2022 Screening for malign ant neoplasm of cervix Cervical cancer screen [facility] Work Phone: Comment on above: Postponed from 11/25 (Not Indicated) Start: 01-14-2022 End: 01-14-2022 Patient encounter procedure 01/14/2022 Office Visit Obstetrics and Gynecology Misha Hernandez MD [address] [place] [address] [phone] [facility] Start: 12-09-2021 End: 12-09-2021 Office Visit 12/09/2021 Office Visit Urology Zhao Garcia, SONAR SUBSYSTEM EQUIPMENT OPERATOR - JOB PRESS FEEDER [address] [place] [id number] [facility] Start: 11-03-2021 End: 11-03-2021 Patient encounter procedure 11/03/2021 Office Visit Primary Care Regan Mendez SONAR SUBSYSTEM EQUIPMENT OPERATOR - JOB PRESS FEEDER [address] [place] [address] [phone] [facility] Start: 10-31-2021 HIV screening HIV screen [place], [place] Comment on above: Postponed from 04/25 (Patient Refused) Start: 10-31-2021 Influenza vaccination [place], [place] Comment on above: Postponed from 07/16 (Patient Refused) Postponed from 07/16 (Patient Refused) Start: 05-05-2021 End: 05-05-2021 Patient encounter procedure 05/05/2021 Office Visit Urology Branden Trevino MD [address] [facility], [address] [place] [address] [phone] [facility] Start: 05-01-2021 End: 05-01-2021 Office Visit 05/01/2021 Office Visit Primary Care Regan Mendez SONAR SUBSYSTEM EQUIPMENT OPERATOR - JOB PRESS FEEDER [address] [place] [address] [phone] [facility] Start: 2021 DTaP/Tdap/Td vaccine (2 - Td) DTaP/Tdap/Td vaccine (2 - Td) [facility] [place], [place] Start: 03-24-2021 End: 03-24-2021 Patient encounter procedure 03/24/2021 Office Visit Urology Branden Trevino MD [address] [facility], [address] [place] [address] [phone] [facility] Start: 01-15-2021 End: 01-15-2021 Office Visit 01/15/2021 Office Visit Obstetrics and Gynecology Misha Hernandez MD [address] [place] [address] [phone] [facility] Start: 12-04-2020 End: 12-04-2020 Ancillary Procedure [facility] Start: 11-25-2020 Screening for malign ant neoplasm of cervix [facility] Start: 10-31-2020 End: 10-31-2020 Office Visit 10/31/2020 Office Visit Primary Care Regan Mendez, SONAR SUBSYSTEM EQUIPMENT OPERATOR - JOB PRESS FEEDER [address] [place] [address] [phone] [facility] Start: 10-30-2020 End: 10-30-2020 Office Visit [facility] Start: 10-11-2020 Screening for malign ant neoplasm of cervix HPV (without or with Pap) [facility] Start: 09-30-2020 End: 09-30-2020 Office Visit 09/30/2020 Office Visit Primary Care Regan Mendez, SONAR SUBSYSTEM EQUIPMENT OPERATOR - JOB PRESS FEEDER [address] [place] [address] [phone] [facility] Start: 09-29-2020 Influenza vaccination Flu vaccine (# 1) [facility] [facility] Comment on above: Postponed from 07/16 (Patient Refused) Start: 09-19-2020 End: 09-19-2020 Office Visit 09/19/2020 Office Visit Urology Zhao Garcia, SONAR SUBSYSTEM EQUIPMENT OPERATOR - JOB PRESS FEEDER [address] [place] [id number] [facility] Start: 07-16-2020 Influenza vaccination Flu vaccine (# 1) [place], [place] Start: 07-11-2020 [facility] [place] [place] Comment on above: Postponed from 04/25 (Patient Refused) Start: 07-11-2020 [facility] [place] Comment on above: Postponed from 04/25 (Patient Refused) Start: 04-22-2020 End: 04-22-2020 Office Visit 04/22/2020 Office Visit Primary Care Regan Mendez SONAR SUBSYSTEM EQUIPMENT OPERATOR - JOB PRESS FEEDER [address] [place] [address] [phone] [facility] Start: 10-16-2019 End: 10-16-2019 Office Visit 10/16/2019 Office Visit Primary Care Regan Mendez SONAR SUBSYSTEM EQUIPMENT OPERATOR - JOB PRESS FEEDER [address] [place] [address] [phone] [facility] Start: 07-25-2019 End: 07-25-2019 Hospital Encounter [facility] OR Comment on above: ESWL EXTRACORPOREAL SHOCK WAVE LITHOTRIPSY Start: 07-17-2019 End: 07-16-2020 VL DUP LOWER EXTREMITY VENOUS LEFT VL DUP LOWER EXTREMITY VENOUS LEFT Imaging Routine Pain of left calf Expected: 07/17/2019, Expires: 07/16/2020 [place] Comment on above: Expected: 07/17/2019 , Expires: 07/16/2020 Start: 07-16-2019 Influenza vaccination Flu vaccine (# 1) [place], [place] Start: 07-11-2019 End: 07-11-2019 Office Visit 07/11/2019 Office Visit Primary Care Regan Mendez SONAR SUBSYSTEM EQUIPMENT OPERATOR - JOB PRESS FEEDER [address] [place], [place] [id number] [facility] Start: 07-04-2019 End: 07-04-2019 Appointment 07/04/2019 Appointment Radiology [facility] CT Scan Start: 06-26-2019 End: 06-26-2019 Office Visit 06/26/2019 Office Visit Urology Branden Trevino MD [address] [place] [address] [facility] Start: 06-30-2018 Pneumococcal 0-64 ye ars Vaccine (2 - PCV) Pneumococcal 0-64 years Vaccine (2 - PCV) [facility] Start: 2017 Screening for malign ant neoplasm of colon [facility] Start: 2012 Diabetes screen Diabetes screen [place], [place] Start: 1990 Hepatitis C screening Hepatitis C [facility] Start: 1987 HIV screen HIV screen [place], [place] Start: 1987 HIV screening HIV screen [facility] Start: 1977 COVID-19 Vaccine (1) COVID-19 Vaccin e (1) [facility] Start: 1972 Hepatitis C screening Hepatitis C [place], [place] End: 06-26-2019 Bacteria identified Cx Nom (U) Urine Culture Microbiology Routine Renal calculus 1 Occurrences starting 06/26/2019 until 06/26/2019 [place] Comment on above: 1 Occurrences starti ng 06/26/2019 until 06/26/2019 End: 06-21-2023 C.trachomatis N.gonorrhoeae DNA [facility] Comment on above: 1 Occurrences starti ng 06/21/2023 until 06/21/2023 End: 06-25-2020 COVID-19 Ambulatory COVID19 Ambulatory Lab Routine Acute URI 1 Occurrences starting 06/25/2020 until 06/25/2020 [place] Comment on above: 1 Occurrences starti ng 06/25/2020 until 06/25/2020 COVID-19 Ambulatory [place], [place] End: 09-11-2020 COVID-19 Ambulatory COVID-19 Ambulatory Lab Routine Viral gastroenteritis 1 Occurrences starting 09/11/2020 until 09/11/2020 [place] Comment on above: 1 Occurrences starti ng 09/11/2020 until 09/11/2020 End: 08-07-2020 Culture, Urine Culture, Urine Microbiology Routine Renal colic 1 Occurrences starting 08/07/2020 until 08/07/2020 [place] Comment on above: 1 Occurrences starti ng 08/07/2020 until 08/07/2020 Culture, Urine [employer] [place] End: 03-18-2021 Culture, Urine Culture, Urine Microbiology Routine One Time for 1 Occurrences starting 03/18/2021 until 03/18/2021 [employer] Phone: Comment on above: One Time for 1 Occur rences starting 03/18/2021 until 03/18/2021 End: 03-22-2021 Culture, Urine Culture, Urine Microbiology Routine One Time for 1 Occurrences starting 03/22/2021 until 03/22/2021 [employer] Phone: Comment on above: One Time for 1 Occur rences starting 03/22/2021 until 03/22/2021 End: 04-06-2022 Culture, Urine [employer] Phone: Comment on above: Once for 1 Occurrenc es starting 04/06/2022 until 04/06/2022 End: 04-21-2022 Culture, Urine [facility] Phone: Comment on above: 1 Occurrences starti ng 04/21/2022 until 04/21/2022 End: 01-12-2023 Culture, Urine [employer] Phone: Comment on above: 1 Occurrences starti ng 01/12/2023 until 01/12/2023 End: 01-26-2022 Cytopathology procedure, preparation of smear, genital source [facility] Lab Routine Women's annual routine gynecological examination 1 Occurrences starting 01/26/2022 until 01/26/2022 [employer] Phone: Comment on above: 1 Occurrences starti ng 01/26/2022 until 01/26/2022 Initiate Oxygen Ther apy Protocol Initiate Oxygen Therapy Protocol Respiratory Care Routine Daily until discontinued starting 07/26/2019 [facility] [place] Comment on above: Daily until disconti nued starting 07/26/2019 End: 04-14-2022 INITIATE PACU OXYGEN THERAPY PROTOCOL Initiate PACU Oxygen Therapy Protocol Respiratory Care Routine Continuous until discontinued starting 04/14/2022 [employer] Phone: Comment on above: Continuous until dis continued starting 04/14/2022 End: 04-27-2022 INITIATE PACU OXYGEN THERAPY PROTOCOL Initiate PACU Oxygen Therapy Protocol Respiratory Care Routine Continuous until discontinued starting 04/27/2022 [employer] Phone: Comment on above: Continuous until dis continued starting 04/27/2022 Oxygen therapy [Mini mum Data Set] [facility] Phone: Comment on above: Daily until disconti nued starting 01/01/2021 Daily until disconti nued starting 03/20/2021 Oxygen therapy [Mini mum Data Set] Initiate Oxygen Therapy Protocol Respiratory Care Routine As Needed until discontinued starting 04/14/2022 [employer] Phone: Comment on above: As Needed until disc ontinued starting 04/14/2022 Oxygen therapy [Mini mum Data Set] Initiate Oxygen Therapy Protocol Respiratory Care Routine As Needed until discontinued starting 04/27/2022 [employer] Phone: Comment on above: As Needed until disc ontinued starting 04/27/2022 Phase I & II - meter ed glucose Phase I & II - metered glucose Point of Care Testing Routine As Needed until discontinued starting 01/01/2021 [employer] Phone: Comment on above: As Needed until disc ontinued starting 01/01/2021 End: 01-26-2020 Splint application Splint application Procedures Routine One Time for 1 Occurrences starting 01/26/2020 until 01/26/2020 [employer] [place], [place] Comment on above: One Time for 1 Occur rences starting 01/26/2020 until 01/26/2020 Stone Analysis Stone Analysis Microbiology Routine Release Upon Ordering for 1 Occurrences starting 03/20/2021 [employer] Phone: Comment on above: Release Upon Orderin g for 1 Occurrences starting 03/20/2021 Stone Analysis Stone Analysis Microbiology Routine Calculus of ureter Release Upon Ordering for 1 Occurrences starting 04/27/2022 [employer] Phone: Comment on above: Release Upon Orderin g for 1 Occurrences starting 04/27/2022 Surgical Pathology Surgical Path ology Lab Routine Release Upon Ordering for 1 Occurrences starting 01/01/2021 [facility] Work Phone: Comment on above: Release Upon Orderin g for 1 Occurrences starting 01/01/2021 Immunizations Immunization Date Immunization Notes Care Provider Evelyn barcenas 06-30-2017 pneumococcal polysac charide vaccine, 23 valent [facility] 2 [facility] 2011 tetanus toxoid, redu kristan diphtheria toxoid, and acellular pertussis vaccine, adsorbed [facility] 2 [facility] Payers Date Payer Category Payer Self-pay 2022 Medicaid [id number] 2022 Private Health Insurance [id number] 2014 Unknown [id number] 2014 Unknown [employer] xxxxxxxxxxx 2014-Present [phone] [address] [place] [address] xxxxxxxxxxx [id number] 2014 Unknown [employer] [id number] 2014-Present [phone] [address] [place] [address] [id number] 1972 Unknown [id number] 1972 Unknown [id number] 1972 Unknown [id number] 1972 Unknown [id number] Social History Date Type Detail Facility Start: 11-15-1999 End: 07-28-2022 Tobacco smoking status NHIS Current every day smoker [facility] Start: 11-15-1999 History of tobacco use Cigarette Smo ker [place] Start: 06-05-2019 End: 07-28-2022 Cigarettes smoked current (pack per day) - Reported [place] Start: 06-05-2019 End: 07-16-2019 Alcohol intake No [place] Start: 12-06-2017 End: 06-11-2022 Tobacco Comment down to 1/3 pack per day [place] Start: 02-03-2018 Alcohol Comment rarely [facility] [place], [place] Start: 1970 Sex Assigned At Not on file [place] Start: 01-26-2020 End: 06-23-2023 Alcohol intake Current non-drinker of alcohol (finding) [facility] Work Phone: Start: 06-24-2020 End: 07-28-2022 Tobacco use and exposure Never used [place], [place] Start: 03-27-2022 End: 04-27-2022 Exposure to SARS-CoV-2 (event) Not sure [place] Start: 05-01-2021 History SDOH Food Worry 1 [facility] Work Phone: Start: 01-25-2023 History SDOH Housing Homeless Last Year 3 [facility] Medical Equipment Procedure Code Equipment Code Equipment Origin al Text Equipment Identifier Dates Stent Uret Hydrp l Coat W/O [id number] Start: 02-03-2018 Stent Uret 6fr L 26cm Hydr+ Pgtl Tapr Tip Grad Bldr Mrk Lo [id number] Start: 03-20-2021 Stent Uret 6 Frx 26 Cm [employer] - [id number] Start: 04-07-2022 Stent Uret 6 Frx 26 Cm [employer] - [id number] Start: 04-07-2022 Stent Uret 6 Frx 26 Cm [employer] - [id number] Start: 04-14-2022 Comment on above: Description: String remains intact and secured to right thigh with mastisol and steri strips Stent Uret 6 Frx 26 [employer] - [id number] Start: 04-27-2022 Clinical Notes 03-20-2021 to 05-05-2023 Discharge InstructionsAttachMaurice Haywood RN - 04/27/2022 9:25 AM Latonya Haywood RN - 04/27/2022 9:17 AM EDEnoc Espinal RN - 04/24/2022 9:49 AM EDTInstructions Note Date & Type Note Facility 05-05-2023 Hospital Discharg e instructions Alecia Morales DO - 05/05/2023 9:13 AM EDT You can alternate between Tylenol and ibuprofen at home for headache as needed. Follow-up with your doctor next week if you continue to have headaches as you may need further work-up including an MRI of your brain. If you have any visual disturbances or if your headaches get worse please return to the emergency department. If you have any concerns or questions regarding your care today, please discuss with your nurse or physician prior to leaving the emergency department. Thank you for allowing us to take care of you at [facility]. In the next few days you may receive a survey by mail or e-mail asking about the care you received during this visit. Please complete this if you are able, as this feedback helps us provide the best care possible. The following attachments cannot be sent through Care Everywhere.Headache (Palestinian)documented in this encounter [facility] 04-27-2022 History of Presen t illness Narrative Patient verbalizes readiness for discharge at this time. Discharge Criteria Inpatients must meet Criteria 1 through 7. All other patients are either YES or N/A. If a NO is chosen then Anesthesia or Surgeon must be notified. 1. Minimum 30 minutes after last dose of sedative medication, minimum 120 minutes after last dose of reversal agent. Yes 2. Systolic BP stable within 20 mmHg for 30 minutes & systolic BP between 90 & 180 or within 10 mmHg of baseline. Yes 3. Pulse between 60 and 100 or within 10 bpm of baseline. Yes 4. Spontaneous respiratory rate >/= 10 per minute. Yes 5. SaO2 >/= 95 or >/= baseline. Yes 6. Able to cough and swallow or return to baseline function. Yes 7. Alert and oriented or return to baseline mental status. Yes 8. Demonstrates controlled, coordinated movements, ambulates with steady gait, or return to baseline activity function. Yes 9. Minimal or no pain or nausea, or at a level tolerable and acceptable to patient. Yes 10. Takes and retains oral fluids as allowed. Yes 11. Procedural / perioperative site stable. Minimal or no bleeding. Yes 12. If GI endoscopy procedure, minimal or no abdominal distention or passing flatus. N/A 13. Written discharge instructions and emergency telephone number provided. Yes 14. Accompanied by a responsible adult. Yes Discharge instructions reviewed with patient and patient's mother. Verbalized understanding and denied any questions. Patient instructed on the pre-operative, intra-operative, and post-operative process. Patient instructed on NPO status. Medication instructions and pre operative instruction sheet reviewed with the patient. Instructed pt to take wellbutrin with a small sip of water prior to arriving to the hospital the day of surgery. documented in this encounter [facility] Phone: 04-14-2022 History of Presen t illness Narrative Patient verbalizes readiness for discharge. Discharge instructions given to patient and responsible adult, answered all questions, and verbalized understanding of discharge instructions. Discharge Criteria Inpatients must meet Criteria 1 through 7. All other patients are either YES or N/A. If a NO is chosen then Anesthesia or Surgeon must be notified. 1. Minimum 30 minutes after last dose of sedative medication, minimum 120 minutes after last dose of reversal agent. Yes 2. Systolic BP stable within 20 mmHg for 30 minutes & systolic BP between 90 & 180 or within 10 mmHg of baseline. Yes 3. Pulse between 60 and 100 or within 10 bpm of baseline. Yes 4. Spontaneous respiratory rate >/= 10 per minute. Yes 5. SaO2 >/= 95 or >/= baseline. Yes 6. Able to cough and swallow or return to baseline function. Yes 7. Alert and oriented or return to baseline mental status. Yes 8. Demonstrates controlled, coordinated movements, ambulates with steady gait, or return to baseline activity function. Yes 9. Minimal or no pain or nausea, or at a level tolerable and acceptable to patient. Yes 10. Takes and retains oral fluids as allowed. Yes 11. Procedural / perioperative site stable. Minimal or no bleeding. Yes 12. If GI endoscopy procedure, minimal or no abdominal distention or passing flatus. N/A 13. Written discharge instructions and emergency telephone number provided. Yes 14. Accompanied by a responsible adult. Yes Pt asks if she can have another pain pill, states that the pain is getting worse. ROSIE Zabala states she will put order in. Ambulates to bathroom with steady gait. Voids qs. Patient requests new rx for Toradol. Dr. Trevino notified. States he will send rx to patient's pharmacy. Patient instructed per phone interview on the pre-operative, intra-operative, and post-operative process as well as NPO status. Pre-operative instruction sheet reviewed with the patient. Verbalizes understanding. documented in this encounter [employer] Phone: 04-14-2022 Hospital Discharg e Lizbeth Ness RN - 04/14/2022 SAME DAY SURGERY DISCHARGE INSTRUCTIONS 1. Do not drive or operate hazardous machinery for 24 hours. 2. Do not make important personal or business decisions for 24 hours. 3. Do not drink alcoholic beverages for 24 hours. 4. Do not smoke tobacco products for 24 hours. 5. Eat light foods (Jell-O, soups, etc....) and drink plenty of fluids (water, Sprite, etc...) up to 8 glasses per day, as you can tolerate. 6. Limit your activities for 24 hours. Do not engage in heavy work until your surgeon gives you permission. 7. Call your surgeon for any questions regarding your surgery. CYSTOSCOPY DISCHARGE INSTRUCTIONS Possible burning during urination and/or blood tinged urine. Drink 6-8 glasses of water for the next day or so. (This helps to flush the urinary tract.) Call Dr. Trevino ([phone]) if you develop: Fever over 100 degrees Prolonged soreness/pain Unusual bleeding/bruising Unable to urinate or if urine is bloody You cannot pass urine 8 hours after the test. You have pain in your belly or your back just below your rib cage. (This is called flank pain.) You have frequent urge to urinate but can pass only small amounts of urine. Call Dr. Trevino office for follow-up appointment ([phone]). documented in this encounter [employer] Phone: 04-06-2022 History of Presen t illness Narrative Urology office called at this time. Connected to Dr. Ayoub. 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 1325 Pt states burning about the same, but ready to go home. Back up to bathroom and voided.Discharge Criteria Inpatients must meet Criteria 1 through 7. All other patients are either YES or N/A. If a NO is chosen then Anesthesia or Surgeon must be notified. 1. Minimum 30 minutes after last dose of sedative medication, minimum 120 minutes after last dose of reversal agent. Yes 2. Systolic BP stable within 20 mmHg for 30 minutes & systolic BP between 90 & 180 or within 10 mmHg of baseline. Yes 3. Pulse between 60 and 100 or within 10 bpm of baseline. Yes 4. Spontaneous respiratory rate >/= 10 per minute. Yes 5. SaO2 >/= 95 or >/= baseline. Yes 6. Able to cough and swallow or return to baseline function. Yes 7. Alert and oriented or return to baseline mental status. Yes 8. Demonstrates controlled, coordinated movements, ambulates with steady gait, or return to baseline activity function. Yes 9. Minimal or no pain or nausea, or at a level tolerable and acceptable to patient. Yes 10. Takes and retains oral fluids as allowed. Yes 11. Procedural / perioperative site stable. Minimal or no bleeding. Yes 12. If GI endoscopy procedure, minimal or no abdominal distention or passing flatus. N/A 13. Written discharge instructions and emergency telephone number provided. Yes 14. Accompanied by a responsible adult. Yes 1233 up to bathroom on arrival to phase 2. 1214 oral airway pt had on arrival to pacu, removed when pt opened mouth on command. Patient instructed on the pre-operative, intra-operative, and post-operative process. Patient's surgery arrival time to the hospital and surgery start time confirmed for the day of surgery. Patient instructed on NPO status. Medication instructions reviewed with patient. Pre operative instruction sheet reviewed and given to patient in PAT. CHG skin prep instructions reviewed with the patient via telephone. Pt instructed to take no aspirin products and to only take wellbutrin and zyrtec the morning of surgery with a sip of water only. documented in this encounter [facility] Phone: Evaluation note Diagnosis Pelvic pain- Primary Acute midline low back pain without sciatica documented in this encounter [employer] Phone: evaluation note* Diagnosis Ureteral calculus- Primary Calculus of ureter documented in this encounter [employer] Phone: evaluation note* Diagnosis Pelvic pain- Primary documented in this encounter [employer] Phone: evaluation note* Diagnosis Kidney stone Calculus of kidney documented in this encounter [employer] Phone: Evaluation note* Diagnosis Women's annual routine gynecological examination documented in this encounter [employer] Phone: evaluation note* Diagnosis Lipid screening Screening for lipoid disorders Diabetes mellitus screening Screening for diabetes mellitus documented in this encounter [facility] Phone: evaluation note* Diagnosis Kidney stone- Primary Calculus of kidney documented in this encounter [facility] Phone: Evaluation note* Diagnosis Ureteral calculus- Primary Calculus of ureter documented in this encounter [employer] Phone: Evaluation note* Diagnosis Urethritis Urethritis, unspecified Dysuria documented in this encounter [employer] Phone: Evaluation note* Diagnosis Urethritis Urethritis, unspecified Bilateral ureteral calculi Dysuria Calculus of ureter documented in this encounter [employer] Phone: Evaluation note* Diagnosis Ureteral calculus- Primary Calculus of ureter Calculus of ureter documented in this encounter [employer] Phone: evaluation note* Diagnosis UTI symptoms documented in this encounter [facility] Phone: [facility] note* Diagnosis Episodic cluster headache, not intractable- Primary Episodic cluster headache documented in this encounter [facility] [employer] note* Diagnosis Urethral cyst Other specified disorders of urethra documented in this encounter [facility]* Diagnosis Microscopic hematuria documented in this encounter [facility] Work Phone: Hospital Discharge instructions* Attachments The following attachments cannot be sent through Care Everywhere. * Back Pain (Palestinian) * Low Back Pain: Exercises (Palestinian) [facility] Work Phone: Hospital Discharge instructions* Instructions* Eula Lozano RN - 03/20/2021 SAME DAY SURGERY DISCHARGE INSTRUCTIONS 1. Do not drive or operate hazardous machinery for 24 hours. 2. Do not make important personal or business decisions for 24 hours. 3. Do not drink alcoholic beverages for 24 hours. 4. Do not smoke tobacco products for 24 hours. 5. Eat light foods (Jell-O, soups, etc....) and drink plenty of fluids (water, Sprite, etc...) up to 8 glasses per day, as you can tolerate. 6. Limit your activities for 24 hours. Do not engage in heavy work until your surgeon gives you permission. 7. Report the following signs or any questions regarding your physical condition to your surgeon immediately: Excessive swelling of, or around the wound area. Redness. Temperature of 100 degrees (F) or above. Excessive pain. 8. Call your surgeon for any questions regarding your surgery. CYSTOSCOPY DISCHARGE INSTRUCTIONS Possible burning during urination and/or blood tinged urine. Drink 6-8 glasses of water for the next day or so. (This helps to flush the urinary tract.) Call Dr. Trevino ([phone]) if you develop: Fever over 100 degrees Prolonged soreness/pain Unusual bleeding/bruising Unable to urinate or if urine is bloody You cannot pass urine 8 hours after the test. You have pain in your belly or your back just below your rib cage. (This is called flank pain.) You have frequent urge to urinate but can pass only small amounts of urine. Call Dr. Trevino office for follow-up appointment ([phone]). documented in this [employer] Phone: Hospital Discharge instructions* Instructions* Rhea Dillard MD - 03/22/2021 Use [id number] MiraLAX or similar product as a stool softener as directed. Follow-up with urology Wednesday as scheduled. Continue Macrobid as directed. Seek medical attention for any new symptomsor any other acute concerns. * Attachments The following attachments cannot be sent through Care Everywhere. * Pelvic Pain (Palestinian) documented in this [facility] Phone: Hospital Discharge instructions* Instructions* Jimi Ayoub MD - 04/06/2022 Please strain all urine for kidney stone You will also be prescribed a prescription for Zofran for nausea Please keep appointment as scheduled by Valeria Trevino's [employer] [facility] at 130 today * Attachments The following attachments cannot be sent through Care Everywhere. * Kidney Stone (Palestinian) documented in this [employer] Phone: Hospital Discharge instructions* Instructions* Juliana Haywood RN - 04/27/2022 SAME DAY SURGERY DISCHARGE INSTRUCTIONS 1. Do not drive or operate hazardous machinery for 24 hours. 2. Do not make important personal or business decisions for 24 hours. 3. Do not drink alcoholic beverages for 24 hours. 4. Do not smoke tobacco products for 24 hours. 5. Eat light foods (Jell-O, soups, etc....) and drink plenty of fluids (water, Sprite, etc...) up to 8 glasses per day, as you can tolerate. 6. Limit your activities for 24 hours. Do not engage in heavy work until your surgeon gives you permission. 7. Call your surgeon for any questions regarding your surgery. CYSTOSCOPY DISCHARGE INSTRUCTIONS Possible burning during urination and/or blood tinged urine. Drink 6-8 glasses of water for the next day or so. (This helps to flush the urinary tract.) Call Dr. Trevino ([phone]) if you develop: Fever over 100 degrees Prolonged soreness/pain Unusual bleeding/bruising Unable to urinate or if urine is bloody You cannot pass urine 8 hours after the test. You have pain in your belly or your back just below your rib cage. (This is called flank pain.) You have frequent urge to urinate but can pass only small amounts of urine. Call Dr. Trevino office for follow-up appointment ([phone]). documented in this encounterBON TrumpIT Phone: reason for visit Narrative* Auth/Cert Specialty Diagnoses / Procedures Referred By Yinka golden Referred To Contact Diagnoses Ureteral stone KIDNEY STONE Procedures MS CYSTO/URETERO W/LITHOTRIPSY &INDWELL STENT INSRT MS CYSTOURETHROGRAPHY REMV CALCULUS, STENT, FOREIGN BODY, SIMPLE CYSTOSCOPY URETEROSCOPY LASER-HLL CYSTOSCOPY STENT REMOVAL Branden Trevino MD [address] [facility], [address] [place] [id number] [employer] [address] [place] [address] Referral ID Status Reason Start Date Expiration Date Visits Re quested Visits Authorized 1 1 [employer] Phone: reason for visit Narrative* Auth/Cert Specialty Diagnoses / Procedures Referred By Yinka golden Referred To Contact Diagnoses Calculus of ureter N20.1 Procedures MS CYSTO/URETERO W/LITHOTRIPSY &INDWELL STENT INSRT CYSTOSCOPY URETEROSCOPY LASER-HLL, POSSIBLE STENT PLACEMENT Branden Trevino MD [address] [facility], [address] [place] [address] [employer] [address] [place] [address] Referral ID Status Reason Start Date Expiration Date Visits Re quested Visits Authorized 1 1 [employer] Phone: Summary Purpose Family History No Family History Records FoundNo Family History Records FoundNo Family History Records FoundNo Family History Records Found Advance Directives No Advanced Directives Records FoundDocuments on File Type Date Recorded 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 Advance Directives and Living Will Power of Armature Winder Repairer Latest Code Status on File Code Status Date Activated Date Inactivated Comments Full Code 03/22/2018 6:32 AM 03/22/2018 12:15 PM Full Code 02/03/2018 9:30 AM 02/03/2018 4:16 PM Documents on File Type Date Recorded 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 Advance Directives and Living Will Power of Armature Winder Repairer Latest Code Status on File Code Status Date Activated Date Inactivated Comments Full Code 03/22/2018 6:32 AM 03/22/2018 12:15 PM Full Code 02/03/2018 9:30 AM 02/03/2018 4:16 PM Latest Code Status on File Code Status Date Activated Date Inactivated Comments Full Code 07/25/2019 11:12 AM 07/25/2019 5:26 PM Full Code 03/22/2018 6:32 AM 03/22/2018 12:15 PM Documents on File Type Date Recorded 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 ACP-Advance Directive ACP-Power of Armature Winder Repairer Documents on File Type Date Recorded 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 ACP-Advance Directive ACP-Power of Armature Winder Repairer Latest Code Status on File Code Status Date Activated Date Inactivated Comments Full Code 01/01/2021 7:02 AM Full Code 07/25/2019 11:12 AM 07/25/2019 5:26 PM Full Code 03/22/2018 6:32 AM 03/22/2018 12:15 PM Latest Code Status on File Code Status Date Activated Date Inactivated Comments Full Code 07/25/2019 11:12 AM Latest Code Status on File Code Status Date Activated Date Inactivated Comments Full Code 01/01/2021 7:02 AM 01/01/2021 11:40 AM Full Code 07/25/2019 11:12 AM 07/25/2019 5:26 PM Latest Code Status on File Code Status Date Activated Date Inactivated Comments Full Code 03/20/2021 9:31 AM Full Code 01/01/2021 7:02 AM 01/01/2021 11:40 AM Latest Code Status on File Code Status Date Activated Date Inactivated Comments Full Code 03/20/2021 9:31 AM 03/20/2021 3:58 PM Full Code 01/01/2021 7:02 AM 01/01/2021 11:40 AM Healthcare Agents on File Name Relationship Healthcare Agent Relationshi p Communication Nils Hoyos Brother/Sister Primary Decision Maker Healthcare Agents on File Name Relationship Healthcare Agent Relationshi p Communication Nils Hoyos Brother/Sister Primary Decision Maker Healthcare Agents on File Name Relationship Healthcare Agent Relationshi p Communication Nils Hoyos Brother/Sister Primary Decision Maker Healthcare Agents on File Name Relationship Healthcare Agent Relationshi p Communication Nils Hoyos Brother/Sister Primary Decision Maker Latest Code Status on File Code Status Date Activated Date Inactivated Comments Full Code 04/14/2022 11:23 AM Full Code 04/07/2022 12:59 PM 04/07/2022 6:41 PM Full Code 03/20/2021 9:31 AM 03/20/2021 3:58 PM Healthcare Agents on File Name Relationship Healthcare Agent Relationshi p Communication Nils Hoyos Brother/Sister Primary Decision Maker Latest Code Status on File Code Status Date Activated Date Inactivated Comments Full Code 04/14/2022 11:23 AM 04/14/2022 7:45 PM Full Code 04/07/2022 12:59 PM 04/07/2022 6:41 PM Full Code 03/20/2021 9:31 AM 03/20/2021 3:58 PM Healthcare Agents on File Name Relationship Healthcare Agent Relationshi p Communication Nils Hoyos Brother/Sister Primary Decision Maker Latest Code Status on File Code Status Date Activated Date Inactivated Comments Full Code 04/14/2022 11:23 AM 04/14/2022 7:45 PM Healthcare Agents on File Name Relationship Healthcare Agent Relationshi p Communication Nils Brother/Sister Primary Decision Maker Latest Code Status on File Code Status Date Activated Date Inactivated Comments Full Code 04/27/2022 6:46 AM Full Code 04/14/2022 11:23 AM 04/14/2022 7:45 PM Latest Code Status on File Code Status Date Activated Date Inactivated Comments Full Code 04/27/2022 6:46 AM 04/27/2022 11:47 AM Full Code 04/14/2022 11:23 AM 04/14/2022 7:45 PM Healthcare Agents on File Name Relationship Healthcare Agent Relationshi p Communication Nils Romain Brother/Sister Primary Decision Maker Latest Code Status on File Code Status Date Activated Date Inactivated Comments Full Code 04/27/2022 6:46 AM 04/27/2022 11:47 AM Code Status History Code Status Date Activated Date Inactivated Comments Full Code 04/14/2022 11:23 AM 04/14/2022 7:45 PM Full Code 04/07/2022 12:59 PM 04/07/2022 6:41 PM Full Code 03/20/2021 9:31 AM 03/20/2021 3:58 PM Full Code 01/01/2021 7:02 AM 01/01/2021 11:40 AM Healthcare Agents on File Name Relationship [facility] Primary Decision Maker Healthcare Agents on File Name Relationship Healthcare Agent [facility] Nils Eldena Brother/Sister Primary Decision Maker Latest Code Status on File Code Status Date Activated Date Inactivated Comments Full Code 04/27/2022 6:46 AM 04/27/2022 11:47 AM Code Status History Code Status Date Activated Date Inactivated Comments Full Code 04/14/2022 11:23 AM 04/14/2022 7:45 PM Full Code 04/07/2022 12:59 PM 04/07/2022 6:41 PM Full Code 03/20/2021 9:31 AM 03/20/2021 3:58 PM Full Code 01/01/2021 7:02 AM 01/01/2021 11:40 AM Healthcare Agents on File Name Relationship Healthcare Agent Relationshi p Communication Nils Eldena Brother/Sister Primary Decision Maker Assessments Diagnosis Renal calculus Calculus of kidney Diagnosis Pain of left calf- Primary Diagnosis Repetitive stress injury Unspecified site of sprain and strain Diagnosis Acute URI Acute upper respiratory infections of unspecified site Diagnosis Renal colic Diagnosis Viral gastroenteritis Intestinal infection due to other organism, not elsewhere classified Diagnosis Renal calculus Calculus of kidney Constipation, unspecified constipation type Diagnosis Renal calculus Calculus of kidney Diagnosis Preop testing Preoperative examination, unspecified Diagnosis Preoperative testing Preoperative examination, unspecified Diagnosis DUB (dysfunctional uterine bleeding)- Primary Other disorder of menstruation and other abnormal bleeding from female genital tract Diagnosis Renal calculus Calculus of kidney Diagnosis Pain of left calf Reason for Referral Status Reason Specialty Diagnoses / Procedures Referre d By Contact Referred To Contact Open Radiology Diagnoses Pain of left calf Procedures VL DUP LOWER EXTREMITY VENOUS LEFT William Disla II, PA-C [address] [place] [address] Status Reason Specialty Diagnoses / Procedures Referre d By Contact Referred To Contact Closed Radiology Diagnoses Renal calculus Procedures CT ABDOMEN PELVIS WO CONTRAST CHG CT SCAN,ABDOMENT AND PELVIS,W/O CONTRAST Branden Trevino MD [address] [place] [address] Specialty Diagnoses / Procedures Referred By Contac t Referred To Contact Radiology Diagnoses Urethritis Bilateral ureteral calculi Dysuria Procedures CT ABDOMEN PELVIS WO CONTRAST Additional Contrast? None Zhao Garcia SONAR SUBSYSTEM EQUIPMENT OPERATOR - JOB PRESS FEEDER [address] [place] [address] Referral ID Status Reason Start Date Expiration Date Visits Re quested Visits Authorized [id number] Closed 04/23/2022 04/23/2023 1 1 Specialty Diagnoses / Procedures Referred By Contac t Referred To Contact Radiology Diagnoses Microscopic hematuria Procedures CT UROGRAM Zhao Garcia SONAR SUBSYSTEM EQUIPMENT OPERATOR - [employer]OB PRESS FEEDER [address] [place] [address] Referral ID Status Reason Start Date Expiration Date Visits Re quested Visits Authorized [id number] Closed 06/28/2023 08/27/2023 1 1 Discharge Instructions * Attachments The following attachments cannot be sent through Care Everywhere. * Leg Pain (Palestinian) documented in this encounter* Instructions* Shakila Billingsley PA-C - 01/26/2020 Keep foot in splint until seen in follow-up with foot doctor call on Wednesday use crutches. * Attachments The following attachments cannot be sent through Care Everywhere. * Foot: Stress Fracture (Palestinian) documented in this encounter* Instructions* Tea Zimmerman RN - 01/01/2021 SAME DAY SURGERY DISCHARGE INSTRUCTIONS 1. Do not drive or operate hazardous machinery for 24 hours. 2. Do not make important personal or business decisions for 24 hours. 3. Do not drink alcoholic beverages for 24 hours. 4. Do not smoke tobacco products for 24 hours. You have just undergone a minor operative procedure and these instructions should help you through the postoperative phase of the operation. Most patients feel sleepy for several hours after going home and this anesthetic effect may not wear off until the next morning. You should not use any alcoholic beverages or drive until the following day. It is advisable to take it easy for one or two days following your procedure by avoiding any lifting, pushing, moving or carrying any heavy objects; thereafter, you should be able to resume most of your normal activities and return to work. If you had a laparoscopy, mild shoulder and upper abdominal discomfort will be experienced by some patients for 24 to 48 hours and it is the result of the gas placed into your abdomen so that the procedure could be performed. Your pain medication should help with this. If a D&C was done either alone or in addition to another procedure, you may have some vaginal bleeding for several days, but probably not for more than a week. You should avoid baths (you may shower), tampons, douches or sexual relations until your postop visit or until the vaginal staining hascompletely subsided. Your menstrual period will occur approximately 3-4 weeks after the procedure, o ccasionally earlier. It also may be heavier than normal. You may experience some cramping or some mild to moderate lower abdominal discomfort, but this should be gone by the next day. In the meantime, you may take an hied-erf-cxdwsmb analgesic (Tylenol, Anacin, etc.) and use a heating pad applied to the lower abdomen. Please call the office as soon as possible for a post-operative visit in two weeks. If you experience any unusual amount of bleeding or side effects that you cannot readily explain, please do not hesitate to call the office. documented in this encounter* Instructions* Diana Kilpatrick RN - 07/25/2019 SAME DAY SURGERY DISCHARGE INSTRUCTIONS 1. Do not drive or operate hazardous machinery for 24 hours. 2. Do not make important personal or business decisions for 24 hours. 3. Do not drink alcoholic beverages for 24 hours. 4. Do not smoke tobacco products for 24 hours. 5. Eat light foods (Jell-O, soups, etc....) and drink plenty of fluids (water, Sprite, etc...) up to 8 glasses per day, as you can tolerate. 6. Limit your activities for 24 hours. Do not engage in heavy work until your surgeon gives you permission. 7. Report the following signs or any questions regarding your physical condition to your surgeon immediately: Excessive swelling of, or around the wound area. Redness. Temperature of 100 degrees (F) or above. Excessive pain. 8. Call your surgeon for any questions regarding your surgery. CYSTOSCOPY DISCHARGE INSTRUCTIONS Possible burning during urination and/or blood tinged urine. Drink 6-8 glasses of water for the next day or so. (This helps to flush the urinary tract.) Call Dr. Trevino ([phone]) if you develop: Fever over 100 degrees Prolonged soreness/pain Unusual bleeding/bruising Unable to urinate or if urine is bloody You cannot pass urine 8 hours after the test. You have pain in your belly or your back just below your rib cage. (This is called flank pain.) You have frequent urge to urinate but can pass only small amounts of urine. Call Dr. Trevino office for follow-up appointment ([phone]). documented in this encounter History of Present Illness * Melisa Espinal RN - 12/27/2020 3:30 PM EST [facility] Preadmission Testing Name: Lala Mora : 1970 Patient (home) [phone] (work) Procedure D+C Date of Procedure: 01/01/21 Surgeon: Misha Hernandez MD Ht: 5' 7 (170.2 cm) Wt: 140 lb 11.2 oz (63.8 kg) Wt method: Actual Allergies: No Known Allergies Peanut allergy: No Latex Allergy Screening Tool Have you ever had a reaction to or been told by a physician that you have an allergy to latex or natural rubber?: No Vitals: 12/27/20 1601 BP: 111/71 Pulse: 74 Resp: 20 Temp: 96.9 F (36.1 C) SpO2: 98% Patient's last menstrual period was 12/04/2020. Do you take blood thinners? [x] Yes [] No Instructed to stop blood thinners prior to procedure? [x] Yes [] No [] N/A Do you have sleep apnea? [] Yes [x] No Instructed to bring CPAP machine? [] Yes [] No [x] N/A Do you have acid reflux ? [] Yes [x] No Do you have hiatal hernia? [] Yes [x] No Do you ever experience motion sickness? [] Yes [x] No Have you had a respiratory infection or sore throat in last 4 weeks before surgery? [] Yes [x] No Do you have poorly controlled asthma or COPD? [] Yes [x] No Do you have a history of angina in the last month or symptomatic arrhythmia? [] Yes [x] No Do you have significant central nervous system disease? [] Yes [x] No Have you had an EKG, labs, or chest xray in last 12 months? If yes provide copies to anesthesia [x] Yes [] No [x] Lab [] EKG [] CXR Have you had a stress test? [] Yes [x] No When/where: Was it normal? [] Yes [] No Do you or your family have a history of Malignant Hyperthermia? [] Yes [x] No PAT Call/Visit Questions Person Interviewed: PATIENT Surgery Time Verified: Yes Surgery Location Verified: Yes Patient Language: NEPALI Medical History Reviewed: Yes NPO Status Reinforced: Yes Ride and Caregiver Arranged: Yes Ride Caregiver Provider: FRIEND Pre-AdmissionTesting Checklist Patient has been to this health system before?: Yes Does patient refuse blood?: No Healthcare Directive: No, patient does not have an advance directive for healthcare treatment Remediation Project Engineer needed: No Patient can read and write?: Yes Fjtk-[id number]: Does the patient want to have any new prescriptions delivered to bedside prior to discharge?: No History given by: Patient Providing self care at home?: Yes Discharge transport (for same day patients): Family Patient instructed on the pre-operative, intra-operative, and post-operative process? Yes Medication instructions reviewed with patient? Yes Pre operative instruction sheet reviewed and given to patient in PAT? Yes * Melisa Espinal RN - 12/27/2020 3:30 PM EST Patient instructed on the pre-operative, intra-operative, and post-operative process. Patient instructed on NPO status. Medication instructions reviewed with patient. Pre operative instruction sheet reviewed and given to patient in PAT. documented in this encounter* Tea Zimmerman RN - 01/01/2021 9:15 AM EST Patient ambulated with steady gait to and from restroom. Peripad with small amount of bloody drainage. documented in this encounter* Diana Kilpatrick RN - 07/25/2019 3:20 PM EDT Discharge Criteria Inpatients must meet Criteria 1 through 7. All other patients are either YES or N/A. If a NO is chosen then Anesthesia or Surgeon must be notified. 1. Minimum 30 minutes after last dose of sedative medication, minimum 120 minutes after last dose of reversal agent. Yes 2. Systolic BP stable within 20 mmHg for 30 minutes & systolic BP between 90 & 180 or within 10 mmHg of baseline. Yes 3. Pulse between 60 and 100 or within 10 bpm of baseline. Yes 4. Spontaneous respiratory rate >/= 10 per minute. Yes 5. SaO2 >/= 95 or >/= baseline. Yes 6. Able to cough and swallow or return to baseline function. Yes 7. Alert and oriented or return to baseline mental status. Yes 8. Demonstrates controlled, coordinated movements, ambulates with steady gait, or return to baseline activity function. Yes 9. Minimal or no pain or nausea, or at a level tolerable and acceptable to patient. Yes 10. Takes and retains oral fluids as allowed. Yes 11. Procedural / perioperative site stable. Minimal or no bleeding. Yes 12. If GI endoscopy procedure, minimal or no abdominal distention or passing flatus. N/A 13. Written discharge instructions and emergency telephone number provided. Yes 14. Accompanied by a responsible adult. Yes Adult patient discharged from facility without responsible person meets above criteria plus the following: a) remains awake without stimulus for 30 minutes b) oriented appropriate for age c) all vital signs stable d) no significant risk of losing protective reflexes e) able to maintain pre-procedure mobility without assistance f) no nausea or dizziness g) transportation arrangements that do not require patient to operate motor Vehicle. N/A * Diana Kilpatrick RN - 07/25/2019 3:07 PM EDT Discharge instructions given to patient and patient mother; verbalizes understanding and offers no questions at this time. * Kedar Martinez RN - 07/25/2019 2:08 PM EDT Report given to WALLY Ortiz * Diana Kilpatrick RN - 07/13/2019 3:59 PM EDT Patient instructed on the pre-operative, intra-operative, and post-operative process. Patient's surgery arrival time to the hospital and surgery start time confirmed for the day of surgery. Patient instructed on NPO status. Medication instructions reviewed with patient. Pre operative instruction sheet reviewed with patient per PAT phone interview. documented in this encounter Additional Source Comments INFORMATION SOURCE (unrecogn ized section and content) DATE CREATED AUTHOR 05/19/2018 Juliana shen DATE CREATED AUTHOR AUTHOR'S ORGANIZ ATION 06/22/2023 Juliana Stokes [facility] DATE CREATED AUTHOR AUTHOR'S ORGANIZ ATION 08/07/2023 [facility] DATE CREATED AUTHOR AUTHOR'S ORGANIZ ATION 11/18/2023 [facility] Reason for Visit (unrecogniz ed section and content) Reason Comments Leg Pain posterior lower leg pain, left x 2 weeks Reason Comments Foot Pain Pt c/o rt foot pain x3 Denies injury. PMS intact. Pt has ROM. Pt reports discomfort when bearing wt. Pt walked into ER unassisted- no distress noted Status Reason Specialty Diagnoses / Procedures Referre d By Contact Referred To Contact Closed Radiology Diagnoses Renal calculus Procedures CT ABDOMEN PELVIS WO CONTRAST CHG CT SCAN,ABDOMENT AND PELVIS,W/O CONTRAST Branden Trevino MD [address] [place] [address] Status Reason Specialty Diagnoses / Procedures Referre d By Contact Referred To Contact Diagnoses Dysmenorrhea Heavy menstrual bleeding DYSMENORRHEA, HEAVY BLEEDING Procedures MS HYSTEROSCOPY,W/ENDOMETR IAL ABLATION DILATATION AND CURETTAGE HYSTEROSCOPY CAUTERY ABLATION, Misha Amador MD [address] [place] [address] [employer] Status Reason Specialty Diagnoses / Procedures Re ferred By Contact Referred To Contact Diagnoses Calculus of kidney RIGHT RENAL CALCULUS Procedures MS FRAGMENT KIDNEY STONE/ ESWL ESWL EXTRACORPOREAL SHOCK WAVE LITHOTRIPSY Branden Trevino MD [address] [place] [address] [facility] Status Reason Specialty Diagnoses / Procedures Referre d By Contact Referred To Contact Open Radiology Diagnoses Pain of left calf Procedures VL DUP LOWER EXTREMITY VENOUS LEFT Nighat, William Guaman II, DESIRE [address] [place] [address] Reason Comments Back Pain Abdominal Pain lower back pain and lower abd pain started 5/, complains of shooting pains in pelvic area, started taking macrobid 5/ Status Reason Specialty Diagnoses / Procedures Referre d By Contact Referred To Contact Diagnoses Right ureteral calculus RIGHT URETERAL CALCULUS Procedures MS CYSTO/URETERO W/LITHOTRIPSY &INDWELL STENT INSRT MS CYSTO/URETERO W/LITHOTRIPSY &INDWELL STENT INSRT CYSTOSCOPY URETEROSCOPY LASER-WITH HLL CYSTOSCOPY STENT INSERTION Branden Trevino MD [address] [facility], [address] [place] [address] [facility] Mila Reason Comments Hematuria Onset this AM. Pt demarco d stent placed 2 days ago for kidney stone and is complaining of pain at urethra and dysuria Reason Comments Flank Pain right sided flank pa in Specialty Diagnoses / Procedures Referred By Yinka golden Referred To Contact Radiology Diagnoses Urethritis Bilateral ureteral calculi Dysuria Procedures CT ABDOMEN PELVIS WO CONTRAST Additional Contrast? None Zhao Garcia SONAR SUBSYSTEM EQUIPMENT OPERATOR - [facility] [address] [place] [address] Referral ID Status Reason Start Date Expiration Date Visits Re quested Visits Authorized [id number] Closed 04/23/2022 04/23/2023 1 1 Reason Comments Facial Pain Patient complains of right sided facial pain that extends into the right sided of her neck. Specialty Diagnoses / Procedures Referred By Yinka golden Referred To Contact Radiology Diagnoses Microscopic hematuria Procedures CT UROGRAM Zhao Garcia APRN - [facility] [address] [place] [address] Referral ID Status Reason Start Date Expiration Date Visits Re quested Visits Authorized [id number] Closed 06/28/2023 08/27/2023 1 1 Ordered Prescriptions (unrec ognized section and content) Prescription Sig Dispensed Refills Start Date End Da te HYDROcodone-acetaminophe n (NORCO) 5-325 MG per tabletIndications:DUB (dysfunctional uterine bleeding) Take 1 tablet by mouth every 6 hours as needed for Pain for up to 3 days. Intended supply: 3 days. Take lowest dose possible to manage pain 10 tablet 0 01/01/2021 01/04/2021 Prescription Sig Dispensed Refills Start Date End Da te dicyclomine (BENTYL) 10 MG capsule Take 1 capsule by mouth 3 times daily as needed (abd pain - pelvic pain) 120 capsule 3 03/18/2021 Prescription Sig Dispensed Refills Start Date End Da te ondansetron (ZOFRAN ODT) 4 MG disintegrating tablet Take 1 tablet by mouth every 8 hours as needed for Nausea or Vomiting 20 tablet 0 03/22/2021 Prescription Sig Dispensed Refills Start Date End Da te tamsulosin (FLOMAX) 0.4 MG capsule Take 1 capsule by mouth daily 15 capsule 0 04/06/2022 oxyCODONE-acetaminophen (PERCOCET) 5-325 MG per tabletIndications:Kidney stone Take 1 tablet by mouth every 6 hours as needed for Pain for up to 3 days. Intended supply: 3 days. Take lowest dose possible to manage pain 15 tablet 0 04/06/2022 04/09/2022 ondansetron (ZOFRAN ODT) 4 MG disintegrating tablet Take 1 tablet by mouth every 8 hours as needed for Nausea or Vomiting 15 tablet 0 04/06/2022 Prescription Sig Dispensed Refills Start Date End Da ketorolac (TORADOL) 10 MG tablet Take 1 tablet by mouth every 6 hours as needed for Pain 20 tablet 0 04/27/2022 04/27/2023 Care Teams (unrecognized sec tion and content) Environmental Science Professor Relationship Specialty Start Date End Date Might, Regan Johnson APRN [facility] PCP - General Family Nurse Practitioner 10/18/18 Environmental Science Professor Relationship Specialty Start Date End Date [facility] - General Family Nurse Practitioner 10/18/18 Environmental Science Professor Relationship Specialty Start Date End Date Might[facility] - General Family Nurse Practitioner 10/18/18 Environmental Science Professor Relationship Specialty Start Date End Date Might, [facility] - General Family Nurse Practitioner 10/18/18 Environmental Science Professor Relationship Specialty Start Date End Date Might, Regan Johnson [facility] PCP - General Family Nurse Practitioner 10/18/18 Environmental Science Professor Relationship Specialty Start Date End Date Might, Regan Johnson [facility] PCP - General Family Nurse Practitioner 10/18/18 Environmental Science Professor Relationship Specialty Start Date End Date Might, [facility] - General Family Nurse Practitioner 10/18/18 Environmental Science Professor Relationship Specialty Start Date End Date Regan Mendez APRN [facility] PCP - General Family Nurse Practitioner 10/18/18 Environmental Science Professor Relationship Specialty Start Date End Date Regan Mendez APRN [facility] PCP - General Family Nurse Practitioner 10/18/18 Scheduled Active and Recently Administ ered Medications (unrecognized section and content) Medication Order 04/04/2022 04/05/2022 04/06/2022 tamsulosin (FLOMAX) capsule 0.4 mg (COMPLETED) 0.4 mg, Oral, ONCE, 1 dose, On Wed04/06/22 at 1100, Do not crush or break. 1108 (Given - Provid er: Deirdre Gonzalez RN) Continuous Medication Order 04/04/2022 04/05/2022 04/06/2022 0.9 % sodium chloride infusion 1,000 mL, IntraVENous, at 125 mL/hr, Administer over 8 Hours, CONTINUOUS, Starting on Wed04/06/22 at 0915 1012 (New Bag - Prov ider: Deirdre Gonzalez RN)1110 (Stopped - Provider: Deirdre Gonzalez RN) Scheduled Medication Order 04/12/2022 04/13/2022 04/14/2022 acetaminophen (TYLENOL) tablet 650 mg (COMPLETED) 650 mg, Oral, ONCE, 1 dose, On Wed04/14/22 at 1145, Maximum dose of acetaminophen is 4000 mg from all sources in 24 hours., Pre-op (day of surgery) 1156 (Given - Provid er: Lizbeth Fountain RN) ciprofloxacin (CIPRO) IVPB 400 mg (COMPLETED) 400 mg, IntraVENous, ARMHOLE SEWER TO O.R., 1 dose, On Wed04/14/22 at 1145, Antimicrobial Indications: Surgical Prophylaxis, Administer within 1 hour prior to incision, Pre-op (day of surgery) 1311 (New Bag - Prov ider: Kedar Martinez RN)1411 (Due: Stopped - Provider: Kedar Martinez RN) dimenhyDRINATE (DRAMAMINE) tablet 50 mg (COMPLETED) 50 mg, Oral, ONCE, 1 dose, On Wed04/14/22 at 1145, Pre-op (day of surgery) 1156 (Given - Provid er: Lizbeth Fountain RN) oxyCODONE-acetaminophen (PERCOCET) 5-325 MG per tablet 1 tablet (COMPLETED) Mg/kg dosing is based on the oxycodone component., 1 tablet, Oral, ONCE, 1 dose, On Wed04/14/22 at 1700, Maximum dose of acetaminophen is 4000 mg from all sources in 24 hours., Pre-op (day of surgery) 1649 (Given - Provid er: Reny Warren RN) sodium chloride flush 0.9 % injection 5-40 mL 5-40 mL, IntraVENous, EVERY 12 HOURS SCHEDULED (2 times per day), First dose on Wed04/14/22 at 2100, Until Discontinued, For Line Patency: Peripheral IV = 5 mL; Midline or Central Line = 10 mL/lumen. If following IV push medication, administer flush at same rate as the IV push. Flush volume is determined by type of infusion therapy being given. For non-viscous solutions use: Peripheral IV = 5 mL Midline or Central Line = 10 mL/lumen For viscous solutions (i.e. blood components, parenteral nutrition, contrast media, or after obtaining blood sample) use: Peripheral IV = 10 mL Midline or Central Line = 20 mL/lumen, PACU only 2100 (Due) Continuous Medication Order 04/12/2022 04/13/2022 04/14/2022 lactated ringers infusion IntraVENous, at 100 mL/hr, CONTINUOUS, Starting on Wed04/14/22 at 1145, Pre-op (day of surgery) 1155 (New Bag - Prov ider: Lizbeth Fountain RN)1313 (NoRateChange - Provider: Anette Bautista APRN - [employer])1543 (Stopped - Provider: Lizbeth Fountain RN) PRN Medication Order 04/12/2022 04/13/2022 04/14/2022 0.9 % sodium chloride infusion IntraVENous, at 5-250 mL/hr, PRN, if patient receiving piggyback infusions and maintenance fluids are not ordered OR KVO fluids to protect IV site / prevent frequent line interruptions/ long duration, Starting on Wed04/14/22 at 1425, For piggyback infusion, administer at same rate as piggyback for a total of 25 mL. Enter 25 mL into dose field and piggyback rate into rate field of order. If piggyback is infusing at a rate less than 100 mL/hr, enter 25 mL into dose field and 100 mL/hr into rate field of order. For KVO fluids, enter rate of 20 mL/hr or less into rate field of order., PACU only fentaNYL (SUBLIMAZE) injection 25 mcg 25 mcg, IntraVENous, EVERY 5 MIN PRN, 2 doses, Starting on Wed04/14/22 at 1425, Until Discontinued, Pain Moderate (4-6), For Phase I. If Phase II oral narcotics have been administered in the last 60 minutes, do not administer IV narcotics unless specifically approved by provider., PACU only 1429 (Given - Provid er: Lizbeth Fountain RN) fentaNYL (SUBLIMAZE) injection 50 mcg 50 mcg, IntraVENous, EVERY 5 MIN PRN, 2 doses, Starting on Wed04/14/22 at 1425, Until Discontinued, Pain Severe (7-10), For Phase I. If Phase II oral narcotics have been administered in the last 60 minutes, do not administer IV narcotics unless specifically approved by provider., PACU only lidocaine (XYLOCAINE) 2 % uro-jet (CANCELED) PRN, Starting on Wed04/14/22 at 1331, Intra-op 1331 (Given - Provid er: Branden Trevino MD) metoclopramide (REGLAN) injection 10 mg 10 mg, IntraVENous, ONCE PRN, 1 dose, Starting on Wed04/14/22 at 1425, Until Wed04/14/22 at 2359, Nausea, Secondary antiemetic therapy., PACU only ondansetron (ZOFRAN) injection 4 mg 4 mg, IntraVENous, ONCE PRN, 1 dose, Starting on Wed04/14/22 at 1425, Until Tu04/14/22 at 2359, Nausea, Initial antiemetic therapy., PACU only oxyCODONE (ROXICODONE) immediate release tablet 5 mg (COMPLETED) 5 mg, Oral, PRN, 1 dose, Starting on Wed04/14/22 at 1425, Until Wed04/14/22 at 1502, Pain Moderate (4-6), PHASE II, PACU only 1502 (Given - Provid er: Lizbeth Fountain RN) sodium chloride flush 0.9 % injection 5-40 mL 5-40 mL, IntraVENous, PRN, Starting on Wed04/14/22 at 1425, Until Discontinued, Line Care, After every IV line use, For Line Patency: Peripheral IV = 5 mL; Midline or Central Line = 10 mL/lumen. If following IV push medication, administer flush at same rate as the IV push. Flush volume is determined by type of infusion therapy being given. For non-viscous solutions use: Peripheral IV = 5 mL Midline or Central Line = 10 mL/lumen For viscous solutions (i.e. blood components, parenteral nutrition, contrast media, or after obtaining blood sample) use: Peripheral IV = 10 mL Midline or Central Line = 20 mL/lumen, PACU only Scheduled Medication Order 2022 04/26/2022 04/27/2022 acetaminophen (TYLENOL) tablet 650 mg (COMPLETED) 650 mg, Oral, ONCE, 1 dose, On Wed04/27/22 at 0715, Maximum dose of acetaminophen is 4000 mg from all sources in 24 hours., Pre-op (day of surgery) 0701 (Given - Provid er: Kedar Cage, WALLY) ciprofloxacin (CIPRO) IVPB 400 mg (COMPLETED) 400 mg, IntraVENous, ARMHOLE SEWER TO O.R., 1 dose, On Wed04/27/22 at 0715, Antimicrobial Indications: Surgical Prophylaxis, Administer within 1 hour prior to incision, Pre-op (day of surgery) 0739 (New Bag - Prov ider: Tomasa Diaz RN)0758 (Stopped - Provider: Sagrario Yates APRN - [facility]) dimenhyDRINATE (DRAMAMINE) tablet 50 mg (COMPLETED) 50 mg, Oral, ONCE, 1 dose, On Wed04/27/22 at 0715, Pre-op (day of surgery) 0701 (Given - Provid er: Kedar Cage RN) sodium chloride flush 0.9 % injection 5-40 mL 5-40 mL, IntraVENous, EVERY 12 HOURS SCHEDULED (2 times per day), First dose on Wed04/27/22 at 0930, Until Discontinued, For Line Patency: Peripheral IV = 5 mL; Midline or Central Line = 10 mL/lumen. If following IV push medication, administer flush at same rate as the IV push. Flush volume is determined by type of infusion therapy being given. For non-viscous solutions use: Peripheral IV = 5 mL Midline or Central Line = 10 mL/lumen For viscous solutions (i.e. blood components, parenteral nutrition, contrast media, or after obtaining blood sample) use: Peripheral IV = 10 mL Midline or Central Line = 20 mL/lumen, PACU only 0930 (Due)2100 (Due) Continuous Medication Order 2022 04/26/2022 04/27/2022 lactated ringers infusion IntraVENous, at 100 mL/hr, CONTINUOUS, Starting on Wed04/27/22 at 0715, Pre-op (day of surgery) 0712 (New Bag - Prov ider: Diana Kilpatrick RN)0922 (Stopped - Provider: Juliana Haywood RN) lactated ringers infusion IntraVENous, at 125 mL/hr, CONTINUOUS, Starting on Wed04/27/22 at 0715, Pre-op (day of surgery) 0715 (Due) PRN Medication Order 2022 04/26/2022 04/27/2022 0.9 % sodium chloride infusion IntraVENous, at 5-250 mL/hr, PRN, if patient receiving piggyback infusions and maintenance fluids are not ordered OR KVO fluids to protect IV site / prevent frequent line interruptions/ long duration, Starting on Wed04/27/22 at 0906, For piggyback infusion, administer at same rate as piggyback for a total of 25 mL. Enter 25 mL into dose field and piggyback rate into rate field of order. If piggyback is infusing at a rate less than 100 mL/hr, enter 25 mL into dose field and 100 mL/hr into rate field of order. For KVO fluids, enter rate of 20 mL/hr or less into rate field of order., PACU only metoclopramide (REGLAN) injection 10 mg 10 mg, IntraVENous, ONCE PRN, 1 dose, Starting on Wed04/27/22 at 0906, Until Wed04/27/22 at 2359, Nausea, Secondary antiemetic therapy., PACU only ondansetron (ZOFRAN) injection 4 mg 4 mg, IntraVENous, ONCE PRN, 1 dose, Starting on Wed04/27/22 at 0906, Until Wed04/27/22 at 2359, Nausea, Initial antiemetic therapy., PACU only oxyCODONE (ROXICODONE) immediate release tablet 5 mg 5 mg, Oral, ONCE PRN, 1 dose, Starting on Wed04/27/22 at 0906, Until Wed04/27/22 at 2359, Pain Moderate (4-6), PHASE II, PACU only sodium chloride flush 0.9 % injection 5-40 mL 5-40 mL, IntraVENous, PRN, Starting on Wed04/27/22 at 0906, Until Discontinued, Line Care, After every IV line use, For Line Patency: Peripheral IV = 5 mL; Midline or Central Line = 10 mL/lumen. If following IV push medication, administer flush at same rate as the IV push. Flush volume is determined by type of infusion therapy being given. For non-viscous solutions use: Peripheral IV = 5 mL Midline or Central Line = 10 mL/lumen For viscous solutions (i.e. blood components, parenteral nutrition, contrast media, or after obtaining blood sample) use: Peripheral IV = 10 mL Midline or Central Line = 20 mL/lumen, PACU only Scheduled Medication Order 05/03/2023 05/04/2023 05/05/2023 acetaminophen (TYLENOL) tablet 650 mg (COMPLETED) 650 mg, Oral, ONCE, 1 dose, On Wed05/05/23 at 0700, Maximum dose of acetaminophen is 4000 mg from all sources in 24 hours. 0723 (Given - Provid er: Nishant Pollock RN) ketorolac (TORADOL) injection 30 mg (COMPLETED) 30 mg, IntraVENous, ONCE, 1 dose, On Wed05/05/23 at 0830, Do not administer for more than 5 days. 0850 (Given - Provid er: Nishant Pollock RN) PRN Medication Order 05/03/2023 05/04/2023 05/05/2023 iopamidol (ISOVUE-370) 76 % injection 75 mL (COMPLETED) 75 mL, IntraVENous, IMG ONCE PRN, 1 dose, Starting on Wed05/05/23 at 0730, Until Wed05/05/23 at 0731, Other 0731 (Given - Provid er: Kathy Frank) FOR RECORDS PERTAINING TO PATIENTS WHO ARE OR HAVE BEEN ENROLLED IN A CHEMICAL DEPENDENCY/SUBSTANCEABUSE PROGRAM, SOME INFORMATION MAY BE OMITTED. This clinical summary was aggregated from multiple sources. Caution should be exercised in using it in the provision of clinical care. This summary normalizes information from multiple sources, and as a consequence, information in this document may materially change the coding, format and clinical context of patient data. In addition, data may be omitted in some cases. CLINICAL DECISIONS SHOULD BE BASED ON THE PRIMARY CLINICAL RECORDS. [facility]. provides no warranty or guarantee of the accuracy or completeness of information in this document.
[2024-01-04 20:42] VITALS: BMI 22.0
[2024-01-04] MEDS: POTASSIUM CHLORIDE 10 MEQ ER TABLET 40 MEQ PO (21:12)
[2024-01-05] VITALS (15 sets, daily range): BP systolic 89–112; BP diastolic 50–67; PULSE 50–68; RESP 12–18; TEMP 26.6–36.6; O2SAT 93–99
[2024-01-05] MEDS: KETOROLAC TROMETHAMINE 30 MG/ML VIAL 15 MG IVP ×2 (02:47→09:58)
[2024-01-05 04:55] LABS: Basophils Absolute Auto 0.1 10^3/uL (0.0-0.1); Basophils Percent Auto 0.5 % (0.2-2.0); Eosinophils Absolute Auto 0.3 10^3/uL (0.0-0.7); Eosinophils Percent Auto 2.8 % (0.9-7.0); Hematocrit 33.3 % (36.0-48.0); Hemoglobin 10.8 g/dL (12.0-16.0); Immature Granulocytes Abs Auto 0.03 10^3/uL (0.00-0.03); Immature Granulocytes Pct Auto 0.3 % (0.0-0.5); Lymphocytes Absolute Auto 1.1 10^3/uL (1.2-3.8); Lymphocytes Percent Auto 11.2 % (20.5-60.0); Mean Corpuscular HGB Conc 32.4 g/dL (29.9-35.2); Mean Corpuscular Hemoglobin 30.4 pg (26.7-34.0); Mean Corpuscular Volume 93.8 fL (81.0-99.0); Mean Platelet Volume 9.5 fL (9.5-13.5); Monocytes Absolute Auto 0.9 10^3/uL (0.3-0.8); Monocytes Percent Auto 9.1 % (1.7-12.0); Neutrophils Absolute Auto 7.5 10^3/uL (1.4-6.5); Neutrophils Percent Auto 76.1 % (43.0-75.0); Platelet Count 305 10^3/uL (150-450); Red Blood Count 3.55 10^6/uL (4.20-5.40); White Blood Count 9.8 10^3/uL (4.0-11.0)
[2024-01-05 05:20] LABS: Anion Gap 12.9; BUN Creatinine Ratio 22.1; Calcium 9.4 mg/dL (8.5-10.1); Carbon Dioxide 25.4 mmol/L (21.0-32.0); Chloride 109 mmol/L (98-107); Estimated GFR (African America >60 (>=60); Estimated GFR (Non-African Ame >60 (>=60); Glucose 113 mg/dL (74-106); Potassium 4.3 mmol/L (3.5-5.1); Sodium 143 mmol/L (136-145)
[2024-01-05] MEDS: 0.9 % SODIUM CHLORIDE 500 ML IV (09:59)
[2024-01-05] MEDS: LACTATED RINGER'S SOLUTION 1,000 ML 125 ML IV ×2 (09:59→21:19)
--- NOTE | 2024-01-05 11:23 | CM.NOTE ---
Rounds made with Dr. Barber, pt will go to OR today for obstructive stone. No discharge today.
--- NOTE | 2024-01-05 11:44 | P.HP_ITS ---
<Statement entered by Felix Orourke MD - 01/05/24 13:09> Patient seen and examined, agree with assessment and plan below. Presented with pain and found obstructing stone and pyelonephritis. On IV antibiotics and urology consulted. Will go to OR for cystoscopy and possible stent later today. Diagnosis: 1. Right ureteral stone 2. Hydronephrosis due to obstruction of ur eter 3. Pyelonephritis H&P: HPI History of Present Illness Chief complaint: Abdominal Pain, Ureteral Stone, Pyelonephritis Narrative: 01/05/24 1025 This is a 53-year-old female patient with a relatively benign past medical history except for depression; who presented to the ED yesterday afternoon complaining of a 5-day course of RUQ abdominal pain. Her abdominal discomfort was focused in the right upper quadrant, was constant, and became increasingly severe. She experienced nausea and vomiting x 1 on initial onset of pain but has experienced no further nausea since that time. She denies fever, diarrhea, dysuria, or urinary frequency. She reports dizziness and near syncope shortly before presenting to the ED for evaluation. Workup in the ED revealed mild leukocytosis (11.2), mild hypokalemia (3.3), and a mildly elevated alk phos (123). All other blood work was unremarkable. UA was positive for UTI. A US right upper quadrant was obtained that revealed moderate right hydroureteronephrosis but could not identify an obstructive etiology and a CT of the abdomen was recommended. Debris within the dilated right inferior pole of the renal calyx was noted and raised suspicion for superimposed infection. A follow-up CT of the abdomen was obtained which confirmed an obstructing 8 x 6 x 8 mm stone in the mid right ureter resulting in severe right-sided hydronephrosis and hydroureter. Multiple other nonobstructing stones were noted bilaterally. In addition there was mild upper abdominal retroperitoneal adenopathy, likely due to infectious/inflammatory process versus neoplasm. She was treated with IV fluids, IV antibiotics, KCL supplementation, and pain medications in the ED. Urology was consulted in the ED and they recommended admission to the hospitalist service overnight with planned surgical intervention today. She was admitted to the hospitalist yesterday evening, and has been n.p.o. since midnight pending Urology procedure later today. At the time of my exam the patient is resting comfortably in bed. She reports that her pain is adequately controlled with IVP Toradol. She continues to deny any further N/V, or any other acute complaint. Her dizziness has resolved. There is diffuse tenderness to the abdomen on palpation, but focused mainly in the right upper quadrant. Her BP was soft this morning so we are giving another IVF bolus and initiating maintenance IVF pending surgery. We will monitor closely for constitutional signs of worsening infection. Review of Systems ROS Status of ROS 10 or more systems reviewed and unremark able except as noted in history and below [facility] Medical History (Updated 01/05/24 @ 12:15 by Noemy Ding NP) Depression ?F32.A - Depression, unspecified (ICD-10) Headache ?R51.9 - Headache, unspecified (ICD-10) Surgical History (Updated 01/04/24 @ 20:35 by Flor Roche RN) Hx of breast implants, bilateral ?Z98.82 - Breast implant status (ICD-10) Social History (Updated 01/04/24 @ 20:39 by Flor Roche RN) Within the past year, how often did you have a drink containing alcohol: monthly or less Within the past year, how many standard drinks containing alcohol did you have on a typical day: 1 or 2 Within the past year, how often did you have six or more drinks on one occasion: never Total score: 0 Score interpretation: A score less than 3 is consistent with normal alcohol consumption. Smoking status: Current every day smoker Non-prescribed substance use: denies use Highest level of school completed/degree received: high school graduate Are you now , , , , never or living with a partner: living with partner In a typical week, how many times do you talk on the telephone with family, friends, or neighbors: 3 or more times per week How often do you get together with friends or relatives: 3 or more times per week How often do you attend restorationism or judaism services: never Do you belong to any clubs or organizations such as restorationism groups unions, fraternal or athletic groups, or school groups: no Total score: 2 Score interpretation: A score of greater than or equal to 2 indicates the lowest level of social isolation. Little interest or pleasure in doing things: not at all Feeling down, depressed, or hopeless: not at all Feel stressed/tense/nervous/anxious/difficulty sleeping: only a little Do you think of yourself as: straight/heterosexual Gender Identity: female Meds Home Medications and Allergies Home Medications Medication Instructions Recorded Confirmed Type bupropion HCl 300 mg 24 hr tablet, 300 mg PO DAILY 12/03/23 01/04/24 History extended release venlafaxine 150 mg 150 mg PO DAILY 12/03/23 01/04/24 History capsule,extended release 24 hr Allergies Allergy/AdvReac Type Severity Reaction Status Date / Time No Known Drug Allergies Allergy Verified 12/03/23 14:14 Exam Constitutional Vital Signs, click to edit/add: Last Vital Signs Temp 79.9 F L 01/05/24 07:30 Pulse 68 01/05/24 07:30 Resp 16 01/05/24 07:30 BP 103/52 01/05/24 07:30 Pulse Ox 94 L 01/05/24 07:30 O2 Del Method Room Air 01/05/24 07:30 Common normals: no apparent distress, oriented x3, alert and well nourished General appearance: cooperative Orientation/consciousness: Yes awake HENMT Common normals: normocephalic, head/scalp atraumatic, hearing grossly normal bilaterally, external nose normal and moist oral mucous membranes Eye Common normals: PERRL, EOMs intact bilaterally, conjunctivae normal and no scleral icterus Neck & C-Spine Common normals: full ROM, supple and no JVD Chest Common normals: inspection of chest normal Chest: symmetrical chest wall rise Respiratory Common normals: normal respiratory effort, no retractions, no use of accessory muscles and clear to auscultation bilaterally Cardio Common normals: no JVD, regular rhythm, S1 normal heart sound, S2 normal heart sound, no gallops, no clicks, no murmurs, no rub and peripheral pulses 2+ throughout Rate: bradycardic (borderline) GI Common normals: Normal to inspection, nondistended, normoactive bowel sounds present, soft to palpation, no hepatosplenomegaly, no masses and no bruits Palpation: tender (Greatest at RUQ, mild to RLQ/LLQ) Bladder/kidney exam: bladder normal to palpation Extremity Common normals: normal capillary refill and no pedal edema General: normal exam except as noted; no clubbing and no cyanosis Neuro Zay Coma Scale: GCS not evaluated Common normals: CN's II-XII intact bilaterally, moves all extremities, no focal motor deficits and no sensory deficits noted Speech: speech normal Motor exam: strength 5/5 throughout Psych Common normals: mental status grossly normal, thought process normal, affect normal and activity/motor behavior normal Results Labs Labs: Short CBC 01/04/24 01/05/24 Range/Units 17:24 04:31 WBC 11.2 H 9.8 (4.0-11.0) 10^3/uL Hgb 11.8 L 10.8 L (12.0-16.0) g/dL Hct 35.8 L 33.3 L (36.0-48.0) % Plt Count 343 305 (150-450) 10^3/uL BMP 01/04/24 01/05/24 17:24 04:31 Sodium 140 143 Potassium 3.3 L 4.3 Chloride 101 109 H Carbon Dioxide 27.3 25.4 BUN 17.0 17.0 Creatinine 1.02 0.77 Glucose 129 H 113 H Calcium 10.3 H 9.4 Liver Function 01/04/24 Range/Units 17:24 Total Bilirubin 0.5 (0.2-1.0) mg/dL AST 12 L (15-37) U/L ALT 15 (14-59) U/L Alkaline Phosphatase 123 H (46-116) U/L Albumin 2.8 L (3.4-5.0) g/dL Urine 01/04/24 Range/Units 17:00 Urine Color Brown A (YELLOW) Urine Clarity Sl cloudy (CLEAR) Urine pH 6.0 (5.0-9.0) Ur Specific [place] 1.025 (1.005-1.025) Urine Protein 30 A (NEG/TRACE) mg/dL Urine Glucose (UA) Negative (NEGATIVE) mg/dL Pulse Oximetry Attestation: I have reviewed the pertinent pulse oximetry results. Imaging US - RUQ: Attestation: I have reviewed the pertinent imaging results. Radiologist's impression: IMPRESSION: 1. Moderate right hydroureteronephrosis. An obstructive etiology is not identified on this limited exam. Recommend further evaluation with CT to evaluate for an an obstructive etiology. 2. Debris within a dilated right inferior pole renal calyx raises suspicion for possible superimposed infection. 3. No gallstones or bile duct dilation. Sonographic Medley's sign is absent. 4. Subvisualized pancreas. CT scan - abdomen: Attestation: I have reviewed the pertinent imaging results. Radiologist's impression: IMPRESSION: 1. Obstructing 8 x 6 x 8 mm stone in the mid right ureter resulting in severe right-sided hydronephrosis and hydroureter. 2. There are 4 additional nonobstructing stones in the right kidney and at least 6 nonobstructing stones in the left kidney with the stones measuring up to 6 mm in size. 3. New mild upper abdominal retroperitoneal adenopathy. Differential includes infectious/inflammatory process versus neoplasm. Recommend correlation with patient history to determine need for further imaging. Assessment and Plan Assessment and Plan (1) Hydronephrosis concurrent with and due to calculi of kidney and ureter: Assessment and Plan: ACUTE * Initially admitted in observation, convert to inpatient status w/ obstructive uropathy, pyelonephritis, and risk for onset of sepsis w/ ureteral stent placement * I expect this patient to cross 2 midnights and require medically necessary hospital care * C/S Urology - we appreciate Dr Rey's assistance with this pt's care * NPO pending surgery * LR at 125/hr * ABX as noted below * PRN IVP Toradol for pain - defer to urology service for post op pain management * Renal fx WNL * CBC, CMP daily (2) Pyelonephritis: Assessment and Plan: ACUTE * UA positive and US RUQ notes infectious changes to the kidney * IVP Rocephin, 1gm daily * Low threshold to broaden coverage pending clinical course * CX pending * Pt at risk for sepsis w/ ureteral manipulation - monitor VS closely (3) Hypokalemia: Assessment and Plan: ACUTE * Mild, K+ 3.3 in ED * KCL 40 meq PO given in ED last night * Resolved on AM labs today (K+ 4.3) * CMP daily (4) Depression: Assessment and Plan: CHRONIC * Continue home Venlafaxine and bupropion
--- NOTE | 2024-01-05 13:33 | PC.NURSE ---
urine strained at this time
[2024-01-05] MEDS: CEFTRIAXONE 1,000 MG in 0.9 % SODIUM CHLORIDE 50 ML 100 MG IV (15:47)
--- NOTE | 2024-01-05 17:04 | PM.CN ---
Consult Note: HPI Data of Consult Patient: new to practice Consult date: 01/05/24 Requesting Physician: Felix Orourke MD Primary Care Provider: Non-Staff Physician, MD Consult Narrative Reason for consult: right ureteral stone, pain, UTI Narrative: 53-year-old female with a history of nephrolithiasis followed by Dr. Mistry presents to the emergency department for 5-day history of pain in the right upper quadrant. Workup revealed WBC 11.2, Cr 1, UA concerning for UTI (positive nitrites, leuk esterase and bacteria) and CT AP showing an 8x8x6 mm right proximal-mid ureteral stone with mod-severe hydronephrosis, perinephric stranding and 4 additional kidney stones up to 6mm each. She was admitted to the hospitalist and Urology consulted for further management. Pt still having RUQ pain. Previously with nausea, emesis 5 days ago. Denies fevers, chills, dysuria, hematuria. She has remained afebrile this admission, on ceftriaxone empirically. Last seen Dr. Mistry over a year ago for stone treatment, has had stents in the past as well. cc:: CC: Felix Orourke MD Review of Systems ROS Status of ROS 10 or more systems reviewed and unremarkable except as noted in history and below Constitutional Denies: fever or chills Eyes Denies: change in vision or blurry vision Ears, nose, mouth, and throat Denies: throat pain or nasal congestion Cardiovascular Denies: chest pain or palpitations Respiratory Denies: shortness of breath or cough Gastrointestinal Reports: abdominal pain; Denies: nausea or vomiting Genitourinary Denies: painful urination, urinary frequency, urinary urgency or blood in urine Musculoskeletal Denies: back pain or muscle weakness Neurological Denies: numbness in extremities or weakness in extremities Endocrine Denies: excessive urination or excessive thirst Hematologic/Lymphatic Denies: easy bruising or easy bleeding Allergic/Immunologic Reports: other (denies allergies ) PFSH [facility] Medical History Depression ?F32.A - Depression, unspecified (ICD-10) Headache ?R51.9 - Headache, unspecified (ICD-10) Surgical History Hx of breast implants, bilateral ?Z98.82 - Breast implant status (ICD-10) Social History Within the past year, how often did you have a drink containing alcohol: monthly or less Within the past year, how many standard drinks containing alcohol did you have on a typical day: 1 or 2 Within the past year, how often did you have six or more drinks on one occasion: never Total score: 0 Score interpretation: A score less than 3 is consistent with normal alcohol consumption. Smoking status: Current every day smoker Non-prescribed substance use: denies use Highest level of school completed/degree received: high school graduate Are you now , , , , never or living with a partner: living with partner In a typical week, how many times do you talk on the telephone with family, friends, or neighbors: 3 or more times per week How often do you get together with friends or relatives: 3 or more times per week How often do you attend evangelical or zoroastrianism services: never Do you belong to any clubs or organizations such as evangelical groups unions, [employer] or athletic groups, or school groups: no Total score: 2 Score interpretation: A score of greater than or equal to 2 indicates the lowest level of social isolation. Little interest or pleasure in doing things: not at all Feeling down, depressed, or hopeless: not at all Feel stressed/tense/nervous/anxious/difficulty sleeping: only a little Do you think of yourself as: straight/heterosexual Gender Identity: female Meds Home Medications and Allergies Home Medications Medication Instructions Recorded Confirmed Type bupropion HCl 300 mg 24 hr tablet, 300 mg PO DAILY 12/03/23 01/04/24 History extended release venlafaxine 150 mg 150 mg PO DAILY 12/03/23 01/04/24 History capsule,extended release 24 hr Allergies Allergy/AdvReac Type Severity Reaction Status Date / Time No Known Drug Allergies Allergy Verified 12/03/23 14:14 Exam Narrative Exam Narrative: No acute distress, appears nontoxic Nonlabored respirations, symmetric chest rise, on room air Normal rate and rhythm, no peripheral edema Right upper quadrant with mild tenderness to palpation, non distended No CVA tenderness to palpation BL, no suprapubic Moves all extremities, no deformities Alert and oriented x 4, no acute focal deficits Skin dry, intact Appropriate, cooperative Constitutional Vital Signs, click to edit/add: Last Vital Signs Temp 97.6 F 01/05/24 12:24 Pulse 57 L 01/05/24 12:24 Resp 16 01/05/24 12:24 BP 94/58 01/05/24 12:24 Pulse Ox 96 01/05/24 12:24 O2 Del Method Room Air 01/05/24 12:24 Results Labs Labs: Short CBC 01/04/24 01/05/24 Range/Units 17:24 04:31 WBC 11.2 H 9.8 (4.0-11.0) 10^3/uL Hgb 11.8 L 10.8 L (12.0-16.0) g/dL Hct 35.8 L 33.3 L (36.0-48.0) % Plt Count 343 305 (150-450) 10^3/uL BMP 01/04/24 01/05/24 17:24 04:31 Sodium 140 143 Potassium 3.3 L 4.3 Chloride 101 109 H Carbon Dioxide 27.3 25.4 BUN 17.0 17.0 Creatinine 1.02 0.77 Glucose 129 H 113 H Calcium 10.3 H 9.4 Liver Function 01/04/24 Range/Units 17:24 Total Bilirubin 0.5 (0.2-1.0) mg/dL AST 12 L (15-37) U/L ALT 15 (14-59) U/L Alkaline Phosphatase 123 H (46-116) U/L Albumin 2.8 L (3.4-5.0) g/dL Urine 01/04/24 Range/Units 17:00 Urine Color Brown A (YELLOW) Urine Clarity Sl cloudy (CLEAR) Urine pH 6.0 (5.0-9.0) Ur Specific [place] 1.025 (1.005-1.025) Urine Protein 30 A (NEG/TRACE) mg/dL Urine Glucose (UA) Negative (NEGATIVE) mg/dL Imaging CT scan - abdomen: Attestation: I personally reviewed and interpreted this imaging study as follows: (R proximal to mid ureteral stone with moderate hydronephrosis and strainding ) My impression: MRN: [id number] date: 1970 Sex: F Assigned Patient Location: ER Current Patient Location: ED.MAIN Accession/Order Number: [id number] Exam Date: 01/04/2024 18:33 Report Date: 01/04/2024 19:16 At the request of: FER MAJANO Procedure: CT abdomen pelvis wo con EXAM: CT abdomen pelvis wo con; [id number] REASON FOR EXAM: Right sided abd pain TECHNIQUE: Helical CT images of the abdomen and pelvis were obtained without IV contrast. Multiplanar reformats were generated at the scanner. Dose reduction technique used: Automated exposure control and/or adjustment of the mA and/or kV according to patient size and/or use of iterative reconstruction technique. COMPARISON: CT urogram 06/28/2023. FINDINGS: Note: Compared with a contrast-enhanced CT exam, noncontrast images are relatively insensitive for detection of solid organ and vascular abnormalities. Visualized Chest: No pleural effusion or any significant pulmonary findings. Abdomen: Liver: Within normal limits. Gallbladder: No calcified gallstones. No acute inflammatory changes. Bile Ducts: No significant biliary ductal dilatation. Pancreas: No ductal dilatation or inflammatory changes. Spleen: No splenomegaly. Adrenals: No nodules. Kidneys: -Obstructing stone in the right mid ureter measuring 8 x 6 x 8 mm resulting in severe right-sided hydronephrosis and hydroureter. There is obstructive right perinephric fat stranding. -There are 4 additional nonobstructing stones in the right kidney with the largest measuring up to 6 mm. -There are at least 6 nonobstructing stones in the left kidney with the largest measuring up to 6 mm. Vascular: No aortic aneurysm. Lymph Nodes: -Mild upper abdominal retroperitoneal adenopathy which is mildly worse compared with 06/28/2023. For example lymph node near the right renal hilum measuring 13 x 11 mm (series 3 image 32), previously 6 x 6 mm. Abdominal Wall: Trace fat-containing umbilical hernia. Pelvis: No mass or adenopathy. Bowel/Peritoneal Cavity/Mesentery: -No bowel obstruction or significant ileus. -No acute inflammatory changes. -No free air or free fluid. Musculoskeletal: No acute fracture or suspicious osseous lesion. CT/CT abdomen pelvis wo con IMPRESSION: 1. Obstructing 8 x 6 x 8 mm stone in the mid right ureter resulting in severe right-sided hydronephrosis and hydroureter. 2. There are 4 additional nonobstructing stones in the right kidney and at least 6 nonobstructing stones in the left kidney with the stones measuring up to 6 mm in size. 3. New mild upper abdominal retroperitoneal adenopathy. Differential includes infectious/inflammatory process versus neoplasm. Recommend correlation with patient history to determine need for further imaging. Assessment and Plan Assessment and Plan (1) Hydronephrosis concurrent with and due to calculi of kidney and ureter: (2) Pyelonephritis: Plan 53 year old female with history of nephrolithasis is admitted with an 8 mm right proximal-mid ureteral stone with mod-severe hydronephrosis and concern for pyelonephritis. Discussed risks/benefits of management options with patient. Given obstructing stone and pain in the setting of a UTI/pyelonephritis, decompression with a stent is recommended. She understands the stone will not be treated today, as this would increase her risk of sepsis. She understands the ureteral and perhaps kidney stones will be treated at a later date once her infection has been fully treated. She elects to proceed with cystoscopy, right retrograde pyelogram, right ureteral stent placement, possible ureteroscopy with laser lithotripsy if unable to bypass stone for stent placement. Risks were discussed including but not limited to bleeding, pain, infection, damage to surrounding structures, inability to treat the stone/place a stent, and need for additional procedures. The patient understands the stent is not permanent and needs to be removed or exchanged within 3 months to prevent encrustation, infection, invasive procedures and/or permanent renal damage. -Return to floor post op for continued empiric abx and monitoring -Follow up on urine culture and treat with culture sensitive abx x 7-10 days -Oxybutynin 5 mg TID PRN for bladder spasms and stent pain, Tamsulosin 0.4 mg daily prn for stent pain, AZO/pyridium prn for dysuria. -Follow up with Dr. Rey (Urologist tongue and groove machine setter) within 1-2 weeks to discuss definitive stone treatment of ureteral and kidney stones.
[2024-01-05] MEDS: IOHEXOL 240 MG/ML - 10 ML VIAL 120 MG INJ (17:34)
--- NOTE | 2024-01-05 17:40 | P.URON_ITS ---
Urology Surgery Operative Note Operative Note Procedure Date: 01/05/24 Time Out Performed: yes Pre-op Diagnosis: 1. Right ureteral stone with hydronephrosis 2. Pyelonephritis Post-op Diagnosis: same as pre-op Procedures performed: Cystoscopy, right retrograde pyelogram, ureteral stent placement Anesthesia: General-LMA (Dr. Costello) Primary Surgeon: Olesya Chavez Complications: none Estimated blood loss (mL): 0 Findings: Cystitis cystica along trigone. Cloudy urine with debris within bl adder. R RPG- mid ureteral filling defect with moderate proximal hydroureteronephrosis consistent with known stone. Difficult to view on fluoroscopy alone. Radiopaque right kidney stones. No extravasation. Return of mildly cloudy urine after stent placement Specimens: none Drains: 6Fr x 22-32 cm JJ right ureteral stent Indications for Procedures: 53 year old female with history of nephrolithasis is admitted with an 8 mm right proximal-mid ureteral stone with mod-severe hydronephrosis and concern for pyelonephritis. After discussion of risks/benefits, she elects to proceed with cystoscopy, right retrograde pyelogram, right ureteral stent placement, possible ureteroscopy with laser lithotripsy if unable to bypass stone for stent placement. Risks were discussed including but not limited to bleeding, pain, infection, damage to surrounding structures, inability to treat the stone/place a stent, and need for additional procedures. The patient understands the stent is not permanent and needs to be removed or exchanged within 3 months to prevent encrustation, infection, invasive procedures and/or permanent renal damage. Detailed description of Procedure: After informed consent was obtained, the patient was brought to the operating room and transferred onto the operating table in supine position. Sequential compression devices were placed on bilateral lower extremities. The patient received the appropriate dose of preoperative IV antibiotics and general anesthesia LMA was induced. They were positioned in modified dorsolithotomy with the appropriate pressure points padded, prepped, and draped in the usual sterile fashion for this procedure. An operative safety timeout was performed confirming the patient's identity, laterality and procedure, and all present agreed to proceed. I began by inserting a 22 Prydeinig rigid cystoscope with 30 degree lens into the patient's urethra and bladder without difficulty. There were no bladder tumors, lesions, stones or foreign bodies. Bilateral ureteral orifices were orthotopic and patent. I turned my attention to the right ureteral orifice and a 6- Prydeinig open-ended catheter was inserted into the ureteral orifice. Gentle instillation of dilute contrast was injected for retrograde pyelogram with findings as above. Full evaluation was limited to prevent pyelovenous backflow within kidney. A glidewire was inserted into the catheter to bypass the ureteral stone up to the renal pelvis confirmed on fluoroscopy and the catheter was removed. A 6Fr x 22- 32cm JJ variable length ureteral stent was advanced over the wire, noting adequate curl in the kidney and bladder on fluoroscopic and direct visualization. The bladder was irrigated until clear and inspected one final time to ensure adequate position of stent and no undue trauma to the bladder was done. The bladder was drained and cystoscope was removed. The patient tolerated the procedure well without complication. The patient was awakened from anesthesia and sent to the PACU in stable condition. Plan: -Cont care on the floor per primary. -Cont empiric abx and f/u urine culture to ensure on sensitive abx x 7-10 days -Tamsulosin 0.4mg qd, oxybutynin 5 mg TID PRN for bladder spasms/stent pain, pyridium 100-200mg TID PRN for dysuria. -Follow up in 1-2 weeks in the office to discuss definitive stone treatment with Dr. Rey (on-call).
[2024-01-06 00:01] VITALS: BP 112/68; PULSE 60; RESP 16; TEMP 36.7; O2SAT 98
[2024-01-06] MEDS: LACTATED RINGER'S SOLUTION 1,000 ML 125 ML IV ×2 (01:00→08:32)
[2024-01-06 04:00] VITALS: BP 97/67; PULSE 64; RESP 18; TEMP 36.6; O2SAT 95
[2024-01-06] MEDS: KETOROLAC TROMETHAMINE 30 MG/ML VIAL 15 MG IVP (05:04)
[2024-01-06] MEDS: BUPROPION HCL 150 MG XL TABLET 24H 300 MG PO (08:33)
[2024-01-06] MEDS: VENLAFAXINE HCL ER 150 MG CAPSULE PO (08:33)
[2024-01-06] MEDS: TAMSULOSIN HCL 0.4 MG CAPSULE PO (11:30)
[2024-01-06] MEDS: OXYBUTYNIN chloride 5 MG TABLET PO (11:30)
[2024-01-06] MEDS: ACETAMINOPHEN 325 MG TABLET 650 MG PO (11:30)
--- NOTE | 2024-01-06 11:37 | P.DS_ITS ---
DS: Providers Provider Date of admission: 01/05/24 11:02 Primary care physician: Non-Staff Physician, Consults: 01/05/24 07:00 Consult to Urology Routine Consulting Provider: Lc Rey Reason for consultation: Ureteral stone Has provider been notified: Yes DS: Diagnosis Discharge Diagnosis (1) Right ureteral stone: (2) Hydronephrosis concurrent with and due to calculi of kidney and ureter: (3) Obstruction of right ureter: (4) Pyelonephritis: DS: Summary Hospital Course Hospital Course: Reason for admission: See ER note and H&P for details. 53 y/o female to ER with RUQ pain x several days. Developed nausea and emesis x one. Decreased appetite and dark urine. To ER and WBC elevated. UA showed UTI and CT showed kidney stones. US RUQ suggestive pyelonephritis and admitted. Hospital course: Started IV fluids and Rocephin for UTI. Urology consulted. To OR for stent placement and did well. Afebrile and WBC improved. Eating and ambulating well. Discharged home in stable condition. Will take cefdinir x 10 days and await urine culture and sensitivity. Take levsin and oxybutynin for symptoms. Follow up with urology for stent removal. Time Spent with Patient Time attestation: Total time spent providing and/or coordinating discharge services: Exam Constitutional Vital Signs, click to edit/add: Last Vital Signs Temp 97.8 F 01/06/24 04:00 Pulse 64 01/06/24 04:00 Resp 18 01/06/24 04:00 BP 97/67 01/06/24 04:00 Pulse Ox 95 01/06/24 04:00 O2 Del Method Room Air 01/06/24 04:00 Documenting provider has reviewed patient's vital signs: yes Common normals: no apparent distress, oriented x3 and alert HENMT Common normals: normocephalic Eye Common normals: PERRL and EOMs intact bilaterally Respiratory Common normals: normal respiratory effort and clear to auscultation bilaterally Cardio Common normals: regular rate, regular rhythm, no gallops, no murmurs and no rub GI Common normals: Normal to inspection, nondistended, normoactive bowel sounds present and non-tender Extremity Common normals: no pedal edema Discharge Plan Discharge Disposition: Home, Self-Care Discharge Medications: New oxybutynin chloride 5 mg tablet 5 mg PO TID PRN (Reason: bladder spasms, stent pain) Qty: 60 1RF tamsulosin 0.4 mg capsule 0.4 mg PO DAILY PRN (Reason: stent pain) Qty: 30 1RF cefdinir 300 mg capsule 300 mg PO BID 10 Days Qty: 20 0RF hyoscyamine sulfate [Levsin/SL] 0.125 mg tablet, sublingual 0.125 mg PO Q4H PRN (Reason: bladder spasms) Qty: 20 0RF Continued venlafaxine 150 mg capsule,extended release 24hr 150 mg PO DAILY bupropion HCl 300 mg tablet extended release 24 hr 300 mg PO DAILY Activity: increase activity as tolerated Diet: advance to your usual diet Patient Instructions: Kidney Stones (DC), Kidney Infection (DC), Ureteral Stent Placement (DC) Activity Restrictions/Additional Instructions: - Consider follow up CT abdomen to confirm resolution of retroperitoneal adenopathy Tylenol 650-1000 mg every 6 hours alternated with ibuprofen 400-600 mg every 6 hours in between as needed for post-op pain. Tamsulosin daily for stent pain, difficulty voiding. If you get dizzy or lightheaded, take at night or stop. Do not take with other blood pressure medications Oxybutynin 5 mg every 8 hours as needed for bladder spasms and stent pain. Drink plenty of fluids, take stool softeners as needed for constipation, dry mouth and dry eyes. AZO for urinary discomfort/burning can be purchased at local pharmacy. This will make your urine orange. Return to ER for fevers > 101.5F, uncontrolled nausea/emesis, uncontrolled pain, or inability to void. You must follow up to ensure you stent is removed/exchanged within 3 months to prevent encrustation, infection, invasive procedures and/or permanent renal damage. Forms: Portal Instructions Referrals: Lc Rey MD [Physician] - (Follow up in 1-2 weeks to discuss definitive stone treatment) Follow Up Appointments: RenatoJanuary 17 @ 1:15pm with Dr. Rey [facility], [address] [place], [place] [address]Madelyn[place]ford [phone]
--- NOTE | 2024-01-06 11:42 | CM.NOTE ---
Rounds made with Dr. Orourke, pt will discharge to home today. No discharge needs identified.
== END 2024-01-06 12:41 | disposition home or self-care (01) | DRG 661 ==
LOC: ER 19:37 → MS 20:37
PROVIDERS: Physician Assistant; Registered Nurse; Urology; Admitting Provider Family Medicine; Emergency Provider Emergency Medicine Emergency Medical Services; Visit Provider Family Medicine
PROC: BT1D1ZZ Fluoroscopy of Right Kidney, Ureter and Bladder using Low Osmolar Contrast (ICD-10-PCS; principal; 2024-01-05 17:30)
DX: N13.6 Pyonephrosis (principal); E87.6 Hypokalemia; F32.A Depression, unspecified; F17.200 Nicotine dependence, unspecified, uncomplicated; Z79.899 Other long term (current) drug therapy
CPT/HCPCS: 36415; 74176; 74420; 76705; 80048; 80053; 81001; 81003; 83605; 83690; 84703; 85025; 87086; 87150; 87186; 96365; 96375; 96376; 99285; G0378; J0131; J0696; J1100; J1885; J2250; J2405; J2704; J3010; Q9966

== ENCOUNTER 2024-01-15 13:16 | Outpatient (OUT) | payer OTHER, SELFPAY ==
--- NOTE | 2024-01-15 | XR_ITS ---
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 CLINICAL INDICATION: 53 years Female Ureteral stone with hydronephrosis FINDINGS: The bowel gas pattern is within normal limits Since the CT of 01/04/2024, a right ureteral stent has been placed. It appears to be in good position in this projection with the cephalad aspect curled in the region of the right renal pelvis and the caudal aspect curled in the right aspect of the urinary bladder. There is evidence of nonobstructing calculi of the kidneys bilaterally, faintly visualized on this plain radiograph. These were better seen on the CT of 01/04/2024. No definite calculi overlying the left ureter. There is a density measuring just less than 1 cm adjacent to the right stent at the L4-5 level. This could represent the 8 mm calcification that was noted on the CT of 01/04/2024. It is in similar position to that previous CT. The visualized osseous structures show no significant abnormalities. XR/XR abdomen 1V IMPRESSION: 1. Evidence of bilateral nonobstructing calculi overlying the kidneys 2. Right stent appears to be in good position in this frontal projection 3. The 8 mm calcification that was noted of the right ureter on 01/04/2024 appears to be in similar position to previous exam adjacent to the stent. Electronically authenticated by: ROSEMARY MARTINEZ Date: 01/16/2024 08:14
--- OUTSIDE RECORDS SUMMARY | 2024-01-15 13:19 | XMS_ITS | CCD ---
Author Name Unknown Address [address] [place] [address] Organization [facility] Care Team Providers Care Purchase Price Analyst Name Role Phone BRANDEN TREVINO Unavailable Unavailable BRANDEN TREVINO Unavailable Unavailable DANA ISBELL Unavailable Unavailable Regan Mendez Primary Care Provider [phone] MightRegan Primary Care Provider [phone] MightRegan Primary Care Provider [phone] Might PATHOLOGY LABORATORY DIRECTOR - IMAGING SCHEDULER, Regan W Primary Care Provider Might PATHOLOGY LABORATORY DIRECTOR - IMAGING SCHEDULER, Regan W Primary Care Provider Might PATHOLOGY LABORATORY DIRECTOR - IMAGING SCHEDULER, Regan W Primary Care Provider Might PATHOLOGY LABORATORY DIRECTOR - IMAGING SCHEDULER, Regan W Primary Care Provider Might PATHOLOGY LABORATORY DIRECTOR - IMAGING SCHEDULER, Regan W Primary Care Provider MIGHT, REGAN Johnson Primary Care Unavailable BRITTNY ENRIQUEZ Referring Unavailable MIGHT, REGAN Johnson Primary Care Unavailable BRITTNY ENRIQUEZ Referring Unavailable ALECIA MORALES Attending Unavailable MIGHT, REGAN Johnson Primary Care Unavailable MICAH NARAYANAN Referring Unavailable MIGHT, REGAN Johnson Primary Care Unavailable Might PATHOLOGY LABORATORY DIRECTOR - IMAGING SCHEDULERRegan W Primary Care Provider ZHAO GARCIA Referring Unavailable MIGHT, REGAN W Primary Care Unavailable Ray Carlos Attending Unavailab le Ray Carlos Admitting Unavailab le NON STAFF Primary Care Unavailable Lc BOO Attending Unavailable Olesya Chavez Attending Unavailable Olesya Chavez Referring Unavailable Olesya Chavez Attending Unavailable Medications Current Medications Medication Drug Class(es) [...] 08/07/2020 Active take 2 tablets by mo hih every six hours ibuprofen (ADVIL;MOTRIN) 200 MG [...] Start: 05-01-2021 take 1 tablet by [facility] once daily montelukast (SINGULAIR) 10 MG tablet [...] Active Start: 06-05-2019 take 1 capsule by [facility] once daily venlafaxine (EFFEXOR XR) 37.5 MG [...] conditions (6 sources) Dysuria; Translations: [Dysuria] Onset: 01-12-2023 Episodic Headache; including migraine (2 sources) Episodic [...] Test Name Value Interpretation Reference Range Facility Lab Reportson 01-07-2024 Lab Reports [id number] #1.00TIFF Normal [facility] Consultation Noteon 01-06-20 24 Consultation Note [id number] #1.00TIFF Normal [facility] Consultation Note [id number] #1.00TIFF Normal [facility] Comment on above: Other Comment: TOM OSPINA Operative Reporton 4 Operative Report [id number] #1.00TIFF [facility] CT UROGRAMon 06-29-2023 1. There are multiple [...] drained. Prior tubal ligation, multiple ureteral stents [id number] 120mL (75mL + 45mL) injected into 20g [...] Report electronically signed by: Dr. Naveen Hanley [facility] Naveen Hanley MD - 06/29/2023 EXAM: [...] drained. Prior tubal ligation, multiple ureteral stents [id number] 120mL (75mL + 45mL) injected into 20g [...] urothelial lesion or solid renal mass lesion. [employer] Work Phone: CT UROGRAMOrdered By: Naveen Hanley on 06-29-2023 [employer] Work Phone: CT UROGRAMon 06-28-2023 CT UROGRAM [...] drained. Prior tubal ligation, multiple ureteral stents [id number] 120mL (75mL + 45mL) injected into 20g [...] drained. Prior tubal ligation, multiple ureteral stents [id number] 120mL (75mL + 45mL) injected into 20g IV in RAC Interpreted by: Naveen Hanley MD Signed by: Naveen Hanley MD 08/05/23 Edited Normal [facility] Radiology Study observation (narrative) [facility] Work Phone: Chlamydia/GC,DNA Ampon 06-22 Chlamydia Probe Negative Normal NEG [facility] Comment on above: Result Comment: CHLA MYDIA [...] target. Performed By: #### S WCGP #### [employer] [address] [place] [address] [phone] Knitted Goods Shaper: Maximilian Montano MD Gonorrhea Probe Negative Normal NEG [facility] Comment on above: Result Comment: NEIS SERIA [...] target. Performed By: #### S WCGP #### [employer] [address] [place] [address] [phone] [employer] Shaper: Maximilian Montano MD Vaginitis DNA Probeon 2022 Baron Negative Normal NEG [facility] Comment on above: Result Comment: for Baron sp. Method of testing is a DNA probe intended for detection and identification of Baron species, Gardnerella vaginalis, and Trichomonas vaginalis nucleic acid in vaginal fluid specimens from patients with symptoms of vaginitis/vaginosis. Performed By: #### V AGP #### [facility] [employer] [address] [place] [address] Knitted Goods Shaper: Maximilian Montano MD [facility] [address] [place] [address] [address] [place], [place] [phone] Knitted Goods Shaper: Jarvis Angel MD Gardnerella Positive Abnormal [facility] Comment on above: Result Comment: for Gardnerella vaginalis Performed By: #### V AGP #### [facility] [address] [place] [address] Knitted Goods Shaper: Maximilian Montano MD [facility] [address] [place] [address] [address] [place], [place] [phone] [employer] Good[employer] Shaper: Jarvis Angel MD Trichomonas Negative Normal [facility] Comment on above: Result Comment: for Trichomonas Vaginalis Performed By: #### V AGP #### [address] [address] Knitted Goods Shaper: Maximilian Montano MD [facility] [address] [place] [address] [address] [place], [place] [phone] [employer] Shaper: Jarvis Angel MD Baron species Negative NEGATIVE [facility] Comment on above: for Baron sp. Method of testing is a DNA probe intended for detection and identification of Baron species, Gardnerella vaginalis, and Trichomonas vaginalis nucleic acid in vaginal fluid specimens from patients with symptoms of vaginitis/vaginosis. GARDNERELLA VAGINALIS Positive Abnormal NEGATIVE [facility] Comment on above: for Gardnerella vagi nalis Interpretation and review of laboratory results Abnormal [facility] Source .VAGINAL SWAB [facility] Trichomonas Negative NEGATIVE [facility] Comment on above: for Trichomonas Vagi nalis [facility] Vaginitis DNA Probeon 2022 Source .VAGINAL SWAB Normal [facility] Comment on above: Performed By: #### V AGP #### [facility] [address] [place] [address] Knitted Goods Shaper: Maximilian Montano MD [facility] [address] [place] [address] [employer]itted Goods Shaper: Jarvis Angel MD C-Reactive Proteinon 023 CRP [Mass/Vol] mg/L Normal 0.0-5.0 [facility] Comment on above: Performed By: #### C RP, SED #### [facility] [address] [place] [address] Knitted Goods Shaper: Jarvis Angel MD CRP High sensitivity method [Mass/Vol] mg/L 0.0 - 5.0 mg/L [facility] CBC with Auto Differentialon 05-05-2023 Basophils (Bld) [#/Vol] 0.04 10*3/uL [facility] Basophils/100 WBC (Bld) 1 % 0 - 2 % B [facility] Eosinophils (Bld) [#/Vol] 0.18 10*3/uL [facility] Eosinophils/100 WBC (Bld) 2 % 1 - 4 % [facility] Erythrocyte distribution width (RBC) [Ratio] 12.8 % 11.8 - 14.4 % [facility] Hematocrit (Bld) [Volume fraction] 40.6 % 36.3 - 47.1 % [facility] Hemoglobin (Bld) [Mass/Vol] 13.7 g/dL 11.9 - 15.1 g/dL [facility] Immature granulocytes (Bld) [#/Vol] 0.03 10*3/uL [facility] Immature granulocytes/100 WBC (Bld) 0 % 0 [facility] Interpretation and review of laboratory results Abnormal [facility] Lymphocytes/100 WBC (Bld) 13 % Low 24 - 43 % [facility] Lymphocytes/100 WBC (Bld) 1.10 % [facility] MCH (RBC) [Entitic mass] 32.2 pg 25.2 - 33.5 pg [facility] MCHC (RBC) [Mass/Vol] 33.7 g/dL 28.4 - 34.8 g/dL [facility] MCV (RBC) [Entitic vol] 95.5 fL 82.6 - 102.9 fL [facility] Monocytes/100 WBC (Bld) 9 % 3 - 12 % [facility] [place] Monocytes/100 WBC (Bld) 0.73 % [facility] [place] Neutrophils/100 WBC (Bld) 75 % High 36 - 65 % [facility] NRBC Automated 0.0 0.0 per 100 WBC [facility] Platelet mean volume (Bld) [Entitic vol] 9.7 fL 8.1 - 13.5 fL [facility] Platelets (Bld) [#/Vol] 321 10*3/uL [facility] RBC (Bld) [#/Vol] 4.25 10*6/uL 3.95 - 5.1 1 m/uL [facility] Segmented neutrophils/100 WBC (Bld) 6.32 % [facility] WBC other (Bld) [#/Vol] 8.[address] [facility] CBC with Diffon 05-05-2023 Abs. Basophil 0.04 k/uL Normal 0.00-0.20 [facility] Comment on above: Performed By: #### C P, PT, CDP #### [facility] [address] [place] [address] [place] [address] Knitted Goods Shaper: Jarvis Angel MD Abs.Imm.Granulocyte 0.03 k/uL Normal 0.00-0.30 [facility] Comment on above: Performed By: #### C P, PT, CDP #### [facility] [address] [place] [address] Knitted Goods Shaper: Jarvis Angel MD Abs.Neutrophil (Seg) 6.32 k/uL Normal 1.50-8.10 [facility] Comment on above: Performed By: #### C P, PT, CDP #### [facility] [address] [place] [address] Dr. [place], [place] [address] [employer] Shaper: Jarvis Angel MD Basophils/100 WBC (Bld) 1 % Normal 0-2 M [facility] Comment on above: Performed By: #### C P, PT, CDP #### [address] [place], [place] [address] Knitted [employer]s Shaper: Jarvis Angel MD Eosinophils (Bld) [#/Vol] 0.18 10*3/uL Normal 0.00-0.44 [facility] Comment on above: Performed By: #### C P, PT, CDP #### [address] [place], [place] [address] Knitted [employer]s Shaper: Jarvis Angel MD Eosinophils/100 WBC (Bld) 2 % Normal 1-4 [facility] Comment on above: Performed By: #### C P, PT, CDP #### [address] [place], [facility] Knitted [employer] Shaper: Jarvis Angel MD Erythrocyte distribution width (RBC) [Ratio] 12.8 % Normal 11.8-14.4 [facility] Comment on above: Performed By: #### C P, PT, CDP #### [address] [place], [place] [address] Knitted [employer]s Shaper: Jarvis Angel MD Hematocrit (Bld) [Volume fraction] 40.6 % Normal 36.3-47.1 [facility] Comment on above: Performed By: #### C P, PT, CDP #### [address] [place], [facility]83 Kn[employer] Shaper: Jarvis Angel MD Hemoglobin (Bld) [Mass/Vol] 13.7 g/dL Normal 11.9-15.1 [facility] Comment on above: Performed By: #### C P, PT, CDP #### [facility] [address] [place], [place] [phone] [employer] Shaper: Jarvis Angel MD Immature granulocytes/100 WBC (Bld) 0 % Normal 0 [facility] Comment on above: Performed By: #### C P, PT, CDP #### [address] [place], [facility]83 Knitted Goods Shaper: Jarvis Angel MD Lymphocytes (Bld) [#/Vol] 1.10 10*3/uL Normal 1.10-3.70 [facility] Comment on above: Performed By: #### C P, PT, CDP #### [address] [place], [facility]83 Knitted Goods Shaper: Jarvis Angel MD Lymphocytes/100 WBC (Bld) 13 % Low 24-43 [facility] Comment on above: Performed By: #### C P, PT, CDP #### [address] [place], [facility]83 Knitted Goods Shaper: Jarvis Angel MD MCH (RBC) [Entitic mass] 32.2 pg Normal 25.2-33.5 [facility] Comment on above: Performed By: #### C P, PT, CDP #### [address] [place], [facility]83 Kn[employer] Shaper: Jarvis Angel MD MCHC (RBC) [Mass/Vol] 33.7 g/dL Normal 28.4-34.8 [facility] Comment on above: Performed By: #### C P, PT, CDP #### [address] [place] [address] Knitted Goods Shaper: Jarvis Angel MD MCV (RBC) [Entitic vol] 95.5 fL Normal 82.6-102.9 M [facility] Comment on above: Performed By: #### C P, PT, CDP #### [address] [place], [place] [phone] [employer]itted [employer] Shaper: Jarvis Angel MD Monocytes (Bld) [#/Vol] 0.73 10*3/uL Normal 0.10-1.20 [facility] Comment on above: Performed By: #### C P, PT, CDP #### [facility] [address] [place], [place] [phone] Knitted Goods Shaper: Jarvis Angel MD Monocytes/100 WBC (Bld) 9 % Normal 3-12 M [facility] Comment on above: Performed By: #### C P, PT, CDP #### [address] [place], [place] [address] Knitted Goods Shaper: Jarvis Angel MD Neutrophil (Seg) 75 % High 36-65 [facility] Comment on above: Performed By: #### C P, PT, CDP #### [address] [place], [facility]83 Knitted Goods Shaper: Jarvis Angel MD NRBC Automated 0.0 per 100 WBC Normal 0.0 [facility] Comment on above: Performed By: #### C P, PT, CDP #### [address] [place], [facility]83 Knitted [employer]s Shaper: Jarvis Angel MD Platelet mean volume (Bld) [Entitic vol] 9.7 fL Normal 8.1-13.5 [facility] Comment on above: Performed By: #### C P, PT, CDP #### [address] [place], [place] [phone] [employer]itted [employer] Shaper: Jarvis Angel MD Platelets (Bld) [#/Vol] 321 10*3/uL Normal 138-453 [facility] Comment on above: Performed By: #### C P, PT, CDP #### [facility] [address] [place], [facility]83 Knitted Goods Shaper: Jarvis Angel MD RBC (Bld) [#/Vol] 4.25 10*6/uL Normal 3.95-5.11 [facility] Comment on above: Performed By: #### C P, PT, CDP #### [facility] [address] [place], [place] [phone] Knitted [employer] Shaper: Jarvis Angel MD WBC (Bld) [#/Vol] 8.4 10*3/uL Normal 3.5-11.3 [facility] Comment on above: Performed By: #### C P, PT, CDP #### [facility] [address] [place] [address] Knitted Goods Shaper: Jarvis Angel MD [facility] 05-05-2023 Albumin [Mass/Vol] 4.3 g/dL 3.5 - 5.2 g/dL [facility] Albumin/Globulin [Mass ratio] 1.6 {ratio} 1.0 - 2.5 [facility] ALP [Catalytic activity/Vol] 96 U/L 35 - 104 U/L [facility] ALT [Catalytic activity/Vol] 17 U/L 5 - 33 U/L [facility] Anion gap [Moles/Vol] 7 mmol/L Low 9 - 17 mmol/L [facility] AST [Catalytic activity/Vol] 23 U/L NINF - 32 U/L [facility] Bilirubin [Mass/Vol] 0.2 mg/dL Low 0.3 - 1 .2 mg/dL [facility] Calcium [Mass/Vol] 9.5 mg/dL 8.6 - 10. 4 mg/dL [facility] Chloride [Moles/Vol] 104 mmol/L 98 - 10 7 mmol/L [facility] CO2 [Moles/Vol] 27 mmol/L 20 - 31 mmol/L [facility] Creatinine [Mass/Vol] 0.44 mg/dL Low 0.50 - 0.90 mg/dL [facility] GFR/1.73 sq M.predicted MDRD (S/P/Bld) [Vol rate/Area] - PINF [facility] Comment on above: These results are not [...] [Mass/Vol] 86 mg/dL 70 - 99 mg/dL [facility] Interpretation and review of laboratory results Abnormal [facility] Potassium [Moles/Vol] 4.0 mmol/L 3.7 - 5.3 mmol/L [facility] Protein [Mass/Vol] 7.0 g/dL 6.4 - 8.3 g/dL [facility] Sodium [Moles/Vol] 138 mmol/L 135 - 144 mmol/L [facility] Urea nitrogen [Mass/Vol] 16 mg/dL 6 - 20 mg/dL [facility] Urea nitrogen/Creatinine [Mass ratio] 36 mg/mg High 9 - 20 [facility] CTA HEAD NECK W CONTRASTon 0 05-05-2023 [...] Amol Patel MD 05/05/23 Final result Normal [facility] 1. No acute intracranial abnormality. 2. Unremarkable CTA of the head and neck. [facility] RIS CONSOLIDATED EXAMINATION: CTA OF THE HEAD [...] performed and concur with the above findings. [facility] Amol Cho MD - 05/05/2023 EXAMINATION: CTA [...] Unremarkable CTA of the head and neck. [facility] Radiology Study observation (narrative) [facility] CTA HEAD NECK W CONTRASTOrde red By: Amol Patel on 05-05-2023 [facility] Work Phone: Comp Metabolic Profon 2022 Albumin [Mass/Vol] 4.3 g/dL Normal 3.5-5.2 [facility] Comment on above: Performed By: #### C P, PT, CDP #### [facility] [address] [place], [place] [phone] [employer] Shaper: Jarvis Angel MD Albumin/Glob Ratio 1.6 Normal 1.0-2.5 [facility] Comment on above: Performed By: #### C P, PT, CDP #### [facility] [address] [place], [place] [phone] [employer] Shaper: Jarvis Angel MD Alkaline Phos 96 U/L Normal 35-104 [facility] Comment on above: Performed By: #### C P, PT, CDP #### [facility] [address] [place], [place] [phone] Knitted Goods Shaper: Jarvis Angel MD ALT [Catalytic activity/Vol] 17 U/L Normal 5-33 [facility] Comment on above: Performed By: #### C P, PT, CDP #### [facility] [address] [place], [place] [phone] [employer] Shaper: Jarvis Angel MD Anion gap [Moles/Vol] 7 mmol/L Low 9-17 [facility] Comment on above: Performed By: #### C P, PT, CDP #### [address] [place], [place] 1343983 [employer] Shaper: Jarvis Angel MD AST [Catalytic activity/Vol] 23 U/L Normal <32 [facility] Comment on above: Performed By: #### C P, PT, CDP #### [facility] [address] [place], [place] [phone] Kn[employer] Good[employer] Shaper: Jarvis Angel MD Bilirubin [Mass/Vol] 0.2 mg/dL Low 0.3-1.2 [facility] Comment on above: Performed By: #### C P, PT, CDP #### [facility] [address] [place] [address] Knitted Goods Shaper: Jarvis Angel MD BUN/CRE Ratio 36 High 9-20 [facility] Comment on above: Performed By: #### C P, PT, CDP #### [facility] [address] [place], [place] [phone] [employer] Shaper: Jarvis Angel MD Calcium [Mass/Vol] 9.5 mg/dL Normal 8.6-10.4 [facility] Comment on above: Performed By: #### C P, PT, CDP #### [facility] [address] [place] [address] Knitted Goods Shaper: Jarvis Angel MD Chloride [Moles/Vol] 104 mmol/L Normal 98-107 [facility] Comment on above: Performed By: #### C P, PT, CDP #### [facility] [address] [place], [place] [phone] Knitted Goods Shaper: Jarvis Angel MD CO2 [Moles/Vol] 27 mmol/L Normal 20-31 [facility] Comment on above: Performed By: #### C P, PT, CDP #### [facility] [address] [place], [place] [phone] Knitted Goods Shaper: Jarvis Angel MD Creatinine [Mass/Vol] 0.44 mg/dL Low 0.50-0.90 [facility] Comment on above: Performed By: #### C P, PT, CDP #### [facility] [address] [place], [place] [phone] [employer] Shaper: Jarvis Angel MD GFR/1.73 sq M.predicted among non-blacks MDRD (S/P/Bld) [Vol rate/Area] mL/min/{1.73_m2} Normal >60 [facility] Comment on above: Result Comment: These results [...] By: #### C P, PT, CDP #### [address] [place] [address] [employer] Shaper: Jarvis Angel MD Glucose [Mass/Vol] 86 mg/dL Normal 70-99 [facility] Comment on above: Performed By: #### C P, PT, CDP #### [address] [place] [address] [employer]itted [employer] Shaper: Jarvis Angel MD Potassium [Moles/Vol] 4.0 mmol/L Normal 3.7-5.3 [facility] Comment on above: Performed By: #### C P, PT, CDP #### [address] [place] [address] [employer]itted Good[employer] Shaper: Jarvis Angel MD Protein [Mass/Vol] 7.0 g/dL Normal 6.4-8.3 [facility] Comment on above: Performed By: #### C P, PT, CDP #### [address] [place] [address] [employer] Shaper: Jarvis Angel MD Sodium [Moles/Vol] 138 mmol/L Normal 135-144 [facility] Comment on above: Performed By: #### C P, PT, CDP #### [address] [place] [address] [employer] Shaper: Jarvis Angel MD Urea nitrogen [Mass/Vol] 16 mg/dL Normal 6-20 [facility] Comment on above: Performed By: #### C P, PT, CDP #### [address] [place] [address] [employer]itted Good[employer] Shaper: Jarvis Angel MD EKG 12 LeadOrdered By: Bee reeves on 05-05-2023 Atrial Rate 77 BPM [facility] Work Phone: P Casco 72 degrees [facility] Work Phone: P-R Interval 144 ms [employer] Work Phone: Q-T Interval 360 ms [employer] Work Phone: QRS Duration 78 ms [facility] [employer] Work Phone: QTc Calculation (Bazett) 407 ms [facility] [employer] Work Phone: R Casco 88 degrees [facility] [employer] Work Phone: T Casco 74 degrees [facility] [employer] Work Phone: Ventricular Rate 77 BPM [facility] [employer] [facility] [employer] Work Phone: MARIA [employer] Phone: EKG 12 Leadon 05-05-2023 Poor data quality, interpretation may be adversely affected Normal sinus rhythm Septal infarct , age undetermined Abnormal ECG No previous ECGs available Confirmed by Bee Olivera MD ([id number]) on 05/05/2023 9:25:25 AM [facility] Bee Olivera MD - 05/05/2023 Poor data quality, interpretation may be adversely affected Normal sinus rhythm Septal infarct , age undetermined Abnormal ECG No previous ECGs available Confirmed by Bee Olivera MD ([id number]) on 05/05/2023 9:25:25 AM [facility] 05-05-2023 INR Coag (PPP) [Relative time] 0.9 {INR} Normal [facility] Comment on above: Result Comment: Therapeutic Range: Moderate Anticoagulant Intensity: INR = 2.0-3.0 High Anticoagulant Intensity: INR = 2.5-3.5 Performed By: #### C P, PT, CDP #### [facility] [address] [place] [address] [employer] Good[employer] Shaper: Jarvis Angel MD PT Coag (PPP) [Time] 12.0 s Normal 11.9-14.8 [facility] Comment on above: Performed By: #### C P, PT, CDP #### [facility] [address] [place] [address] [place] [address] [employer] Good[employer] Shaper: Jarvis Angel MD [employer] 05-05-2023 INR Coag (PPP) [Relative time] 0.9 {INR} [facility] Comment on above: Therapeutic Range: Moderate Anticoagulant Intensity: INR = 2.0-3.0 High Anticoagulant Intensity: INR = 2.5-3.5 PT Coag (PPP) [Time] 12.0 s [facility] Sedimentation Rateon 023 Sedimentation Rate 11 mm/Hr Normal 0-30 [facility] Comment on above: Performed By: #### C RP, SED #### [address] [place] [address] [employer] Shaper: Jarvis Angel MD ESR (Bld) [Velocity] 11 mm/h [facility] Vaginitis DNA Probeon 2022 Baron Negative Normal NEG [facility] Comment on above: Result Comment: for Baron sp. Method of testing is a DNA probe intended for detection and identification of Baron species, Gardnerella vaginalis, and Trichomonas vaginalis nucleic acid in vaginal fluid specimens from patients with symptoms of vaginitis/vaginosis. Performed By: #### V AGP #### [address] [phone] [employer] Shaper: Maximilian Montano MD [facility] [address] [place] [address] [place] [address] [employer]itted Goods Shaper: Jarvis Angel MD Gardnerella Positive Abnormal NEG [facility] Comment on above: Result Comment: for Gardnerella vaginalis Performed By: #### V AGP #### [facility] [address] [place], [place] [phone] [employer] Good[employer] Shaper: Maximilian Montano MD [facility] [address] [place] [address] [place] [address] [employer] Goods Shaper: Jarvis Angel MD Trichomonas Negative Normal NEG [facility] Comment on above: Result Comment: for Trichomonas Vaginalis Performed By: #### V AGP #### [facility] [address] [place] [address] [employer]itted Goods Shaper: Maxiimlian Montano MD [facility] [address] [place] [address] [place] [address] [employer]itted Goods Shaper: Jarvis Angel MD Vaginitis DNA Probeon 2022 Source .VAGINAL SWAB Normal [facility] Comment on above: Performed By: #### V AGP #### [facility] [address] [place] [address] [employer]itted Goods Shaper: Maximilian Montano MD [facility] [address] [place] [address] [place] [address] [employer]itted Goods Shaper: Jarvis Angel MD Cult,Urineon 01-14-2023 Cult,Urine Specimen Description .CLEAN CATCH URINE Culture NO SIGNIFICANT GROWTH Report Status FINAL 01/14/2023 Normal [facility] Comment on above: Performed By: #### U RC #### [facility] [address] [place] [address] Knitted Goods Shaper: Maximilian Montano MD [facility] [address] [place] [address] [place] [address] Knitted Goods Shaper: Jarvis Angel MD Microscopic Urinalysison Bacteria, UA 1+ Abnormal None [facility] Crystals, UA CALCIUM OXALATE Abnormal None /HPF [facility] Crystals, UA 10 TO 20 Abnormal None /HPF [facility] Epithelial Cells UA 5 TO 10 [facility] Interpretation and review of laboratory results Abnormal [facility] Mucus, UA 2+ Abnormal None [facility] RBC clumps Auto (Urine sed) [#/Area] 2 TO 5 [facility] WBC, UA 2 TO 5 [facility] Urinalysison 01-12-2023 Bilirubin Urine SMALL Abnormal NEGATIVE [facility] Color, UA Yellow Yellow [facility] Glucose Auto test strip (U) [Mass/Vol] Negative NEGATIVE [facility] Interpretation and review of laboratory results Abnormal [facility] Ketones (U) [Mass/Vol] TRACE Abnormal NEGATIVE [facility] Leukocyte esterase Auto test strip Ql (U) TRACE Abnormal NEGATIVE [facility] Nitrite Auto test strip Ql (U) Negative NEGATIVE [facility] Protein (U) [Mass/Vol] 6.0 mg/dL 5.0 - 9.0 [facility] Protein (U) [Mass/Vol] Negative NEGATIVE [facility] Specific [place], UA 1.025 High 1.010 - 1.020 [facility] Turbidity UA Clear Clear [facility] Urine Hgb TRACE Abnormal NEGATIVE [facility] Urobilinogen, Urine Normal Normal [facility] Urinalysis, Routineon 2022 Bilirubin, SemiQt,Ur SMALL Abnormal NEG [facility] Comment on above: Performed By: #### S WCGP #### [facility] [address] [place] [phone] Knitted Goods Shaper: Maximilian Montano MD Blood, Urine TRACE Abnormal [facility] Comment on above: Performed By: #### S WCGP #### [address] [address] Knitted Goods Shaper: Maximilian Montano MD Clarity (U) Clear Normal CLEAR [facility] Comment on above: Performed By: #### S WCGP #### [employer] [address] [place] [phone] Knitted Goods Shaper: Maximilian Montano MD Color (U) Yellow Normal YEL [facility] Comment on above: Performed By: #### S WCGP #### [facility] [address] [place] [phone] Knitted Goods Shaper: Maximilian Montano MD Glucose Ql (U) Negative Normal NEG [facility] in Hospital Comment on above: Performed By: #### S WCGP #### [address] [address] Knitted Goods Shaper: Maximilian Montano MD Ketones Ql (U) TRACE Abnormal NEG [facility] Comment on above: Performed By: #### S WCGP #### [address] [address] Knitted Goods Shaper: Maximilian Montano MD Leukocyte esterase Test strip Ql (U) TRACE Abnormal NEG [facility] Comment on above: Performed By: #### S WCGP #### [address] [address] Knitted Goods Shaper: Maximilian Montano MD Nitrite,Ur Negative Normal NEG [facility] Comment on above: Performed By: #### S WCGP #### [address] [address] Knitted Goods Shaper: Maximilian Montano MD PH,Ur 6.0 Normal 5.0-9.0 [facility] Comment on above: Performed By: #### S WCGP #### [address] [address] Knitted Goods Shaper: Maximilian Montano MD Protein Ql (U) Negative Normal NEG [facility] Comment on above: Performed By: #### S WCGP #### [address] [address] Knitted Goods Shaper: Maximilian Montano MD Spec. [place],Ur 1.025 High 1.010-1.020 [facility] Comment on above: Performed By: #### S WCGP #### [address] [address] Knitted Goods Shaper: Maximilian Montano MD Urobilinogen,Ur Normal Normal NORM [facility] Comment on above: Performed By: #### S WCGP #### [address] [address] Knitted Goods Shaper: Maximilian Montano MD Urinalysis,Microon 3 Bacteria 1+ Abnormal [facility] Comment on above: Performed By: #### S WCGP #### [facility] [employer] [address] [place] [phone] Knitted Goods Shaper: Maximilian Montano MD Crystals LM Nom (Urine sed) CALCIUM OXALATE Abnormal [facility] Comment on above: Result Comment: 10 T O 20 Performed By: #### S WCGP #### [facility] [employer] [address] [place] [address] Knitted Goods Shaper: Maximilian Montano MD Epithelial cells LM Ql (Urine sed) 5 TO 10 Normal 0-25 [facility] Comment on above: Performed By: #### S WCGP #### [facility] [employer] [address] [place] [id number] Knitted Goods Shaper: Maximilian Montano MD Mucus Strands 2+ Abnormal [facility] Comment on above: Performed By: #### S WCGP #### [facility] [employer] [address] [place] [address] Knitted Goods Shaper: Maximilian Montano MD Urine RBC's 2 TO 5 Normal 0-2 [facility] Comment on above: Performed By: #### S WCGP #### [facility] [employer] [address] [place] [address] Knitted Goods Shaper: Maximilian Montano MD Urine WBC's 2 TO 5 Normal 0-5 [facility] Comment on above: Performed By: #### S WCGP #### [facility] [employer] [address] [place] [phone] Knitted Goods Shaper: Maximilian Montano MD [facility] ESon 04-27-2022 Radiology exam is complete. No Radiologist dictation. Please follow up with ordering provider. [facility] RIS CONSOLIDATED CT ABDOMEN PELVIS WO CONTRAS T Additional Contrast? Noneon 04-23-2022 1. Moderate right-sided hydronephrosis which has improved slightly since the comparison exam. The previously seen large collection of stones at the right ureteropelvic junction have now passed into the distal right ureter near the ureteral/vesicular junction. 2. Multiple small nonobstructing left renal stones. [facility] CON[facility] EXAMINATION: CT OF THE ABDOMEN [...] lymphadenopathy. Bones/Soft Tissues: No suspicious osseous lesions. [facility] To Man P - 04/23/2022 EXAMINATION: [...] 2. Multiple small nonobstructing left renal stones. [employer] Phone: Radiology Study observation (narrative) [employer] Phone: CT ABDOMEN PELVIS WO CONTRAS T Additional Contrast? NoneOrdered By: To Man on 04-23-2022 [employer] Phone: [facility] ESon 04-14-2022 Radiology exam is complete. No Radiologist dictation. Please follow up with ordering provider. [facility] RIS CONSOLIDATED CBC with Auto Differentialon 04-06-2022 Absolute Eos # 0.19 [facility] th Absolute Immature Granulocyte <0.03 [employer] Absolute Lymph # 1.09 Low [facility] alth Absolute [place] # 0.52 [facility] lt Basophils (Bld) [#/Vol] 0.06 10*3/uL [employer] Basophils/100 WBC (Bld) 1 % 0 - 2 % [facility] Eosinophils/100 WBC (Bld) 3 % 1 - 4 % [facility] Hematocrit (Bld) [Volume fraction] 40.3 % 36.3 - 47.1 % [facility] Hemoglobin.gastrointest inal spec 1 Ql (Stl) 13.1 g/dL 11.9 - 15.1 g/dL [facility] Immature granulocytes/100 WBC (Bld) 0 % 0 [facility] Interpretation and review of laboratory results Abnormal [facility] Lymphocytes/100 WBC (Bld) 15 % Low 24 - 43 % [facility] MCH (RBC) [Entitic mass] 31.2 pg 25.2 - 33.5 pg [facility] MCHC (RBC) [Mass/Vol] 32.5 g/dL 28.4 - 34.8 g/dL [facility] MCV (RBC) [Entitic vol] 96.0 fL 82.6 - 102.9 fL [facility] Monocytes/100 WBC (Bld) 7 % 3 - 12 % M [facility] NRBC Automated 0.0 0.0 per 100 WBC [facility] Platelet distribution width (Bld) [Ratio] 12.5 % 11.8 - 14.4 % [facility] Platelet mean volume (Bld) [Entitic vol] 9.5 fL 8.1 - 13.5 fL [facility] Platelets (Bld) [#/Vol] 272 10*3/uL [facility] RBC (Bld) [#/Vol] 4.20 10*6/uL 3.95 - 5.1 1 m/uL [facility] Segmented neutrophils/100 WBC (Bld) 74 % High 36 - 65 % [facility] Segs Absolute 5.37 [facility] WBC (Bld) [#/Vol] 7.3 10*3/uL [facility] CT ABDOMEN PELVIS WO CONTRAS T Additional [...] evaluation with gallbladder ultrasound recommended. RECOMMENDATIONS: Unavailable [facility] RIS CONSOLIDATED EXAMINATION: CT OF THE ABDOMEN [...] fat-containing periumbilical hernia. No acute osseous abnormality. [facility] Humphrey Melvin MD - 04/06/2022 EXAMINATION: [...] evaluation with gallbladder ultrasound recommended. RECOMMENDATIONS: Unavailable [employer] Work Phone: Radiology Study observation (narrative) [employer] Work Phone: CT ABDOMEN PELVIS WO CONTRAS T Additional Contrast? NoneOrdered By: Humphrey Melvin on 04-06-2022 [employer] Work Phone: Comprehensive Metabolic Pane yolanda 04-06-2022 Albumin [Mass/Vol] 4.6 g/dL 3.5 - 5.2 g/dL [employer] Albumin/Globulin [Mass ratio] 1.8 {ratio} [employer] ALP (Bld) [Catalytic activity/Vol] 94 U/L 35 - 104 U/L [employer] ALT [Catalytic activity/Vol] 19 U/L 5 - 33 U/L [employer] Anion gap [Moles/Vol] 10 mmol/L 9 - 17 mmol/L [employer] AST [Catalytic activity/Vol] 23 U/L <32 [employer] Bilirubin [Mass/Vol] 0.22 mg/dL Low 0.3 - 1 .2 mg/dL [employer] Calcium [Mass/Vol] 9.8 mg/dL 8.6 - 10. 4 mg/dL [employer] Chloride [Moles/Vol] 101 mmol/L 98 - 10 7 mmol/L [employer] CO2 [Moles/Vol] 24 mmol/L 20 - 31 mmol/L [employer] Creatinine [Mass/Vol] 0.55 mg/dL 0.50 - 0.90 mg/dL [employer] Free PSA/Total PSA [Mass fraction] 7.2 g/dL 6.4 - 8.3 g/dL [employer] GFR >60 >60 mL/min [employer] GFR Non- >60 >60 mL/min [employer] Glucose [Mass/Vol] 99 mg/dL 70 - 99 mg/dL [employer] Interpretation and review of laboratory results Abnormal [facility] Potassium [Moles/Vol] 4.2 mmol/L 3.7 - 5.3 mmol/L [facility] Sodium [Moles/Vol] 135 mmol/L 135 - 144 mmol/L [facility] Urea nitrogen (BldV) [Mass/Vol] 20 mg/dL 6 - 20 mg/dL [facility] Urea nitrogen/Creatinine (Bld) [Mass ratio] 36 High [facility] HCG Qualitative, Serumon hCG Qual Negative NEGATIVE [facility] Comment on above: Specimens with hCG l evels near the threshold of the test (25 mIU/mL) may give a negative or indeterminate result. In such cases, another test should be performed with a new specimen in 48-72 hours. If early is suspected clinically in this setting, correlation with quantitative serum b-hCG level is suggested. [employer] has confirmed the use of plasma for this test. This has not been cleared or approved by the U.S. Food and Drug Administration. The FDA has determined that such clearance is not necessary. [facility] - Chemistry and C hemistry - challengeon 04-06-2022 GFR/1.73 sq M.predicted MDRD (S/P/Bld) [Vol rate/Area] [facility] Comment on above: Average GFR for 40-4 9 years old: 99 mL/min/1.73sq m Chronic Kidney Disease: <60 mL/min/1.73sq m Kidney failure: <15 mL/min/1.73sq m eGFR calculated using average adult body mass. Additional eGFR calculator available at: http://www.[employer].StoryPress/multiple_crcl_2012.htm Stage 1: Some kidney damage normal GFR Stage 2: Mild kidney damage GFR 60-89 Stage 3: Moderate kidney damage GFR 30-59 Stage 4: Severe kidney damage GFR 15-29 Stage 5: Severe kidney damage GFR <15 ESRD - chronic treatment by dialysis or transplant Lipaseon 04-06-2022 Lipase [Catalytic activity/Vol] 42 U/L 13 - 60 U/L [facility] Microscopic Urinalysison - [facility] Bacteria, UA 2+ Abnormal None [facility] Epithelial Cells UA 2 TO 5 [facility] Interpretation and review of laboratory results Abnormal [facility] RBC (U) [#/Vol] 100 /uL [facility] WBC, UA 5 TO 10 [facility] No Panel Informationon 04-06 [facility] , Urineon 2 Beta HCG ( test) Ql (U) Negative NEGATIVE [facility] Comment on above: Specimens with hCG l evels near the threshold of the test (25 mIU/mL) may give a negative or indeterminate result. In such cases, another test should be performed with a new specimen in 48-72 hours. If early is suspected clinically in this setting, correlation with quantitative serum b-hCG level is suggested. [employer] has confirmed the use of plasma for this test. This has not been cleared or approved by the U.S. Food and Drug Administration. The FDA has determined that such clearance is not necessary. [employer] Urinalysis with Reflex to Cu ltureon 04-06-[address] NE[address] [facility] Color, UA Red Abnormal Yellow [facility] Glucose, Ur Negative NEGATIVE [facility] Interpretation and review of laboratory results Abnormal [facility] Ketones Ql (U) Negative NEGATIVE [facility] Leukocyte esterase Test strip Ql (U) Negative NEGATIVE [facility] Nitrite, Urine Negative NEGATIVE [facility] pH, UA 6.0 [facility] Protein, UA 2+ Abnormal NEGATIVE [facility] Specific [place], UA >1.030 High [facility] Turbidity UA Cloudy Abnormal Clear [facility] Urine Hgb 2+ Abnormal NEGATIVE [facility] Urobilinogen, Urine Normal Normal [facility] XR ABDOMEN (KUB) (SINGLE AP VIEW)Ordered By: Nikolas Horner on 04-30-2021 Known small kidney stones by CT not well demonstrated radiographically. [employer] Work Phone: EXAMINATION: ONE SUPINE XRAY VIEW(S) OF [...] pattern. No mass or organomegaly. Bones intact. [employer] Phone: Juan Miguel, Mhpn Incoming Radiant Results From [employer] - 04/30/2021 3:54 PM EDT EXAMINATION: ONE [...] stones by CT not well demonstrated radiographically. [employer] Phone: [employer] Phone: CBC Auto DifferentialOrdered By: Rhea Dillard on 03-22-2021 Absolute Eos # 0.22 [employer] [facility] Work Phone: Absolute Immature Granulocyte 0.06 [employer] Phone: Absolute Lymph # 1.10 [employer] [facility] Work Phone: Absolute [place] # 0.93 [facility] Work Phone: Basophils (Bld) [#/Vol] 0.06 10*3/uL [employer] Phone: Basophils/100 WBC (Bld) 1 % 0 - 2 % M [facility] Phone: Differential Type NOT REPORTED [employer] Phone: Eosinophils/100 WBC (Bld) 2 % 1 - 4 % [employer] Phone: Hematocrit (Bld) [Volume fraction] 38.2 % 36.3 - 47.1 % [employer] Phone: Hemoglobin.gastrointest inal spec 1 Ql (Stl) 12.3 g/dL 11.9 - 15.1 g/dL [employer] Phone: Immature granulocytes/100 WBC (Bld) 1 % High 0 [employer] Phone: Interpretation and review of laboratory results Abnormal [employer] Phone: Lymphocytes/100 WBC (Bld) 11 % Low 24 - 43 % [employer] Phone: MCH (RBC) [Entitic mass] 31.5 pg 25.2 - 33.5 pg [employer] Phone: MCHC (RBC) [Mass/Vol] 32.2 g/dL 28.4 - 34.8 g/dL [employer] Phone: MCV (RBC) [Entitic vol] 97.7 fL 82.6 - 102.9 fL [employer] Phone: Monocytes/100 WBC (Bld) 9 % 3 - 12 % M [employer] Phone: NRBC Automated 0.0 0.0 per 100 WBC [employer] Phone: Platelet distribution width (Bld) [Ratio] 13.3 % 11.8 - 14.4 % [employer] Phone: Platelet Estimate NOT REPORTED [employer] Phone: Platelet mean volume (Bld) [Entitic vol] 10.0 fL 8.1 - 13.5 fL [employer] Phone: Platelets (Bld) [#/Vol] 227 10*3/uL [employer] Phone: RBC (Bld) [#/Vol] 3.91 10*6/uL Low 3.95 - 5.1 1 m/uL [employer] Phone: RBC (Bld) [#/Vol] NOT REPORTED [employer] Phone: Segmented neutrophils/100 WBC (Bld) 76 % High 36 - 65 % [employer] Work Phone: Segs Absolute 8.11 High [employer] Work Phone: WBC (Bld) [#/Vol] 10.5 10*3/uL [employer] Phone: WBC (Bld) [#/Vol] NOT REPORTED [employer] Phone: Comprehensive Metabolic Pane l w/ Reflex to MGOrdered By: Rhea Dillard on 03-22-2021 Albumin [Mass/Vol] 3.7 g/dL 3.5 - 5.2 g/dL [employer] Phone: Albumin/Globulin [Mass ratio] 1.5 {ratio} [employer] Phone: ALP (Bld) [Catalytic activity/Vol] 83 U/L 35 - 104 U/L [employer] Phone: ALT [Catalytic activity/Vol] 22 U/L 5 - 33 U/L [employer] Phone: Anion gap [Moles/Vol] 4 mmol/L Low 9 - 17 mmol/L [employer] Phone: AST [Catalytic activity/Vol] 30 U/L <32 [employer] Phone: Bilirubin [Mass/Vol] mg/dL Low 0.3 - 1 .2 mg/dL [employer] Phone: Calcium [Mass/Vol] 9.5 mg/dL 8.6 - 10. 4 mg/dL [employer] Phone: Chloride [Moles/Vol] 108 mmol/L High 98 - 10 7 mmol/L [employer] Phone: CO2 [Moles/Vol] 28 mmol/L 20 - 31 mmol/L [employer] Phone: Creatinine [Mass/Vol] 0.56 mg/dL 0.50 - 0.90 mg/dL [employer] Phone: Free PSA/Total PSA [Mass fraction] 6.1 g/dL Low 6.4 - 8.3 g/dL [employer] Phone: GFR >60 >60 mL/min [employer] Phone: GFR Non- >60 >60 mL/min [employer] Phone: Glucose [Mass/Vol] 105 mg/dL High 70 - 99 mg/dL [employer] Phone: Interpretation and review of laboratory results Abnormal [employer] Phone: Potassium [Moles/Vol] 3.9 mmol/L 3.7 - 5.3 mmol/L [employer] Phone: Sodium [Moles/Vol] 140 mmol/L 135 - 144 mmol/L [employer] Phone: Urea nitrogen (BldV) [Mass/Vol] 18 mg/dL 6 - 20 mg/dL [employer] Phone: Urea nitrogen/Creatinine (Bld) [Mass ratio] 32 High [employer] Phone: Laboratory - Chemistry and C hemistry - challengeOrdered By: Rhea Dillard on 03-22-2021 GFR/1.73 sq M.predicted MDRD (S/P/Bld) [Vol rate/Area] [employer] Phone: Comment on above: Average GFR for 40-4 9 years old: 99 mL/min/1.73sq m Chronic Kidney Disease: <60 mL/min/1.73sq m Kidney failure: <15 mL/min/1.73sq m eGFR calculated using average adult body mass. Additional eGFR calculator available at: http://www.[employer]/multiple_crcl_2012.htm Stage 1: Some kidney damage normal GFR Stage 2: Mild kidney damage GFR 60-89 Stage 3: Moderate kidney damage GFR 30-59 Stage 4: Severe kidney damage GFR 15-29 Stage 5: Severe kidney damage GFR <15 ESRD - chronic treatment by dialysis or transplant Urinalysis with microscopicO rdered By: Rhea Nishant on 03-22-2021 - [employer] Work Phone: Amorphous, UA NOT REPORTED None [facility]olar[facility] Solar [facility]ating[facility] Work Phone: Bacteria, UA 1+ Abnormal None [facility] Work Phone: Bilirubin Urine SMALL Abnormal NEGATIVE [facility] Solar Heatingselect [facility] Work Phone: Casts UA NOT REPORTED /LPF [facility] Work Phone: Color, UA DARK YELLOW Abnormal YELLOW [facility] Work Phone: Crystals, UA 10 TO 20 CALCIUM OXALATE Abnormal None /HPF [facility] Work Phone: Epithelial Cells UA 10 TO 20 [facility] Work Phone: Glucose, Ur Negative NEGATIVE [facility] Work Phone: Interpretation and review of laboratory results Abnormal [facility] Work Phone: Ketones Ql (U) TRACE Abnormal NEGATIVE [facility] Work Phone: Leukocyte esterase Test strip Ql (U) MODERATE Abnormal NEGATIVE [facility] Work Phone: Mucus, UA NOT REPORTED None [facility] Work Phone: Nitrite, Urine Negative NEGATIVE [facility] Work Phone: Other Observations UA NOT REPORTED NOT REQ. M [facility] [employer] Work Phone: pH, UA 6.5 [facility] Work Phone: Protein, UA 4+ Abnormal NEGATIVE [facility] Work Phone: RBC (U) [#/Vol] 100 /uL [facility]olar[facility] Solar Heating[facility] Work Phone: Renal Epithelial, UA NOT REPORTED 0 /HPF [facility] [employer] Work Phone: Specific [place], UA 1.025 High [employer] Work Phone: Trichomonas, UA NOT REPORTED None [employer] [facility] [employer] Work Phone: Turbidity UA CLOUDY Abnormal CLEAR [employer] Phone: Urinalysis Comments NOT REPORTED [facility] [employer] Work Phone: Urine Hgb 3+ Abnormal NEGATIVE [employer] Phone: Urobilinogen, Urine Normal Normal [employer] Phone: WBC, UA 10 TO 20 [employer] Phone: Yeast, UA NOT REPORTED None [employer] Phone: XR ABDOMEN (KUB) (SINGLE AP VIEW)Ordered By: Rhea Dillard on 03-22-2021 1. Probable punctate right-sided nephrolithiasis. Left-sided nephrolithiasis is also suspected. 2. Right-sided double pigtail ureteral stent. 3. Moderate stool burden. [employer] Phone: EXAMINATION: ONE SUPINE XRAY VIEW(S) OF [...] prior study. Left-sided nephrolithiasis is also suspected. [employer] Phone: Juan Miguel, Donna Incoming Radiant Results From [employer] - 03/22/2021 9:03 AM EDT EXAMINATION: ONE [...] pigtail ureteral stent. 3. Moderate stool burden. [employer] Phone: FLUORO FOR SURGICAL PROCEDUR ESOrdered By: Branden Trevino on 03-20-2021 Radiology exam is complete. No Radiologist dictation. Please follow up with ordering provider. [employer] Phone: CBC Auto DifferentialOrdered By: Aaron Parker on 03-18-2021 Absolute Eos # 0.13 [employer] [facility] Work Phone: Absolute Immature Granulocyte <0.03 [employer] Work Phone: Absolute Lymph # 1.05 Low [facility] Work Phone: Absolute [place] # 0.57 [facility] Work Phone: Basophils (Bld) [#/Vol] 0.05 10*3/uL [employer] Phone: Basophils/100 WBC (Bld) 1 % 0 - 2 % M [facility] Phone: Differential Type NOT REPORTED [employer] Phone: Eosinophils/100 WBC (Bld) 2 % 1 - 4 % [employer] Phone: Hematocrit (Bld) [Volume fraction] 36.1 % Low 36.3 - 47.1 % [employer] Phone: Hemoglobin.gastrointest inal spec 1 Ql (Stl) 11.9 g/dL 11.9 - 15.1 g/dL [employer] Phone: Immature granulocytes/100 WBC (Bld) 0 % 0 [employer] Phone: Interpretation and review of laboratory results Abnormal [employer] Phone: Lymphocytes/100 WBC (Bld) 15 % Low 24 - 43 % [employer] Phone: MCH (RBC) [Entitic mass] 30.7 pg 25.2 - 33.5 pg [employer] Phone: MCHC (RBC) [Mass/Vol] 33.0 g/dL 28.4 - 34.8 g/dL [employer] Phone: MCV (RBC) [Entitic vol] 93.3 fL 82.6 - 102.9 fL [employer] Phone: Monocytes/100 WBC (Bld) 8 % 3 - 12 % M [employer] Phone: NRBC Automated 0.0 0.0 per 100 WBC [employer] Phone: Platelet distribution width (Bld) [Ratio] 13.2 % 11.8 - 14.4 % [employer] Phone: Platelet Estimate NOT REPORTED [employer] Phone: Platelet mean volume (Bld) [Entitic vol] 10.0 fL 8.1 - 13.5 fL [employer] Phone: Platelets (Bld) [#/Vol] 259 10*3/uL [employer] Phone: RBC (Bld) [#/Vol] 3.87 10*6/uL Low 3.95 - 5.1 1 m/uL [employer] Phone: RBC (Bld) [#/Vol] NOT REPORTED [employer] Phone: Segmented neutrophils/100 WBC (Bld) 74 % High 36 - 65 % [employer] Phone: Segs Absolute 5.18 [employer] Work Phone: WBC (Bld) [#/Vol] 7.0 10*3/uL [employer] Phone: WBC (Bld) [#/Vol] NOT REPORTED [employer] Phone: CT ABDOMEN PELVIS W IV CONTR AST Additional Contrast? NoneOrdered By: Aaron Parker on 03-18-2021 1. Unchanged appearance of bilateral punctate nephrolithiasis. Two new calcifications in the right pelvis measuring up to 0.6 cm are noted, for which the possibility of nonobstructing stones cannot be excluded. 2. Previously seen left ovarian hemorrhagic cyst has resolved. [employer] Phone: EXAMINATION: CT OF THE ABDOMEN AND [...] No lymphadenopathy. Bones/Soft Tissues: No acute findings. [employer] Phone: Juan Miguel, Mhpn Incoming Radiant Results From [employer] - 03/18/2021 1:03 PM EDT EXAMINATION: CT [...] seen left ovarian hemorrhagic cyst has resolved. [employer] Phone: Comprehensive Metabolic Pane lOrdered By: Aaron Parker on 03-18-2021 Albumin [Mass/Vol] 4.1 g/dL 3.5 - 5.2 g/dL [employer] Phone: Albumin/Globulin [Mass ratio] 1.6 {ratio} [employer] Phone: ALP (Bld) [Catalytic activity/Vol] 78 U/L 35 - 104 U/L [employer] Phone: ALT [Catalytic activity/Vol] 11 U/L 5 - 33 U/L [employer] Phone: Anion gap [Moles/Vol] 11 mmol/L 9 - 17 mmol/L [employer] Phone: AST [Catalytic activity/Vol] 16 U/L <32 [employer] Phone: Bilirubin [Mass/Vol] 0.16 mg/dL Low 0.3 - 1 .2 mg/dL [employer] Phone: Calcium [Mass/Vol] 9.7 mg/dL 8.6 - 10. 4 mg/dL [employer] Phone: Chloride [Moles/Vol] 106 mmol/L 98 - 10 7 mmol/L [employer] Phone: CO2 [Moles/Vol] 23 mmol/L 20 - 31 mmol/L [employer] Phone: Creatinine [Mass/Vol] 0.48 mg/dL Low 0.50 - 0.90 mg/dL [employer] Phone: Free PSA/Total PSA [Mass fraction] 6.6 g/dL 6.4 - 8.3 g/dL [employer] Phone: GFR >60 >60 mL/min [employer] Phone: GFR Non- >60 >60 mL/min [employer] Phone: Glucose [Mass/Vol] 98 mg/dL 70 - 99 mg/dL [employer] Phone: Interpretation and review of laboratory results Abnormal [employer] Phone: Potassium [Moles/Vol] 4.1 mmol/L 3.7 - 5.3 mmol/L [employer] Phone: Sodium [Moles/Vol] 140 mmol/L 135 - 144 mmol/L [employer] Phone: Urea nitrogen (BldV) [Mass/Vol] 17 mg/dL 6 - 20 mg/dL [employer] Phone: Urea nitrogen/Creatinine (Bld) [Mass ratio] 35 High [employer] Phone: Laboratory - Chemistry and C hemistry - challengeOrdered By: Aaron Parker on 03-18-2021 GFR/1.73 sq M.predicted MDRD (S/P/Bld) [Vol rate/Area] [employer] Phone: Comment on above: Average GFR for 40-4 9 years old: 99 mL/min/1.73sq m Chronic Kidney Disease: <60 mL/min/1.73sq m Kidney failure: <15 mL/min/1.73sq m eGFR calculated using average adult body mass. Additional eGFR calculator available at: http://www.Pictorious/[place]Peak_crcl_2012.htm Stage 1: Some kidney damage normal GFR Stage 2: Mild kidney damage GFR 60-89 Stage 3: Moderate kidney damage GFR 30-59 Stage 4: Severe kidney damage GFR 15-29 Stage 5: Severe kidney damage GFR <15 ESRD - chronic treatment by dialysis or transplant LipaseOrdered By: Aaron renner on 03-18-2021 Lipase [Catalytic activity/Vol] 49 U/L 13 - 60 U/L [employer] Phone: , UrineOrdered By: Aaron Parker on 03-18-2021 Beta HCG ( test) Ql (U) Negative NEGATIVE [employer] Phone: Comment on above: Specimens with hCG l evels near the threshold of the test (25 mIU/mL) may give a negative or indeterminate result. In such cases, another test should be performed with a new specimen in 48-72 hours. If early is suspected clinically in this setting, correlation with quantitative serum b-hCG level is suggested. [employer] has confirmed the use of plasma for this test. This has not been cleared or approved by the U.S. Food and Drug Administration. The FDA has determined that such clearance is not necessary. Urinalysis with MicroscopicO rdered By: Aaron Parker on 03-18-2021 - [employer] Phone: Amorphous, UA NOT REPORTED None [employer] Work Phone: Bacteria, UA 1+ Abnormal None [employer] Phone: Bilirubin Urine Negative NEGATIVE [employer] Work Phone: Casts UA NOT REPORTED /LPF [employer] Phone: Color, UA YELLOW YELLOW [employer] Phone: Crystals, UA NOT REPORTED None /HPF [employer] Work Phone: Epithelial Cells UA 5 TO 10 [employer] Phone: Glucose, Ur Negative NEGATIVE [employer] Phone: Interpretation and review of laboratory results Abnormal [employer] Phone: Ketones Ql (U) Negative NEGATIVE [employer] Phone: Leukocyte esterase Test strip Ql (U) TRACE Abnormal NEGATIVE [employer] Phone: Mucus, UA NOT REPORTED None [employer] Phone: Nitrite, Urine Negative NEGATIVE [employer] Work Phone: Other Observations UA NOT REPORTED NOT REQ. [facility] Work Phone: pH, UA 6.5 [employer] Phone: Protein, UA Negative NEGATIVE [employer] Phone: RBC, UA 5 TO 10 [employer] Phone: Renal Epithelial, UA NOT REPORTED 0 /HPF [facility] Work Phone: Specific [place], UA 1.020 [facility] [employer] Work Phone: Trichomonas, UA NOT REPORTED None [facility] Work Phone: Turbidity UA CLEAR CLEAR [facility] [employer] Work Phone: Urinalysis Comments NOT REPORTED [facility] Work Phone: Urine Hgb 1+ Abnormal NEGATIVE [facility] [employer] Work Phone: Urobilinogen, Urine Normal Normal [facility] [employer] Work Phone: WBC, UA 2 TO 5 [facility] [employer] Work Phone: Yeast, UA NOT REPORTED None [facility] [employer] Work Phone: COVID-19on 12-29-2020 SARS-CoV-2 [facility] [employer] Work Phone: SARS-CoV-2 Not Detected Not Detected [facility] Work Phone: Comment on above: The specimen is NEGATIVE for SARS-CoV-2, the novel coronavirus associated with COVID-19. A negative result does not rule out COVID-19. Elicia SARS-CoV-2 for use on the [employer]licia [employer] is a real-time RT-PCR test intended [...] this assay. Fact sheet for Healthcare Providers: https://www.fda.gov/media/865017/download Fact sheet for Patients: https://www.fda.gov/media/032595/download METHODOLOGY: RT-PCR SARS-CoV-2, [employer] Work Phone: Source .NASOPHARYNGEAL SWAB [employer] Phone: Culture, Urineon 12-29-2020 Culture NO SIGNIFICANT GROWTH [employer] Phone: Special Requests NOT REPORTED [employer] Phone: Specimen Description .CLEAN CATCH URINE [employer] Phone: CBC Auto Differentialon 12-16 Basophils (Bld) [#/Vol] 0.07 10*3/uL [employer] Phone: Basophils/100 WBC (Bld) 1 % 0 - 2 % [facility] Phone: Differential Type NOT REPORTED [employer] Phone: Eosinophils (Bld) [#/Vol] 0.15 10*3/uL [employer] Phone: Eosinophils/100 WBC (Bld) 2 % 1 - 4 % [employer] Phone: Erythrocyte distribution width (RBC) [Ratio] 13.1 % 11.8 - 14.4 % [employer] Phone: Hematocrit (Bld) [Volume fraction] 39.8 % 36.3 - 47.1 % [employer] Phone: Hemoglobin (Bld) [Mass/Vol] 12.6 g/dL 11.9 - 15.1 g/dL [employer] Phone: Immature granulocytes (Bld) [#/Vol] 0 % 0 [employer] Phone: Immature granulocytes (Bld) [#/Vol] 10*3/uL [employer] Phone: Lymphocytes (Bld) [#/Vol] 1.87 10*3/uL [employer] Phone: Lymphocytes/100 WBC (Bld) 28 % 24 - 43 % [employer] Phone: MCH (RBC) [Entitic mass] 30.2 pg 25.2 - 33.5 pg [employer] Phone: MCHC (RBC) [Mass/Vol] 31.7 g/dL 28.4 - 34.8 g/dL [employer] Phone: MCV (RBC) [Entitic vol] 95.4 fL 82.6 - 102.9 fL [employer] Phone: Monocytes (Bld) [#/Vol] 0.62 10*3/uL [employer] Phone: Monocytes/100 WBC (Bld) 9 % 3 - 12 % M [employer] Phone: Platelet mean volume (Bld) [Entitic vol] 10.5 fL 8.1 - 13.5 fL [employer] Phone: Platelets (Bld) [#/Vol] NOT REPORTED [employer] Phone: Platelets (Bld) [#/Vol] 260 10*3/uL [employer] Phone: RBC (Bld) [#/Vol] 4.17 10*6/uL 3.95 - 5.1 1 m/uL [employer] Phone: RBC morphology finding Nom (Bld) NOT REPORTED [employer] Phone: Segmented neutrophils/100 WBC (Bld) 60 % 36 - 65 % [employer] Phone: Segs Absolute 3.86 [employer] Work Phone: WBC (Bld) [#/Vol] 0.0 10*3/uL 0.0 per 10 0 WBC [employer] Phone: WBC (Bld) [#/Vol] 6.6 10*3/uL [employer] Phone: WBC Morphology NOT REPORTED [employer] Work Phone: HCG Qualitative, Serumon hCG Qual Negative NEGATIVE [employer] Phone: Comment on above: Specimens with hCG l evels near the threshold of the test (25 mIU/mL) may give a negative or indeterminate result. In such cases, another test should be performed with a new specimen in 48-72 hours. If early is suspected clinically in this setting, correlation with quantitative serum b-hCG level is suggested. [employer] has confirmed the use of plasma for this test. This has not been cleared or approved by the U.S. Food and Drug Administration. The FDA has determined that such clearance is not necessary. TYPE AND SCREENon 12-27-2020 ABO/Rh Positive [employer] Phone: Arm Band Number [id number] [facility] Work Phone: Expiration Date 01/03/2021,2359 [employer] Work Phone: XR ABDOMEN (KUB) (SINGLE AP VIEW)on 12-09-2020 Punctate right nephrolithiasis. [employer] [place] EXAMINATION: ONE SUPINE XRAY VIEW(S) OF THE ABDOMEN 12/09/2020 3:36 pm COMPARISON: 08/07/2020 HISTORY: ORDERING SYSTEM PROVIDED HISTORY: Renal calculus FINDINGS: The bowel gas pattern is nonobstructive. There is moderate stool within the colon. There is punctate right nephrolithiasis. No ureteral or vesicular stone identified. Left nephrolithiasis seen on prior CT is not visualized radiographically. [place] Juan Miguel, M[employer] Incoming Radiant Results From [employer] - 12/09/2020 3:49 PM EST EXAMINATION: ONE [...] not visualized radiographically. IMPRESSION: Punctate right nephrolithiasis. [place], [place] Basic Metabolic Panelon 07-17 Anion gap [Moles/Vol] 8 mmol/L Low 9 - 17 mmol/L [place] Bun/Cre Ratio 19 [place], [place] Calcium [Mass/Vol] 9.5 mg/dL 8.6 - 10. 4 mg/dL [place] Chloride [Moles/Vol] 105 mmol/L 98 - 10 7 mmol/L [place] CO2 [Moles/Vol] 26 mmol/L 20 - 31 mmol/L [place] Creatinine [Mass/Vol] 0.57 mg/dL 0.5 - 0.9 mg/dL [place] GFR >60 >60 mL/min [place] GFR Non- >60 >60 mL/min [place] Glucose [Mass/Vol] 86 mg/dL 70 - 99 mg/dL [place] Interpretation and review of laboratory results Abnormal [place] Potassium [Moles/Vol] 4.3 mmol/L 3.7 - 5.3 mmol/L [place] Sodium [Moles/Vol] 139 mmol/L 135 - 144 mmol/L [place] Urea nitrogen [Mass/Vol] 11 mg/dL 6 - 20 mg/dL [place] CBC Auto Differentialon 07-17 Basophils (Bld) [#/Vol] 0.06 10*3/uL [place] Basophils/100 WBC (Bld) 1 % 0 - 2 % M [place], [place] Differential Type NOT REPORTED [place] Eosinophils (Bld) [#/Vol] 0.16 10*3/uL [place] Eosinophils/100 WBC (Bld) 3 % 1 - 4 % [place] Erythrocyte distribution width (RBC) [Ratio] 12.0 % 11.8 - 14.4 % [place] Hematocrit (Bld) [Volume fraction] 39.6 % 36.3 - 47.1 % [place] Hemoglobin (Bld) [Mass/Vol] 13.0 g/dL 11.9 - 15.1 g/dL [place] Immature granulocytes (Bld) [#/Vol] 0 % 0 [place] Immature granulocytes (Bld) [#/Vol] 10*3/uL [place] Lymphocytes (Bld) [#/Vol] 1.37 10*3/uL [place] Lymphocytes/100 WBC (Bld) 25 % 24 - 43 % [place] MCH (RBC) [Entitic mass] 31.0 pg 25.2 - 33.5 pg [place] MCHC (RBC) [Mass/Vol] 32.8 g/dL 28.4 - 34.8 g/dL [place] MCV (RBC) [Entitic vol] 94.3 fL 82.6 - 102.9 fL [place] Monocytes (Bld) [#/Vol] 0.55 10*3/uL [place] Monocytes/100 WBC (Bld) 10 % 3 - 12 % [place] Platelet mean volume (Bld) [Entitic vol] 9.8 fL 8.1 - 13.5 fL [place] Platelets (Bld) [#/Vol] 216 10*3/uL [place] Platelets (Bld) [#/Vol] NOT REPORTED [place] RBC (Bld) [#/Vol] 4.20 10*6/uL 3.95 - 5.1 1 m/uL [place] RBC morphology finding Nom (Bld) NOT REPORTED [place] Segmented neutrophils/100 WBC (Bld) 61 % 36 - 65 % [place] Segs Absolute 3.38 [place], [place] WBC (Bld) [#/Vol] 5.5 10*3/uL [place] WBC (Bld) [#/Vol] 0.0 10*3/uL 0.0 per 10 0 WBC [place] WBC Morphology NOT REPORTED [place], [place] Metabolic Panelon 08-07-2020 GFR/1.73 sq M predicted among non-blacks MDRD (S/P/Bld) [Vol rate/Area] [place], [place] Comment on above: Stage 1: Some [...] body mass. Additional eGFR calculator available at: http://www.Pictorious/multiple_crcl_2012.htm Urinalysis with Microscopico n 08-07-2020 Amorphous, UA TRACE Abnormal None [place], [place] Bacteria, UA 1+ Abnormal None [place] Bilirubin Urine Negative NEGATIVE [place], [place] Casts UA NOT REPORTED /LPF [place] Color, UA YELLOW YELLOW [place] Crystals, UA NOT REPORTED None /HPF [place], [place] Epithelial Cells UA 2 TO 5 [place] Glucose, Ur Negative NEGATIVE [place] Interpretation and review of laboratory results Abnormal [place] Ketones Ql (U) Negative NEGATIVE [place], [place] Leukocyte esterase Test strip Ql (U) Negative NEGATIVE [place] Mucus, UA NOT REPORTED None [place], [place] Nitrite, Urine Negative NEGATIVE [place] Other Observations UA NOT REPORTED NOT REQ. M [place], [place] pH, UA 7.5 [place] Protein (U) [Mass/Vol] Negative NEGATIVE [place] RBC (U) [#/Vol] 0 TO 2 [place] Renal Epithelial, UA NOT REPORTED 0 /HPF [place] Specific [place], UA 1.015 [place], [place] Trichomonas, UA NOT REPORTED None [place], [place] Turbidity UA CLEAR CLEAR [place] Urinalysis Comments NOT REPORTED [facility] Hgb Negative NEGATIVE [facility] Urobilinogen, Urine Normal Normal [facility] WBC, UA 0 TO 2 [facility] Yeast, UA NOT REPORTED None [facility] X[facility] FOOT RIGHT (MIN 3 VIEWS)o n 01-26-2020 1. No acute findings in the right foot. 2. New asymmetric cortical thickening in the distal right 2nd metatarsal could be related to prior trauma or stress injury. [facility] EXAMINATION: THREE XRAY VIEWS OF THE RIGHT [...] changes. No obvious acute soft tissue abnormality. [facility] Juan Miguel, Mhpn Incoming Radiant Results From [email or web address] - 01/26/2020 9:20 PM EDT EXAMINATION: THREE [...] related to prior trauma or stress injury. [facility] Glucose, FastingOrdered By: Regan Mendez on 11-06-2019 Glucose [Mass/Vol] 87 mg/dL 70 - 99 mg/dL [facility] Phone: Lipid PanelOrdered By: Regan Mendez on 11-06-2019 Cholesterol [Mass/Vol] 179 mg/dL <200 Me [employer] Phone: Comment on above: Cholesterol Guidelines: <200 Desirable 200-240 Borderline >240 Undesirable Cholesterol in HDL [Mass/Vol] 62 mg/dL >40 [facility] Phone: Comment on above: HDL Guidelines: <40 Undesirable 40-59 Borderline >59 Desirable Cholesterol in LDL [Mass/Vol] 99 mg/dL 0 - 130 mg/dL [facility] Phone: Comment on above: LDL Guidelines: <100 Desirable 100-129 Near to/above Desirable 130-159 Borderline >159 Undesirable Direct (measured) LDL and calculated LDL are not interchangeable tests. Cholesterol.total/Jaleesa sterol in HDL [Mass ratio] 2.9 {ratio} <5 [facility] Phone: Triglyceride [Mass/Vol] 89 mg/dL <150 [facility] Phone: Comment on above: Triglyceride Guidelines: <150 Desirable 150-199 Borderline 200-499 High >499 Very high Based on AHA Guidelines for fasting triglyceride, August 2012. VLDL NOT REPORTED 1 - 30 mg/dL [employer] Work Phone: VL DUP LOWER EXTREMITY VENOU S LEFTon 07-18-2019 [facility] Vascular Lower Extremities DVT Study Procedure Patient Name ABBY Date of Study 07/17/2019 LALA Roberts Date of 1970 Gender Female Age 49 year(s) Race Room Number Corporate ID [id number] # Patient Acct [id number] # MR # [id number] [employer] Ste[employer] Operator [employer] [place] Interpreting Physician Bee Olivera Referring [...] !Phasic!No ! ! + --------+------+---- --+ + [facility], [place] Juan Miguel, [facility] Incoming Cardio Results From [facility]/ - 07/18/2019 4:43 PM EDT [facility] Vascular Lower Extremities DVT Study Procedure Patient Name ABBY Date of Study 07/17/2019 LALA Roberts Date of 1970 Gender Female Age 49 year(s) Race Room Number Corporate ID [id number] # Patient Acct [id number] # MR # [id number] [employer] Operator [employer] [place] Interpreting Physician Bee Olivera Referring [...] !Phasic!No ! ! + --------+------+---- --+ + [place] D-dimer, quantitativeon 090 D-Dimer, Quant 0.37 [facility] Hospital[facility] [place], [place] Comment on above: Elevated levels of [...] evidence of a ureteral calculus or hydronephrosis. [employer] [place], [place] EXAMINATION: CT OF THE ABDOMEN AND PELVIS [...] is evident. Bones/Soft Tissues: No acute findings. [facility] [place] Juan Miguel, pn Incoming Radiant Results From [employer] - 07/05/2019 6:15 PM EDT EXAMINATION: CT [...] evidence of a ureteral calculus or hydronephrosis. [place] Urinalysis With Microscopico n 06-26-2019 Amorphous, UA 2+ Abnormal None [place], [place] Bacteria, UA NOT REPORTED None [place], [place] Bilirubin Urine Negative NEGATIVE [place] Casts UA NOT REPORTED /LPF [place] Color, UA YELLOW YELLOW [place] Crystals UA NOT REPORTED None /HPF [place], [place] Epithelial Cells UA 0 TO 2 [place], [place] Glucose, Ur Negative NEGATIVE [place] Interpretation and review of laboratory results Abnormal [place] Ketones Ql (U) Negative NEGATIVE [place], [place] Leukocyte esterase Test strip Ql (U) Negative NEGATIVE [place] Mucus, UA NOT REPORTED None [place], [place] Nitrite, Urine Negative NEGATIVE [place], [place] Other Observations UA NOT REPORTED NOT REQ. M [place], [place] pH, UA 7.5 [place], [place] Protein (U) [Mass/Vol] Negative NEGATIVE [place] RBC (U) [#/Vol] 0 TO 2 [place] Renal Epithelial, Urine NOT REPORTED 0 /HPF [place] Specific [place], UA 1.015 [place], [place] Trichomonas, UA NOT REPORTED None [facility] [place] Turbidity UA CLEAR CLEAR [place] Urinalysis Comments NOT REPORTED [facility] [place] Urine Hgb Negative NEGATIVE [place] Urobilinogen, Urine Normal Normal [place], [place] WBC, UA None [place], [place] Yeast, UA NOT REPORTED None [facility] [place] XR ABDOMEN (KUB) (SINGLE AP VIEW)on 06-22-2019 Question of rounded opacity in the right mid abdomen, similar in location to prior study, and may signify renal calculus. Stool throughout the colon. [place] EXAMINATION: ONE SUPINE XRAY VIEW(S) OF THE ABDOMEN 06/22/2019 4:04 pm COMPARISON: 06/24/2018 HISTORY: ORDERING SYSTEM PROVIDED HISTORY: Renal calculus FINDINGS: Apparent rounded opacity projects over the right hemiabdomen measuring 4.5 mm, similar in location to the previous exam. There is colonic stool and gas which projects over this region. Normal bowel gas pattern. Osseous structures are intact. [place] Juan Miguel, Mhpn Incoming Radiant Results From [employer] - 06/22/2019 4:19 PM EDT EXAMINATION: ONE [...] signify renal calculus. Stool throughout the colon. [place], [place] LESS THAN 1 HOURon 2017 [...] for full detail.Interpreted by:MARION Nicholsigned by:Morris Arreola MD02/03/inal result Normal [facility] OPERATIVE REPORTon 03-22-201 8 OPERATIVE REPORT [facility] [address] [place] [address] OPERATIVE REPORTPATIENT NAME: LALA MORA : 1970MED REC NO: [id number] ROOM:ACCOUNT NO: [id number] ADMIT DATE: 02/03/2018PROVIDER: Branden TrevinoDATE OF PROCEDURE: 02/03/2018PREOPERATI VE DIAGNOSES:1. Right ureteral calculus.2. Right renal calculus.POSTOPERATI VE DIAGNOSES:1. Right ureteral calculus.2. Right renal calculus.OPERATIONS PERFORMED: Cystoscopy, right ureteroscopy, right holmium laserlithotripsy, right ureteral stent placement.SURGEON: Branden TrevinoASSISTANT: None.ANESTHESIA: General.COMPLICATION S: None.EBL: Minimal.SPECIMENS: None.PROSTHESIS: A 6-Chinese 26 cm double J ureteral stent.DISPOSITION: Stable.FINDINGS: Small right ureteral stone, larger right renal stone.INDICATIONS: The patient is a 47-year-old female with CT proven rightureteral and right renal calculus here now for definitive therapy.OPERATIVE PROCEDURE: The patient was taken back to the operating room andafter informed consent including all risks, benefits, and alternatives wereobtained, the patient was [facility] on [facility] operatingtable where she was induced under general anesthesia and given IV Cipro forpreoperative antibiotic prophylaxis. To begin the case, she was preppedand draped in normal sterile fashion. She was placed in dorsal lithotomy. A 22-Chinese sheath with a 30-degree lens passed through [...] the scope over the Glidewire and placed a6-Chinese 26 cm double J ureteral stent over the Glidewire up into thedney. Glidewire was removed. Proximal curl was confirmed byfluoroscopy. Distal curl was confirmed by visualization. Stent string wasattached to the patient's thigh with Steris and benzoin. She was thenawoken from general anesthesia, transferred to the [facility], and taken to [facility] in satisfactory condition by nursing and anesthesia teams.PLAN: The patient will be discharged home per PACU criteria and follow upwith me on Wednesday for stent removal via string.BRANDEN THEROND: 02/03/2018 12:58:07 [email or web address]#: [id number] Doc#: [id number]: [facility] Op Noteon 02-03-2018 HIM IP Note OR Septic Cleaner [facility] Progress Noteon 02-03-2018 HIM IP Note OR Septic Cleaner [facility] HIM IP Note OR Septic Cleaner [facility] History and Physicalon 02-02 HIM IP Note OR Septic Cleaner [facility] Vital Signs Date Time Vital Sign Value Performing Clinician Farheen hong 05-05-2023 06:24-0400 Body temperature 97 [degF] Rhea Dillard MD Work Phone: [facility] 05-05-2023 06:24-0400 Diastolic blood pressure 92 mm[Hg] Rhea Dillard MD Work Phone: [facility] 05-05-2023 06:24-0400 Heart rate 85 /min Rhea iDllard MD Work Phone: [facility] 05-05-2023 06:24-0400 Respiratory rate 15 /min Rhea Dillard MD Work Phone: [facility] 05-05-2023 06:24-0400 SaO2% (BldA) [Mass fraction] 98 % Rhea Dillard MD Work Phone: [facility] 05-05-2023 06:24-0400 Systolic blood pressure 134 mm[Hg] Rhea Dillard MD [facility]: [email or web address] 04-27-2022 09:15-0400 Diastolic blood pressure 72 mm[Hg] Branden Trevino MD Work Phone: [email or web address] 04-27-2022 09:15-0400 Heart rate 78 /min Branden Trevino MD Work Phone: [email or web address] 04-27-2022 09:15-0400 Respiratory rate 16 /min Branden Trevino MD Work Phone: [email or web address] 04-27-2022 09:15-0400 SaO2% (BldA) [Mass fraction] 97 % Branden Trevino MD Work Phone: [email or web address] 04-27-2022 09:15-0400 Systolic blood pressure 119 mm[Hg] Branden Trevino MD Work Phone: [email or web address] 04-27-2022 08:25-0400 Body temperature 97.3 [degF] Branden Trevino MD Work Phone: [email or web address] 04-27-2022 06:32-0400 Body height 165.1 cm Branden Trevion MD Work Phone: [email or web address] 04-27-2022 06:32-0400 Body mass index (BMI) [Ratio] 25.79 kg/m2 Branden Trevino MD Work Phone: [email or web address] 04-27-2022 06:32-0400 Body weight 70.31 kg Branden Trevino MD Work Phone: [email or web address] 04-14-2022 15:30-0400 Diastolic blood pressure 73 mm[Hg] Branden Trevino MD Work Phone: [email or web address] 04-14-2022 15:30-0400 Heart rate 70 /min Branden Trevino MD Work Phone: [facility] [employer] 04-14-2022 15:30-0400 Respiratory rate 16 /min Branden Trevino MD Work Phone: [facility] 04-14-2022 15:30-0400 SaO2% (BldA) [Mass fraction] 98 % Branden Trevino MD Work Phone: [facility] [employer] 04-14-2022 15:30-0400 Systolic blood pressure 108 mm[Hg] Branden Trevino MD Work Phone: [facility] 04-14-2022 14:45-0400 Body temperature 97 [degF] Branden Trevino MD Work Phone: [facility] 04-06-2022 11:08-0400 Diastolic blood pressure 65 mm[Hg] Jimi Ayoub MD Work Phone: [facility] [employer] 04-06-2022 11:08-0400 SaO2% (BldA) [Mass fraction] 99 % Jimi Ayoub MD Work Phone: [facility] [employer] 04-06-2022 11:08-0400 Systolic blood pressure 108 mm[Hg] Jimi Ayoub MD Work Phone: [facility] [employer] 04-06-2022 08:58-0400 Body temperature 97.81 [degF] Jimi Ayoub MD Work Phone: [facility] [employer] 04-06-2022 08:58-0400 Heart rate 52 /min Jimi Ayoub MD Work Phone: [facility] 04-06-2022 08:58-0400 Respiratory rate 16 /min Jimi Ayoub MD Work Phone: [facility] 03-22-2021 10:51-0400 Diastolic blood pressure 73 mm[Hg] Rhea Dillard MD Work Phone: [employer] Work Phone: 03-22-2021 10:51-0400 Heart rate 74 /min Rhea Dillard MD Work Phone: [employer] Work Phone: 03-22-2021 10:51-0400 Respiratory rate 18 /min Rhea Dillard MD Work Phone: [employer] Work Phone: 03-22-2021 10:51-0400 SaO2% (BldA) [Mass fraction] 98 % Rhea Dillard MD Work Phone: [employer] Work Phone: 03-22-2021 10:51-0400 Systolic blood pressure 105 mm[Hg] Rhea Dillard MD Work Phone: [employer] Work Phone: 03-22-2021 07:46-0400 Body height 170.2 cm Rhea Dillard MD Work Phone: [employer] Work Phone: 03-22-2021 07:46-0400 Body mass index (BMI) [Ratio] 20.52 kg/m2 Rhea Dillard MD Work Phone: [employer] Work Phone: 03-22-2021 07:46-0400 Body temperature 97.11 [degF] Rhea Dillard MD Work Phone: [employer] Work Phone: 03-22-2021 07:46-0400 Body weight 59.42 kg Rhea Dillard MD Work Phone: [employer] Work Phone: 03-20-2021 13:15-0400 Diastolic blood pressure 75 mm[Hg] Branden Trevino MD Work Phone: [employer] Work Phone: 03-20-2021 13:15-0400 Heart rate 71 /min Branden Trevino MD Work Phone: [employer] Work Phone: 03-20-2021 13:15-0400 Respiratory rate 18 /min Branden Trevino MD Work Phone: [employer] Work Phone: 03-20-2021 13:15-0400 SaO2% (BldA) [Mass fraction] 99 % Branden Trevino MD Work Phone: [employer] Work Phone: 03-20-2021 13:15-0400 Systolic blood pressure 114 mm[Hg] Branden Trevino MD Work Phone: [employer] Work Phone: 03-20-2021 12:30-0400 Body temperature 98.6 [degF] Branden Trevino MD Work Phone: [employer] Work Phone: 03-20-2021 10:01-0400 Body height 170.2 cm Branden Trevino MD Work Phone: [employer] Work Phone: 03-20-2021 10:01-0400 Body mass index (BMI) [Ratio] 21.55 kg/m2 Branden Trevino MD Work Phone: [employer] Work Phone: 03-20-2021 10:01-0400 Body weight 62.41 kg Branden Trevino MD Work Phone: [employer] Work Phone: 03-18-2021 14:11-0400 Diastolic blood pressure 81 mm[Hg] Aaron Parker MD Work Phone: [employer] Work Phone: 03-18-2021 14:11-0400 Heart rate 80 /min Aaron Parker MD Work Phone: [employer] Work Phone: 03-18-2021 14:11-0400 Respiratory rate 16 /min Aaron Parker MD Work Phone: [employer] Work Phone: 03-18-2021 14:11-0400 SaO2% (BldA) [Mass fraction] 98 % Aaron Parker MD Work Phone: [employer] Work Phone: 03-18-2021 14:11-0400 Systolic blood pressure 120 mm[Hg] Aaron Parker MD Work Phone: [employer] Work Phone: 03-18-2021 09:54-0400 Body mass index (BMI) [Ratio] 21.93 kg/m2 Aaron Parker MD Work Phone: [employer] Work Phone: 03-18-2021 09:54-0400 Body temperature 98.2 [degF] Aaron Parker MD Work Phone: [employer] Work Phone: 03-18-2021 09:54-0400 Body weight 63.5 kg Aaron Parker MD Work Phone: [employer] Work Phone: 01-01-2021 09:00-0500 BP Diastolic 70 mm[Hg] [employer] Work Phone: 01-01-2021 09:00-0500 BP Systolic 112 mm[Hg] [employer] Work Phone: 01-01-2021 09:00-0500 Pulse (Heart Rate) 67 /min [employer] Phone: 01-01-2021 09:00-0500 Pulse Oximetry 98 % [employer] Work Phone: 01-01-2021 09:00-0500 Respiratory Rate 16 /min [employer] Work Phone: 01-01-2021 08:37-0500 Body Temperature 97.2 [degF] Mishasharon Hernandez [employer] Work Phone: 01-01-2021 07:23-0500 BMI (Body Mass Index) 21.93 kg/m2 Misha Hernandez [employer] [facility] Work Phone: 01-01-2021 07:23-0500 Body weight 63.5 kg Mishasharon Hernandez [employer] Work Phone: 01-01-2021 07:23-0500 Height 170.2 cm Mishasharon Hernandez [employer] Work Phone: 12-27-2020 16:01-0500 BMI (Body Mass Index) 22.04 kg/m2 Misha Hernandez [employer] [facility] Work Phone: 12-27-2020 16:01-0500 Body Temperature 96.91 [degF] Mishasharon Hernandez [employer] Work Phone: 12-27-2020 16:01-0500 Body weight 63.82 kg Misha Yonesrobert [employer] Work Phone: 12-27-2020 16:01-0500 BP Diastolic 71 mm[Hg] Misha Yonesrobert [employer] Work Phone: 12-27-2020 16:01-0500 BP Systolic 111 mm[Hg] Mishasharon Hernandez [employer] Work Phone: 12-27-2020 16:01-0500 Height 170.2 cm Misha Yonesrobert [employer] Work Phone: 12-27-2020 16:01-0500 Pulse (Heart Rate) 74 /min Misha Yonesrobert [employer] Work Phone: 12-27-2020 16:01-0500 Pulse Oximetry 98 % Misha Yonesrobert [employer] Phone: 12-27-2020 16:01-0500 Respiratory Rate 20 /min Misha Yonesrobert [employer] Work Phone: 01-26-2020 20:15-0400 BMI (Body Mass Index) 19.58 kg/m2 Regan Mendez [facility], [place] 01-26-2020 20:15-0400 Body Temperature 97.81 [degF] Regan Mendez [facility] [place] 01-26-2020 20:15-0400 Body weight 56.7 kg Regan Mendez [facility] , [place] 01-26-2020 20:15-0400 BP Diastolic 67 mm[Hg] Regan [facility] , [place] 01-26-2020 20:15-0400 BP Systolic 115 mm[Hg] Regan [facility] [place] 01-26-2020 20:15-0400 Height 170.2 cm Regan [facility] , [place] 01-26-2020 20:15-0400 Pulse (Heart Rate) 78 /min Regankleber Mendez [facility], [place] 01-26-2020 20:15-0400 Pulse Oximetry 99 % Regan Mendez [facility] [place] 01-26-2020 20:15-0400 Respiratory Rate 16 /min Regan Mendez [facility] [place] 07-25-2019 15:05-0400 BP Diastolic 71 mm[Hg] Branden Trevino [facility] [place] 07-25-2019 15:05-0400 BP Systolic 114 mm[Hg] Branden Trevino [facility] [place] 07-25-2019 15:05-0400 Pulse (Heart Rate) 75 /min Branden Treivno [facility], [place] 07-25-2019 15:05-0400 Pulse Oximetry 97 % Branden Trevino [facility] [place] 07-25-2019 15:05-0400 Respiratory Rate 16 /min Branden Trevino [facility], [place] 07-25-2019 14:38-0400 Body Temperature 98.1 [degF] Branden Trevino [facility], [place] 07-25-2019 11:27-0400 BMI (Body Mass Index) 26.26 kg/m2 Branden Andrews [facility], [place] 07-25-2019 11:27-0400 Body weight 63.05 kg Branden Trevino [facility] [place] 07-25-2019 11:27-0400 Height 154.9 cm Branden Trevino [facility] [place] 07-16-2019 13:17-0400 BMI (Body Mass Index) 21.77 kg/m2 Regan Andrews [facility], [place] 07-16-2019 13:17-0400 Body Temperature 98.4 [degF] Regan Mendez [facility] [place] 07-16-2019 13:17-0400 Body weight 63.05 kg Regan Mendez [facility] , [place] 07-16-2019 13:17-0400 BP Diastolic 83 mm[Hg] Regan Mendez [facility] , [place] 07-16-2019 13:17-0400 BP Systolic 113 mm[Hg] Regan Mendez [facility] , [place] 07-16-2019 13:17-0400 Pulse (Heart Rate) 88 /min Regan Mendez [facility], [place] 07-16-2019 13:17-0400 Pulse Oximetry 97 % Regan Mendez [facility] , [place] 07-16-2019 13:17-0400 Respiratory Rate 16 /min Regan Mendez [place], [place] Encounters Encounter Date Encounter Type Care Provider Facility Start: 01-06-2024 ambulatory Olesya Chavez Facility:[facility] Start: 01-05-2024 End: 01-06-2024 ambulatory Olesya Chavez Facility:[id number] Start: 08-30-2023 ambulatory Ray Montemayor acility:[facility] Start: 06-28-2023 [facility] Start: 06-28-2023 End: 06-30-2023 Subsequent hospital visit by physician [facility]Pet [facility] Scan Comment on above: Microscopic hematuri a Start: 06-21-2023 End: 06-22-2023 ambulatory [facility] Start: 06-21-2023 End: 06-21-2023 Subsequent hospital visit by physician Regan Howell CNP Work Phone: [facility] Laboratory Comment on above: Urethral cyst Start: 05-05-2023 End: 05-05-2023 Emergency department patient visit ALECIA J MORALES [facility] Start: 05-05-2023 End: 05-05-2023 Emergency department patient visit Rhea Dillard MD Work Phone: [facility] ED Comment on above: Episodic cluster hea dache, not intractable (Primary Dx) Start: 02-23-2023 End: 02-24-2023 ambulatory [facility] Start: 01-12-2023 End: 01-13-2023 ambulatory [facility] Start: 01-12-2023 End: 01-12-2023 Subsequent hospital visit by physician Regan Mendez PATHOLOGY LABORATORY DIRECTOR - IMAGING SCHEDULER Work Phone: [facility] Comment on above: UTI symptoms Start: 04-27-2022 End: 04-27-2022 Subsequent hospital visit by physician Branden Trevino MD Work Phone: [facility] Comment on above: Calculus of ureter Start: 04-23-2022 End: 2022 Subsequent hospital visit by physician Calixto Cat Scan Room [facility] CT Scan Comment on above: Urethritis; Bilateral ureteral calculi; Dysuria Start: 04-21-2022 End: 04-21-2022 Subsequent hospital visit by physician Regan Mendez APRN - IMAGING SCHEDULER Work Phone: [facility] Comment on above: Urethritis; Dysuria Start: 04-14-2022 End: 04-14-2022 Subsequent hospital visit by physician Branden Trevino MD Work Phone: [facility] Start: 04-06-2022 End: 04-06-2022 Emergency department patient visit Jimi Ayoub MD Work Phone: [facility] ED Comment on above: Kidney stone (Primar y Dx) Start: 01-26-2022 End: 01-26-2022 Patient encounter procedure Regan Mendez PATHOLOGY LABORATORY DIRECTOR - IMAGING SCHEDULER Work Phone: [facility] Start: 01-26-2022 End: 01-26-2022 Subsequent hospital visit by physician Regan Mendez PATHOLOGY LABORATORY DIRECTOR - IMAGING SCHEDULER Work Phone: [facility] Comment on above: Women's annual routi ne gynecological examination Start: 04-30-2021 End: 05-02-2021 Subsequent hospital visit by physician Calixto Co[address] Room 4 [facility] Radiology Comment on above: Kidney stone Start: 03-22-2021 End: 03-22-2021 Emergency department patient visit Rhea Dillard MD Work Phone: [facility] ED Comment on above: Pelvic pain (Primary Dx) Start: 03-20-2021 End: 03-20-2021 Subsequent hospital visit by physician Branden Trevino MD Work Phone: [facility] OR Start: 03-18-2021 End: 03-18-2021 Emergency department patient visit Aaron Parker MD Work Phone: [facility] ED Comment on above: Pelvic pain (Primary Dx); Acute midline low back pain without sciatica Start: 01-01-2021 End: 01-01-2021 Subsequent hospital visit by physician Misha Hernandez Work Phone: [facility] OR Comment on above: DUB (dysfunctional u terine bleeding) (Primary Dx) Start: 12-27-2020 End: 12-31-2020 Subsequent hospital visit by physician Misha Hernandez Work Phone: [facility] PRE ADMIT Comment on above: Preop testing Preoperative testing Start: 12-09-2020 End: 12-11-2020 Subsequent hospital visit by physician Calixto Co[address] Room 4 [facility] Radiology Comment on above: Renal calculus; Constipation, unspecified constipation type Start: 09-11-2020 End: 09-11-2020 Subsequent hospital visit by physician David Covid Screening Schedule DAVID Covid Screening Comment on above: Viral gastroenteriti s Start: 08-07-2020 End: 08-07-2020 Subsequent hospital visit by physician Regan [facility]NAN[facility] Laboratory Comment on above: Renal colic Start: 06-25-2020 End: 06-25-2020 Subsequent hospital visit by physician [facility] Comment on above: Acute URI Start: 01-26-2020 End: 01-26-2020 Emergency department patient visit Regan Mendez [facility] ED Comment on above: Repetitive stress in jury (Primary Dx) Start: 11-06-2019 End: 11-06-2019 Subsequent hospital visit by physician Regan Mendez PATHOLOGY LABORATORY DIRECTOR - IMAGING SCHEDULER Work Phone: [facility] Laboratory Comment on above: Lipid screening; Diabetes mellitus screening Start: 07-25-2019 End: 07-25-2019 Subsequent hospital visit by physician Branden Trevino Work Phone: [facility] OR Start: 07-17-2019 End: 07-19-2019 Subsequent hospital visit by physician Calixto Vascular Imaging Room [facility] Vascular Lab Comment on above: Pain of left calf Start: 07-16-2019 End: 07-16-2019 Emergency department patient visit [facility] ED Comment on above: Pain of left calf (P rimary Dx) Start: 07-04-2019 End: 07-06-2019 Subsequent hospital visit by physician Calixto Cat Scan Room [facility] CT Scan Comment on above: Renal calculus Start: 06-26-2019 End: 06-26-2019 Subsequent hospital visit by physician Regan Mendez [facility] Laboratory Comment on above: Renal calculus Start: 06-22-2019 End: 06-24-2019 Subsequent hospital visit by physician Calixto Xr Dr Room 2 [facility] Radiology Comment on above: Renal calculus Start: 02-03-2018 End: 02-03-2018 Ambulatory [facility] Procedures Date Procedure Procedure Detail Performing Clinician Start: 06-28-2023 Ct abdomen & pelvis w/o contrst 1/> body re Zhao W Teri PATHOLOGY LABORATORY DIRECTOR - IMAGING SCHEDULER Work Phone: Start: 06-21-2023 Iadna baron specie s direct probe tq Micah Narayanan PATHOLOGY LABORATORY DIRECTOR - CNM Work Phone: Start: 05-05-2023 Ct angiography neck w/contrast/noncontrast Rhea Dillard MD Work Phone: Start: 05-05-2023 C-reactive protein Jave champ J Morales DO Work Phone: Start: 05-05-2023 Comprehensive metabo lic panel Rhea Dillard MD Work Phone: Start: 05-05-2023 Ecg routine ecg w/le ast 12 lds w/i&r Rhea Dillard MD Work Phone: Start: 01-12-2023 Urinalysis microscopic only Brittny Enriquez PATHOLOGY LABORATORY DIRECTOR - CNM Work Phone: Start: 01-12-2023 Urnls dip stick/tabl et rgnt auto w/o microscopy Brittny Enriquez PATHOLOGY LABORATORY DIRECTOR - CNM Work Phone: Start: 04-27-2022 Fluoroscopy during operation Branden Trevino MD Work Phone: Start: 04-23-2022 Ct abdomen & pelvis w/o contrast material Zhao Garcia PATHOLOGY LABORATORY DIRECTOR - IMAGING SCHEDULER Work Phone: Start: 04-14-2022 Fluoroscopy during operation [...] Hernandez Work Phone: Start: 12-27-2020 COVID-19 [employer] Work Phone: Start: 12-09-2020 Radiologic exam abdo men 1 view Zhaojordana Garcia Work Phone: Start: 08-07-2020 Basic metabolic pane l calcium total Zhaojordana Garcia Work Phone: Start: 08-07-2020 Blood count complete auto&auto difrntl wbc Zhaojordana Garcia Work Phone: Start: 08-07-2020 Urnls dip stick/tabl et reagent auto microscopy Zhaojordana Garcia Work Phone: Start: 01-26-2020 Radex foot complete minimum 3 views Shakila Jose Cruz Work Phone: Start: 11-06-[address] gtt 3 specimens Regankleber Mendez PATHOLOGY LABORATORY DIRECTOR - IMAGING SCHEDULER Work Phone: Start: 11-06-2019 Lipid panel Regan W Mi ght PATHOLOGY LABORATORY DIRECTOR - IMAGING SCHEDULER Work Phone: Start: 07-17-2019 Dup-scan xtr veins unilateral/limited study William Rowena Morganth Work Phone: Start: 07-16-2019 Fibrin dgradj produc [...] BRANDEN GREENE Start: 02-03-2018 FULL CODE BRANDEN INGRAM IERUDOLPH Start: 02-03-2018 INITIATE OXYGEN THER APY PROTOCOL BRANDEN TREVINO Start: 02-03-2018 NOTIFY PHYSICIAN (SPECIFY) BRANDEN TREVINO Start: 02-03-2018 NURSING COMMUNICATION Laquita TREVINO Start: 02-03-2018 PLACE INTERMITTENT PNEUMATIC COMPRESSION DEVICE BRANDEN TREVINO Start: 02-03-2018 VITAL SIGNS BRANDEN MILLS Start: 02-03-2018 VERIFY INFORMED CONSENT BRANDEN TREVINO Start: 11-25-2017 Microscopic observat ion [Identifier] in Cervix by Cyto stain Regan Mendez PATHOLOGY LABORATORY DIRECTOR - IMAGING SCHEDULER Work Phone: Plan of Treatment Date Care Activity Detail Author Start: 2037 Pneumococcal 0-64 ye ars Vaccine (2 of 2 - PPSV23) Pneumococcal 0-64 years Vaccine (2 of 2 - PPSV23) [employer] Start: 2037 Pneumococcal 0-64 ye ars Vaccine (2 of 2) Pneumococcal 0-64 years Vaccine (2 of 2) [employer] Work Phone: Start: 01-12-2027 Lipid panel [facility] Start: 01-26-2025 Screening for malign ant neoplasm of cervix [facility] Start: 11-06-2024 Lipid panel Lipid screen [facility] [place], [place] Start: 11-06-2024 Lipid screen Lipid screen [facility] [place], [place] Start: 01-26-2024 Depression Monitoring Depression Mon itoring [facility] Start: 01-18-2024 ambulatory Ambulatory Facility:[facility] Start: 08-11-2023 End: 08-11-2023 Patient encounter procedure 08/11/2023 Procedure visit Urology Zhao Garcia, PATHOLOGY LABORATORY DIRECTOR - IMAGING SCHEDULER [address] [place] [id number] [facility] Specialty Providers on [address] [place] Start: 07-28-2023 End: 07-28-2023 Patient encounter procedure 07/28/2023 Office Visit Primary Care Regan Mendez, PATHOLOGY LABORATORY DIRECTOR - IMAGING SCHEDULER [address] [place] [address] [facility] [place] Start: 07-28-2023 COVID-19 Vaccine (#1) COVID-19 Vacci ne (#1) [facility] [employer] [facility] Comment on above: Postponed from 10/25 (Patient Refused) Start: 07-28-2023 Depression Monitoring [facility] Start: 07-28-2023 DTaP/Tdap/Td vaccine (2 - Td or Tdap) DTaP/Tdap/Td vaccine (2 - Td or Tdap) [facility] [employer] [facility] Comment on above: Postponed from 04/25 (Patient Refused) Start: 07-28-2023 Hepatitis C screening Hepatitis C sc reen [facility] Comment on above: Postponed from 04/25 (Patient Refused) Start: 07-28-2023 Influenza vaccination B ON [employer] [facility] Comment on above: Postponed from 06/15 (Patient Refused) Postponed from 06/15 (Patient Refused) Start: 07-28-2023 Shingles vaccine (1 of 2) Shingles vaccine (1 of 2) [facility] Comment on above: Postponed from 04/25 (Patient Refused) Start: 07-14-2023 End: 07-14-2023 Patient encounter procedure 07/14/2023 Office Visit Obstetrics and Gynecology Brittny Enriquez APRN - CNM [address] [place] [address] [facility] Start: 06-23-2023 End: 06-23-2023 Patient encounter procedure 06/23/2023 Office Visit Urology [facility] Start: 06-15-2023 Influenza vaccination Flu vaccine (# 1) [facility] Start: 03-29-2023 End: 03-29-2023 Patient encounter procedure 03/29/2023 Office Visit Obstetrics and Gynecology Brittny Enriquez APRN - CN [address] [facility] [place] [address] [facility] Start: 01-25-2023 End: 01-25-2023 Patient encounter procedure 01/25/2023 Office Visit Primary Care Regan Mendez, PATHOLOGY LABORATORY DIRECTOR - IMAGING SCHEDULER [address] [facility] [place] [address] [facility] Primary [facility] [place] Start: 01-14-2023 Depression Monitoring Depression Mon [facility] Start: 01-14-2023 HIV screening HIV screen [facility] Comment on above: Postponed from 04/25 (Patient Refused) Start: 01-14-2023 Influenza vaccination [facility] Comment on above: Postponed from 07/16 (Patient Refused) Postponed from 07/16 (Patient Refused) Start: 01-14-2023 Screening for malign ant neoplasm of cervix Cervical cancer screen [facility] Comment on above: Postponed from 11/25 (Not Indicated) Start: 11-25-2022 Cervical cancer screen Cervical canc er screen [place], [place] Start: 11-25-2022 Screening for malign ant neoplasm of cervix Cervical cancer screen [place], [place] Start: 07-21-2022 End: 07-21-2022 Patient encounter procedure 07/21/2022 Office Visit Primary Care Regan Mendez, PATHOLOGY LABORATORY DIRECTOR - IMAGING SCHEDULER [address] [place] [address] [place] [address] [facility] [place] Start: 07-01-2022 Lipid screen Lipid screen [place], [place] Start: 05-28-2022 End: 05-28-2022 Patient encounter procedure 05/28/2022 Office Visit Urology Zhao Garcia, PATHOLOGY LABORATORY DIRECTOR - IMAGING SCHEDULER [address] [facility] [place] [phone] [facility] Start: 05-04-2022 End: 05-04-2022 Patient encounter procedure 05/04/2022 Office Visit Urology Branden Trevino MD [address], [address] [place] [address] [facility] Start: 05-01-2022 DTaP/Tdap/Td vaccine (2 - Td or Tdap) DTaP/Tdap/Td vaccine (2 - Td or Tdap) [facility] Comment on above: Postponed from 04/25 (Patient Refused) Start: 04-29-2022 End: 04-29-2022 Patient encounter procedure 04/29/2022 Office Visit Urology Nikolas Horner, PALyndaC [address] [facility] [place] [address] [facility] Start: 04-27-2022 End: 04-27-2022 Patient encounter procedure 04/27/2022 Office Visit Urology Branden Trevino MD [address], [address] [place] [address] [facility] Start: 04-27-2022 End: 04-27-2022 Admission to same day surgery center 04/27/2022 Surgery IP Unit Branden Trevino MD [address], [address] [place] [address] CYSTOSCOPY URETEROSCOPY LASER-HLL, POSSIBLE STENT PLACEMENT [facility] Comment on above: CYSTOSCOPY URETEROSC OPY LASER-HLL, POSSIBLE STENT PLACEMENT Start: 04-27-2022 End: 04-27-2022 Anesthesia consultation 04/27/2022 Anesthesia Event IP Unit Rosemarie Greenberg, PATHOLOGY LABORATORY DIRECTOR - JOURNAL ENTRY AUDIT CLERK [address] [facility] [address] [place] [address] [facility] Start: 04-27-2022 End: 04-27-2022 Cysto/uretero w/lithotripsy &indwell stent insrt [facility] Start: 04-27-2022 Subsequent hospital visit by physician 04/27/2022 Hospital Encounter IP Unit Branden Trevino MD [address], [address] [place] [address] [facility] Start: 2022 Screening for malign ant neoplasm of breast Breast cancer screen [facility] Start: 2022 Shingles Vaccine (1 of 2) Shingles Vaccine (1 of 2) [facility] Start: 04-17-2022 End: 04-17-2022 Patient encounter procedure 04/17/2022 Office Visit Urology Zhao Garcia, PATHOLOGY LABORATORY DIRECTOR - IMAGING SCHEDULER [address] [facility] [address] [place] [phone] [facility] Start: 04-14-2022 End: 04-14-2022 Cysto w/simple removal stone & stent CYSTOSCOPY STENT REMOVAL Ureteral stone 04/14/2022 1:13 PM EDT [facility] Start: 04-14-2022 End: 04-14-2022 Cysto/uretero w/lithotripsy &indwell stent insrt CYSTOSCOPY URETEROSCOPY LASER Ureteral stone 04/14/2022 1:13 PM EDT [facility] Start: 04-06-2022 End: 04-06-2022 Patient encounter procedure 04/06/2022 Office Visit Urology Branden Trevino MD [address] [facility], [address] [place] [address] [facility] Start: 02-26-2022 COVID-19 Vaccine (1) COVID-19 Vaccin e (1) [facility] Comment on above: Postponed from 04/25 (Patient Refused) Postponed from 04/25 (Patient Refused) Postponed from 04/25 (Patient Refused) Start: 02-26-2022 Hepatitis C screening Hepatitis C [facility] Comment on above: Postponed from 04/25 (Patient Refused) Start: 02-26-2022 Screening for malign ant neoplasm of cervix Cervical cancer screen [facility] Work Phone: Comment on above: Postponed from 11/25 (Not Indicated) Start: 01-14-2022 End: 01-14-2022 Patient encounter procedure 01/14/2022 Office Visit Obstetrics and Gynecology Misha Hernandez MD [address] [place] [address] [facility] Start: 12-09-2021 End: 12-09-2021 Office Visit 12/09/2021 Office Visit Urology Zhao Garcia, PATHOLOGY LABORATORY DIRECTOR - IMAGING SCHEDULER [address] [place] [address] [facility] Start: 11-03-2021 End: 11-03-2021 Patient encounter procedure 11/03/2021 Office Visit Primary Care Regan Mendez, PATHOLOGY LABORATORY DIRECTOR - IMAGING SCHEDULER [address] [place] [address] [phone] [facility] Start: 10-31-2021 HIV screening HIV screen [facility] [place], [place] Comment on above: Postponed from 04/25 (Patient Refused) Start: 10-31-2021 Influenza vaccination [place], [place] Comment on above: Postponed from 07/16 (Patient Refused) Postponed from 07/16 (Patient Refused) Start: 05-05-2021 End: 05-05-2021 Patient encounter procedure 05/05/2021 Office Visit Urology Branden Trevino MD [address] [place] [address], [address] [place] [address] [facility] Start: 05-01-2021 End: 05-01-2021 Office Visit 05/01/2021 Office Visit Primary Care Regan Mendez, PATHOLOGY LABORATORY DIRECTOR - IMAGING SCHEDULER [address] [place] [address] [phone] [facility] Start: 2021 DTaP/Tdap/Td vaccine (2 - Td) DTaP/Tdap/Td vaccine (2 - Td) [place], [place] Start: 03-24-2021 End: 03-24-2021 Patient encounter procedure 03/24/2021 Office Visit Urology Branden Trevino MD [address] [place] [address], [address] [place], [place] [id number] [facility] Start: 01-15-2021 End: 01-15-2021 Office Visit 01/15/2021 Office Visit Obstetrics and Gynecology Misha Hernandez MD [address] [place] [address] [facility] Start: 12-04-2020 End: 12-04-2020 Ancillary Procedure [facility] Start: 11-25-2020 Screening for malign ant neoplasm of cervix [facility] Start: 10-31-2020 End: 10-31-2020 Office Visit 10/31/2020 Office Visit Primary Care Regan Mendez, PATHOLOGY LABORATORY DIRECTOR - IMAGING SCHEDULER [address] [facility] [place] [place] [address] [facility] Start: 10-30-2020 End: 10-30-2020 Office Visit [facility] Start: 10-11-2020 Screening for malign ant neoplasm of cervix HPV (without or with Pap) [facility] Start: 09-30-2020 End: 09-30-2020 Office Visit 09/30/2020 Office Visit Primary Care Regan Mendez, PATHOLOGY LABORATORY DIRECTOR - IMAGING SCHEDULER [address] [place] [address] [phone] [facility] Start: 09-29-2020 Influenza vaccination Flu vaccine (# 1) [facility] Work Phone: Comment on above: Postponed from 07/16 (Patient Refused) Start: 09-19-2020 End: 09-19-2020 Office Visit 09/19/2020 Office Visit Urology Zhao Garcia, PATHOLOGY LABORATORY DIRECTOR - IMAGING SCHEDULER [address] [place] [address] [facility] Start: 07-16-2020 Influenza vaccination Flu vaccine (# 1) [place], [place] Start: 07-11-2020 HIV screen HIV screen [place], [place] Comment on above: Postponed from 04/25 (Patient Refused) Start: 07-11-2020 HIV screening HIV screen [facility] [place] Comment on above: Postponed from 04/25 (Patient Refused) Start: 04-22-2020 End: 04-22-2020 Office Visit 04/22/2020 Office Visit Primary Care Regan Mendez PATHOLOGY LABORATORY DIRECTOR - IMAGING SCHEDULER [address] [place] [address] [phone] [facility] Start: 10-16-2019 End: 10-16-2019 Office Visit 10/16/2019 Office Visit Primary Care Regan Mendez PATHOLOGY LABORATORY DIRECTOR - IMAGING SCHEDULER [address] [place] [address] [phone] [facility] Start: 07-25-2019 End: 07-25-2019 Hospital Encounter [facility] OR Comment on above: ESWL EXTRACORPOREAL SHOCK WAVE LITHOTRIPSY Start: 07-17-2019 End: 07-16-2020 VL DUP LOWER EXTREMITY VENOUS LEFT VL DUP LOWER EXTREMITY VENOUS LEFT Imaging Routine Pain of left calf Expected: 07/17/2019, Expires: 07/16/2020 [place], [place] Comment on above: Expected: 07/17/2019 , Expires: 07/16/2020 Start: 07-16-2019 Influenza vaccination Flu vaccine (# 1) [place] Start: 07-11-2019 End: 07-11-2019 Office Visit 07/11/2019 Office Visit Primary Care Regan Mendez, PATHOLOGY LABORATORY DIRECTOR - IMAGING SCHEDULER [address] [place] [address] [phone] [facility] Start: 07-04-2019 End: 07-04-2019 Appointment 07/04/2019 Appointment Radiology [facility] CT Scan Start: 06-26-2019 End: 06-26-2019 Office Visit 06/26/2019 Office Visit Urology Branden Trevino MD [address] [place] [id number] [facility] Start: 06-30-2018 Pneumococcal 0-64 ye ars Vaccine (2 - PCV) Pneumococcal 0-64 years Vaccine (2 - PCV) [facility] Start: 2017 Screening for malign ant neoplasm of colon [facility] Start: 2012 Diabetes screen Diabetes screen [place], [place] Start: 1990 Hepatitis C screening Hepatitis C [facility] Start: 1987 HIV screen HIV screen [place], [place] Start: 1987 HIV screening HIV screen [facility] Start: 1977 COVID-19 Vaccine (1) COVID-19 Vaccin e (1) [facility] Start: 1972 Hepatitis C screening Hepatitis C sc reen [place], [place] End: 06-26-2019 Bacteria identified Cx Nom (U) Urine Culture Microbiology Routine Renal calculus 1 Occurrences starting 06/26/2019 until 06/26/2019 [place] Comment on above: 1 Occurrences starti ng 06/26/2019 until 06/26/2019 End: 06-21-2023 C.trachomatis N.gonorrhoeae DNA [place] Comment on above: 1 Occurrences starti ng 06/21/2023 until 06/21/2023 End: 06-25-2020 COVID-19 Ambulatory COVID19 Ambulatory Lab Routine Acute URI 1 Occurrences starting 06/25/2020 until 06/25/2020 [place], [place] Comment on above: 1 Occurrences starti ng 06/25/2020 until 06/25/2020 COVID-19 Ambulatory [place], [place] End: 09-11-2020 COVID-19 Ambulatory COVID19 Ambulatory Lab Routine Viral gastroenteritis 1 Occurrences starting 09/11/2020 until 09/11/2020 [place] Comment on above: 1 Occurrences starti ng 09/11/2020 until 09/11/2020 End: 08-07-2020 Culture, Urine Culture, Urine Microbiology Routine Renal colic 1 Occurrences starting 08/07/2020 until 08/07/2020 [place] Comment on above: 1 Occurrences starti ng 08/07/2020 until 08/07/2020 Culture, Urine [place] End: 03-18-2021 Culture, Urine Culture, Urine Microbiology Routine One Time for 1 Occurrences starting 03/18/2021 until 03/18/2021 [facility] Comment on above: One Time for 1 Occur rences starting 03/18/2021 until 03/18/2021 End: 03-22-2021 Culture, Urine Culture, Urine Microbiology Routine One Time for 1 Occurrences starting 03/22/2021 until 03/22/2021 [facility] Comment on above: One Time for 1 Occur rences starting 03/22/2021 until 03/22/2021 End: 04-06-2022 Culture, Urine [facility] [employer] Phone: Comment on above: Once for 1 Occurrenc es starting 04/06/2022 until 04/06/2022 End: 04-21-2022 Culture, Urine [employer] Phone: Comment on above: 1 Occurrences starti ng 04/21/2022 until 04/21/2022 End: 01-12-2023 Culture, Urine [employer] Phone: Comment on above: 1 Occurrences starti ng 01/12/2023 until 01/12/2023 End: 01-26-2022 Cytopathology procedure, preparation of smear, genital source PAP SMEAR Lab Routine Women's annual routine gynecological examination 1 Occurrences starting 01/26/2022 until 01/26/2022 [email or web address] Phone: Comment on above: 1 Occurrences starti ng 01/26/2022 until 01/26/2022 Initiate Oxygen Ther apy Protocol Initiate Oxygen Therapy Protocol Respiratory Care Routine Daily until discontinued starting 07/26/2019 [facility] [place] Comment on above: Daily until disconti nued starting 07/26/2019 End: 04-14-2022 INITIATE PACU OXYGEN THERAPY PROTOCOL Initiate PACU Oxygen Therapy Protocol Respiratory Care Routine Continuous until discontinued starting 04/14/2022 [employer] Phone: Comment on above: Continuous until dis continued starting 04/14/2022 End: 04-27-2022 INITIATE PACU OXYGEN THERAPY PROTOCOL Initiate PACU Oxygen Therapy Protocol Respiratory Care Routine Continuous until discontinued starting 04/27/2022 [employer] Phone: Comment on above: Continuous until dis continued starting 04/27/2022 Oxygen therapy [Mini mum Data Set] [email or web address] Phone: Comment on above: Daily until disconti nued starting 01/01/2021 Daily until disconti nued starting 03/20/2021 Oxygen therapy [Mini [employer] Data Set] Initiate Oxygen Therapy Protocol Respiratory Care Routine As Needed until discontinued starting 04/14/2022 [employer] Phone: Comment on above: As Needed until disc ontinued starting 04/14/2022 Oxygen therapy [[facility] Data Set] Initiate Oxygen Therapy Protocol Respiratory Care Routine As Needed until discontinued starting 04/27/2022 [employer] Phone: Comment on above: As Needed until disc ontinued starting 04/27/2022 Phase I & II - meter ed glucose Phase I & II - metered glucose Point of Care Testing Routine As Needed until discontinued starting 01/01/2021 [email or web address] Phone: Comment on above: As Needed until disc ontinued starting 01/01/2021 End: 01-26-2020 Splint application Splint application Procedures Routine One Time for 1 Occurrences starting 01/26/2020 until 01/26/2020 [employer] [facility] Comment on above: One Time for 1 Occur rences starting 01/26/2020 until 01/26/2020 Stone Analysis Stone Analysis Microbiology Routine Release Upon Ordering for 1 Occurrences starting 03/20/2021 [email or web address] Phone: Comment on above: Release Upon Orderin g for 1 Occurrences starting 03/20/2021 Stone Analysis Stone Analysis Microbiology Routine Calculus of ureter Release Upon Ordering for 1 Occurrences starting 04/27/2022 [employer] Phone: Comment on above: Release Upon Orderin g for 1 Occurrences starting 04/27/2022 Surgical Pathology Surgical Path ology Lab Routine Release Upon Ordering for 1 Occurrences starting 01/01/2021 [email or web address] Phone: Comment on above: Release Upon Orderin g for 1 Occurrences starting 01/01/2021 Immunizations Immunization Date Immunization Notes Care Provider Evelyn barcenas 06-30-2017 pneumococcal polysac charide vaccine, 23 valent [facility] 2011 tetanus toxoid, redu kristan diphtheria toxoid, and acellular pertussis vaccine, adsorbed [facility] [employer] Payers Date Payer Category Payer Self-pay 2022 Medicaid [id number] 2022 Private Health Insurance [id number] 2014 Unknown [id number] 2014 Unknown [employer] xxxxxxxxxxx 2014-Present [phone] [address] [place] [address] xxxxxxxxxxx [id number] 2014 Unknown [employer] [id number] 2014-Present [phone] [address] [place] [address] [id number] 1972 Unknown [id number] 1972 Unknown [id number] 173 1972 Unknown [id number] 1972 Unknown [id number] 1972 Unknown [id number] 1972 Unknown [id number] 1972 Unknown [id number] Social History Date Type Detail Facility Start: 11-15-1999 End: 07-28-2022 Tobacco smoking status NHIS Current every day smoker [facility] Start: 11-15-1999 History of tobacco use Cigarette Smo ker [place], [place] Start: 06-05-2019 End: 07-28-2022 Cigarettes smoked current (pack per day) - Reported [place], [place] Start: 06-05-2019 End: 07-16-2019 [facility] [place] Start: 12-06-2017 End: 06-11-2022 Tobacco Comment down to 1/3 pack per day [place], [place] Start: 02-03-2018 Alcohol Comment rarely [place] Start: 1972 Sex Assigned At [facility] on file [facility] [place] Start: 01-26-2020 End: 06-23-2023 Alcohol intake Current non-drinker of alcohol (finding) [facility] Start: 06-24-2020 End: 07-28-2022 Tobacco use and exposure Never used [facility] [place] Start: 03-27-2022 End: 04-27-2022 Exposure to SARS-CoV-2 (event) Not sure [place], [place] Start: 05-01-2021 History SDOH Food Worry 1 [facility]: Start: 01-25-2023 History SDOH Housing Homeless Last Year 3 [facility] [employer] Medical Equipment Procedure Code Equipment Code Equipment Origin al Text Equipment Identifier Dates Stent Uret Hydrp l Coat W/O [id number] Start: 02-03-2018 Stent Uret 6fr L 26cm Hydr+ Pgtl Tapr Tip Grad Bldr Mrk Lo [id number] Start: 03-20-2021 Stent Uret 6 Frx 26 Cm Firm [employer] - [id number] Start: 04-07-2022 Stent Uret 6 Frx 26 Cm [employer] - [id number] Start: 04-07-2022 Stent Uret 6 Frx 26 Cm [employer] - [id number] Start: 04-14-2022 Comment on above: Description: String remains intact and secured to right thigh with mastisol and steri strips Stent Uret 6 Frx 26 Cm [employer] - [id number] Start: 04-27-2022 Clinical Notes 03-20-2021 to 06-21-2023 Discharge InstructionsAttaStephan Haywood RN - 04/27/2022 9:25 AM Latonya Haywood RN - 04/27/2022 9:17 AM Cassidy Espinal RN - 04/24/2022 9:49 AM EDTInstructions [...] us to take care of you at [facility]. In the next few days you may receive a survey by mail or e-mail asking about the care you received during this visit. Please complete this if you are able, as this feedback helps us provide the best care possible. The following attachments cannot be sent through Care Everywhere.Headache (Liberian)documented in this encounter [facility] 04-27-2022 History of Presen t illness Narrative [...] day of surgery. documented in this encounter [facility] [employer] Phone: 04-14-2022 History of Presen t illness [...] patient. Verbalizes understanding. documented in this encounter [facility] [employer] Phone: 04-14-2022 Hospital Discharg e instructions Lizbeth Fountain RN - 04/14/2022 SAME DAY SURGERY DISCHARGE [...] flush the urinary tract.) Call Dr. Trevino ([phone]) if you develop: Fever over 100 degrees [...] Call Dr. Trevino office for follow-up appointment ([phone]). documented in this encounter [facility] AND[facility] [employer] Phone: 04-06-2022 History of Presen t illness Narrative Urology office called at this time. Connected to Dr. Ayoub. documented in this encounter [email or web address] Phone: 03-20-2021 History of Presen t illness Narrative 1315 Diana swan spoke with pt. 1325 Pt states burning [...] sheet reviewed and given to patient in [facility] skin prep instructions reviewed with the patient via telephone. Pt instructed to take no aspirin products and to only take wellbutrin and zyrtec the morning of surgery with a sip of water only. documented in this encounter [email or web address] Phone: Evaluation note Diagnosis Pelvic pain- Primary Acute midline low back pain without sciatica documented in this encounter [email or web address] Phone: evaluation note* Diagnosis Ureteral calculus- Primary Calculus of ureter documented in this encounter [email or web address] Phone: evaluation note* Diagnosis Pelvic pain- Primary documented in this encounter [email or web address] Phone: evaluation note* Diagnosis Kidney stone Calculus of kidney documented in this encounter [email or web address] Phone: evaluation note* Diagnosis Women's annual routine gynecological examination documented in this encounter [email or web address] Phone: evaluation note* Diagnosis Lipid screening Screening for lipoid disorders Diabetes mellitus screening Screening for diabetes mellitus documented in this encounter [email or web address] Phone: evaluation note* Diagnosis Kidney stone- Primary Calculus of kidney documented in this encounter [email or web address] Phone: evaluation note* Diagnosis Ureteral calculus- Primary Calculus of ureter documented in this encounter [employer] Phone: evaluation note* Diagnosis Urethritis Urethritis, unspecified Dysuria documented in this encounter [employer] Phone: evaluation note* Diagnosis Urethritis Urethritis, unspecified Bilateral ureteral calculi Dysuria Calculus of ureter documented in this encounter [employer] Phone: evaluation note* Diagnosis Ureteral calculus- Primary Calculus of ureter Calculus of ureter documented in this encounter [employer] Phone: evaluation note* Diagnosis UTI symptoms documented in this encounter [employer] Phone: evaluation note* Diagnosis Episodic cluster headache, not intractable- Primary Episodic cluster headache documented in this encounter [employer] note* Diagnosis Urethral cyst Other specified disorders of urethra documented in this encounter [facility]* Diagnosis Microscopic hematuria documented in this encounter [employer] Phone: Hospital Discharge instructions* Attachments The following attachments cannot be sent through Care Everywhere. * Back Pain (Liberian) * Low Back Pain: Exercises (Liberian) [facility] this [facility] Phone: Hospital Discharge instructions* Instructions* Eula Lozano [...] flush the urinary tract.) Call Dr. Trevino ([phone]) if you develop: Fever over 100 degrees [...] Call Dr. Trevino office for follow-up appointment ([phone]). documented in this [facility] Phone: Hospital Discharge instructions* Instructions* Rhea Dillard MD - 03/22/2021 Use lsaq-dmu-bzunbcq MiraLAX or similar product as a stool softener as directed. Follow-up with urology Wednesday as scheduled. Continue Macrobid as directed. Seek medical attention for any new symptomsor any other acute concerns. * Attachments The following attachments cannot be sent through Care Everywhere. * Pelvic Pain (Liberian) [facility] Phone: Hospital Discharge instructions* Instructions* Jimi Ayoub MD - 04/06/2022 Please strain all urine for kidney stone You will also be prescribed a prescription for Zofran for nausea Please keep appointment as scheduled by Valeria Trevino's ASSISTANT STATISTICIAN at 130 today * Attachments The following attachments cannot be sent through Care Everywhere. * Kidney Stone (Liberian) documented in this [email or web address] Phone: Hospital Discharge instructions* Instructions* Juliana Haywood [...] flush the urinary tract.) Call Dr. Trevino ([phone]) if you develop: Fever over 100 degrees [...] Call Dr. Trevino office for follow-up appointment ([phone]). [facility] [employer] Phone: reason for visit Narrative* Auth/Cert Specialty Diagnoses / Procedures Referred By Yinka golden Referred To Contact Diagnoses Ureteral stone KIDNEY STONE Procedures NH CYSTO/URETERO W/LITHOTRIPSY &INDWELL STENT INSRT NH CYSTOURETHROGRAPHY REMV CALCULUS, STENT, FOREIGN BODY, SIMPLE CYSTOSCOPY URETEROSCOPY LASER-HLL CYSTOSCOPY STENT REMOVAL Branden Trevino MD [address] [place] [address], [address] [place] [id number] [employer] [address] [place] [address] Referral ID Status Reason Start Date Expiration Date Visits Re quested Visits Authorized [id number] 1 1 [employer] Phone: reason for visit Narrative* Auth/Cert Specialty Diagnoses / Procedures Referred By Yinka golden Referred To Contact Diagnoses Calculus of ureter N20.1 Procedures NH CYSTO/URETERO W/LITHOTRIPSY &INDWELL STENT INSRT CYSTOSCOPY URETEROSCOPY LASER-HLL, POSSIBLE STENT PLACEMENT Branden Trevino MD [address] [place] [address], [address] [place] [address] [employer] [address] [place] [address] Referral ID Status Reason Start Date Expiration Date Visits Re quested Visits Authorized [id number] 1 1 [employer] Phone: Summary Purpose Family History No Family History Records FoundNo Family History Records FoundNo Family History Records FoundNo Family History Records FoundNo Family History Records Found Advance Directives No Advanced Directives Records FoundDocuments on File Type Date Recorded Patient Finance Mgr Expl anation Advance Directives and Living Will Power of Pork Cutlet Maker Latest Code Status on File Code Status Date Activated Date Inactivated Comments Full Code 03/22/2018 6:32 AM 03/22/2018 12:15 PM Full Code 02/03/2018 9:30 AM 02/03/2018 4:16 PM Documents on File Type Date Recorded Patient Finance Mgr Expl anation Advance Directives and Living Will Power of Pork Cutlet Maker Latest Code Status on File Code [...] Documents on File Type Date Recorded Patient Finance Mgr Expl anation ACP-Advance Directive ACP-Power of Pork Cutlet Maker Documents on File Type Date Recorded Patient Finance Mgr Expl anation ACP-Advance Directive ACP-Power of Pork Cutlet Maker Latest Code Status on File Code [...] Relationship Healthcare Agent Relationshi p Communication N[place] Brother/Sister Primary Decision Maker Healthcare Agents on File Name Relationship Healthcare Agent Relationshi p Communication Nils [place] Brother/Sister Primary Decision Maker Healthcare Agents on File Name Relationship Healthcare Agent Relationshi p Communication Nils [place] Brother/Sister Primary Decision Maker Healthcare Agents on [...] Agents on File Name Relationship Healthcare Agent [facility] p Communication Nils [place] Brother/Sister Primary Decision Maker Healthcare Agents on File Name [facility] Healthcare Agent [facility] p Communication Nils [place] Brother/Sister Primary Decision [...] 11:40 AM Healthcare Agents on File Name [facility] Healthcare Agent [facility] Communication Nils [place] Brother/Sister Primary Decision Maker Assessments Diagnosis Renal [...] VENOUS LEFT William Disla II, PA-C [address] [facility] [place] [address] Status Reason Specialty Diagnoses / Procedures Referre d By Contact Referred To Contact Closed Radiology Diagnoses Renal calculus Procedures CT ABDOMEN PELVIS WO CONTRAST CHG CT SCAN,ABDOMENT AND PELVIS,W/O CONTRAST Branden Trevino MD [address] [place] [address] Specialty Diagnoses / Procedures Referred By Contac t Referred To Contact Radiology Diagnoses Urethritis Bilateral ureteral calculi Dysuria Procedures CT ABDOMEN PELVIS WO CONTRAST Additional Contrast? None Zhao Garcia, PATHOLOGY LABORATORY DIRECTOR - IMAGING SCHEDULER [address] [place] [address] Referral ID Status Reason Start Date Expiration Date Visits Re quested Visits Authorized [id number] Closed 04/23/2022 04/23/2023 1 1 Specialty Diagnoses / Procedures Referred By Contac t Referred To Contact Radiology Diagnoses Microscopic hematuria Procedures CT UROGRAM Zhao Garcia, PATHOLOGY LABORATORY DIRECTOR - IMAGING SCHEDULER [address] [place] [address] Referral ID Status Reason Start Date Expiration Date Visits Re quested Visits Authorized [id number] Closed 06/28/2023 08/27/2023 1 1 Discharge Instructions * Attachments The following attachments cannot be sent through Care Everywhere. * Leg Pain (Liberian) documented in this encounter* Instructions* Shakila Billingsley PA-C - 01/26/2020 Keep foot in splint until seen in follow-up with foot doctor call on Wednesday use crutches. * Attachments The following attachments cannot be sent through Care Everywhere. * Foot: Stress Fracture (Liberian) documented in this encounter* Instructions* Tea Zimmerman [...] In the meantime, you may take an txnb-bgn-phjjoex analgesic (Tylenol, Anacin, etc.) and use a heating pad applied to the lower abdomen. Please call the office as soon as possible for a post-operative visit in two weeks. If you experience any unusual amount of bleeding or side effects that you cannot readily explain, please do not hesitate to call the office. documented in this encounter* Instructions* Diana Kilpatrick, RN - 07/25/2019 SAME DAY SURGERY DISCHARGE [...] flush the urinary tract.) Call Dr. Trevino ([phone]) if you develop: Fever over 100 degrees [...] Call Dr. Trevino office for follow-up appointment ([phone]). documented in this encounter History of Present Illness * Melisa Espinal RN - 12/27/2020 3:30 PM EST [facility] Preadmission Testing Name: Lala Mora : 1970 Patient (home) [phone] (work) Procedure D+C Date of Procedure: 01/01/21 [...] Yes Surgery Location Verified: Yes Patient Language: MOZAMB[place] Medical History Reviewed: Yes NPO Status Reinforced: Yes Ride and Caregiver Arranged: Yes Ride Caregiver Provider: FRIEND Pre-AdmissionTesting Checklist Patient has been to this health system before?: Yes Does patient refuse blood?: No Healthcare Directive: No, patient does not have an advance directive for healthcare treatment Wet Machine Tender needed: No Patient can read and write?: Yes [id number]: Does the patient want to have any [...] and content) DATE CREATED AUTHOR 05/19/2018 Juliana Ledesma Prem shen DATE CREATED AUTHOR AUTHOR'S ORGANIZ ATION [facility] DATE CREATED AUTHOR AUTHOR'S ORGANIZ ATION 08/07/2023 [facility] DATE CREATED AUTHOR AUTHOR'S ORGANIZ ATION 11/18/2023 [facility] DATE CREATED AUTHOR AUTHOR'S ORGANIZ ATION 01/13/2024 [facility] Reason for Visit (unrecogniz ed section and [...] AND PELVIS,W/O CONTRAST Branden Trevino MD [address] [place] [address] Status Reason Specialty Diagnoses / Procedures Referre d By Contact Referred To Contact Diagnoses Dysmenorrhea Heavy menstrual bleeding DYSMENORRHEA, HEAVY BLEEDING Procedures [place] HYSTEROSCOPY,W/ENDOMETR IAL ABLATION DILATATION AND CURETTAGE HYSTEROSCOPY CAUTERY ABLATION, Misha Amador MD [address] [place] [address] [facility] Status Reason Specialty Diagnoses / Procedures Re ferred By Contact Referred To Contact Diagnoses Calculus of kidney RIGHT RENAL CALCULUS Procedures NH FRAGMENT KIDNEY STONE/ ESWL ESWL EXTRACORPOREAL SHOCK WAVE LITHOTRIPSY Branden Trevino MD [address] [place] [address] [facility] Status Reason Specialty Diagnoses / Procedures Referre d By Contact Referred To Contact Open Radiology Diagnoses Pain of left calf Procedures VL DUP LOWER EXTREMITY VENOUS LEFT Nighat, William Guaman II, PA-C [address] [place] [address] Reason Comments Back Pain Abdominal Pain lower back pain and lower abd pain started 5/, complains of shooting pains in pelvic area, started taking macrobid 5/ Status Reason Specialty Diagnoses / Procedures Referre d By Contact Referred To Contact Diagnoses Right ureteral calculus RIGHT URETERAL CALCULUS Procedures NH CYSTO/URETERO W/LITHOTRIPSY &INDWELL STENT INSRT NH CYSTO/URETERO W/LITHOTRIPSY &INDWELL STENT INSRT CYSTOSCOPY URETEROSCOPY LASER-WITH HLL CYSTOSCOPY STENT INSERTION Branden Trevino MD [address] [facility] [address], [address] [place] [address] [facility] Reason Comments Hematuria Onset this AM. Pt demarco d stent placed 2 days ago for kidney stone and is complaining of pain at urethra and dysuria Reason Comments Flank Pain right sided flank pa in Specialty Diagnoses / Procedures Referred By Contac t Referred To Contact Radiology Diagnoses Urethritis Bilateral ureteral calculi Dysuria Procedures CT ABDOMEN PELVIS WO CONTRAST Additional Contrast? None Zhao Garcia, PATHOLOGY LABORATORY DIRECTOR - IMAGING SCHEDULER [address] [place] [address] Referral ID Status Reason Start Date Expiration Date Visits Re quested Visits Authorized [id number] Closed 04/23/2022 04/23/2023 1 1 Reason Comments Facial Pain Patient complains of right sided facial pain that extends into the right sided of her neck. Specialty Diagnoses / Procedures Referred By Yinka t Referred To Contact Radiology Diagnoses Microscopic hematuria Procedures CT UROGRAM Zhao Garcia, [facility] [address] [place] [address] Referral ID Status Reason Start Date Expiration Date Visits Re quested Visits Authorized [id number] Closed 06/28/2023 08/27/2023 1 1 Ordered Prescriptions [...] Dispensed Refills Start Date End Da te ketorolac (TORADOL) 10 MG tablet Take 1 tablet by mouth every 6 hours as needed for Pain 20 tablet 0 04/27/2022 04/27/2023 Care Teams (unrecognized sec tion and content) Purchase Price Analyst Relationship Specialty Start Date End Date Might, Regan Johnson APRN [facility] PCP - General Family Nurse Practitioner 10/18/18 Purchase Price Analyst Relationship Specialty Start Date End Date Might, Regan Johnson APRN [facility] PCP - General Family Nurse Practitioner 10/18/18 Purchase Price Analyst Relationship Specialty Start Date End Date Might, Regan Johnson APRN [facility] PCP - General Family Nurse Practitioner 10/18/18 Purchase Price Analyst Relationship Specialty Start Date End Date Might[facility] - General Family Nurse Practitioner 10/18/18 Purchase Price Analyst Relationship Specialty Start Date End Date Might, [facility] - General Family Nurse Practitioner 10/18/18 Purchase Price Analyst Relationship Specialty Start Date End Date Might, [facility] - General Family Nurse Practitioner 10/18/18 Purchase Price Analyst Relationship Specialty Start Date End Date Might, [facility] - General Family Nurse Practitioner 10/18/18 Purchase Price Analyst Relationship Specialty Start Date End Date Might, Regan Johnson APRN [facility] PCP - General Family Nurse Practitioner 10/18/18 Purchase Price Analyst Relationship Specialty Start Date End Date Might, [facility] - General Family Nurse Practitioner 10/18/18 [...] IVPB 400 mg (COMPLETED) 400 mg, IntraVENous, PROPULSION MOTOR AND GENERATOR REPAIRER TO O.R., 1 dose, On Wed04/14/22 at [...] (NoRateChange - Provider: Anette Bautista APRN - JOURNAL ENTRY AUDIT CLERK)[id number] (Stopped - Provider: Lizbeth Fountain RN) PRN [...] in 24 hours., Pre-op (day of surgery) 700 (Given - Provid er: Kedar Cage RN) ciprofloxacin (CIPRO) IVPB 400 mg (COMPLETED) 400 mg, IntraVENous, PROPULSION MOTOR AND GENERATOR REPAIRER TO O.R., 1 dose, On Wed04/27/22 at 0715, Antimicrobial Indications: Surgical Prophylaxis, Administer within 1 hour prior to incision, Pre-op (day of surgery) 0739 (New Bag - Prov ider: Tomasa Diaz RN)0758 (Stopped - Provider: Sagrario Yates APRN - [facility]) dimenhyDRINATE (DRAMAMINE) tablet 50 mg (COMPLETED) 50 mg, Oral, ONCE, 1 dose, On Wed04/27/22 at 0715, Pre-op (day of surgery) 07 (Given - Provid er: Kedar Cage RN) [...] BE BASED ON THE PRIMARY CLINICAL RECORDS. [facility]. provides no warranty or guarantee of the accuracy or completeness of information in this document.
== END 2024-01-15 13:17 | disposition home or self-care (01) ==
LOC: RAD 13:16
PROVIDERS: Visit Provider Urology
DX: N20.1 Calculus of ureter (principal); N13.30 Unspecified hydronephrosis
CPT/HCPCS: 74018